=== PATIENT | male | born 1960 | race Caucasian/White ===

== ENCOUNTER → 2017-02-06 | Outpatient (CLI) | payer OTHER ==
[~2017-02-06] MED LIST: ALBUTEROL2.5 MG/0.5 INH; AMOXICILLIN500 MG PO; ANAPROX DS550 MG PO; ASPIR-TRIN325 MG PO; ASPIRIN81 M1 PO; AUGMENTIN 875 M1 TA1 PO; AUGMENTIN 875 M1 TAB PO; B COMPLEX1 EACH PO; B12-METHYL1000 MCG PO; B12100 MC1 PO; BACTRIM DS 8001 TA1 PO; BP MED; CATAFLAM50 MG PO; CEPHALEXIN500 M1 PO; CIPRO500 MG PO; CIPROFLOXACIN500 MG PO; CLARITIN10 MG PO; CLINDAMYCIN HC300 MG PO; CORTISPORIN SUS10 ML OT; CYCLOBENZAPRINE10 MG PO; CYCLOBENZAPRINE5 M3 PO; DARVOCET N 1001 TAB PO; DAYPRO600 M1 PO; ECOTRIN325 MG PO; EPI EZ PEN1 MG/ML IM; FIORICET 325 MG1 TAB PO; FIORTAL 325 MG-1 TAB PO; FLEXERIL10 MG PO; FLEXERIL5 MG PO; FLOMAX0.4 MG PO; FLONASE 0.05% 121 EA NAS; FLONASE0.05 MG/AC NS; FLUTICASON0.05 MG/AC NAS; GABAPENTIN100 M2 PO; HYDR25T PO; HYDROCODONE BIT1 T11 PO; IMITREX100 MG PO; IMITREX50 MG PO; IRON COMPLEX PO; IRON90 MG PO; KEFLEX500 MG PO; LEVAQUIN500 M2 PO; LEVAQUIN750 M1 PO; LEVAQUIN750 MG PO; LEVOFLOXACIN500 MG PO; LISINOPRIL10 MG PO; LISINOPRIL20 MG PO; MEDROL DOSEPAK4 MG PO; MIDRIN (DURADR1 CAP PO; MOBIC15 MG PO; MOTRIN800 MG PO; MULTI VITAMINS1 TAB PO; Motrin,Rufen800 MG PO; NAPROSYN500 MG PO; NASACORT55 MCG/ACT NS; NATURE'S BLEND F1 MG PO; NEURONTIN300 MG PO; NKHM; NORCO 10-325 T1 EACH PO; NORCO 325 MG-101 TAB PO; NORCO 325 MG-51 TAB PO; NORFLEX100 MG PO; PERCOCET 325 MG1 TA5 PO; PHENERGAN W/ DE30 ML PO; PHENERGAN W/DM120 ML PO; PHENERGAN25 M1 PO; PREDNICOT20 MG PO; PREDNISONE10 MG PO; PROAIR HFA0.09 MG/AC IH; QVAR8.7 GM INH; ROBAXIN750 MG PO; ROBITUSSIN AC 110 ML PO; TOPAMAX25 M1 PO; TOPAMAX50 MG PO; TOPIRAMATE25 MG PO; TRAMADOL HCL50 MG PO; TROKENDI XR50 M1 PO; TYLENOL325 M1 PO; TYLENOL325 M2 PO; TYLENOL650 M1 PO; ULTRAM50 MG PO; VALIUM5 MG PO; VIBRAMYCIN100 MG PO; VICODIN 5/500 505 MG PO; VICODIN 500 MG-1 TAB PO; VICODIN ES 7501 TAB PO; VITAMIN D-32000 UNI1 PO; Vicodin 5/500 505 MG PO; ZITHROMAX Z PA250 MG PO; ZOFRAN ODT4 MG SL; ZOFRAN4 MG PO; Zofran4 MG PO; [UNRECOGNIZED DRUG - OTHER] PO; [UNRECOGNIZED DRUG - REMARK] PO
== END | disposition home or self-care (01) ==
LOC: RESCLI 14:17
DX: J01.11 Acute recurrent frontal sinusitis (principal)

== ENCOUNTER → 2017-02-27 | Outpatient (CLI) | payer OTHER ==
[~2017-02-27] MED LIST changes: +AUGMENTIN 875-875 MG PO
== END | disposition home or self-care (01) ==
LOC: RESCLI 03:06
DX: I10 Essential (primary) hypertension (principal); M79.604 Pain in right leg; M79.605 Pain in left leg; K21.9 Gastro-esophageal reflux disease without esophagitis

== ENCOUNTER 2017-03-01 19:53 | Emergency (ER) | payer OTHER ==
[~2017-03-01] VITALS: Ht 170.1 cm; Wt 70.3 kg
[~2017-03-01 19:53] MED LIST changes: -AUGMENTIN 875-875 MG PO
[2017-03-01 20:14] VITALS: BP 167/81
[2017-03-01] MEDS ORDERED: AUGMENTIN 875-875 MG PO (20:35)
== END 2017-03-01 20:41 | disposition home or self-care (01) ==
LOC: ED 19:53
DX: H65.111 Acute and subacute allergic otitis media (mucoid) (sanguinous) (serous), right ear (principal); J02.9 Acute pharyngitis, unspecified; F17.200 Nicotine dependence, unspecified, uncomplicated; G43.909 Migraine, unspecified, not intractable, without status migrainosus; I10 Essential (primary) hypertension; Z88.6 Allergy status to analgesic agent; Z79.82 Long term (current) use of aspirin; Z79.899 Other long term (current) drug therapy

== ENCOUNTER 2017-03-17 18:20 | Emergency (ER) | payer OTHER ==
[~2017-03-17] VITALS: Wt 65.8 kg
[~2017-03-17 18:20] MED LIST changes: +AUGMENTIN 875-875 MG PO
[2017-03-17 19:10] VITALS: BP 146/88
== END 2017-03-17 19:52 | disposition home or self-care (01) ==
LOC: ED 18:20
DX: S63.501A Unspecified sprain of right wrist, initial encounter (principal); R51 Headache; F17.210 Nicotine dependence, cigarettes, uncomplicated; Z98.890 Other specified postprocedural states; Z90.49 Acquired absence of other specified parts of digestive tract; Z79.82 Long term (current) use of aspirin; Z79.899 Other long term (current) drug therapy; Z88.6 Allergy status to analgesic agent; W19.XXXA Unspecified fall, initial encounter; Y93.89 Activity, other specified; Y92.89 Other specified places as the place of occurrence of the external cause; Y99.9 Unspecified external cause status

== ENCOUNTER → 2017-03-27 | Outpatient (CLI) | payer OTHER | END | disposition home or self-care (01) | LOC: RESCLI 02:01 | DX: S33.9XXA Sprain of unspecified parts of lumbar spine and pelvis, initial encounter (principal); K21.9 Gastro-esophageal reflux disease without esophagitis; F32.9 Major depressive disorder, single episode, unspecified; I25.10 Atherosclerotic heart disease of native coronary artery without angina pectoris; Z88.8 Allergy status to other drugs, medicaments and biological substances; Z87.891 Personal history of nicotine dependence; X58.XXXA Exposure to other specified factors, initial encounter; Y93.89 Activity, other specified; Y92.89 Other specified places as the place of occurrence of the external cause; Y99.8 Other external cause status ==

== ENCOUNTER 2017-04-11 18:59 | Emergency (ER) | payer OTHER ==
[~2017-04-11] VITALS: Ht 170.1 cm; Wt 67.1 kg
[2017-04-11 19:38] VITALS: BP 138/87
[2017-04-11 20:08] LABS: BASO # 0.1 10*3/uL (0.0-0.1); BASO % 0.8 % (0.0-1.0); EOS # 0.4 10*3/uL (0.0-0.4); EOS % 3.5 % (1.0-4.0); HEMATOCRIT 34.4 % (42.0-52.0); HEMOGLOBIN 11.7 g/dl (14.0-18.0); LYMPH # 2.2 10*3/uL (1.3-4.4); LYMPH % 21.5 % (27.0-41.0); MEAN CORPUSCULAR HGB 31.6 pg (27.0-31.0); MEAN PLATELET VOLUME 8.7 fl (9.6-12.3); MONO # 0.8 10*3/uL (0.1-1.0); MONO % 7.6 % (3.0-9.0); NEUT # 6.7 10*3/uL (2.3-7.9); NEUT % 66.3 % (47.0-73.0); PLATELET COUNT AUTOMATED 498 10*3/uL (130-400); WHITE BLOOD COUNT 10.1 10*3/uL (4.8-10.8)
[2017-04-11 20:23] LABS: ALBUMIN 3.5 gm/dl (3.1-4.5); ALKALINE PHOSPHATASE 80 U/L (45-117); BILIRUBIN, TOTAL 0.2 mg/dl (0.2-1.0); BUN 20 mg/dl (7-24); CARBON DIOXIDE 21 mmol/L (21-32); CHLORIDE 108 mmol/L (98-107); EST GLOM FILT AFRICAN AMERICAN > 60 ml/min; GLUCOSE 119 mg/dL (65-99); POTASSIUM 3.9 mmol/L (3.5-5.1); SGOT/AST 13 IU/L (3-35); SGPT/ALT 20 U/L (12-78); SODIUM 139 mmol/L (136-145); TOTAL PROTEIN 6.6 gm/dL (6.4-8.2)
[2017-04-11 22:00] LABS: BILIRUBIN NEGATIVE (NEGATIVE); BLOOD NEGATIVE (NEGATIVE); CLARITY CLEAR (CLEAR); COLOR YELLOW (YELLOW); GLUCOSE TRACE (NEGATIVE); KETONE NEGATIVE (NEGATIVE); LEUKO ESTERASE NEGATIVE (NEGATIVE); NITRITE NEGATIVE (NEGATIVE); PROTEIN NEGATIVE (NEGATIVE); SPECIFIC GRAVITY <= 1.005 (1.005-1.030); UROBILINOGEN 0.2 E.U./dl (0.2-1.0)
[2017-04-11 22:02] LABS: HYALINE CAST 0-2
[2017-04-11 22:03] LABS: BACTERIA 1+; RBC 0-2 rbc/hpf (0-2); URINE REFLEX COMMENT NO (NO); WBC 0-2 wbc/hpf (0-5)
[2017-04-11] MEDS ORDERED: CYCLOBENZAPRINE5 M3 PO (23:26)
[2017-04-11] MEDS ORDERED: NAPROSYN500 MG PO (23:26)
== END 2017-04-11 23:50 | disposition home or self-care (01) ==
LOC: ED 18:59
PROVIDERS: Physician Assistant
DX: M54.5 Low back pain (principal); F17.200 Nicotine dependence, unspecified, uncomplicated; Z88.6 Allergy status to analgesic agent; Z79.899 Other long term (current) drug therapy; Z79.82 Long term (current) use of aspirin; Z98.890 Other specified postprocedural states

== ENCOUNTER 2017-04-21 17:42 | Emergency (ER) | payer OTHER ==
[~2017-04-21] VITALS: Wt 68.0 kg
[2017-04-21 17:46] VITALS: BP 150/90
[2017-04-21 18:06] LABS: BASO # 0.1 10*3/uL (0.0-0.1); BASO % 0.7 % (0.0-1.0); EOS # 0.4 10*3/uL (0.0-0.4); HEMATOCRIT 36.1 % (42.0-52.0); HEMOGLOBIN 12.1 g/dl (14.0-18.0); LYMPH # 2.6 10*3/uL (1.3-4.4); LYMPH % 23.8 % (27.0-41.0); MEAN CELL VOLUME 94.3 fl (80.0-94.0); MEAN CORPUSCULAR HGB 31.6 pg (27.0-31.0); MEAN CORPUSCULAR HGB CONC 33.5 g/dl (33.0-37.0); MEAN PLATELET VOLUME 9.5 fl (9.6-12.3); MONO # 0.6 10*3/uL (0.1-1.0); NEUT # 7.2 10*3/uL (2.3-7.9); NEUT % 66.2 % (47.0-73.0); PLATELET COUNT AUTOMATED 465 10*3/uL (130-400); RED BLOOD COUNT 3.83 10*6/uL (4.50-5.90); RED CELL DISTRI WIDTH 13.2 % (0-14.5); WHITE BLOOD COUNT 10.9 10*3/uL (4.8-10.8)
[2017-04-21 18:22] LABS: BILIRUBIN NEGATIVE (NEGATIVE); BLOOD NEGATIVE (NEGATIVE); CLARITY SL CLOUDY (CLEAR); COLOR YELLOW (YELLOW); GLUCOSE NEGATIVE (NEGATIVE); KETONE NEGATIVE (NEGATIVE); LEUKO ESTERASE NEGATIVE (NEGATIVE); NITRITE NEGATIVE (NEGATIVE); PROTEIN NEGATIVE (NEGATIVE); SPECIFIC GRAVITY <= 1.005 (1.005-1.030); UROBILINOGEN 0.2 E.U./dl (0.2-1.0)
[2017-04-21 18:22] LABS: ALBUMIN 3.5 gm/dl (3.1-4.5); ALKALINE PHOSPHATASE 85 U/L (45-117); BILIRUBIN, TOTAL 0.2 mg/dl (0.2-1.0); BUN 16 mg/dl (7-24); CARBON DIOXIDE 21 mmol/L (21-32); CHLORIDE 106 mmol/L (98-107); EST GLOM FILT AFRICAN AMERICAN > 60 ml/min; GLUCOSE 129 mg/dL (65-99); SGOT/AST 15 IU/L (3-35); SGPT/ALT 19 U/L (12-78); SODIUM 139 mmol/L (136-145); TOTAL PROTEIN 6.6 gm/dL (6.4-8.2)
[2017-04-21 18:33] LABS: RBC 0-2 rbc/hpf (0-2); URINE REFLEX COMMENT NO (NO); WBC 0-2 wbc/hpf (0-5)
== END 2017-04-21 19:52 | disposition home or self-care (01) ==
LOC: ED 17:42
PROVIDERS: Registered Nurse
DX: R10.31 Right lower quadrant pain (principal); R30.9 Painful micturition, unspecified; F17.210 Nicotine dependence, cigarettes, uncomplicated; Z88.6 Allergy status to analgesic agent; Z79.899 Other long term (current) drug therapy; Z79.82 Long term (current) use of aspirin

== ENCOUNTER → 2017-04-24 | Outpatient (CLI) | payer OTHER | END | disposition home or self-care (01) | LOC: RESCLI 02:56 | DX: I10 Essential (primary) hypertension (principal); E55.9 Vitamin D deficiency, unspecified; R10.9 Unspecified abdominal pain; K21.9 Gastro-esophageal reflux disease without esophagitis; F32.9 Major depressive disorder, single episode, unspecified; Z88.6 Allergy status to analgesic agent ==

== ENCOUNTER → 2017-04-26 | Outpatient (CLI) | payer OTHER | END | disposition home or self-care (01) | LOC: US 16:13 | DX: R10.9 Unspecified abdominal pain (principal) ==

== ENCOUNTER → 2017-05-22 | Outpatient (CLI) | payer OTHER | END | disposition home or self-care (01) | LOC: RESCLI 03:10 | DX: M54.41 Lumbago with sciatica, right side (principal); I10 Essential (primary) hypertension; K21.9 Gastro-esophageal reflux disease without esophagitis; M54.10 Radiculopathy, site unspecified; J31.0 Chronic rhinitis; Z72.0 Tobacco use ==

== ENCOUNTER 2017-06-09 18:13 | Emergency (ER) | payer OTHER ==
[~2017-06-09] VITALS: Wt 68.0 kg
[2017-06-09 18:17] VITALS: BP 124/54
[2017-06-09] MEDS ORDERED: FLONASE ALLERG9.9 ML NAS (18:26)
[2017-06-09] MEDS ORDERED: PREDNISONE10 MG PO (18:26)
[2017-06-09] MEDS ORDERED: CLARITIN10 MG PO (18:26)
[2017-06-09] MEDS ORDERED: AMOXICILLIN500 M2 PO (18:35)
== END 2017-06-09 18:32 | disposition home or self-care (01) ==
LOC: ED 18:13
DX: J06.9 Acute upper respiratory infection, unspecified (principal); M25.531 Pain in right wrist; I10 Essential (primary) hypertension; G43.909 Migraine, unspecified, not intractable, without status migrainosus; F17.210 Nicotine dependence, cigarettes, uncomplicated; Z88.6 Allergy status to analgesic agent; Z79.82 Long term (current) use of aspirin; Z79.899 Other long term (current) drug therapy

== ENCOUNTER 2017-06-23 16:46 | Emergency (ER) | payer OTHER ==
[~2017-06-23] VITALS: Ht 170.1 cm; Wt 70.3 kg
[~2017-06-23 16:46] MED LIST changes: +AMOXICILLIN500 M2 PO; +FLONASE ALLERG9.9 ML NAS
[2017-06-23 17:03] VITALS: BP 140/66
[2017-06-23 17:18] LABS: BASO % 0.4 % (0.0-1.0); EOS # 0.2 10*3/uL (0.0-0.4); EOS % 2.8 % (1.0-4.0); HEMATOCRIT 33.2 % (42.0-52.0); HEMOGLOBIN 11.2 g/dl (14.0-18.0); LYMPH # 1.6 10*3/uL (1.3-4.4); LYMPH % 19.7 % (27.0-41.0); MEAN CELL VOLUME 90.2 fl (80.0-94.0); MEAN CORPUSCULAR HGB 30.4 pg (27.0-31.0); MEAN CORPUSCULAR HGB CONC 33.7 g/dl (33.0-37.0); MEAN PLATELET VOLUME 8.4 fl (9.6-12.3); MONO # 0.5 10*3/uL (0.1-1.0); MONO % 6.5 % (3.0-9.0); NEUT # 5.7 10*3/uL (2.3-7.9); NEUT % 70.4 % (47.0-73.0); PLATELET COUNT AUTOMATED 491 10*3/uL (130-400); RED BLOOD COUNT 3.68 10*6/uL (4.50-5.90); RED CELL DISTRI WIDTH 13.3 % (0-14.5); WHITE BLOOD COUNT 8.1 10*3/uL (4.8-10.8)
[2017-06-23 17:27] LABS: ACT PARTIAL THROMBO TIME 27.5 SECONDS (20.8-31.5)
[2017-06-23 17:34] LABS: ALKALINE PHOSPHATASE 105 U/L (45-117); BUN 10 mg/dl (7-24); CHLORIDE 100 mmol/L (98-107); CREATININE 1.05 mg/dL (0.70-1.30); MAGNESIUM 2.2 mg/dL (1.5-2.1); SGOT/AST 13 IU/L (3-35); SGPT/ALT 17 U/L (12-78); SODIUM 133 mmol/L (136-145); TOTAL PROTEIN 7.4 gm/dL (6.4-8.2)
[2017-06-23 17:36] LABS: TROPONIN I < 0.015 ng/ml (<0.045)
[2017-06-23] MEDS ORDERED: ROBITUSSIN AC 110 ML PO (17:54)
[2017-06-23] MEDS ORDERED: PREDNISONE10 MG PO (17:54)
== END 2017-06-23 18:38 | disposition home or self-care (01) ==
LOC: ED 16:46
PROVIDERS: Nurse Practitioner Family
DX: J20.9 Acute bronchitis, unspecified (principal); R03.0 Elevated blood-pressure reading, without diagnosis of hypertension; F17.200 Nicotine dependence, unspecified, uncomplicated; Z98.890 Other specified postprocedural states; Z90.49 Acquired absence of other specified parts of digestive tract; Z79.82 Long term (current) use of aspirin; Z79.899 Other long term (current) drug therapy; Z88.6 Allergy status to analgesic agent

== ENCOUNTER 2017-07-24 20:11 | Emergency (ER) | payer OTHER ==
[~2017-07-24] VITALS: Ht 167.6 cm; Wt 65.8 kg
[2017-07-24 20:35] VITALS: BP 118/61
== END 2017-07-24 23:04 | disposition home or self-care (01) ==
LOC: ED 20:11
DX: G43.909 Migraine, unspecified, not intractable, without status migrainosus (principal); F17.210 Nicotine dependence, cigarettes, uncomplicated; G89.29 Other chronic pain; I10 Essential (primary) hypertension; E78.00 Pure hypercholesterolemia, unspecified; Z98.890 Other specified postprocedural states; Z90.49 Acquired absence of other specified parts of digestive tract; Z79.899 Other long term (current) drug therapy; Z79.82 Long term (current) use of aspirin; Z88.6 Allergy status to analgesic agent

== ENCOUNTER → 2017-08-21 | Outpatient (CLI) | payer OTHER | END | disposition home or self-care (01) | LOC: RESCLI 01:29 | DX: B35.1 Tinea unguium (principal); R05 Cough; M25.441 Effusion, right hand; M54.9 Dorsalgia, unspecified; G43.709 Chronic migraine without aura, not intractable, without status migrainosus; K21.9 Gastro-esophageal reflux disease without esophagitis; F32.9 Major depressive disorder, single episode, unspecified ==

== ENCOUNTER → 2017-08-24 | Outpatient (CLI) | payer OTHER ==
[2017-08-24 12:26] LABS: BASO # 0.1 10*3/uL (0.0-0.1); BASO % 0.8 % (0.0-1.0); EOS # 0.1 10*3/uL (0.0-0.4); EOS % 1.6 % (1.0-4.0); HEMATOCRIT 35.1 % (42.0-52.0); HEMOGLOBIN 11.4 g/dl (14.0-18.0); LYMPH # 2.1 10*3/uL (1.3-4.4); LYMPH % 23.8 % (27.0-41.0); MEAN CELL VOLUME 90.2 fl (80.0-94.0); MEAN CORPUSCULAR HGB 29.3 pg (27.0-31.0); MEAN CORPUSCULAR HGB CONC 32.5 g/dl (33.0-37.0); MEAN PLATELET VOLUME 9.5 fl (9.6-12.3); MONO # 0.4 10*3/uL (0.1-1.0); MONO % 4.9 % (3.0-9.0); NEUT # 6.1 10*3/uL (2.3-7.9); NEUT % 68.6 % (47.0-73.0); PLATELET COUNT AUTOMATED 392 10*3/uL (130-400); RED BLOOD COUNT 3.89 10*6/uL (4.50-5.90); RED CELL DISTRI WIDTH 16.7 % (0-14.5); WHITE BLOOD COUNT 8.9 10*3/uL (4.8-10.8)
[2017-08-24 12:43] LABS: ALBUMIN 3.6 gm/dl (3.1-4.5); ALKALINE PHOSPHATASE 82 U/L (45-117); BUN 19 mg/dl (7-24); CHLORIDE 105 mmol/L (98-107); POTASSIUM 4.1 mmol/L (3.5-5.1); SGOT/AST 14 IU/L (3-35); SGPT/ALT 15 U/L (12-78); SODIUM 137 mmol/L (136-145); TOTAL PROTEIN 7.1 gm/dL (6.4-8.2)
[2017-08-24 13:39] LABS: VITAMIN D, 25-HYDROXY 51.7 ng/mL (30-100)
[2017-08-25 08:07] LABS: RHEUMATOID ARTHRITIS FACTOR <10.0 IU/mL (0.0-13.9)
[2017-08-26 20:06] LABS: CCP ANTIBODIES IGG/IGA 2 units (0-19)
== END | disposition home or self-care (01) ==
LOC: LAB 11:53
PROVIDERS: Internal Medicine
DX: M25.441 Effusion, right hand (principal); E55.9 Vitamin D deficiency, unspecified

== ENCOUNTER 2017-09-21 16:16 | Emergency (ER) | payer OTHER ==
[~2017-09-21] VITALS: Ht 170.1 cm; Wt 70.3 kg
[2017-09-21 16:33] VITALS: BP 170/80
== END 2017-09-21 18:22 | disposition home or self-care (01) ==
LOC: ED 16:16
DX: R51 Headache (principal); F17.210 Nicotine dependence, cigarettes, uncomplicated; Z98.890 Other specified postprocedural states; Z90.49 Acquired absence of other specified parts of digestive tract; Z79.82 Long term (current) use of aspirin; Z79.899 Other long term (current) drug therapy; Z88.6 Allergy status to analgesic agent

== ENCOUNTER → 2017-10-01 | Outpatient (CLI) | payer OTHER | END | disposition home or self-care (01) | LOC: RESCLI 01:16 | DX: G56.01 Carpal tunnel syndrome, right upper limb (principal) ==

== ENCOUNTER → 2017-10-24 | Outpatient (CLI) | payer OTHER | END | disposition home or self-care (01) | LOC: ORTHO 01:59 | DX: M25.811 Other specified joint disorders, right shoulder (principal); R29.898 Other symptoms and signs involving the musculoskeletal system ==

== ENCOUNTER → 2017-11-02 | Outpatient (CLI) | payer OTHER ==
[~2017-11-02] MED LIST changes: +MELOXICAM15 MG PO; +NIFEDIPINE ER30 M1 PO; +NORTRIPTYLINE H50 M1 PO
--- NOTE | ~2017-11-02 | EKG ---
[place], [place] ELECTROCARDIOGRAM REPORT NAME: KIERRA LABOY UNIT #: [id number] ROOM: DOCTOR: JOVANA RAUSCH,MACARIO BIRTHDATE: [birth year] DOS: 11/02/2017 TIME: 10:35. IMPRESSION: 1. Sinus rhythm. 2. Right atrial enlargement. 3. Inferior nondiagnostic ST-T changes. 4. Normal QT interval. MACARIO WHALEY MD CM:EKGRPT:ELECTROCARDIOGRAM REPORT [id number] [id number] MACARIO WHALEY MD
[2017-11-02 09:56] LABS: BASO # 0.1 10*3/uL (0.0-0.1); BASO % 0.7 % (0.0-1.0); EOS # 0.2 10*3/uL (0.0-0.4); EOS % 2.4 % (1.0-4.0); HEMATOCRIT 42.6 % (42.0-52.0); HEMOGLOBIN 14.3 g/dl (14.0-18.0); LYMPH # 2.5 10*3/uL (1.3-4.4); LYMPH % 24.3 % (27.0-41.0); MEAN CELL VOLUME 90.4 fl (80.0-94.0); MEAN CORPUSCULAR HGB 30.4 pg (27.0-31.0); MEAN CORPUSCULAR HGB CONC 33.6 g/dl (33.0-37.0); MEAN PLATELET VOLUME 9.8 fl (9.6-12.3); MONO # 0.7 10*3/uL (0.1-1.0); MONO % 6.5 % (3.0-9.0); NEUT # 6.6 10*3/uL (2.3-7.9); NEUT % 65.2 % (47.0-73.0); PLATELET COUNT AUTOMATED 371 10*3/uL (130-400); RED BLOOD COUNT 4.71 10*6/uL (4.50-5.90); RED CELL DISTRI WIDTH 13.9 % (0-14.5); WHITE BLOOD COUNT 10.1 10*3/uL (4.8-10.8)
[2017-11-02 10:22] LABS: BUN 11 mg/dl (7-24); CHLORIDE 108 mmol/L (98-107); CREATININE 1.05 mg/dL (0.70-1.30); POTASSIUM 4.3 mmol/L (3.5-5.1); SODIUM 140 mmol/L (136-145)
== END | disposition home or self-care (01) ==
LOC: LAB 08:15
PROVIDERS: Orthopaedic Surgery
DX: Z01.818 Encounter for other preprocedural examination (principal); G56.01 Carpal tunnel syndrome, right upper limb; J44.9 Chronic obstructive pulmonary disease, unspecified; J84.10 Pulmonary fibrosis, unspecified; I25.2 Old myocardial infarction; F17.200 Nicotine dependence, unspecified, uncomplicated

== ENCOUNTER → 2017-11-08 | Day surgery (SDC) | payer OTHER ==
[2017-11-02 09:31] VITALS: BP 123/78
[~2017-11-08] VITALS: Ht 170.1 cm; Wt 68.0 kg
[~2017-11-08] MED LIST changes: +NORCO 5-325 TA1 EACH PO
[2017-11-08 06:57] VITALS: BP 116/62
[2017-11-08 08:40] VITALS: BP 135/76
[2017-11-08 08:55] VITALS: BP 122/69
[2017-11-08 09:01] VITALS: BP 116/69
[2017-11-08 09:10] VITALS: BP 111/64
[2017-11-08 09:40] VITALS: BP 106/48
== END ==
LOC: SDC 11-02 09:30
DX: G56.01 Carpal tunnel syndrome, right upper limb (principal); I10 Essential (primary) hypertension; K21.9 Gastro-esophageal reflux disease without esophagitis; F17.210 Nicotine dependence, cigarettes, uncomplicated; Z98.890 Other specified postprocedural states; Z79.899 Other long term (current) drug therapy; Z88.8 Allergy status to other drugs, medicaments and biological substances; I25.2 Old myocardial infarction; G43.909 Migraine, unspecified, not intractable, without status migrainosus; Z95.5 Presence of coronary angioplasty implant and graft; Z82.49 Family history of ischemic heart disease and other diseases of the circulatory system

== ENCOUNTER 2017-11-23 10:28 | Emergency (ER) | payer OTHER ==
[~2017-11-23] VITALS: Ht 170.1 cm; Wt 70.3 kg
[2017-11-23 10:44] VITALS: BP 154/76
[2017-11-23] MEDS ORDERED: AVPAK AZITHROM250 MG PO (11:59)
[2017-11-23] MEDS ORDERED: PREDNISONE10 MG PO (11:59)
== END 2017-11-23 12:27 | disposition home or self-care (01) ==
LOC: ED 10:28
DX: M54.6 Pain in thoracic spine (principal); R03.0 Elevated blood-pressure reading, without diagnosis of hypertension; F17.200 Nicotine dependence, unspecified, uncomplicated; G43.909 Migraine, unspecified, not intractable, without status migrainosus; M25.511 Pain in right shoulder; G89.29 Other chronic pain; Z90.49 Acquired absence of other specified parts of digestive tract; Z88.5 Allergy status to narcotic agent

== ENCOUNTER → 2017-12-04 | Outpatient (CLI) | payer OTHER ==
[~2017-12-04] MED LIST changes: +AVPAK AZITHROM250 MG PO
== END | disposition home or self-care (01) ==
LOC: RESCLI 08:20
DX: J47.0 Bronchiectasis with acute lower respiratory infection (principal); R07.81 Pleurodynia

== ENCOUNTER → 2017-12-25 | Outpatient (CLI) | payer OTHER | END | disposition home or self-care (01) | LOC: RESCLI 03:30 | DX: I10 Essential (primary) hypertension (principal); G43.909 Migraine, unspecified, not intractable, without status migrainosus; E55.9 Vitamin D deficiency, unspecified; M79.2 Neuralgia and neuritis, unspecified ==

== ENCOUNTER 2018-01-17 19:16 | Emergency (ER) | payer OTHER ==
[~2018-01-17] VITALS: Ht 170.1 cm; Wt 70.3 kg
[2018-01-17 19:26] VITALS: BP 37/76
[2018-01-17] MEDS ORDERED: Orphenadrine C100 MG PO (19:59)
== END 2018-01-17 20:04 | disposition home or self-care (01) ==
LOC: ED 19:16
DX: G43.909 Migraine, unspecified, not intractable, without status migrainosus (principal); F17.210 Nicotine dependence, cigarettes, uncomplicated; G89.29 Other chronic pain; I10 Essential (primary) hypertension; Z98.890 Other specified postprocedural states; Z90.49 Acquired absence of other specified parts of digestive tract; Z79.82 Long term (current) use of aspirin; Z79.899 Other long term (current) drug therapy; Z88.6 Allergy status to analgesic agent

== ENCOUNTER → 2018-03-27 | Outpatient (CLI) | payer OTHER ==
[~2018-03-27] MED LIST changes: +DOXYCYCLINE100 M3 PO; +Orphenadrine C100 MG PO; +PREDNISONE20 M1 PO; +PROVENTIL HFA6.7 GM INH; +TESSALON PERLE100 M1 PO
== END | disposition home or self-care (01) ==
LOC: RESCLI 00:32
DX: I10 Essential (primary) hypertension (principal); E55.9 Vitamin D deficiency, unspecified; K21.9 Gastro-esophageal reflux disease without esophagitis; D64.9 Anemia, unspecified; E53.8 Deficiency of other specified B group vitamins; M19.011 Primary osteoarthritis, right shoulder; G56.01 Carpal tunnel syndrome, right upper limb; G43.909 Migraine, unspecified, not intractable, without status migrainosus; G47.62 Sleep related leg cramps; F32.9 Major depressive disorder, single episode, unspecified

== ENCOUNTER 2018-04-05 19:00 | Emergency (ER) | payer OTHER ==
[~2018-04-05] VITALS: Ht 170.1 cm; Wt 65.8 kg
[~2018-04-05 19:00] MED LIST changes: -DOXYCYCLINE100 M3 PO; -PREDNISONE20 M1 PO; -PROVENTIL HFA6.7 GM INH; -TESSALON PERLE100 M1 PO
[2018-04-05 19:01] VITALS: BP 110/61
[2018-04-05] MEDS ORDERED: PROVENTIL HFA6.7 GM INH (21:19)
[2018-04-05] MEDS ORDERED: DOXYCYCLINE100 M3 PO (21:19)
[2018-04-05] MEDS ORDERED: TESSALON PERLE100 M1 PO (21:19)
[2018-04-05] MEDS ORDERED: PREDNISONE20 M1 PO (21:19)
== END 2018-04-05 21:23 | disposition home or self-care (01) ==
LOC: ED 19:00
DX: J18.1 Lobar pneumonia, unspecified organism (principal); F17.210 Nicotine dependence, cigarettes, uncomplicated; Z79.899 Other long term (current) drug therapy; Z79.82 Long term (current) use of aspirin; Z98.890 Other specified postprocedural states; Z88.6 Allergy status to analgesic agent; Z90.49 Acquired absence of other specified parts of digestive tract

== ENCOUNTER → 2018-04-11 | Outpatient (CLI) | payer OTHER ==
[~2018-04-11] MED LIST changes: +DOXYCYCLINE100 M3 PO; +PREDNISONE20 M1 PO; +PROVENTIL HFA6.7 GM INH; +TESSALON PERLE100 M1 PO; +ZITHROMAX250 MG PO
== END | disposition home or self-care (01) ==
LOC: MRI 10:28
DX: M19.031 Primary osteoarthritis, right wrist (principal); M70.031 Crepitant synovitis (acute) (chronic), right wrist; M66.33 Spontaneous rupture of flexor tendons, forearm; M66.3 Spontaneous rupture of flexor tendons

== ENCOUNTER 2018-04-14 21:30 | Emergency (ER) | payer OTHER ==
[~2018-04-14] VITALS: Ht 170.1 cm; Wt 65.8 kg
[~2018-04-14 21:30] MED LIST changes: -ZITHROMAX250 MG PO
[2018-04-14 21:33] VITALS: BP 145/72
== END 2018-04-14 23:28 | disposition home or self-care (01) ==
LOC: ED 21:30
DX: R51 Headache (principal); F17.210 Nicotine dependence, cigarettes, uncomplicated; G89.29 Other chronic pain; Z98.890 Other specified postprocedural states; Z90.49 Acquired absence of other specified parts of digestive tract; Z79.82 Long term (current) use of aspirin; Z79.899 Other long term (current) drug therapy; Z88.6 Allergy status to analgesic agent

== ENCOUNTER → 2018-04-25 | Outpatient (CLI) | payer OTHER ==
[~2018-04-25] MED LIST changes: +ZITHROMAX250 MG PO
== END | disposition home or self-care (01) ==
LOC: RESCLI 01:41
DX: K21.9 Gastro-esophageal reflux disease without esophagitis (principal); I10 Essential (primary) hypertension; G47.62 Sleep related leg cramps; G89.29 Other chronic pain; Z79.899 Other long term (current) drug therapy; Z88.8 Allergy status to other drugs, medicaments and biological substances

== ENCOUNTER → 2018-05-10 | Outpatient (CLI) | payer OTHER | END | disposition home or self-care (01) | LOC: MRI 12:57 | DX: M75.101 Unspecified rotator cuff tear or rupture of right shoulder, not specified as traumatic (principal) ==

== ENCOUNTER 2018-05-24 16:58 | Emergency (ER) | payer OTHER ==
[~2018-05-24] VITALS: Ht 170.1 cm; Wt 68.0 kg
--- NOTE | ~2018-05-24 | EKG ---
[place], [place] ELECTROCARDIOGRAM REPORT NAME: KIERRA LABOY UNIT #: [id number] ROOM: DOCTOR: EPIPHANY DRAFT REPORT BIRTHDATE: [birth year] [facility] Test Date: 2018-05-24 Test Time: 18:29:31 Pat Name: KIERRA LABOY Department: Room: Gender: M Tierce Filler: EKG.ID : 1960 Requested By: PARRIS DEAL Order Number: [id number] Reading MD: Vikki Parikh MD Measurements Intervals [place] Rate: 68 P: 86 FL: 140 QRS: 78 QRSD: 98 T: 60 QT: 412 QTc: 439 Interpretive Statements Sinus rhythm Left atrial enlargement Electronically Signed On 05-26-2018 9:32:24 PDT by Vikki Parikh MD CM:EKGRPT:ELECTROCARDIOGRAM REPORT [id number] PARRIS DEAL EPIPHANY DRAFT REPORT PARRIS DEAL
[~2018-05-24 16:58] MED LIST changes: -ZITHROMAX250 MG PO
[2018-05-24 17:02] VITALS: BP 133/71
[2018-05-24 18:12] LABS: BASO # 0.1 10*3/uL (0.0-0.1); BASO % 0.6 % (0.0-1.0); EOS # 0.3 10*3/uL (0.0-0.4); EOS % 2.4 % (1.0-4.0); HEMATOCRIT 33.3 % (42.0-52.0); HEMOGLOBIN 10.8 g/dl (14.0-18.0); LYMPH % 19.1 % (27.0-41.0); MEAN CELL VOLUME 94.6 fl (80.0-94.0); MEAN CORPUSCULAR HGB 30.7 pg (27.0-31.0); MEAN CORPUSCULAR HGB CONC 32.4 g/dl (33.0-37.0); MEAN PLATELET VOLUME 8.8 fl (9.6-12.3); MONO # 0.8 10*3/uL (0.1-1.0); MONO % 7.9 % (3.0-9.0); NEUT # 7.1 10*3/uL (2.3-7.9); NEUT % 69.7 % (47.0-73.0); PLATELET COUNT AUTOMATED 564 10*3/uL (130-400); RED BLOOD COUNT 3.52 10*6/uL (4.50-5.90); RED CELL DISTRI WIDTH 13.8 % (0-14.5); WHITE BLOOD COUNT 10.2 10*3/uL (4.8-10.8)
[2018-05-24 18:27] LABS: ALBUMIN 2.6 gm/dl (3.1-4.5); ALKALINE PHOSPHATASE 86 U/L (45-117); BUN 13 mg/dl (7-24); CHLORIDE 105 mmol/L (98-107); CREATININE 0.86 mg/dL (0.70-1.30); POTASSIUM 3.6 mmol/L (3.5-5.1); SGOT/AST 7 IU/L (3-35); SGPT/ALT 14 U/L (12-78); SODIUM 138 mmol/L (136-145); TOTAL PROTEIN 6.6 gm/dL (6.4-8.2)
[2018-05-24] MEDS ORDERED: ZITHROMAX250 MG PO (19:32)
[2018-05-24] MEDS ORDERED: MEDROL DOSEPAK4 MG PO (19:32)
== END 2018-05-24 19:38 | disposition home or self-care (01) ==
LOC: ED 16:58
PROVIDERS: Nurse Practitioner
DX: J40 Bronchitis, not specified as acute or chronic (principal); I25.2 Old myocardial infarction; I10 Essential (primary) hypertension; F17.210 Nicotine dependence, cigarettes, uncomplicated; Z98.890 Other specified postprocedural states; Z90.49 Acquired absence of other specified parts of digestive tract; Z79.899 Other long term (current) drug therapy; Z88.6 Allergy status to analgesic agent; Z79.82 Long term (current) use of aspirin

== ENCOUNTER 2018-07-20 10:15 | Emergency (ER) | payer OTHER ==
[~2018-07-20] VITALS: Ht 170.1 cm; Wt 65.8 kg
[~2018-07-20 10:15] MED LIST changes: +ZITHROMAX250 MG PO
[2018-07-20 11:13] VITALS: BP 138/80
== END 2018-07-20 11:40 | disposition home or self-care (01) ==
LOC: ED 10:15
DX: G43.909 Migraine, unspecified, not intractable, without status migrainosus (principal); I10 Essential (primary) hypertension; G89.29 Other chronic pain; R73.9 Hyperglycemia, unspecified; Z88.8 Allergy status to other drugs, medicaments and biological substances; Z79.82 Long term (current) use of aspirin; Z79.899 Other long term (current) drug therapy; Z90.49 Acquired absence of other specified parts of digestive tract

== ENCOUNTER 2018-08-02 14:25 | Emergency (ER) | payer OTHER ==
[~2018-08-02] VITALS: Ht 170.1 cm; Wt 63.5 kg
--- NOTE | ~2018-08-02 | EKG ---
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: : 1960 Requested By: NICK SALOMON PA-C Order Number: [id number] Reading MD: Eran Mcclellan MD Measurements Intervals [place] Rate: 63 P: 95 IA: 147 QRS: 85 QRSD: 99 T: 72 QT: 398 QTc: 408 Interpretive Statements Sinus rhythm Consider left atrial enlargement RSR' in V1 or V2, probably normal variant Probable left ventricular hypertrophy Anterior ST elevation, probably due to LVH Compared to ECG 05/24/2018 18:29:31 RSR' in V1 or V2 now present Left ventricular hypertrophy now present ST (T wave) deviation now present Left ventricular hypertrophy now present Electronically Signed On 08-05-2018 10:58:59 PDT by Eran Mcclellan MD CM:EKGRPT:ELECTROCARDIOGRAM REPORT 1456 1058 NICK SALOMON PA-C EPIPHANY DRAFT REPORT NICK SALOMON PA-C
[2018-08-02 14:27] VITALS: BP 122/64
[2018-08-02 15:08] LABS: BASO # 0.1 10*3/uL (0.0-0.1); BASO % 0.9 % (0.0-1.0); EOS # 0.2 10*3/uL (0.0-0.4); EOS % 1.7 % (1.0-4.0); HEMATOCRIT 35.8 % (42.0-52.0); LYMPH # 1.9 10*3/uL (1.3-4.4); LYMPH % 18.2 % (27.0-41.0); MEAN CORPUSCULAR HGB 31.2 pg (27.0-31.0); MEAN CORPUSCULAR HGB CONC 33.5 g/dl (33.0-37.0); MEAN PLATELET VOLUME 8.7 fl (9.6-12.3); MONO # 0.7 10*3/uL (0.1-1.0); MONO % 6.6 % (3.0-9.0); NEUT # 7.4 10*3/uL (2.3-7.9); NEUT % 72.2 % (47.0-73.0); PLATELET COUNT AUTOMATED 472 10*3/uL (130-400); RED BLOOD COUNT 3.85 10*6/uL (4.50-5.90); RED CELL DISTRI WIDTH 14.4 % (0-14.5); WHITE BLOOD COUNT 10.2 10*3/uL (4.8-10.8)
[2018-08-02 15:17] LABS: INTERNATIONAL NORM RATIO 0.9 (2.0-3.5)
[2018-08-02 15:24] LABS: ALBUMIN 3.6 gm/dl (3.1-4.5); ALKALINE PHOSPHATASE 92 U/L (45-117); BUN 11 mg/dl (7-24); CHLORIDE 98 mmol/L (98-107); CREATININE 1.01 mg/dL (0.70-1.30); POTASSIUM 4.4 mmol/L (3.5-5.1); SGOT/AST 10 IU/L (3-35); SGPT/ALT 18 U/L (12-78); SODIUM 131 mmol/L (136-145); TOTAL PROTEIN 7.7 gm/dL (6.4-8.2)
[2018-08-02 15:27] LABS: TROPONIN I < 0.015 ng/ml (<0.045)
[2018-08-02 18:25] LABS: ALBUMIN 3.3 gm/dl (3.1-4.5); ALKALINE PHOSPHATASE 86 U/L (45-117); BUN 13 mg/dl (7-24); CHLORIDE 102 mmol/L (98-107); CREATININE 0.94 mg/dL (0.70-1.30); POTASSIUM 4.4 mmol/L (3.5-5.1); SGOT/AST 13 IU/L (3-35); SGPT/ALT 15 U/L (12-78); SODIUM 133 mmol/L (136-145); TOTAL PROTEIN 6.8 gm/dL (6.4-8.2)
[2018-08-02] MEDS ORDERED: ZOFRAN ODT4 MG SL (18:45)
== END 2018-08-02 18:51 | disposition home or self-care (01) ==
LOC: ED 14:25
PROVIDERS: Physician Assistant
DX: B34.9 Viral infection, unspecified (principal); E86.0 Dehydration; R07.81 Pleurodynia; F17.210 Nicotine dependence, cigarettes, uncomplicated; Z90.49 Acquired absence of other specified parts of digestive tract; Z79.82 Long term (current) use of aspirin; Z79.899 Other long term (current) drug therapy; Z88.6 Allergy status to analgesic agent

== ENCOUNTER 2018-08-10 18:03 | Inpatient (IN) | payer OTHER ==
[~2018-08-10] VITALS: Ht 170.1 cm; Wt 57.4 kg
--- NOTE | ~2018-08-10 | PROC NOTE ---
[place], [place] PROCEDURE NOTE [id number] UNIT #: [id number] ROOM: 502 DOCTOR: FANY FALL MD,BAMBI BIRTHDATE: [birth year] DOS: 08/14/2018 PREOPERATIVE DIAGNOSIS: Persistent severe cough. POSTOPERATIVE DIAGNOSIS: Abnormal findings on the CT scan of the chest, right upper lobe. COMPLICATION: None. PROCEDURE DESCRIPTION: Informed consent obtained with the patient. The patient brought to the OR and placed in supine position. Conscious sedation administered by the Anesthesia Department. After achieving proper sedation, airway introduced into the mouth. Bronchoscope advanced to the airway into laryngeal area. Epiglottis and vocal cords were seen. Vocal cord noted symmetrically movements. Bronchoscope further advanced the tracheal lumen noted small amount of secretions. The right upper, right middle, right lower, left upper, lingular lower bronchi were all examined with small amount of scattered mucus secretion present. Impacting the endobronchial tree bilaterally, suctioned out with half normal saline wash. The BAL specimen was also obtained from the patient, from the right upper lobe as well, successfully. Procedure was tolerated without any complication. Postoperative findings will be discussed with the patient once the patient recovered the effects of acute sedation. BAMBI SOARES MD CM:PROCNOTE:PROCEDURE NOTE 1259 1533 BAMBI FALL MD
--- NOTE | ~2018-08-10 | PR ---
[place], [place] PROGRESS NOTE NAME: KIERRA LABOY [facility] #: [id number] UNIT #: [id number] ROOM: 502 DOCTOR: FANY FALL MDBAMBI BIRTHDATE: [birth year] DOS: 08/15/2018 HISTORY OF PRESENT ILLNESS: The patient has been noted partial improvement of the cough from yesterday. He has a bronchoscopy done, his BAL specimen of right upper lobe was also done. He has not been noted symptoms of fever or chills. Denies symptoms of chest pain. Denies symptoms of nausea or vomiting. The patient denies symptoms of headache or diplopia. Denies symptoms of sore throat, hoarseness. Denies pain of the lower extremities. The remaining systems were reviewed. They were noted all negative. OBJECTIVE: VITAL SIGNS: For the patient which were recorded shows the temperature noted as normal. The respiratory rate of the patient recorded as 18, heart rate 78, blood pressure 104/44. Pulse oxygen saturation of the patient recorded as 100% on room air. HEENT: Examination shows head was atraumatic. Eyes nonicterus. NECK: Supple. CARDIOVASCULAR: S1, S2 audible. LUNGS: The patient noted with moderate decreased breath sounds in the lungs bilaterally. ABDOMEN: Soft and nontender. Bowel sounds present. EXTREMITIES: The patient noted without any acute edema. MUSCULOSKELETAL: Without any acute deformities. CENTRAL NERVOUS SYSTEM: Cranial nerves 2-12 intact. VISIBLE SKIN: No lesions or rashes. DIAGNOSTIC DATA: Labs today: WBC count 13.2, hemoglobin 11.8, platelet count was 501,000, which is mildly elevated. The BMP and BUN normal. Creatinine normal, glucose 170. Sodium 127 and chloride of 94. The cultures of the bronchial washing for the patient and BAL specimen both were noted evidence of gram-negative bacilli, light to moderate growth in both of the specimens. The Gram stain of the both specimens, few white blood cells, few gram-positive cocci in pairs. Urine for Legionella antigen was noted as negative. BAL specimen was noted with predominantly macrophages. 18 % neutrophils. IMPRESSION: 1. The patient with acute pneumonia, gram-negative infection involving right middle lobe possible right upper lobe would be considered. 2. Leukocytosis, elevated platelet count resulting from the current acute infection. Pleural thickening noted in the right upper lung which might require additional assessment later on to rule out any malignant process or other reasons. PLAN OF MANAGEMENT: Monitor culture results with the patient at the present time. Solu-Medrol dose will be decreased 40 mg daily. The antibiotic coverage of the patient will be changed to the use of the Levaquin. Start the Rocephin. The Levaquin will be ordered 750 mg daily. Adjustment of medication will be further done after the final culture results. Usual care, other supportive therapy, plan of management, care plan and treatment. Usual care and all other [place], [place] PROGRESS NOTE [facility]: [id number] UNIT #: [id number] ROOM: [facility] DOCTOR: FANY FALL MD,BAMBI BIRTHDATE: [birth year] treatment plan of management and therapy. The Zithromax will be also discontinued. Continue nicotine placement patches. BAMBI SOARES MD CM:PNTRANS 1127 1142 BAMBI FALL MD 08/15/18 1142 interface
--- NOTE | ~2018-08-10 | PR ---
[place], [place] PROGRESS NOTE NAME: [facility]IER[facility] LAB[facility] #[facility] [id number] UNIT #: [id number] ROOM: 502 DOCTOR: FANY FALL MD,BAMBI BIRTHDATE: [birth year] DOS: 08/12/2018 SUBJECTIVE: The patient has been noted comfortable at this time with reduction in symptoms of shortness of breath was noted and symptoms of fever or chills. The patient has been noted mild to moderate cough without sputum expectoration. Denies symptoms of fever, chills or hemoptysis. OBJECTIVE: VITAL SIGNS: Normal temperature, respiratory rate 16, heart rate 76, blood pressure 120/64. The pulse ox saturation on room air 100% saturation. HEENT: No new change. NECK: Supple. CARDIOVASCULAR: S1, S2 audible. LUNGS: The patient noted moderate decreased breath sounds. There were no wheezing or crackles. ABDOMEN: Soft, nontender. EXTREMITIES: Without any acute edema. IMPRESSION: 1. The patient with pleural thickening, right upper lobe at this time, significance unknown, chronic infection with chronic inflammatory changes would be considered including malignant process cannot be completely excluded. 2. Small infiltration right middle lobe, suspected acute pneumonia. 3. Acute exacerbation of chronic obstructive pulmonary disease. PLAN OF MANAGEMENT: Continue current plan of management at this time without change in bronchodilators, oxygen supplementation, consideration for fiberoptic bronchoscopy in the next 48 hours to assess the right upper lobe also to get accurate culture results. The TB Gold test was sent to the lab. BAMBI SOARES MD CM:PNTRANS 1102 1540 BAMBI FALL MD 08/12/18 1541 interface
--- NOTE | ~2018-08-10 | EKG ---
[place], [place] ELECTROCARDIOGRAM REPORT NAME: KIERRA LABOY UNIT #: [id number] ROOM: 502 DOCTOR: DARREL DRAFT REPORT BIRTHDATE: [birth year] [facility] Test Date: 2018-08-13 Test Time: 09:55:30 Pat Name: KIERRA LABOY Department: Room: [facility] 2 Gender: M Fire Boss: Sandi Castellanos : 1960 Requested By: BAMBI FALL Order Number: [id number] Reading MD: Bambi Lew MD Measurements Intervals [place] Rate: 71 P: 77 [place]: 137 QRS: 73 QRSD: 104 T: 75 QT: 382 QTc: 416 Interpretive Statements Sinus rhythm RSR' in V1 or V2, probably normal variant Electronically Signed On 08-13-2018 8:58:01 PDT by Bambi Lew MD CM:EKGRPT:ELECTROCARDIOGRAM REPORT [id number] BAMBI ROJO DRAFT REPORT BAMBI FALL MD
--- NOTE | ~2018-08-10 | EKG ---
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
--- NOTE | ~2018-08-10 | PR ---
[place], [place] PROGRESS NOTE [id number] UNIT #: [id number] ROOM: 502 DOCTOR: BAMBI HERCULES MD BIRTHDATE: [birth year] DOS: 08/14/2018 SUBJECTIVE: The patient continued to have severe nonproductive cough with shortness of breath. There were no symptoms of chest pain or hemoptysis. Denies symptoms of headache or diplopia. Denies symptoms of nausea, vomiting, dryness of mouth were reported. Since the patient is n.p.o. past midnight. The remaining systems reviewed. They were noted all negative. OBJECTIVE: VITAL SIGNS: The patient showed normal temperature, respiratory rate 18, heart rate of 78, blood pressure 120/72-120/56. Pulse ox saturation on room air 100% saturation. HEENT: Examination shows head was atraumatic. Eyes nonicterus. NECK: Supple. CARDIOVASCULAR: S1, S2 audible. LUNGS: Noted without any wheeze or crackles. ABDOMEN: Soft, nontender. Bowel sounds present. EXTREMITIES: Without any acute edema. MUSCULOSKELETAL: Without any acute deformities. CENTRAL NERVOUS SYSTEM: Cranial nerves 2-12 intact. LABORATORY DATA: BMP today, glucose 151, BUN and creatinine were normal. CBC this morning, WBC count 11.6, hemoglobin 11.2, hematocrit 34.5, platelet count were normal. IMPRESSION: 1. The patient who has been currently noted with right upper lobe pleural thickening was noted in the past the patient with pleural thickening. 2. Acute tracheobronchitis with severe nonresolving cough. 3. Acute exacerbation of chronic obstructive pulmonary disease. 4. Right middle lobe infiltration. PLAN OF MANAGEMENT: Continuation of the patient's current therapy, plan of management at this time without any acute changes. Bronchodilators administration. Supportive care. With the bronchoscopy BAL specimen for the right upper lobe was also obtained to assess for chronic infections. Cytology will be done. [place], [place] PROGRESS NOTE NAME: KIERRA LABOY UNIT #: [id number] ROOM: 502 DOCTOR: BAMBI HERCULES MD BIRTHDATE: [birth year] BAMBI SOARES MD CM:PNTRANS 1257 1531 BAMBI FALL MD 08/26/18 0914 interface
--- NOTE | ~2018-08-10 | PR ---
[place], [place] PROGRESS NOTE NAME: KIERRA LABOY [facility] #: [id number] UNIT #: [id number] ROOM: 502 DOCTOR: BAMBI HERCULES MD BIRTHDATE: [birth year] DOS: 08/13/2018 SUBJECTIVE: The patient noted comfortable at this time, resting on the bed, noted with a cough, which has been noted modest, the patient remains nonproductive. Shortness of breath occurs with exertion with intermittent wheezing. There were no symptoms of chest pain, fever or chills. Denies symptoms of nausea or vomiting. The patient denies any pain of the lower extremities. Remaining systems were reviewed, they were noted all negative. PHYSICAL EXAMINATION: VITAL SIGNS: Normal temperature, respiratory rate 20, heart rate 67, blood pressure 118/68. Pulse oxygen saturation of the patient noted on room air 100% saturation. HEENT: No acute change. NECK: Supple. CARDIOVASCULAR: S1, S2 is audible. LUNGS: The patient was noted without any wheeze or crackles at the present time. ABDOMEN: Soft, nontender. EXTREMITIES: Without acute edema. MUSCULOSKELETAL: Without acute deformity. CENTRAL NERVOUS SYSTEM: Cranial nerves 2-12 intact. LABORATORY DATA: BMP of this morning, BUN 19, creatinine was normal, glucose 101. Sodium 133. CBC, WBC count normal, hemoglobin 11.1, hematocrit 33.7, platelet count was normal. Blood culture, no bacterial growth from the 27th of this month. IMPRESSION: 1. Acute small pneumonia, right middle lobe. 2. Significant abnormality in the right upper lobe with pleural thickening, rule out any malignant process in that area as well. PLAN OF MANAGEMENT: The patient was planned for the therapeutic bronchoscopy and the assessment of right upper lobe to be done tomorrow. Risk and benefits of the procedure were discussed. This also help to improve the cough with clear secretion from the endobronchial tree. Other plan of therapy and management to be continued as in progress. Supportive therapy, plan of management and treatment. Usual care. [place], [place] PROGRESS NOTE NAME: KIERRA LABOY [facility] #: [id number] UNIT #: [id number] ROOM: [facility] DOCTOR: BAMBI HERCULES MD BIRTHDATE: [birth year] BAMBI SOARES MD CM:PNAUGUSTINA 1155 1553 BAMBI FALL MD 08/26/18 0913 interface
--- NOTE | ~2018-08-10 | CON ---
[place], [place] REPORT OF CONSULTATION NAME: KIERRA LABOY [facility] #: [id number] UNIT #: [id number] ROOM: 502 DOCTOR: BAMBI HERCULES MD BIRTHDATE: [birth year] DOS: 08/11/2018 REASON FOR CONSULTATION: Assess the patient's current acute respiratory symptoms as pneumonia. HISTORY OF PRESENT ILLNESS: A 58-year-old white male patient presented to the hospital. The patient reported symptoms of left-sided chest pain that occurred last Sunday worsened with deep inspiratory efforts. The pain was not radiating, pain was described moderate to severe and sharp at time. The patient came to the Emergency Room for further assessment. The symptoms are also associated with a moderate severe nonproductive cough that started later on with shortness of breath that occurs with exertion. The patient denies symptoms of wheezing with current symptoms. He has been hospitalized. He has a CTA of the chest done as well. REVIEW OF SYSTEMS: CONSTITUTIONAL SYMPTOMS: Fatigue and tiredness noted without any symptoms of fever or chills. EYES: Denies burning, redness, or tenderness. EARS, NOSE, THROAT SYMPTOMS: Denies sore throat, hoarseness, otalgia, postnasal drainage, epistaxis. CARDIOVASCULAR SYSTEM: Anginal pain, edema, pain of the lower extremity. GASTROINTESTINAL SYMPTOMS: Dysphagia, nausea, vomiting, diarrhea, abdominal pain, hematemesis, melena, hematochezia seen. GENITOURINARY SYMPTOMS: No dysuria, suprapubic pain, hematuria. MUSCULOSKELETAL SYMPTOMS: No acute joint pain, redness, or tenderness. SKIN: Did not report any lesions or rashes. Remaining systems were reviewed, they were noted all negative. PAST MEDICAL HISTORY: Known with history of: 1. Essential hypertension. 2. Coronary artery disease with previous myocardial infarction. 3. Migrainous headache. 4. Type 2 diabetes mellitus. 5. Vitamin D deficiency. 6. Hyperlipidemia. 7. Gastroesophageal reflux. 8. History of hydrocephalus. 9. History of allergic rhinitis treated with antihistamines. PAST SURGICAL HISTORY: 1. Noted as a lumbar laminectomy. 2. Surgery for the medical management hydrocephalus with possible surgery. 3. Appendectomy. SOCIAL HISTORY: Per the patient stated he is , has been noted to heavy tobacco use from younger age and was smoking up to 3 packs of cigarettes per day previously. Denies any history of alcohol use or any illicit drugs. [place], [place] REPORT OF CONSULTATION NAME: KIERRA LABOY UNIT #: [id number] ROOM: 502 DOCTOR: BAMBI HERCULES MD BIRTHDATE: [birth year] FAMILY HISTORY: Father at 72 years complication of myocardial infarction. Mother from complication related to the motor vehicle accident. HOME MEDICATIONS: Listed use of albuterol, aspirin, vitamin D, with vitamin B12, Flonase, folic acid, gabapentin, lisinopril, loratadine, Meloxicam, multivitamin, nifedipine, nortriptyline and Topamax. DRUG ALLERGY. NOTED ALLERGY TO THE TORADOL. One of his coworker has been diagnosed with Legionella pneumonia few weeks ago and treated. The patient appeared to be concerned for that. CURRENT MEDICATION: Administered noted use of Flonase, nifedipine, lisinopril, aspirin, vitamin D, multivitamin, loratadine, B12 shots, folic acid, nortriptyline, Topamax, gabapentin, Mucinex, Lovenox for DVT prophylaxis, Solu-Medrol 40 mg b.i.d., DuoNeb every 4 hours, Rocephin, Zithromax, and others. PHYSICAL EXAMINATION: GENERAL: This is a 58-year-old white male, currently noted comfortably sitting on the bed without acute distress. Height of 5 feet 7 inches, weight of 126, BMI 19.8. VITAL SIGNS: Normal temperature since admission, respiratory rate 20-18, heart rate of 58-83, blood pressure 179-92 on admission noted 125/69. The pulse oxygen saturation recorded on room air at rest is 99% saturation. HEAD, EYES, EARS, NOSE, AND THROAT: Head was atraumatic. Eyes nonicterus. NECK: Supple. CARDIOVASCULAR SYSTEM: S1, S2 audible. LUNGS: Noted with moderate decreased breath sounds, scattered expiratory wheezing, no crackles heard. ABDOMEN: Soft, flat, nontender, bowel sounds present. EXTREMITIES: Without any acute edema. MUSCULOSKELETAL: Without acute deformity. VISIBLE SKIN: No lesions or rashes. CENTRAL NERVOUS SYSTEM: Cranial nerves 2-12 noted intact. LABORATORY AND DIAGNOSTIC DATA: Lactic acid yesterday noted normal. CBC on admission yesterday, WBC count 11.9, hemoglobin 12.3, hematocrit 36.7, platelet count 506,000 elevated. The PT, PTT were noted normal yesterday. CMP that was done just a normal BUN and creatinine. Sodium 132. Troponin, which were done yesterday and this morning and 3 sets normal. CBC this morning: WBC count normal, platelet count was decreased 423, but still noted above the normal range. Hemoglobin 11.5. BMP this morning, BUN was noted as normal, creatinine normal, sodium 134. Chest x-ray that was done on admission yesterday was reviewed, shows patchy infiltration in the lower portion of the lungs noted bilaterally. CT of the chest was also reviewed with the patient personally for the PACS images does not show any evidence of pulmonary embolism. The parenchymal window for this patient, which was done was noted with area of paraseptal emphysema changes noted in the lungs. Pleural thickening noted significantly in the right upper lobe as well. Small infiltration, which were noted patchy in the right middle lobe medial lateral subsegment were seen. [place], [place] REPORT OF CONSULTATION NAME: NARDAKIERRA Javier UNIT #: [id number] ROOM: [facility] DOCTOR: FANY FALL MD,[facility] BIRTHDATE: [birth year] Calcification of the pleura was also noted on the right side for this in the left lung pleura noted as normal. The current CT findings were compared to the CT scan of the chest that was done on 11/29/2017 seems to have similar pleural thickening, which has been noted in the upper, unable to assess the patient if there is any progression is difficult conclusion. The calcification of the right pleural fluid in the lower portion of the chest tube remains unchanged. IMPRESSION: The patient will be coming to the hospital noted with a history of chronic heavy nicotine abuse, paraseptal emphysema with acute exacerbation of chronic obstructive pulmonary disease, very likely. The current finding suggestive of legionnaire disease, but because of the work history, possible exposure from the coworker diagnosis legionnaire disease. The urine for legionella antigen will be ordered. The right upper pleural thickening, may need to be monitored with additional the assessment might need to be done. I will be ordering the TB Gold test at this time because of the pleural thickening for assessment. Monitoring results the sputum for Gram stain and culture. Order the urine for legionella antigen as well. No changes in the antibiotics will be needed. Other supportive therapy, plan of management of the patient to be continued as in progress. Continuation of Solu-Medrol as well. Detailed discussion about cessation of tobacco products. Risk and benefits and counseling was done at the bedside, the patient presence of his family members. Other supportive therapy, plan of management, care plan with the other changes in the treatment will be ordered based on the progression of his illness. Order the nicotine replacement patches to overcome any nicotine withdrawal because of history of chronic nicotine dependence. Thanks for allowing me to participate in the care of this patient. BAMBI SOARES MD CM:CONSTR:REPORT OF CONSULTATION 1549 08/26/18 0911 interface
[2018-08-10 18:06] VITALS: BP 128/78
[2018-08-10 19:02] LABS: BASO # 0.1 10*3/uL (0.0-0.1); BASO % 0.8 % (0.0-1.0); EOS # 0.2 10*3/uL (0.0-0.4); EOS % 1.4 % (1.0-4.0); HEMATOCRIT 36.7 % (42.0-52.0); HEMOGLOBIN 12.3 g/dl (14.0-18.0); LYMPH # 2.2 10*3/uL (1.3-4.4); LYMPH % 18.9 % (27.0-41.0); MEAN CELL VOLUME 92.7 fl (80.0-94.0); MEAN CORPUSCULAR HGB 31.1 pg (27.0-31.0); MEAN CORPUSCULAR HGB CONC 33.5 g/dl (33.0-37.0); MEAN PLATELET VOLUME 8.7 fl (9.6-12.3); MONO # 0.6 10*3/uL (0.1-1.0); MONO % 5.1 % (3.0-9.0); NEUT # 8.7 10*3/uL (2.3-7.9); NEUT % 73.5 % (47.0-73.0); PLATELET COUNT AUTOMATED 506 10*3/uL (130-400); RED BLOOD COUNT 3.96 10*6/uL (4.50-5.90); RED CELL DISTRI WIDTH 14.2 % (0-14.5); WHITE BLOOD COUNT 11.9 10*3/uL (4.8-10.8)
[2018-08-10 19:13] LABS: ACT PARTIAL THROMBO TIME 24.5 SECONDS (20.8-31.5); INTERNATIONAL NORM RATIO 0.9 (2.0-3.5)
[2018-08-10 19:20] LABS: ALBUMIN 3.6 gm/dl (3.1-4.5); ALKALINE PHOSPHATASE 90 U/L (45-117); BUN 16 mg/dl (7-24); CHLORIDE 100 mmol/L (98-107); POTASSIUM 3.7 mmol/L (3.5-5.1); SGOT/AST 17 IU/L (3-35); SGPT/ALT 19 U/L (12-78); SODIUM 132 mmol/L (136-145); TOTAL PROTEIN 7.3 gm/dL (6.4-8.2)
[2018-08-10 19:21] LABS: TROPONIN I < 0.015 ng/ml (<0.045)
[2018-08-10 21:36] VITALS: BP 118/74
[2018-08-10 23:00] VITALS: BP 116/70
[2018-08-11] VITALS (7 sets, daily range): BP systolic 118–139; BP diastolic 37–72
[2018-08-11 05:59] LABS: BASO # 0.1 10*3/uL (0.0-0.1); BASO % 0.6 % (0.0-1.0); EOS # 0.3 10*3/uL (0.0-0.4); EOS % 3.2 % (1.0-4.0); HEMATOCRIT 35.2 % (42.0-52.0); HEMOGLOBIN 11.5 g/dl (14.0-18.0); LYMPH # 1.9 10*3/uL (1.3-4.4); LYMPH % 19.6 % (27.0-41.0); MEAN CELL VOLUME 93.9 fl (80.0-94.0); MEAN CORPUSCULAR HGB 30.7 pg (27.0-31.0); MEAN CORPUSCULAR HGB CONC 32.7 g/dl (33.0-37.0); MEAN PLATELET VOLUME 8.8 fl (9.6-12.3); MONO # 0.7 10*3/uL (0.1-1.0); MONO % 6.8 % (3.0-9.0); NEUT # 6.6 10*3/uL (2.3-7.9); NEUT % 69.5 % (47.0-73.0); PLATELET COUNT AUTOMATED 423 10*3/uL (130-400); RED BLOOD COUNT 3.75 10*6/uL (4.50-5.90); RED CELL DISTRI WIDTH 14.1 % (0-14.5); WHITE BLOOD COUNT 9.5 10*3/uL (4.8-10.8)
[2018-08-11 06:16] LABS: BUN 14 mg/dl (7-24); CHLORIDE 104 mmol/L (98-107); CHOLESTEROL 152 mg/dL (<200); CREATININE 0.79 mg/dL (0.70-1.30); HDL CHOLESTEROL 54 mg/dl (40-60); LDL CHOLESTEROL 80 mg/dL (9-159); PHOSPHOROUS 2.8 mg/dL (2.5-4.9); SODIUM 134 mmol/L (136-145); TRIGLYCERIDES 90 mg/dl (<150); VLDL CHOLESTEROL 18 mg/dL (6-40)
[2018-08-11 06:24] LABS: THYROID STIM HORMONE (HS) 0.198 uIU/ml (0.358-4.75)
[2018-08-11 07:43] LABS: VITAMIN D, 25-HYDROXY 73.2 ng/mL (30-100)
[2018-08-11] MEDS ORDERED: TRAMADOL HCL50 MG PO (12:26)
[2018-08-12] VITALS: BP 106/53
[2018-08-12 06:53] LABS: BASO % 0.2 % (0.0-1.0); HEMATOCRIT 35.1 % (42.0-52.0); HEMOGLOBIN 11.6 g/dl (14.0-18.0); LYMPH % 7.7 % (27.0-41.0); MEAN CELL VOLUME 92.6 fl (80.0-94.0); MEAN CORPUSCULAR HGB 30.6 pg (27.0-31.0); MEAN PLATELET VOLUME 9.3 fl (9.6-12.3); MONO # 0.3 10*3/uL (0.1-1.0); MONO % 2.6 % (3.0-9.0); NEUT # 11.5 10*3/uL (2.3-7.9); NEUT % 89.1 % (47.0-73.0); PLATELET COUNT AUTOMATED 468 10*3/uL (130-400); RED BLOOD COUNT 3.79 10*6/uL (4.50-5.90); RED CELL DISTRI WIDTH 14.3 % (0-14.5); WHITE BLOOD COUNT 12.9 10*3/uL (4.8-10.8)
[2018-08-12 07:26] LABS: BUN 18 mg/dl (7-24); CHLORIDE 103 mmol/L (98-107); CREATININE 0.79 mg/dL (0.70-1.30); POTASSIUM 4.5 mmol/L (3.5-5.1); SODIUM 133 mmol/L (136-145)
[2018-08-12 08:00] VITALS: BP 128/64
[2018-08-12 12:00] VITALS: BP 135/64
[2018-08-12 16:00] VITALS: BP 121/53
[2018-08-12 22:00] VITALS: BP 126/65
[2018-08-13] VITALS: BP 97/46
[2018-08-13 06:18] LABS: BASO % 0.4 % (0.0-1.0); EOS # 0.1 10*3/uL (0.0-0.4); EOS % 1.4 % (1.0-4.0); HEMATOCRIT 33.7 % (42.0-52.0); HEMOGLOBIN 11.1 g/dl (14.0-18.0); LYMPH # 2.9 10*3/uL (1.3-4.4); LYMPH % 29.1 % (27.0-41.0); MEAN CELL VOLUME 93.6 fl (80.0-94.0); MEAN CORPUSCULAR HGB 30.8 pg (27.0-31.0); MEAN CORPUSCULAR HGB CONC 32.9 g/dl (33.0-37.0); MEAN PLATELET VOLUME 9.1 fl (9.6-12.3); MONO # 0.8 10*3/uL (0.1-1.0); NEUT # 5.9 10*3/uL (2.3-7.9); NEUT % 60.7 % (47.0-73.0); PLATELET COUNT AUTOMATED 409 10*3/uL (130-400); RED CELL DISTRI WIDTH 14.3 % (0-14.5); WHITE BLOOD COUNT 9.8 10*3/uL (4.8-10.8)
[2018-08-13 06:36] LABS: BUN 19 mg/dl (7-24); CHLORIDE 102 mmol/L (98-107); CREATININE 0.84 mg/dL (0.70-1.30); POTASSIUM 4.2 mmol/L (3.5-5.1); SODIUM 133 mmol/L (136-145)
[2018-08-13 08:00] VITALS: BP 118/68
[2018-08-13 12:00] VITALS: BP 105/56
[2018-08-13 16:00] VITALS: BP 107/69
[2018-08-13 20:00] VITALS: BP 107/52
[2018-08-14] VITALS (10 sets, daily range): BP systolic 105–130; BP diastolic 56–72
[2018-08-14 06:26] LABS: BASO % 0.1 % (0.0-1.0); EOS % 0.1 % (1.0-4.0); HEMATOCRIT 34.5 % (42.0-52.0); HEMOGLOBIN 11.2 g/dl (14.0-18.0); LYMPH # 1.1 10*3/uL (1.3-4.4); LYMPH % 9.7 % (27.0-41.0); MEAN CELL VOLUME 93.8 fl (80.0-94.0); MEAN CORPUSCULAR HGB 30.4 pg (27.0-31.0); MEAN CORPUSCULAR HGB CONC 32.5 g/dl (33.0-37.0); MEAN PLATELET VOLUME 9.5 fl (9.6-12.3); MONO # 0.3 10*3/uL (0.1-1.0); MONO % 2.2 % (3.0-9.0); NEUT # 10.1 10*3/uL (2.3-7.9); NEUT % 87.5 % (47.0-73.0); PLATELET COUNT AUTOMATED 427 10*3/uL (130-400); RED BLOOD COUNT 3.68 10*6/uL (4.50-5.90); RED CELL DISTRI WIDTH 14.2 % (0-14.5); WHITE BLOOD COUNT 11.6 10*3/uL (4.8-10.8)
[2018-08-14 06:41] LABS: BUN 22 mg/dl (7-24); CHLORIDE 99 mmol/L (98-107); CREATININE 0.77 mg/dL (0.70-1.30); POTASSIUM 4.7 mmol/L (3.5-5.1); SODIUM 130 mmol/L (136-145)
[2018-08-14 11:09] LABS: BF MACROPHAGES 81 %; BF NEUTROPHILS 18 %
[2018-08-15] VITALS: BP 122/59
[2018-08-15 06:32] LABS: BASO % 0.1 % (0.0-1.0); EOS % 0.1 % (1.0-4.0); HEMATOCRIT 36.3 % (42.0-52.0); HEMOGLOBIN 11.8 g/dl (14.0-18.0); LYMPH # 1.5 10*3/uL (1.3-4.4); LYMPH % 11.1 % (27.0-41.0); MEAN CELL VOLUME 93.8 fl (80.0-94.0); MEAN CORPUSCULAR HGB 30.5 pg (27.0-31.0); MEAN CORPUSCULAR HGB CONC 32.5 g/dl (33.0-37.0); MEAN PLATELET VOLUME 9.4 fl (9.6-12.3); MONO # 0.5 10*3/uL (0.1-1.0); NEUT # 11.1 10*3/uL (2.3-7.9); NEUT % 83.9 % (47.0-73.0); PLATELET COUNT AUTOMATED 501 10*3/uL (130-400); RED BLOOD COUNT 3.87 10*6/uL (4.50-5.90); RED CELL DISTRI WIDTH 14.3 % (0-14.5); WHITE BLOOD COUNT 13.2 10*3/uL (4.8-10.8)
[2018-08-15 06:55] LABS: BUN 16 mg/dl (7-24); CHLORIDE 94 mmol/L (98-107); CREATININE 0.84 mg/dL (0.70-1.30); POTASSIUM 4.5 mmol/L (3.5-5.1); SODIUM 127 mmol/L (136-145)
[2018-08-15 08:00] VITALS: BP 104/44; BP 98/56
[2018-08-15] MEDS ORDERED: PREDNISONE10 MG PO (11:37)
[2018-08-15] MEDS ORDERED: DOXYCYCLINE100 MG PO (11:37)
[2018-08-15 12:00] VITALS: BP 122/65
[2018-08-15 16:12] LABS: ACID FAST SPEC PROCESSING Concentration (.)
[2018-08-17 00:08] LABS: TB1 Ag VALUE 0.01 IU/mL (.)
== END 2018-08-15 12:57 | disposition home or self-care (01) | DRG 178 ==
LOC: ED 18:03 → 5E 21:10 → EDHOLD 21:10 → 5E 08-11 10:50
PROVIDERS: Internal Medicine; Internal Medicine Critical Care Medicine; Physician Assistant; Student in an Organized Health Care Education/Training Program
PROC: 0B9C8ZX Drainage of Right Upper Lung Lobe, Via Natural or Artificial Opening Endoscopic, Diagnostic (ICD-10-PCS; principal; 2018-08-14)
PROC: 0BC98ZZ Extirpation of Matter from Lingula Bronchus, Via Natural or Artificial Opening Endoscopic (ICD-10-PCS; 2018-08-14)
PROC: 0BC48ZZ Extirpation of Matter from Right Upper Lobe Bronchus, Via Natural or Artificial Opening Endoscopic (ICD-10-PCS; 2018-08-14)
PROC: 0BC88ZZ Extirpation of Matter from Left Upper Lobe Bronchus, Via Natural or Artificial Opening Endoscopic (ICD-10-PCS; 2018-08-14)
PROC: 0BC58ZZ Extirpation of Matter from Right Middle Lobe Bronchus, Via Natural or Artificial Opening Endoscopic (ICD-10-PCS; 2018-08-14)
PROC: 0BC38ZZ Extirpation of Matter from Right Main Bronchus, Via Natural or Artificial Opening Endoscopic (ICD-10-PCS; 2018-08-14)
PROC: 0BC78ZZ Extirpation of Matter from Left Main Bronchus, Via Natural or Artificial Opening Endoscopic (ICD-10-PCS; 2018-08-14)
PROC: 0BC68ZZ Extirpation of Matter from Right Lower Lobe Bronchus, Via Natural or Artificial Opening Endoscopic (ICD-10-PCS; 2018-08-14)
PROC: 0BCB8ZZ Extirpation of Matter from Left Lower Lobe Bronchus, Via Natural or Artificial Opening Endoscopic (ICD-10-PCS; 2018-08-14)
PROC: 0BC18ZZ Extirpation of Matter from Trachea, Via Natural or Artificial Opening Endoscopic (ICD-10-PCS; 2018-08-14)
DX: J15.6 Pneumonia due to other Gram-negative bacteria (principal); J44.0 Chronic obstructive pulmonary disease with (acute) lower respiratory infection; D68.59 Other primary thrombophilia; E87.1 Hypo-osmolality and hyponatremia; J44.1 Chronic obstructive pulmonary disease with (acute) exacerbation; R91.8 Other nonspecific abnormal finding of lung field; R07.9 Chest pain, unspecified; D64.9 Anemia, unspecified; R00.1 Bradycardia, unspecified; D72.9 Disorder of white blood cells, unspecified; F17.210 Nicotine dependence, cigarettes, uncomplicated; G43.019 Migraine without aura, intractable, without status migrainosus; E55.9 Vitamin D deficiency, unspecified; E61.1 Iron deficiency; J20.9 Acute bronchitis, unspecified; M54.9 Dorsalgia, unspecified; J92.9 Pleural plaque without asbestos; I10 Essential (primary) hypertension; G89.29 Other chronic pain; K21.9 Gastro-esophageal reflux disease without esophagitis; E11.9 Type 2 diabetes mellitus without complications; E53.8 Deficiency of other specified B group vitamins; E78.2 Mixed hyperlipidemia; Z71.6 Tobacco abuse counseling; I25.2 Old myocardial infarction; Z90.49 Acquired absence of other specified parts of digestive tract; Z82.49 Family history of ischemic heart disease and other diseases of the circulatory system; Z88.6 Allergy status to analgesic agent; Z79.82 Long term (current) use of aspirin; Z79.899 Other long term (current) drug therapy; Z83.3 Family history of diabetes mellitus

== ENCOUNTER → 2018-08-23 | Outpatient (CLI) | payer OTHER ==
[~2018-08-23] MED LIST changes: +DOXYCYCLINE100 MG PO; +ZOSYN 3.373.375 GM/5 IV
== END | disposition home or self-care (01) ==
LOC: RESCLI 03:29
DX: Z09 Encounter for follow-up examination after completed treatment for conditions other than malignant neoplasm (principal); I10 Essential (primary) hypertension; J18.1 Lobar pneumonia, unspecified organism; J92.9 Pleural plaque without asbestos; G89.29 Other chronic pain; R91.8 Other nonspecific abnormal finding of lung field; G43.909 Migraine, unspecified, not intractable, without status migrainosus; E87.1 Hypo-osmolality and hyponatremia; E55.9 Vitamin D deficiency, unspecified; J44.9 Chronic obstructive pulmonary disease, unspecified; S46.811D Strain of other muscles, fascia and tendons at shoulder and upper arm level, right arm, subsequent encounter; X58.XXXD Exposure to other specified factors, subsequent encounter; Z91.09 Other allergy status, other than to drugs and biological substances; Z79.899 Other long term (current) drug therapy; Z87.891 Personal history of nicotine dependence

== ENCOUNTER 2018-08-28 17:51 | Inpatient (IN) | payer OTHER ==
[~2018-08-28] VITALS: Ht 170.1 cm; Wt 67.1 kg
--- NOTE | ~2018-08-28 | PR ---
[place], [place] PROGRESS NOTE NAME: KIERRA LABOY [facility] #: [id number] UNIT #: [id number] ROOM: 407 DOCTOR: FANY FALL MD,BAMBI BIRTHDATE: [birth year] DOS: 09/01/2018 PULMONARY PROGRESS NOTE SUBJECTIVE: The patient has been noted comfortable at this time, still complaining of general weakness, fatigue with cough with intermittent sputum expectoration. Coughing was noted increased last night, which were noted nonproductive. There were no symptoms of fever or chills. PHYSICAL EXAMINATION: VITAL SIGNS: Normal temperature, respiratory rate 18, heart rate 70, blood pressure 105/55. Pulse oxygen saturation on room air 98% saturation. HEENT: Examination shows head was atraumatic. Eyes: Nonicterus. NECK: Supple. CARDIOVASCULAR: S1, S2 is audible. LUNGS: The patient was noted without any wheezing or crackles at present time. Breaths are noted mildly diminished bilaterally. ABDOMEN: Soft and nontender. Bowel sounds are present. EXTREMITIES: The patient was noted without any acute edema. IMPRESSION: The patient with right upper lobe pulmonary infiltration with pleural thickening with severe cough, currently treated with acute pneumonia with antibiotics. PLAN OF MANAGEMENT: No changes in the plan of care at this time will be recommended. Bronchoscopy will be done tomorrow morning with further adjustment in medication to be done afterwards. BAMBI SOARES MD CM:PNTRANS 1303 1517 BAMBI FALL MD 09/01/18 1518 interface
--- NOTE | ~2018-08-28 | PR ---
[place], [place] PROGRESS NOTE NAME: KIERRA LABOY [facility] #: [id number] UNIT #: [id number] ROOM: 401 DOCTOR: JEANNINE LUIS BIRTHDATE: [birth year] DOS: 09/04/2018 PULMONOLOGY PROGRESS NOTE SUBJECTIVE: The patient was seen and evaluated on general medical floor. The patient reports that he is feeling better since his bronchoscopy, but he still reports significant weakness and fatigue. The patient reports he does still have shortness of breath at this time. He denies any wheezing or any chest pain, nausea, vomiting, diarrhea, constipation, urinary complaints. OBJECTIVE: VITAL SIGNS: Temperature 97.2, pulse 62, respiratory rate 18, blood pressure 126/68, pulse ox 100% on room air. GENERAL: The patient is alert and oriented x 3. No signs of distress at this time. HEENT: Head is atraumatic, normocephalic. Eyes: PERRLA. No lesions, no icterus. NECK: Supple. HEART: Regular rate and rhythm. No murmurs, rubs, gallops. LUNGS: Mildly decreased breath sounds bilateral with minimal wheezing. ABDOMEN: Soft, nontender. Bowel sounds present. EXTREMITIES: Without overt edema. NEUROLOGIC: Grossly intact. No neurological deficits. LABORATORY DATA: Bronch washings were positive for Pseudomonas along with sputum cultures positive for MRSA. Other labs pertinent for white blood cell count of 10.5, hemoglobin of 11.6, hematocrit 36.7, platelets 361. Chemistry showed BUN of 21, creatinine of 0.71. ASSESSMENT: Polymicrobial pneumonia with sputum cultures positive for methicillin-resistant Staphylococcus aureus and bronch wash and cultures for Pseudomonas, debility secondary to ongoing pulmonary infection and acute exacerbation of chronic obstructive pulmonary disease. PLAN OF MANAGEMENT: Continuation of vancomycin for MRSA positive sputum. Cultures from the bronch showed Pseudomonas that was resistant to Merrem that the patient is on and the patient will be switched to Levaquin. A consultation to Infectious Disease specialist for input on antibiotics will be made. The patient will likely need PICC line with long-term IV antibiotics for this polymicrobial pneumonia with significant resistance to antibiotics. The patient will be continued on Solu-Medrol 40 mg daily. Further changes in treatment and management will be made according to cultures and clinical progression. Usual plan of care and therapy per primary team. Luis Paez DO [place], [place] PROGRESS NOTE NAME: KIERRA LABOY UNIT #: [id number] ROOM: [facility] [place] DOCTOR: LUIS PAEZ DO BIRTHDATE: [birth year] BAMBI SOARES MD CM:PNTRANS [phone] LUIS PAEZ DO 09/04/18 7946 interface
--- NOTE | ~2018-08-28 | PR ---
[place], [place] PROGRESS NOTE NAME: KIERRA LABOY [facility] #: [id number] UNIT #: [id number] ROOM: 401 DOCTOR: FANY FALL MD,BAMBI BIRTHDATE: [birth year] DOS: 09/02/2018 SUBJECTIVE: The patient's respiratory status remains the same for the patient. General weakness and fatigue, and nonproductive cough. There were no symptoms of hemoptysis or chest pain. The patient was continued on intravenous antibiotic at this time. Symptoms of fever or chills. The remains in respiratory isolation because of the isolation of methicillin-resistant staphylococcus aureus from the sputum. He has been continued getting antibiotic for the medical management of suspected Pseudomonas aeruginosa pneumonia and methicillin-resistant staphylococcus aureus. Denies symptoms of headache, nausea, vomiting, diarrhea, or abdominal pain. Denies symptoms of fever or chills. The patient is n.p.o. past midnight for bronchoscopy that was planned to be done. PHYSICAL EXAMINATION: VITAL SIGNS: For the patient, which has been recorded shows a normal temperature, respiratory rate 20, heart rate of 62, blood pressure 122/69. Pulse oxygen saturation on room air at rest was 99% saturation. HEENT: Examination shows head was atraumatic. Eyes nonicterus. NECK: Supple. CARDIOVASCULAR: S1, S2 audible. LUNGS: Moderate decreased breath sounds with expiratory wheezing. No crackles. ABDOMEN: Soft and nontender. Bowel sounds present. EXTREMITIES: Without any acute edema. LABORATORY DATA: BMP this morning was noted as normal. CBC this morning, WBC count 12.2, hemoglobin 10.9 with normal platelet count. IMPRESSION: 1. The patient has been noted with the current pulmonary infiltration in the right upper lung with pleural thickening as well. 2. Polymicrobial pneumonia was suspected; however, the bronchial washing was determined for the patient is about the final cause of current pneumonia. 3. Debility secondary to ongoing acute pulmonary infection. 4. Acute exacerbation of chronic obstructive pulmonary disease. PLAN OF MANAGEMENT: Continue current steroids, bronchodilators, oxygen supplementation and antibiotics. Proceed with bronchoscopy. After the bronchoscopy if any further changes in the treatment necessary will be ordered accordingly. Other plan of management, care plan of therapy and usual care. [place], [place] PROGRESS NOTE NAME: KIERRA LABOY [facility] #: [id number] UNIT #: [id number] ROOM: 401 DOCTOR: BAMBI HERCULES MD BIRTHDATE: [birth year] BAMBI SOARES MD CM:PNTRANS [phone] BAMBI FALL MD 09/02/18 1507 interface
--- NOTE | ~2018-08-28 | EKG ---
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
--- NOTE | ~2018-08-28 | PR ---
[place], [place] PROGRESS NOTE NAME: KIERRA LABOY [facility] #: [id number] UNIT #: [id number] ROOM: 401 DOCTOR: BAMBI HERCULES MD BIRTHDATE: [birth year] DOS: 09/03/2018 PULMONARY ADDENDUM NOTE SUBJECTIVE: The patient is independently seen and examined with [id number] encounter. History was confirmed. Physical examination performed. The labs were reviewed as well. Note done by the medical care administrator was approved as well. The patient was still complaining of general weakness and fatigue. Continue antibiotic for the possibility of MRSA and gram-negative infection with intravenous antibiotics. Denies symptoms of fever or chills. The coughing has been noted decreased after bronchoscopy that was performed yesterday. There were symptoms of wheezing, which has been reported. Denies symptoms of headache. Denies symptoms of nausea, vomiting, diarrhea, abdominal pain, edema or pain of the lower extremities. Remaining systems were reviewed. They were noted all negative. OBJECTIVE: VITAL SIGNS: Normal temperature, respiratory rate 18, heart 63, blood pressure 134/66-127/66. The pulse oxygen saturation on room air was 99% saturation. HEENT: Head was atraumatic. Eyes nonicterus. NECK: Supple. CARDIOVASCULAR: S1, S2 is audible. LUNGS: Noted without any wheeze or crackle at the present time. ABDOMEN: Soft, nontender. Bowel sounds present. EXTREMITIES: The patient was noted without any edema. MUSCULOSKELETAL: Without any acute deformity. VISIBLE SKIN: No lesions or rashes. CENTRAL NERVOUS SYSTEM: Cranial nerves 2-12 intact. LABORATORY DATA: The bronchial alveolar lavage differential reviewed as 41% neutrophils, 2% eosinophils, 2% lymphocytes, 55% macrophages. The Gram stain of the bilateral bronchial washing, many white blood cells, many epithelial cells, few budding yeast, rare gram-positive cocci and gram-positive bacilli. The Gram stain of the BAL specimen, moderate white blood cells, moderate epithelial cells, rare budding yeast. Culture of the bilateral bronchial washing was noted light growth of gram-negative bacilli. The second culture is normal joel at this time. Blood culture, no bacterial growth from 08/30/2018. IMPRESSION: 1. Gram-negative pneumonia, possible methicillin-resistant staphylococcus aureus versus colonization would be considered. 2. The patient with pleural thickening in the right upper lobe as well. There was no evidence of Legionella pneumonia with repeat testing done in the urine legionella antigen. 3. Acute debility secondary to that. 4. Acute exacerbation of chronic obstructive pulmonary disease as well. PLAN OF MANAGEMENT: Continuation of current antibiotics by tomorrow for the long-term management of the current infection management may be planned. The [place], [place] PROGRESS NOTE NAME: KIERRA LABOY UNIT #: [id number] ROOM: 401 DOCTOR: FANY FALL MD,BAMBI BIRTHDATE: [birth year] patient might require a PICC line. The patient is on IV antibiotic therapy. The patient upon discharge to complete the current course of management. Physical therapy could be assessed. Other plan of care and treatment to be changed according to the progression of his illness. Additional treatment changes will be made based on the illness progression. Usual care. BAMBI SOARES MD CM:RERE [id number] BAMBI FALL MD 09/20/18 0949 interface
--- NOTE | ~2018-08-28 | CON ---
[place], [place] REPORT OF CONSULTATION NAME: KIERRA LABOY [facility] #: [id number] UNIT #: [id number] ROOM: 401 DOCTOR: BAMBI HERCULES MD BIRTHDATE: [birth year] DOS: 08/29/2018 CONSULTATION REQUESTED BY: Hospitalist service. REASON FOR CONSULTATION: Assessment of current abnormal respiratory symptoms. HISTORY OF PRESENT ILLNESS: A 58-year-old white male who has been known to me from recent hospitalization. The patient was admitted to the hospital in 07/2018 and the patient discharged on 08/15/2018. He has been noted right middle lobe pneumonia that was found to be Pseudomonas aeruginosa. The bronchoscopy done for the patient that grew the culture Pseudomonas aeruginosa that were noted sensitive to the Levaquin or other medications. The patient was discharged home on doxycycline and later on the patient called in the ciprofloxacin for the medical management of current acute pneumonia that was completed by the patient. Symptoms the patient has improved. For the past couple of days, the patient started experiencing recurrence of the cough with left-sided lower chest pain. The patient without radiation, [id number] with deep inspiratory effort. The pain was described to be worse. Cough has been noted nonproductive. The patient came into the Emergency where he had been assessed, currently hospitalized for further medical management. He does complain of symptoms of shortness of breath. Denies symptoms of hemoptysis. The patient does admit symptoms of fever or chills. Denies any symptoms of significant wheezing. REVIEW OF SYSTEMS: CONSTITUTIONAL: The patient complained of fatigue and tiredness, but there were no symptoms of fever or chills. EYES: Denies any burning, redness, or tenderness. EARS, NOSE, THROAT SYMPTOMS: Denies sore throat, hoarseness, otalgia, postnasal drainage or epistaxis. CARDIOVASCULAR: The patient was noted non-anginal pain, will be considered atypical chest pain at this time. Denies symptoms of palpitation, edema or pain of the lower extremities. GASTROINTESTINAL: Denies dysphagia, nausea, vomiting, diarrhea, abdominal pain, hematemesis, melena, or hematochezia. SKIN: Denies abnormal lesions or rashes. MUSCULOSKELETAL: No acute joint pain, redness, or tenderness. CENTRAL NERVOUS SYSTEM: Denies dizziness, headache, diplopia, or syncopal episodes. Remaining systems were reviewed, they were noted all negative. PAST MEDICAL HISTORY: Chronic obstructive pulmonary disease.1. Recent hospitalization for right middle lobe pneumonia with Pseudomonas aeruginosa, treated with the antibiotics as an outpatient.2. History of migraine headache.3. Coronary artery disease.4. Essential hypertension.5. Type 2 diabetes mellitus.6. [place], [place] REPORT OF CONSULTATION NAME: [facility]IER[facility] LAB[facility] #[facility] [id number] UNIT #: [id number] ROOM: [facility] DOCTOR: KENTRELL HERCULES MDM BIRTHDATE: [birth year] Hyperlipidemia.7. Vitamin D deficiency.8. History of hydrocephalus.9. 10. Allergic rhinitis. PAST SURGICAL HISTORY: Lumbar laminectomy.1. Hydrocephalus management.2. Appendectomy.3. 4. Therapeutic bronchoscopy done in 07/2018. SOCIAL HISTORY: The patient is . He has been noted history of tobacco use, heavy since teenager. The patient smokes 3 packs of cigarettes per day and currently stating not smoking any cigarettes since discharge from the hospital earlier this month. FAMILY HISTORY: The patient's father at age 72 years with complication of myocardial infarction. The mother as a result of motor vehicle accident. CURRENT MEDICATIONS: Administered were noted use of IV Solu-Medrol, nortriptyline, meloxicam, nifedipine, Flonase, loratadine, vitamin D, Topamax, folic acid, multivitamin, lisinopril, aspirin, Lovenox for deep vein thrombosis prophylaxis, gabapentin, Mucinex 1200 mg p.o. b.i.d., meropenem, vancomycin and other p.r.n. medications. DRUG ALLERGIES: THE PATIENT WAS NOTED ALLERGY TO THE TORADOL. PHYSICAL EXAMINATION: GENERAL: A 58-year-old male who has been currently noted to be awake and alert without any acute distress this morning of assessment. Height of 5 feet 7 inches, weight of 148 pounds, BMI 21. VITAL SIGNS: Normal temperature of the since admission, respiratory rate 16-18, heart rate 64-60, blood pressure 110-62 and 122/65. The pulse oxygen saturation on room air was 99% saturation. HEENT: Head was atraumatic. Eyes: No icterus. NECK: Supple. CARDIOVASCULAR: S1, S2 audible. LUNGS: The patient was noted without any wheezing. Breaths are noted mildly diminished bilaterally. There were no crackles heard. ABDOMEN: Flat, soft, and nontender. Bowel sounds present. EXTREMITIES: Without acute edema. MUSCULOSKELETAL: Without acute deformities. CENTRAL NERVOUS SYSTEM: Cranial nerves 2-12 intact. LABORATORY DATA: CBC that was done yesterday on admission in the Emergency Room, WBC count of 12.1, hemoglobin 11.5, hematocrit 34.7, and platelet count was normal. PT and PTT for the patient were noted as normal. Lactic acid 0.9. CMP on 08/28/2018, normal BUN and creatinine. Sodium 135. The troponin 3 sets yesterday and this morning all noted normal. CBC: WBC count normal, hemoglobin 11.2, platelet count were normal. BMP that was done this morning, normal BUN [place], [place] REPORT OF CONSULTATION NAME: KIERRA LABOY UNIT #: [id number] ROOM: [facility] [birth year] and creatinine. Glucose 157. Sodium mildly decreased 132. A chest x-ray of the patient reviewed that was done yesterday, PA and lateral view with pulmonary infiltration noted in the lower portion of the lung on the right side as patchy infiltration. IMPRESSION: The patient who has been currently admitted to the hospital noted with acute exacerbation of chronic obstructive pulmonary disease with paraseptal emphysema for acute exacerbation of chronic obstructive pulmonary disease, treated as an outpatient with 10 days of oral ciprofloxacin with possibility of recurrence of pneumonia. The patient can be completely excluded Pseudomonas aeruginosa.1. Acute exacerbation because of that.2. 3. History of past nicotine abuse, denying any tobacco use. PLAN OF TREATMENT: At this time, the patient has been scheduled to be seen as an outpatient in the office, which was pending at this time. PLAN OF MANAGEMENT: Continuation of the bronchodilators, oxygen supplementation. Discontinuation of the vancomycin. Continue meropenem as the antibiotic for the pseudomonas aeruginosa. Continue current dose of Solu-Medrol and bronchodilators. Obtain a CT scan of the chest without contrast to assess the progression of previous pulmonary infiltration. Usual care with additional changes in the treatment will be made based on progression of his illness. Supportive care, plan of management. Continue abstinence of tobacco use was advised. Thanks for allowing me to participate in the care of this patient. BAMBI SOARES MD CM:CONSTR:REPORT OF CONSULTATION 1127 09/20/18 0947 interface
--- NOTE | ~2018-08-28 | PR ---
[place], [place] PROGRESS NOTE NAME: KIERRA LABOY [facility] #: [id number] UNIT #: [id number] ROOM: 401 DOCTOR: FANY FALL MDBAMBI BIRTHDATE: [birth year] DOS: 09/04/2018 PULMONARY ADDENDUM NOTE SUBJECTIVE: The patient independently seen and examined in [id number] encounter, history was confirmed. Physical examination performed. Labs reviewed. The assessment and management has been personally completed. Note done by the emergency medical dispatcher approved as well. He has been still complaining of generalized weakness, fatigue, but noted with some ambulation. Yesterday, the patient noted his legs gave out and noted very weak. He has been noted symptoms of chest pain. Coughing has been noted mild at this time. Shortness of breath occurring with exertion. There were no symptoms of chest pain, hemoptysis reported. Denies symptoms of nausea, vomiting, diarrhea, or abdominal pain. Denies symptoms of edema, pain of the lower extremities or headache. Remaining systems were reviewed, they were noted all negative. The patient continues to receive intravenous meropenem and vancomycin. OBJECTIVE: VITAL SIGNS: For the patient which are recorded showed normal temperature, respiratory rate 18, heart rate 62, blood pressure 126/68-109/48. Pulse ox saturation on room air was 100% saturation. HEENT: Head was atraumatic. Eyes nonicterus. NECK: Supple. CARDIOVASCULAR: S1, S2 is audible. LUNGS: Noted without any wheeze or crackles. ABDOMEN: Soft, nontender. Bowel sounds present. EXTREMITIES: No acute edema. VISIBLE SKIN: No lesions or rashes. CENTRAL NERVOUS SYSTEM: Cranial nerves 2-12 intact. MUSCULOSKELETAL: Without acute deformities. LABORATORY DATA: CBC: WBC count 10.5, hemoglobin 11.6, platelet count was normal. BUN and creatinine noted as normal. Culture of the bronchial washing noted with Pseudomonas aeruginosa light growth with moderate growth of yeast. The organisms were noted intermediate resistance to meropenem, but noted sensitive to the fluoroquinolones, tobramycin, IV Zosyn and ceftazidime and intermediate sensitive to cefepime was also noted. The second culture noted moderate growth of yeast. IMPRESSION: 1. The patient was noted Pseudomonas aeruginosa infection. The methicillin-resistant Staphylococcus aureus was not isolated with current bronchial washings. 2. The patient with acute exacerbation of chronic obstructive pulmonary disease and acute general weakness, fatigue was still persistent prior to the current antibiotic, organism sensitive noted to the pseudomonas for this patient. The patient has not been given pseudomonas coverage previously and received ciprofloxacin as an outpatient when the last time the patient noted with Pseudomonas aeruginosa infection. [place], [place] PROGRESS NOTE NAME: KIERRA LABOY UNIT #: [id number] ROOM: 401 DOCTOR: FANY FALL MD,BAMBI BIRTHDATE: [birth year] PLAN OF MANAGEMENT: The patient recommended Infectious Disease consultation at this time. Based on the current culture results, I will discontinue the vancomycin for the patient. The antibiotic suggestion from the Infectious Disease for the medical management of current pneumonia, which appeared to be with some cavitation with pleural thickening in the right upper lobe. Other supportive therapy, plan of management, care plan for the patient as well. Usual treatment. Supportive care, other therapies. Usual medical management. Physical therapy. Continuation of the corticosteroids. Possible consideration of the intravenous antibiotic for PICC line and the home setting would be encouraged. BAMBI SOARES MD CM:PNTRANS [phone] BAMBI FALL MD 09/20/18 0952 interface
--- NOTE | ~2018-08-28 | PR ---
[place], [place] PROGRESS NOTE NAME: KIERRA LABOY [facility] #: [id number] UNIT #: [id number] ROOM: 401 DOCTOR: FANY FALL MD,BAMBI BIRTHDATE: [birth year] DOS: 08/30/2018 SUBJECTIVE: The patient was stating the same symptoms cough with general weakness and fatigue. Denies symptoms of chest pain or hemoptysis. Denies symptoms of nausea, vomiting, diarrhea, abdominal pain, hematemesis, melena, dysuria or hematuria. Denies symptoms of headache. The remaining systems were reviewed, they were noted all negative. He was continued with corticosteroids, bronchodilators and the antibiotics. OBJECTIVE: VITAL SIGNS: For the patient, which are recorded showed the temperature noted as normal, respiratory rate 17, heart rate 72, blood pressure 116/52-118/62. The pulse oxygen saturation was noted as 100% on room air. HEAD, EYES, EARS, NOSE, AND THROAT: Examination shows head was atraumatic. Eyes nonicterus. NECK: Supple. CARDIOVASCULAR SYSTEM: S1, S2 is audible. LUNGS: Without any wheezing or crackle. Breaths are noted mildly diminished bilaterally. ABDOMEN: Soft, nontender. Bowel sounds present. EXTREMITIES: Without acute edema. LABORATORY AND DIAGNOSTIC DATA: Sputum culture, sputum noted light growth of gram-positive cocci with pending culture reports at this time. The CBC this morning: WBC count was normal, hemoglobin 11.5, platelet count was normal. The BMP this morning, glucose 217, BUN and creatinine were normal, sodium 133. The CT scan of the chest without contrast review shows persistent changes of the lungs, possibility of cavitation or surrounded bulla with inflammatory changes, pleural thickening cannot be completely excluded. Calcified pleural plaque was noted in the right hemithorax. IMPRESSION: The patient was been currently noted persistent abnormality right upper lobe, previous treated for Pseudomonas aeruginosa or ciprofloxacin with recurrence of the symptoms, but noted present time. The current isolation of the gram-positive cocci with possible MRSA to be considered in the further assessment with recurrence of Pseudomonas aeruginosa infection. Possibility of malignant process in the right upper lobe cannot be completely excluded with other consideration of cavitation would be considered. PLAN OF THERAPY: Ordered the TB Gold test, add the vancomycin. Continue meropenem. Fiberoptic bronchoscopy to be done on Sunday morning further assessment. Monitor all the other culture results. Usual care. All other supportive therapy, plan of management and care plan. Urine legionella antigen was sent for the patient and pending at this time. [place], [place] PROGRESS NOTE NAME: KIERRA LABOY Javier UNIT #: [id number] [facility] DOCTOR: FANY FALL MD,BAMBI BIRTHDATE: [birth year] BAMBI SOARES MD CM:PNTRANS [phone] BAMBI FALL MD 09/20/18 0946 interface
--- NOTE | ~2018-08-28 | PROC NOTE ---
[place], [place] PROCEDURE NOTE NAME: KIERRA LABOY [facility] #: [id number] UNIT #: [id number] ROOM: 401 DOCTOR: FANY FALL MD,BAMBI BIRTHDATE: [birth year] DOS: 09/02/2018 PROCEDURE: Fiberoptic bronchoscopy, BAL of the upper lobe. PREOPERATIVE DIAGNOSIS: The patient with consolidation, infiltration, possible cavitation, pleural thickening in the right upper lobe with ongoing cough and wheezing, on maximum medical therapy. POSTOPERATIVE DIAGNOSIS: The patient with consolidation, infiltration, possible cavitation, pleural thickening in the right upper lobe with ongoing cough and wheezing, on maximum medical therapy. PROCEDURE DESCRIPTION: Informed consent was obtained. The patient was brought to the OR and placed in supine position. Conscious sedation was administered by the Anesthesia Department. After that, in supine position, airway was introduced into the mouth. The video fiberoptic bronchoscope was advanced to the airway into the laryngeal area. Epiglottis and vocal cords were seen. Vocal cords were moving symmetrically with movements. The bronchoscope was advanced to vocal cords into the tracheal lumen that shows a moderate amount of thick purulent secretion, which was suctioned out at clifton level. Majority of the secretion was present in the right main stem bronchus and right upper lobe bronchi, which was suctioned out with normal saline wash. A small secretion was present in the right middle lobe, left upper lingula, lower lobe bronchi as well which were cleared out with normal saline wash. No endobronchial obstructive lesions. BAL specimen was also obtained from the right upper lobe. All the cultures were sent, including Legionella cultures. The patient had the procedure well tolerated. Postoperative findings will be discussed with the patient once the patient recovers the effects of acute sedation. BAMBI SOARES MD CM:PROCNOTE:PROCEDURE NOTE [id number] BAMBI FALL MD
--- NOTE | ~2018-08-28 | PR ---
[place], [place] PROGRESS NOTE NAME: KIERRA LABOY [facility] #: [id number] UNIT #: [id number] ROOM: 401 DOCTOR: BELA MENDOZAJANUARY BIRTHDATE: [birth year] DOS: 09/07/2018 SUBJECTIVE: The patient is a 58-year-old male with bronchiectasis who is being followed for pseudomonas pulmonary infection. He is currently on Zosyn. He had had one dose of Levaquin yesterday. He has recurrent pneumonia. His bronchoscopy cultures grew Pseudomonas. He quit smoking approximately 1 month ago. He is alert and oriented, tolerating the antibiotics. Continues with dry cough, which causes some left pleuritic chest pain at the lower ribs. No nausea, vomiting or diarrhea. No fevers. No rash. Further review of systems is unremarkable. LABORATORY DATA: WBCs 12.4, platelets 380, BUN 28, creatinine 0.92. Recurrent pneumonia, now with pseudomonas, also with bronchiectasis. CURRENT MEDICATIONS: Include Zosyn, Solu-Medrol, Thaxton, Pamelor, vitamin D, Topamax, Procardia, multivitamin, Mobic, Claritin, Zestril, folic acid, Flonase, Lovenox, aspirin, Neurontin, Humalog, Mucinex, DuoNebs. PHYSICAL EXAMINATION: GENERAL: A 58-year-old male, in no acute distress. VITAL SIGNS: Temperature 97.8, pulse 73, respirations 20, BP 111/57. HEENT: Normocephalic, no thrush. LUNGS: Clear to auscultation bilaterally. Respirations even and unlabored. HEART: Regular rhythm. No murmur appreciated. ABDOMEN: Soft, nontender, nondistended. EXTREMITIES: No edema, deformity or cyanosis. SKIN: Warm, dry, free of rashes. PLAN: He is to continue Zosyn. He also had an indeterminate QuantiFERON. Follow up on the AFB cultures from the bronchoscopy as an outpatient. Continue the Zosyn. He did receive 1 dose of Levaquin yesterday and Zosyn resumed. JANUARY REJI CRAMER [place], [place] PROGRESS NOTE NAME: KIERRA LABOY UNIT #: [id number] ROOM: [facility] DOCTOR: BELA MENDOZA,JANUARY BIRTHDATE: [birth year] Sofía Wall MD CM:PNAUGUSTINA [phone] BELA MENDOZA 09/07/181815 interface
--- NOTE | ~2018-08-28 | PR ---
[place], [place] PROGRESS NOTE NAME: KIERRA LABOY [facility] #: [id number] UNIT #: [id number] ROOM: 401 DOCTOR: FANY FALL MD,BAMBI BIRTHDATE: [birth year] DOS: 09/06/2018 PULMONARY PROGRESS NOTE SUBJECTIVE: The patient was noted comfortable at this time. He was noticed with more energy. The chest pain the patient described at times, which is improving. The patient's shortness breath and cough have been resolving progressively. There were no symptoms of wheezing reported by the patient. OBJECTIVE: VITAL SIGNS: Which have been recorded showed normal temperature, respiratory rate 20, heart rate 67, blood pressure 110/66. The pulse oxygen saturation was noted on room air at 100% saturation. HEENT: Head was atraumatic. Eyes nonicterus. NECK: Supple. CARDIOVASCULAR: S1 and S2 audible. LUNGS: The patient was noted without any wheeze or crackles. ABDOMEN: Soft, nontender. Bowel sounds present. EXTREMITIES: Without any acute edema. IMPRESSION: 1. Pseudomonas aeruginosa acute infection and pneumonia with pleural thickening. 2. Bronchiectasis. PLAN OF MANAGEMENT: Decrease and discontinue Solu-Medrol in the next 3 days. family services specialist consultation for this patient would be considered for outpatient antibiotic treatment for Pseudomonas aeruginosa for a minimum of 10 days. Continuation of other therapy, plan of management, outpatient treatment further to continue for the COPD. BAMBI SOARES MD CM:PNTRANS 3 BAMBI FALL MD 09/06/1844 interface
--- NOTE | ~2018-08-28 | PR ---
[place], [place] PROGRESS NOTE [facility] [id number] UNIT #: [id number] ROOM: 401 DOCTOR: FANY FALL MD,BAMBI BIRTHDATE: [birth year] DOS: 09/10/2018 PULMONARY PROGRESS NOTE SUBJECTIVE: The patient is independently seen and examined with [id number] encounter. History was confirmed. Physical examination performed. Labs were reviewed. Note done by the medical staff physician was approved for the patient as well for today's visit. The dictation by the medical staff physician was approved. The patient has been noted comfortable at this time, resting on the bed. He was planned for discharge home today after arrangement of antibiotic was made for IV Zosyn. Chest pain has been resolving. Cough has improved. There was no shortness of breath. PHYSICAL EXAMINATION: VITAL SIGNS: Normal temperature, respiratory rate 18, heart rate 73, blood pressure 140/54. Pulse oxygen saturation recorded on room air is 100% saturation. HEENT: Examination shows head was atraumatic. Eyes nonicterus. NECK: Supple. CARDIOVASCULAR: S1, S2 is audible. LUNGS: The patient was noted without any wheeze or crackles. ABDOMEN: Soft, nontender. Bowel sounds present. EXTREMITIES: Without any acute edema. IMPRESSION: Acute Pseudomonas aeruginosa pneumonia, which has been treated, currently with antibiotic. The patient is responding to the treatment. PLAN OF MANAGEMENT: No changes in the plan of care at this time. Continue other therapy, plan of management, care treatment and therapy. Usual care. BAMBI SOARES MD CM:PNTRANS [phone] BAMBI FALL MD 09/11/18 0010 interface
--- NOTE | ~2018-08-28 | PR ---
[place], [place] PROGRESS NOTE NAME: KIERRA LABOY [facility] #: [id number] UNIT #: [id number] ROOM: 401 DOCTOR: BAMBI HERCULES MD BIRTHDATE: [birth year] DOS: 09/07/2018 PULMONARY PROGRESS NOTE SUBJECTIVE: The patient remains comfortable at this time, resting on the bed, was noted with gradual improvement in the strength. The chest pain has been resolving. The coughing has been decreasing. There were no symptoms of fever or chills. OBJECTIVE: VITAL SIGNS: Normal temperature, respiratory rate 16, heart rate 60, blood pressure 100/60. Pulse oxygen saturation recorded as 100% saturation on room air. HEENT: No acute change. NECK: Supple. CARDIOVASCULAR: S1, S2 audible. LUNGS: Without any wheeze or crackles. ABDOMEN: Soft, nontender. Bowel sounds present. EXTREMITIES: No acute edema. MUSCULOSKELETAL: Noted without any acute deformities. SKIN: No lesions or rashes. LABORATORY DATA: CBC this morning: WBC count was noted as 12.4, hemoglobin 11.4, hematocrit 36.0, platelet counts were normal. IMPRESSION: 1. Acute pneumonia with Escherichia coli with Pseudomonas aeruginosa recurrent, failed outpatient treatment with fluoroquinolones. 2. The patient with localized pleural thickening infection was considered in the right upper lobe with pneumonia with some necrosis as well as the lungs, cannot be completely excluded. PLAN OF MANAGEMENT: The patient will remain on the IV antibiotics for 9 more [address]. The outpatient CT scan will be done to assess the resolution of the right lobe abnormality. In the meantime, continue nutritional support. Other therapy, plan of management and care plan. Usual care. [place], [place] PROGRESS NOTE NAME: KIERRA LABOY [facility] #: [id number] UNIT #: [id number] ROOM: [facility] DOCTOR: BAMBI HERCULES MD BIRTHDATE: [birth year] BAMBI SOARES MD CM:PNTRANS [phone] BAMBI FALL MD 09/08/18215 interface
--- NOTE | ~2018-08-28 | PR ---
[place], [place] PROGRESS NOTE NAME: KIERRA LABOY [facility] #: [id number] UNIT #: [id number] ROOM: 401 DOCTOR: MATEO LUIS BIRTHDATE: [birth year] DOS: 09/03/2018 SUBJECTIVE: The patient was seen and evaluated on the general medical floor today. The patient is day #1 post-bronchoscopy and is feeling much better since undergoing bronchoscopy. The patient reports improvement in shortness of breath and respiratory symptoms. The patient denies any wheezing at this time nor any chest pain, nausea, vomiting, diarrhea, constipation, urinary complaints or any other symptoms. OBJECTIVE: VITAL SIGNS: Temperature 97.4, pulse 61, respiratory rate 18, blood pressure 134/66, O2 saturation 100% on room air. GENERAL: The patient is alert and oriented x 3. No signs of distress at this time. HEENT: Head: Atraumatic, normocephalic. Eyes: PERRLA. No icterus. No lesions. NECK: Supple. HEART: Regular rate and rhythm. No murmurs, rubs, gallops. LUNGS: Mildly decreased breath sounds bilaterally with minimal wheezing. No crackles or rhonchi. ABDOMEN: Soft, nontender. Bowel sounds are present. EXTREMITIES: Without any overt edema. NEUROLOGIC: Grossly intact. No neurological deficits. LABORATORY DATA: Significant for white blood cell count of 12.0, hemoglobin of 11.1, hematocrit of 34.4 and platelets of 341. Microbiology: Sputum culture is significant for MRSA. ASSESSMENT: 1. Polymicrobial pneumonia suspected bronch cultures are currently coming back at this time showing possible methicillin-resistant staphylococcus aureus. 2. Debility secondary to ongoing acute pulmonary infection. 3. Acute exacerbation of chronic obstructive pulmonary disease. PLAN OF MANAGEMENT: Continue current antibiotics for patient who is currently on vancomycin and Merrem. The vancomycin is sufficient to cover the MRSA in the sputum. We will make adjustments to antibiotics based on further bronch cultures. The patient has been switched to Solu-Medrol 40 mg daily. Further changes in the treatment will be ordered accordingly. Usual plan of management and care and therapy per primary team. Luis DO Mateo [place], [place] PROGRESS NOTE NAME: KIERRA LABOY UNIT #: [id number] ROOM: [facility] DOCTOR: LUIS PAEZ DO BIRTHDATE: [birth year] BAMBI SOARES MD CM:RERE [phone] LUIS PAEZ DO 09/04/18 0231 interface
--- NOTE | ~2018-08-28 | PR ---
[place], [place] PROGRESS NOTE NAME: KIERRA LABOY [facility] #: [id number] UNIT #: [id number] ROOM: 401 DOCTOR: FANY FALL MD,BAMBI BIRTHDATE: [birth year] DOS: 09/05/2018 SUBJECTIVE: The patient was noted partial improvement in the weakness and fatigue. The cough has been noted decreased. He was assessed by the Infectious Disease specialist and recommended extended infusion of the intravenous Zosyn. The other antibiotic will discontinue. The patient denies symptoms of chest pain, fever or chills. OBJECTIVE: VITAL SIGNS: For the patient which has been recorded shows the temperature noted normal, respiratory rate of 18, heart rate 65, pulse oxygen saturation on room air of 94% saturation. HEAD, EYES, EARS, NOSE, AND THROAT: Head was atraumatic. Eyes nonicterus. NECK: Supple. CARDIOVASCULAR SYSTEM: S1, S2 audible. LUNGS: Noted without any wheeze or crackles. ABDOMEN: Soft, nontender. Bowel sounds present. EXTREMITIES: Without acute edema. LABORATORY DATA: QuantiFERON-TB Gold test noted an indeterminate. The acid-fast bacillus for previous bronchial washing so far not noted any abnormal bacterial growth and for the current bronchoscopy cultures were pending. The sputum was noted negative. IMPRESSION: Acute pneumonia, Pseudomonas aeruginosa as well with acute exacerbation of chronic obstructive pulmonary disease. PLAN OF MANAGEMENT: Follow the recommendation for acute disease specialist. Continue other therapy, plan and management as in progress without any other changes need to be made at this time. Usual care. Supportive care therapy, plan of management and treatments. Possible discharge planning. The patient on IV antibiotics should be considered. BAMBI SOARES MD CM:PNTRANS [phone] BAMBI FALL MD 09/20/18 0955 interface
--- NOTE | ~2018-08-28 | PR ---
[place], [place] PROGRESS NOTE NAME: KIERRA LABOY [facility] #: [id number] UNIT #: [id number] ROOM: 401 DOCTOR: FANY FALL MD,BAMBI BIRTHDATE: [birth year] DOS: 09/08/2018 PULMONARY PROGRESS NOTE SUBJECTIVE: The patient has been noted with gradual improvement over physical strength. The coughing has been improving. Chest pain was also resolving. There were no symptoms of fever or chills. OBJECTIVE: VITAL SIGNS: Normal temperature, respiratory rate of 18, heart rate 71, blood pressure 105/55, pulse ox saturation as 97% saturation on room air. HEENT: Examination shows head was atraumatic. Eyes nonicterus. NECK: Supple. CARDIOVASCULAR: S1, S2 is audible. LUNGS: Noted without any wheeze or crackles. ABDOMEN: Soft, nontender. Bowel sounds present. EXTREMITIES: The patient noted without any acute edema, clubbing or cyanosis. IMPRESSION: Resolving acute Pseudomonas aeruginosa, clinically with improvement in respiratory symptoms continued including fatigue, tiredness and cough. PLAN OF MANAGEMENT: Plan is to have the insertion of the PICC line tomorrow and discharge for 7 more days of antibiotics to be given intravenously as extended intravenous infusions of Zosyn. Continue other supportive therapy, plan of management, care plan and treatment. Usual care and therapies. BAMBI SOARES MD CM:PNTRANS [phone] BAMBI FALL MD 09/09/18 0526 interface
--- NOTE | ~2018-08-28 | PR ---
[place], [place] PROGRESS NOTE NAME: KIERRA LABOY UNIT #: [id number] ROOM: 401 DOCTOR: BELA MENDOZA BIRTHDATE: [birth year] DOS: 09/08/2018 SUBJECTIVE: The patient is being followed for bronchiectasis and recurrent pneumonia. His bronchoscopy had shown pseudomonas and then oral joel. He is currently on Zosyn. He is alert and oriented. Cough and breathing are improving. Denies any nausea, vomiting or diarrhea. Has good appetite. No fevers, no rashes. Further review of systems is unremarkable other than left anterior pleuritic chest pain. LABORATORY DATA: WBC is 14.9, platelets 397. BUN 28, creatinine 0.97. CURRENT MEDICATIONS: Zosyn, [place], Pamelor, vitamin D, Topamax, Procardia, multivitamin, Mobic, Claritin, Zestril, folic acid, Flonase, Lovenox, aspirin, Neurontin, Humalog, Mucinex, DuoNebs. PHYSICAL EXAMINATION: VITAL SIGNS: Temperature 97.9, pulse 69, respirations 18, BP 128/68. GENERAL: A 58-year-old male, in no acute distress. HEENT: Normocephalic, no thrush. LUNGS: Clear to auscultation bilaterally. Respirations even and unlabored. HEART: Regular rhythm. No murmur appreciated. ABDOMEN: Soft, nondistended. EXTREMITIES: No edema or deformity. SKIN: Warm, dry, free of rashes. ASSESSMENT: Recurrent pneumonia, now pseudomonas also with bronchiectasis. PLAN: He is to continue his Zosyn. He is to have PICC line placed tomorrow and be worked up for discharge with home health. JANUARY REJI CRAMER [place], [place] PROGRESS NOTE NAME: KIERRA LABOY UNIT #: [id number] ROOM: 401 DOCTOR: BELA MENDOZAJANUARY BIRTHDATE: [birth year] Sofía Wall MD CM:PNAUGSUTINA [phone] [facility] 09/08/181836 interface
--- NOTE | ~2018-08-28 | PR ---
[place], [place] PROGRESS NOTE NAME: KIERRA LABOY [facility] #: [id number] UNIT #: [id number] ROOM: 401 DOCTOR: FANY FALL MD,BAMBI BIRTHDATE: [birth year] DOS: 09/09/2018 SUBJECTIVE: The patient is noted comfortable at this time. Resting in the bed, still complaining of pain in the chest, which has been gradually improving. He was planned for PICC line insertion today for the medical management of acute pneumonia with Pseudomonas aeruginosa with intravenous therapy as an outpatient. OBJECTIVE: VITAL SIGNS: Which has been recorded shows a normal temperature, respiratory rate of 20, heart rate 77, blood pressure 120/70. The pulse oxygen saturation of the patient recorded as 100% saturation this morning. HEENT: No acute change. NECK: Supple. CARDIOVASCULAR: S1, S2 audible. LUNGS: The patient was noted without any wheeze or crackles. ABDOMEN: Soft, nontender. Bowel sounds present. EXTREMITIES: Without any acute edema. IMPRESSION: 1. Resolving acute Pseudomonas aeruginosa pneumonia. The patient is currently receiving intravenous antibiotics. 2. The patient with improving acute exacerbation of chronic obstructive pulmonary disease. PLAN OF TREATMENT: No change in plan of treatment proceed with the PICC line insertion as planned. Discharge planning for the patient per bilingual social worker after availability of the antibiotic and outpatient and authorization from his health insurance. The patient will be followed up in the office in a week post-discharge for further determining the need of any changes in the medical management. BAMBI SOARES MD CM:PNTRANS [phone] BAMBI FALL MD 09/10/18 0124 interface
--- NOTE | ~2018-08-28 | CON ---
[place], [place] REPORT OF CONSULTATION NAME: KIERRA LABOY [facility] #: [id number] UNIT #: [id number] ROOM: 401 DOCTOR: LUIS EDUARDO AYOUB MD BIRTHDATE: [birth year] DOS: 09/04/2018 REASON FOR CONSULTATION: Pneumonia. CHIEF COMPLAINT: Shortness of breath, chest pain. HISTORY OF PRESENT ILLNESS: This is a 58-year-old male, active smoker, 3 packs per day, who was seen recently a month ago for pneumonia and his bronch cultures at that time grew normal joel with moderate gram-negative bacteria showing Pseudomonas aeruginosa, which was pansensitive. He was kept on Levaquin 750 mg every day. However, at the time of discharge, he was given doxycycline and tapering dose of steroids. He got readmitted a week after that because he said at the workplace I was having a lot of chest pain, felt like a rib pain, associated with productive cough, occasional chills. He denies having any weight loss all this time. He had no repeated hospitalization in the past. His last episode of pneumonia was almost 5-6 years ago. 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 At this time when he was readmitted, he was on broad spectrum antibiotics, underwent bronchoscopy 3 days ago and the bronch cultures, Gram stain shows many wbc's, few budding yeast, rare GPC in pairs, rare gram-positive bacilli and again growth of Pseudomonas, light growth. Interestingly, at this time, it is resistant to cefepime and intermediate resistant to meropenem. His initial sputum cultures on admission had growth of MRSA as well, which has not grown in the bronchial cultures so far. Also to be noted he got doxycycline in outpatient. I reviewed his CAT scan of the chest, which was done on 08/29/2018 without contrast. It shows chronic pulmonary parenchymal scar in the right upper lobe, emphysematous changes. Calcified pleural plaques, right lower hemithorax, traction bronchiectasis right upper lobe. He was born in [place], moved to [place] at the age of 4 years. He is not clear about any treatment, history of TB in his family, he was never tested or treated for the same. At the same time, he denies having any weight loss history, does not feel sick all the time. Interestingly, his TB QuantiFERON testing came back indeterminate twice. At this time, the patient has been kept on Levaquin 750 every day and ID has been consulted for further management. PAST MEDICAL HISTORY: Significant for coronary artery disease, chronic back pain, COPD, dental caries, essential hypertension, GERD, hyperlipidemia, iron deficiency anemia. PAST SURGICAL HISTORY: Back surgeries, bur hole surgeries, appendectomy. SOCIAL HISTORY: Active smoker, quit a month ago. Used to smoke 3 packs of cigarettes per day, quit drinking 30 years ago. No illicit drug use. 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 FAMILY HISTORY: Father with history of hypertension, coronary artery disease, diabetes, at the age of 69 because of AR. Mother at the age of 64 in a motor vehicle accident. ALLERGIES: TORADOL. [place], [place] REPORT OF CONSULTATION NAME: KIERRA LABOY UNIT #: [id number] ROOM: [facility] [place] DOCTOR: ANITRA RAUSCHLUIS EDUARDO BIRTHDATE: [birth year] HOME MEDICATIONS: Reviewed. REVIEW OF SYSTEMS: A 12-point review of systems has been done. Pertinent negatives and positives have been included in the HPI. Rest are noncontributory. PHYSICAL EXAMINATION: VITAL SIGNS: Current temperature 97.3, pulse rate 66, blood pressure 118/67, respiratory rate 18, oxygen saturation 98% on room air. GENERAL: The patient is alert, oriented x 3, not in acute distress. HEENT: Atraumatic, normocephalic. PERRLA, EOMI. RESPIRATORY: Air entry bilaterally equal. No wheeze or crackles. CARDIOVASCULAR: S1, S2 normal. No murmur, rubs or gallop. ABDOMEN: Soft, nontender, nondistended. Bowel sounds present in 4 quadrants. EXTREMITIES: No pedal edema. LABORATORY DATA AND IMAGING: Reviewed, mentioned in HPI. ASSESSMENT: 1. Recurrent pneumonia. 2. Extensive bronchiectasis with lung scarring. 3. Indeterminate TB QuantiFERON positive. PLAN: 1. At this time, I do not suspect him to have active MTB because he does not have significant history of weight loss, anemia or any other constitutional signs and symptoms; however, I am concerned about his significant amount of bronchiectasis with indeterminate QuantiFERON which could be possible even with nontuberculous mycobacteria. At this time, I would keep him on Zosyn extended release because fluoroquinolones quickly develop resistance, avoiding inpatient use. 2. Tobramycin inhalation. 3. MRSA is a colonization. 4. Wait for the AFB smears to return from the bronch samples. Thank you for your consult. Please call if any questions. Sofía Ayoub MD CM:CONSTR:REPORT OF CONSULTATION [id number] 09/05/18 0735 interface
--- NOTE | ~2018-08-28 | PR ---
[place], [place] PROGRESS NOTE NAME: KIERRA LABOY UNIT #: [id number] ROOM: 401 DOCTOR: LUIS PAEZ DO BIRTHDATE: [birth year] DOS: 09/10/2018 PULMONOLOGY PROGRESS NOTE SUBJECTIVE: The patient was seen and evaluated on general medical floor and noted comfortable at this time. The patient denies any respiratory complaints at this time or any shortness of breath or any other complaints. OBJECTIVE: VITAL SIGNS: Temperature 97.5, pulse 73, respiratory rate 18, blood pressure 104/54 and O2 sats 100% on room air. GENERAL: Alert and oriented. No signs of distress. HEENT: Atraumatic, normocephalic. Eyes, PERRLA, no icterus. NECK: Supple. CARDIOVASCULAR: Regular rate and rhythm. No murmurs, rubs, gallops. LUNGS: Clear to auscultation bilaterally. ABDOMEN: Soft, nontender. Bowel sounds present. EXTREMITIES: Without acute edema. NEUROLOGIC: Grossly intact. No neurological deficits. ASSESSMENT: Resolving acute Pseudomonas aeruginosa pneumonia. Improving acute exacerbation of chronic obstructive pulmonary disease. PLAN: No change in plan of treatment. The patient has PICC line in place and is stable for discharge from pulmonology standpoint on IV antibiotics as recommended per the Infectious Disease specialist. Changes will be made based on the clinical progression of the patient. Luis Paez DO BAMBI SOARES MD CM:PNTRANS [id number] LUIS PAEZ DO 09/10/18 1432 interface
--- NOTE | ~2018-08-28 | PR ---
[place], [place] PROGRESS NOTE NAME: KIERRA LABOY [facility] #: [id number] UNIT #: [id number] ROOM: 407 DOCTOR: BAMBI HERCULES MD BIRTHDATE: [birth year] DOS: 08/31/2018 SUBJECTIVE: The patient was still complaining of fatigue with some cough, but there was no sputum expectoration. Denies symptoms of chest pain, fever, or chills. Denies symptoms of nausea, vomiting or diarrhea or any abdominal pain. Denies edema or pain of the lower extremities. The patient denies symptoms of hematuria. Remaining systems were reviewed. They were noted all negative. OBJECTIVE: VITAL SIGNS: For the patient which were recorded showed the temperature noted as normal. The respiratory rate of the patient recorded at 20, heart rate 71, blood pressure 110/65-113/67. Pulse oxygen saturation on room air was 98% saturation. HEENT: Examination shows head was atraumatic. Eyes nonicterus. NECK: Supple. CARDIOVASCULAR: S1, S2 is audible. LUNGS: Without any wheeze or crackles. ABDOMEN: Soft and nontender. Bowel sounds present. EXTREMITIES: Without acute edema. CENTRAL NERVOUS SYSTEM: Cranial nerves 2-12 intact. MUSCULOSKELETAL: Without any acute deformities. VISIBLE SKIN: No lesions or rashes. LABORATORY DATA: Culture of the sputum noted light growth of methicillin-resistant staphylococcus aureus. IMPRESSION: Possibility of methicillin-resistant staphylococcus aureus pneumonia. The patient with gram-negative infection still to be considered as Pseudomonas aeruginosa with the right upper lung pleural thickening, cavitation and infiltration. PLAN OF MANAGEMENT: Continuation of the current antibiotics and bronchodilators. The bronchoscopy planned to be done on Sunday. The de-escalation of antibiotic will be done accordingly. In the meantime, continue other supportive therapy, plan of management and care plan. Usual treatment. Reduce the Solu-Medrol dose to 40 mg daily. The patient with acute exacerbation of chronic obstructive pulmonary disease was resolving. [place], [place] PROGRESS NOTE NAME: KIERRA LABOY [facility] #: [id number] UNIT #: [id number] ROOM: 407 DOCTOR: BMABI HERCULES MD BIRTHDATE: [birth year] BAMBI SOARES MD CM:PNTRANS [id number] BAMBI FALL MD 08/31/18 1731 interface
[2018-08-28 17:51] VITALS: BP 126/70
[~2018-08-28 17:51] MED LIST changes: -ZOSYN 3.373.375 GM/5 IV
[2018-08-28 18:26] LABS: BASO % 0.3 % (0.0-1.0); EOS # 0.2 10*3/uL (0.0-0.4); EOS % 1.3 % (1.0-4.0); HEMATOCRIT 34.7 % (42.0-52.0); HEMOGLOBIN 11.5 g/dl (14.0-18.0); LYMPH # 2.5 10*3/uL (1.3-4.4); LYMPH % 20.7 % (27.0-41.0); MEAN CELL VOLUME 95.3 fl (80.0-94.0); MEAN CORPUSCULAR HGB 31.6 pg (27.0-31.0); MEAN CORPUSCULAR HGB CONC 33.1 g/dl (33.0-37.0); MEAN PLATELET VOLUME 8.8 fl (9.6-12.3); MONO # 1.1 10*3/uL (0.1-1.0); MONO % 8.7 % (3.0-9.0); NEUT # 8.3 10*3/uL (2.3-7.9); NEUT % 68.6 % (47.0-73.0); PLATELET COUNT AUTOMATED 390 10*3/uL (130-400); RED BLOOD COUNT 3.64 10*6/uL (4.50-5.90); WHITE BLOOD COUNT 12.1 10*3/uL (4.8-10.8)
[2018-08-28 18:36] LABS: INTERNATIONAL NORM RATIO 0.9 (2.0-3.5)
[2018-08-28 18:44] LABS: ALBUMIN 3.1 gm/dl (3.1-4.5); ALKALINE PHOSPHATASE 79 U/L (45-117); BUN 20 mg/dl (7-24); CHLORIDE 103 mmol/L (98-107); CREATININE 0.92 mg/dL (0.70-1.30); POTASSIUM 4.1 mmol/L (3.5-5.1); SGOT/AST 12 IU/L (3-35); SGPT/ALT 26 U/L (12-78); SODIUM 135 mmol/L (136-145); TOTAL PROTEIN 6.6 gm/dL (6.4-8.2)
[2018-08-28 18:50] LABS: BILIRUBIN NEGATIVE (NEGATIVE); BLOOD NEGATIVE (NEGATIVE); CLARITY SL CLOUDY (CLEAR); COLOR YELLOW (YELLOW); GLUCOSE NEGATIVE (NEGATIVE); KETONE NEGATIVE (NEGATIVE); LEUKO ESTERASE NEGATIVE (NEGATIVE); NITRITE NEGATIVE (NEGATIVE); UROBILINOGEN 0.2 E.U./dl (0.2-1.0)
[2018-08-28 18:52] LABS: TROPONIN I < 0.015 ng/ml (<0.045)
[2018-08-28 19:07] LABS: RBC 0-2 rbc/hpf (0-2); WBC 0-2 wbc/hpf (0-5)
[2018-08-28 19:25] VITALS: BP 118/67
[2018-08-28 20:35] VITALS: BP 120/72
[2018-08-28 20:50] VITALS: BP 121/70
[2018-08-29] VITALS: BP 104/53
[2018-08-29 07:44] LABS: BASO % 0.3 % (0.0-1.0); EOS # 0.1 10*3/uL (0.0-0.4); EOS % 1.3 % (1.0-4.0); HEMATOCRIT 34.9 % (42.0-52.0); HEMOGLOBIN 11.2 g/dl (14.0-18.0); LYMPH # 1.7 10*3/uL (1.3-4.4); LYMPH % 16.1 % (27.0-41.0); MEAN CELL VOLUME 96.7 fl (80.0-94.0); MEAN CORPUSCULAR HGB CONC 32.1 g/dl (33.0-37.0); MEAN PLATELET VOLUME 9.2 fl (9.6-12.3); MONO # 0.8 10*3/uL (0.1-1.0); NEUT # 7.6 10*3/uL (2.3-7.9); NEUT % 73.8 % (47.0-73.0); PLATELET COUNT AUTOMATED 340 10*3/uL (130-400); RED BLOOD COUNT 3.61 10*6/uL (4.50-5.90); WHITE BLOOD COUNT 10.3 10*3/uL (4.8-10.8)
[2018-08-29 08:00] VITALS: BP 110/62
[2018-08-29 08:18] LABS: BUN 13 mg/dl (7-24); CHLORIDE 102 mmol/L (98-107); CREATININE 0.81 mg/dL (0.70-1.30); PHOSPHOROUS 2.5 mg/dL (2.5-4.9); POTASSIUM 4.1 mmol/L (3.5-5.1); SODIUM 132 mmol/L (136-145)
[2018-08-29 12:00] VITALS: BP 117/67
[2018-08-29 16:00] VITALS: BP 118/65
[2018-08-29 20:00] VITALS: BP 121/57
[2018-08-30] VITALS: BP 116/52
[2018-08-30 06:41] LABS: CHLORIDE 103 mmol/L (98-107); CREATININE 0.93 mg/dL (0.70-1.30); PHOSPHOROUS 2.6 mg/dL (2.5-4.9); POTASSIUM 4.6 mmol/L (3.5-5.1); SODIUM 133 mmol/L (136-145)
[2018-08-30 06:42] LABS: BUN 24 mg/dl (7-24)
[2018-08-30 06:44] LABS: BASO % 0.1 % (0.0-1.0); EOS % 0.1 % (1.0-4.0); HEMATOCRIT 36.3 % (42.0-52.0); HEMOGLOBIN 11.5 g/dl (14.0-18.0); LYMPH # 0.6 10*3/uL (1.3-4.4); LYMPH % 7.8 % (27.0-41.0); MEAN CELL VOLUME 96.3 fl (80.0-94.0); MEAN CORPUSCULAR HGB 30.5 pg (27.0-31.0); MEAN CORPUSCULAR HGB CONC 31.7 g/dl (33.0-37.0); MEAN PLATELET VOLUME 9.3 fl (9.6-12.3); MONO # 0.2 10*3/uL (0.1-1.0); MONO % 1.9 % (3.0-9.0); NEUT # 7.1 10*3/uL (2.3-7.9); NEUT % 89.5 % (47.0-73.0); PLATELET COUNT AUTOMATED 371 10*3/uL (130-400); RED BLOOD COUNT 3.77 10*6/uL (4.50-5.90); RED CELL DISTRI WIDTH 14.7 % (0-14.5)
[2018-08-30 08:30] VITALS: BP 118/62
[2018-08-30 12:00] VITALS: BP 113/65
[2018-08-30 16:00] VITALS: BP 121/61
[2018-08-30 20:00] VITALS: BP 118/66
[2018-08-31] VITALS: BP 113/67
[2018-08-31 08:00] VITALS: BP 110/65
[2018-08-31 12:00] VITALS: BP 120/63
[2018-08-31 16:00] VITALS: BP 125/72
[2018-08-31 20:00] VITALS: BP 136/72
[2018-09-01] VITALS: BP 120/65
[2018-09-01 07:26] LABS: BASO % 0.2 % (0.0-1.0); EOS # 0.1 10*3/uL (0.0-0.4); EOS % 0.8 % (1.0-4.0); HEMATOCRIT 34.7 % (42.0-52.0); HEMOGLOBIN 11.1 g/dl (14.0-18.0); LYMPH # 2.9 10*3/uL (1.3-4.4); LYMPH % 24.3 % (27.0-41.0); MEAN CELL VOLUME 96.4 fl (80.0-94.0); MEAN CORPUSCULAR HGB 30.8 pg (27.0-31.0); MEAN PLATELET VOLUME 9.5 fl (9.6-12.3); MONO % 7.9 % (3.0-9.0); NEUT # 7.9 10*3/uL (2.3-7.9); PLATELET COUNT AUTOMATED 376 10*3/uL (130-400); RED CELL DISTRI WIDTH 14.6 % (0-14.5)
[2018-09-01 07:35] LABS: ALBUMIN 2.6 gm/dl (3.1-4.5); ALKALINE PHOSPHATASE 64 U/L (45-117); BUN 26 mg/dl (7-24); CHLORIDE 104 mmol/L (98-107); CREATININE 0.76 mg/dL (0.70-1.30); POTASSIUM 4.1 mmol/L (3.5-5.1); SGOT/AST 10 IU/L (3-35); SGPT/ALT 30 U/L (12-78); SODIUM 136 mmol/L (136-145); TOTAL PROTEIN 6.1 gm/dL (6.4-8.2)
[2018-09-01 08:00] VITALS: BP 105/55
[2018-09-01 12:00] VITALS: BP 116/57
[2018-09-01 16:00] VITALS: BP 111/58
[2018-09-01 20:00] VITALS: BP 124/67
[2018-09-02] VITALS (8 sets, daily range): BP systolic 108–134; BP diastolic 60–73
[2018-09-02 07:21] LABS: BASO % 0.2 % (0.0-1.0); EOS # 0.1 10*3/uL (0.0-0.4); EOS % 1.1 % (1.0-4.0); HEMATOCRIT 34.1 % (42.0-52.0); HEMOGLOBIN 10.9 g/dl (14.0-18.0); LYMPH # 2.9 10*3/uL (1.3-4.4); LYMPH % 23.8 % (27.0-41.0); MEAN CELL VOLUME 97.7 fl (80.0-94.0); MEAN CORPUSCULAR HGB 31.2 pg (27.0-31.0); MEAN PLATELET VOLUME 9.4 fl (9.6-12.3); MONO % 8.1 % (3.0-9.0); NEUT % 65.6 % (47.0-73.0); PLATELET COUNT AUTOMATED 357 10*3/uL (130-400); RED BLOOD COUNT 3.49 10*6/uL (4.50-5.90); RED CELL DISTRI WIDTH 14.8 % (0-14.5); WHITE BLOOD COUNT 12.2 10*3/uL (4.8-10.8)
[2018-09-02 07:43] LABS: BUN 24 mg/dl (7-24); CHLORIDE 104 mmol/L (98-107); CREATININE 0.74 mg/dL (0.70-1.30); POTASSIUM 4.1 mmol/L (3.5-5.1); SODIUM 136 mmol/L (136-145)
[2018-09-02 10:56] LABS: BF LYMPHOCYTES 2 %; BF MACROPHAGES 55 %; BF NEUTROPHILS 41 %
[2018-09-03] VITALS: BP 126/60
[2018-09-03 06:57] LABS: BASO % 0.2 % (0.0-1.0); EOS # 0.1 10*3/uL (0.0-0.4); EOS % 1.2 % (1.0-4.0); HEMATOCRIT 34.4 % (42.0-52.0); HEMOGLOBIN 11.1 g/dl (14.0-18.0); LYMPH # 2.8 10*3/uL (1.3-4.4); MEAN CELL VOLUME 96.9 fl (80.0-94.0); MEAN CORPUSCULAR HGB 31.3 pg (27.0-31.0); MEAN CORPUSCULAR HGB CONC 32.3 g/dl (33.0-37.0); MEAN PLATELET VOLUME 9.2 fl (9.6-12.3); MONO # 0.8 10*3/uL (0.1-1.0); MONO % 6.8 % (3.0-9.0); NEUT # 8.2 10*3/uL (2.3-7.9); NEUT % 67.9 % (47.0-73.0); PLATELET COUNT AUTOMATED 341 10*3/uL (130-400); RED BLOOD COUNT 3.55 10*6/uL (4.50-5.90); RED CELL DISTRI WIDTH 14.4 % (0-14.5)
[2018-09-03 08:00] VITALS: BP 134/66
[2018-09-03 11:58] VITALS: BP 127/66
[2018-09-03 15:00] VITALS: BP 126/61
[2018-09-03 15:12] LABS: ACID FAST SPEC PROCESSING Concentration (.)
[2018-09-03 16:00] VITALS: BP 126/64
[2018-09-03 20:00] VITALS: BP 122/61
[2018-09-04] VITALS: BP 109/48
[2018-09-04 07:48] LABS: BASO % 0.2 % (0.0-1.0); EOS # 0.2 10*3/uL (0.0-0.4); EOS % 1.4 % (1.0-4.0); HEMATOCRIT 36.7 % (42.0-52.0); HEMOGLOBIN 11.6 g/dl (14.0-18.0); LYMPH # 2.9 10*3/uL (1.3-4.4); LYMPH % 27.3 % (27.0-41.0); MEAN CELL VOLUME 96.8 fl (80.0-94.0); MEAN CORPUSCULAR HGB 30.6 pg (27.0-31.0); MEAN CORPUSCULAR HGB CONC 31.6 g/dl (33.0-37.0); MEAN PLATELET VOLUME 9.2 fl (9.6-12.3); MONO # 0.7 10*3/uL (0.1-1.0); MONO % 6.4 % (3.0-9.0); NEUT # 6.6 10*3/uL (2.3-7.9); NEUT % 63.2 % (47.0-73.0); PLATELET COUNT AUTOMATED 361 10*3/uL (130-400); RED BLOOD COUNT 3.79 10*6/uL (4.50-5.90); RED CELL DISTRI WIDTH 14.4 % (0-14.5); WHITE BLOOD COUNT 10.5 10*3/uL (4.8-10.8)
[2018-09-04 08:00] VITALS: BP 126/68
[2018-09-04 08:27] LABS: BUN 21 mg/dl (7-24); CREATININE 0.71 mg/dL (0.70-1.30)
[2018-09-04 11:44] VITALS: BP 140/68
[2018-09-04 15:09] LABS: TB1 Ag VALUE 0.02 IU/mL (.)
[2018-09-04 16:00] VITALS: BP 118/67
[2018-09-04 20:00] VITALS: BP 125/65
[2018-09-05] VITALS: BP 101/48; BP 115/53
[2018-09-05 08:00] VITALS: BP 112/51
[2018-09-05 12:00] VITALS: BP 122/75
[2018-09-05 16:00] VITALS: BP 118/57
[2018-09-05 20:00] VITALS: BP 115/64
[2018-09-06] VITALS: BP 101/48
[2018-09-06 08:00] VITALS: BP 110/66
[2018-09-06 12:00] VITALS: BP 104/68
[2018-09-06 16:00] VITALS: BP 109/65
[2018-09-06 20:00] VITALS: BP 108/67
[2018-09-07] VITALS: BP 121/57
[2018-09-07 06:37] LABS: HEMOGLOBIN 11.4 g/dl (14.0-18.0); MEAN CELL VOLUME 95.5 fl (80.0-94.0); MEAN CORPUSCULAR HGB 30.2 pg (27.0-31.0); MEAN CORPUSCULAR HGB CONC 31.7 g/dl (33.0-37.0); MEAN PLATELET VOLUME 9.2 fl (9.6-12.3); PLATELET COUNT AUTOMATED 380 10*3/uL (130-400); RED BLOOD COUNT 3.77 10*6/uL (4.50-5.90); RED CELL DISTRI WIDTH 14.2 % (0-14.5); WHITE BLOOD COUNT 12.4 10*3/uL (4.8-10.8)
[2018-09-07 06:56] LABS: BUN 28 mg/dl (7-24); CREATININE 0.92 mg/dL (0.70-1.30)
[2018-09-07 07:04] LABS: PLATELET SUFFICIENCY NORMAL (NORMAL); TOTAL CELLS COUNTED 100 #CELLS
[2018-09-07 08:00] VITALS: BP 108/58
[2018-09-07 12:00] VITALS: BP 109/60
[2018-09-07 16:00] VITALS: BP 111/57
[2018-09-07 20:00] VITALS: BP 129/57; BP 129/61
[2018-09-08] VITALS: BP 116/56
[2018-09-08 06:16] LABS: HEMATOCRIT 34.6 % (42.0-52.0); HEMOGLOBIN 11.5 g/dl (14.0-18.0); MEAN CELL VOLUME 95.3 fl (80.0-94.0); MEAN CORPUSCULAR HGB 31.7 pg (27.0-31.0); MEAN CORPUSCULAR HGB CONC 33.2 g/dl (33.0-37.0); MEAN PLATELET VOLUME 9.3 fl (9.6-12.3); PLATELET COUNT AUTOMATED 397 10*3/uL (130-400); RED BLOOD COUNT 3.63 10*6/uL (4.50-5.90); RED CELL DISTRI WIDTH 14.1 % (0-14.5); WHITE BLOOD COUNT 14.9 10*3/uL (4.8-10.8)
[2018-09-08 06:51] LABS: BUN 28 mg/dl (7-24); CHLORIDE 97 mmol/L (98-107); CREATININE 0.97 mg/dL (0.70-1.30); POTASSIUM 4.4 mmol/L (3.5-5.1); SODIUM 134 mmol/L (136-145)
[2018-09-08 07:06] LABS: BASOPHILS 3 % (0-1); PLATELET SUFFICIENCY NORMAL (NORMAL); TOTAL CELLS COUNTED 100 #CELLS
[2018-09-08 08:00] VITALS: BP 105/55
[2018-09-08 12:00] VITALS: BP 109/58
[2018-09-08] MEDS ORDERED: ZOSYN 3.373.375 GM/5 IV (14:09)
[2018-09-08 16:00] VITALS: BP 128/68
[2018-09-08 20:00] VITALS: BP 136/70
[2018-09-09] VITALS: BP 138/64
[2018-09-09 06:46] LABS: HEMATOCRIT 36.9 % (42.0-52.0); MEAN CELL VOLUME 95.6 fl (80.0-94.0); MEAN CORPUSCULAR HGB 31.1 pg (27.0-31.0); MEAN CORPUSCULAR HGB CONC 32.5 g/dl (33.0-37.0); MEAN PLATELET VOLUME 9.3 fl (9.6-12.3); PLATELET COUNT AUTOMATED 387 10*3/uL (130-400); RED BLOOD COUNT 3.86 10*6/uL (4.50-5.90); RED CELL DISTRI WIDTH 14.1 % (0-14.5)
[2018-09-09 07:31] LABS: BASOPHILS 1 % (0-1); CHLORIDE 94 mmol/L (98-107); PLATELET SUFFICIENCY NORMAL (NORMAL); POTASSIUM 4.9 mmol/L (3.5-5.1); SODIUM 127 mmol/L (136-145); TOTAL CELLS COUNTED 100 #CELLS
[2018-09-09 07:42] LABS: BUN 23 mg/dl (7-24); CREATININE 0.94 mg/dL (0.70-1.30)
[2018-09-09 07:54] VITALS: BP 120/70
[2018-09-09] MEDS ORDERED: ZOSYN 3.373.375 GM/5 IV (09:56)
[2018-09-09 11:52] VITALS: BP 136/63
[2018-09-09 16:00] VITALS: BP 104/50
[2018-09-09 20:00] VITALS: BP 114/59
[2018-09-10] VITALS: BP 115/60
[2018-09-10 06:22] LABS: HEMATOCRIT 34.1 % (42.0-52.0); MEAN CELL VOLUME 93.9 fl (80.0-94.0); MEAN CORPUSCULAR HGB 30.3 pg (27.0-31.0); MEAN CORPUSCULAR HGB CONC 32.3 g/dl (33.0-37.0); MEAN PLATELET VOLUME 9.3 fl (9.6-12.3); PLATELET COUNT AUTOMATED 388 10*3/uL (130-400); RED BLOOD COUNT 3.63 10*6/uL (4.50-5.90); RED CELL DISTRI WIDTH 13.9 % (0-14.5); WHITE BLOOD COUNT 14.7 10*3/uL (4.8-10.8)
[2018-09-10 06:28] LABS: BUN 26 mg/dl (7-24); CHLORIDE 95 mmol/L (98-107); CREATININE 0.85 mg/dL (0.70-1.30); POTASSIUM 4.3 mmol/L (3.5-5.1); SODIUM 127 mmol/L (136-145)
[2018-09-10 07:00] LABS: BASOPHILS 3 % (0-1); PLATELET SUFFICIENCY NORMAL (NORMAL); TOTAL CELLS COUNTED 100 #CELLS
[2018-09-10 08:00] VITALS: BP 104/54
[2018-09-10 14:00] VITALS: BP 104/54
== END 2018-09-10 14:58 | disposition home or self-care (01) | DRG 177 ==
LOC: ED 17:51 → 4E 19:43 → EDHOLD 19:43 → 4E 20:35
PROVIDERS: Family Medicine; Internal Medicine; Internal Medicine Critical Care Medicine; Internal Medicine Nephrology; Physician Assistant; Registered Nurse
PROC: 0BC98ZZ Extirpation of Matter from Lingula Bronchus, Via Natural or Artificial Opening Endoscopic (ICD-10-PCS; principal; 2018-09-02)
PROC: 0BC48ZZ Extirpation of Matter from Right Upper Lobe Bronchus, Via Natural or Artificial Opening Endoscopic (ICD-10-PCS; 2018-09-02)
PROC: 0BC88ZZ Extirpation of Matter from Left Upper Lobe Bronchus, Via Natural or Artificial Opening Endoscopic (ICD-10-PCS; 2018-09-02)
PROC: 0BC58ZZ Extirpation of Matter from Right Middle Lobe Bronchus, Via Natural or Artificial Opening Endoscopic (ICD-10-PCS; 2018-09-02)
PROC: 0BC38ZZ Extirpation of Matter from Right Main Bronchus, Via Natural or Artificial Opening Endoscopic (ICD-10-PCS; 2018-09-02)
PROC: 0BC78ZZ Extirpation of Matter from Left Main Bronchus, Via Natural or Artificial Opening Endoscopic (ICD-10-PCS; 2018-09-02)
PROC: 0BC68ZZ Extirpation of Matter from Right Lower Lobe Bronchus, Via Natural or Artificial Opening Endoscopic (ICD-10-PCS; 2018-09-02)
PROC: 0BCB8ZZ Extirpation of Matter from Left Lower Lobe Bronchus, Via Natural or Artificial Opening Endoscopic (ICD-10-PCS; 2018-09-02)
PROC: 0BC18ZZ Extirpation of Matter from Trachea, Via Natural or Artificial Opening Endoscopic (ICD-10-PCS; 2018-09-02)
PROC: 0B9C8ZX Drainage of Right Upper Lung Lobe, Via Natural or Artificial Opening Endoscopic, Diagnostic (ICD-10-PCS; 2018-09-02)
PROC: 02HV33Z Insertion of Infusion Device into Superior Vena Cava, Percutaneous Approach (ICD-10-PCS; 2018-09-09)
DX: J15.1 Pneumonia due to Pseudomonas (principal); E43 Unspecified severe protein-calorie malnutrition; E87.1 Hypo-osmolality and hyponatremia; T17.590A Other foreign object in bronchus causing asphyxiation, initial encounter; J15.5 Pneumonia due to Escherichia coli; J15.212 Pneumonia due to Methicillin resistant Staphylococcus aureus; J92.9 Pleural plaque without asbestos; R07.81 Pleurodynia; D72.810 Lymphocytopenia; M54.9 Dorsalgia, unspecified; G89.29 Other chronic pain; I10 Essential (primary) hypertension; G43.909 Migraine, unspecified, not intractable, without status migrainosus; B96.20 Unspecified Escherichia coli [E. coli] as the cause of diseases classified elsewhere; R07.9 Chest pain, unspecified; K21.9 Gastro-esophageal reflux disease without esophagitis; E11.9 Type 2 diabetes mellitus without complications; E61.1 Iron deficiency; J43.8 Other emphysema; F17.210 Nicotine dependence, cigarettes, uncomplicated; E53.8 Deficiency of other specified B group vitamins; E78.5 Hyperlipidemia, unspecified; I25.10 Atherosclerotic heart disease of native coronary artery without angina pectoris; E83.41 Hypermagnesemia; D53.9 Nutritional anemia, unspecified; X58.XXXA Exposure to other specified factors, initial encounter; Y93.89 Activity, other specified; Y92.89 Other specified places as the place of occurrence of the external cause; Y99.8 Other external cause status; Z88.8 Allergy status to other drugs, medicaments and biological substances; Z90.49 Acquired absence of other specified parts of digestive tract; Z82.49 Family history of ischemic heart disease and other diseases of the circulatory system; Z83.3 Family history of diabetes mellitus; I25.2 Old myocardial infarction; Z79.82 Long term (current) use of aspirin; Z79.899 Other long term (current) drug therapy; Z71.6 Tobacco abuse counseling; Z68.21 Body mass index [BMI] 21.0-21.9, adult

== ENCOUNTER → 2018-09-13 | Outpatient (CLI) | payer OTHER ==
[~2018-09-13] MED LIST changes: +ZOSYN 3.373.375 GM/5 IV
== END | disposition home or self-care (01) ==
LOC: RESCLI 11:00
DX: J44.9 Chronic obstructive pulmonary disease, unspecified (principal); J18.1 Lobar pneumonia, unspecified organism; G89.29 Other chronic pain; M94.0 Chondrocostal junction syndrome [Tietze]; R07.81 Pleurodynia; Z79.899 Other long term (current) drug therapy; Z87.891 Personal history of nicotine dependence; Z79.82 Long term (current) use of aspirin; Z88.8 Allergy status to other drugs, medicaments and biological substances

== ENCOUNTER → 2018-09-20 | Outpatient (CLI) | payer OTHER | END | disposition home or self-care (01) | LOC: RESCLI 00:53 | DX: I10 Essential (primary) hypertension (principal); K21.9 Gastro-esophageal reflux disease without esophagitis; E87.1 Hypo-osmolality and hyponatremia; E55.9 Vitamin D deficiency, unspecified; J44.9 Chronic obstructive pulmonary disease, unspecified; Z91.09 Other allergy status, other than to drugs and biological substances; Z79.899 Other long term (current) drug therapy; Z79.82 Long term (current) use of aspirin; Z88.8 Allergy status to other drugs, medicaments and biological substances ==

== ENCOUNTER → 2018-09-23 | Outpatient (CLI) | payer OTHER ==
[2018-09-23 13:53] LABS: BASO # 0.1 10*3/uL (0.0-0.1); BASO % 0.8 % (0.0-1.0); EOS # 0.2 10*3/uL (0.0-0.4); EOS % 1.3 % (1.0-4.0); HEMATOCRIT 41.5 % (42.0-52.0); HEMOGLOBIN 13.6 g/dl (14.0-18.0); LYMPH # 2.7 10*3/uL (1.3-4.4); LYMPH % 20.2 % (27.0-41.0); MEAN CORPUSCULAR HGB 30.5 pg (27.0-31.0); MEAN CORPUSCULAR HGB CONC 32.8 g/dl (33.0-37.0); MEAN PLATELET VOLUME 9.2 fl (9.6-12.3); MONO # 0.7 10*3/uL (0.1-1.0); MONO % 5.6 % (3.0-9.0); NEUT # 9.3 10*3/uL (2.3-7.9); NEUT % 70.4 % (47.0-73.0); PLATELET COUNT AUTOMATED 465 10*3/uL (130-400); RED BLOOD COUNT 4.46 10*6/uL (4.50-5.90); RED CELL DISTRI WIDTH 13.4 % (0-14.5); WHITE BLOOD COUNT 13.2 10*3/uL (4.8-10.8)
[2018-09-23 14:24] LABS: BUN 16 mg/dl (7-24); CHLORIDE 103 mmol/L (98-107); CREATININE 1.07 mg/dL (0.70-1.30); POTASSIUM 4.2 mmol/L (3.5-5.1); SODIUM 136 mmol/L (136-145)
== END | disposition home or self-care (01) ==
LOC: LAB 13:02
PROVIDERS: Internal Medicine
DX: E87.1 Hypo-osmolality and hyponatremia (principal)

== ENCOUNTER → 2018-10-03 | Outpatient (CLI) | payer OTHER ==
[~2018-10-03] MED LIST changes: +24 HOUR ALLER15.8 ML NAS; +AUGMENTIN 875875 MG PO; +GLUCOPHAGE500 M1 PO; +HYDROCHLOROTH12.5 M3 PO; +PROAIR HFA8.5 GM INH; +VITAMIN B1250 MCG PO
== END | disposition home or self-care (01) ==
LOC: RESCLI 04:08
DX: K21.9 Gastro-esophageal reflux disease without esophagitis (principal); E87.1 Hypo-osmolality and hyponatremia; G89.29 Other chronic pain; E55.9 Vitamin D deficiency, unspecified; I10 Essential (primary) hypertension; J44.9 Chronic obstructive pulmonary disease, unspecified; E11.9 Type 2 diabetes mellitus without complications; M25.511 Pain in right shoulder; Z79.82 Long term (current) use of aspirin; Z79.899 Other long term (current) drug therapy; Z88.8 Allergy status to other drugs, medicaments and biological substances; Z91.09 Other allergy status, other than to drugs and biological substances

== ENCOUNTER 2018-10-21 11:28 | Emergency (ER) | payer OTHER ==
[~2018-10-21] VITALS: Ht 170.1 cm; Wt 68.0 kg
[~2018-10-21 11:28] MED LIST changes: -24 HOUR ALLER15.8 ML NAS; -AUGMENTIN 875875 MG PO; -GLUCOPHAGE500 M1 PO; -HYDROCHLOROTH12.5 M3 PO; -PROAIR HFA8.5 GM INH; -VITAMIN B1250 MCG PO
[2018-10-21 11:30] VITALS: BP 142/67
[2018-11-29] MEDS ORDERED: AUGMENTIN 875875 MG PO (19:07)
== END 2018-10-21 14:02 | disposition home or self-care (01) ==
LOC: ED 11:28
DX: R09.1 Pleurisy (principal); J43.9 Emphysema, unspecified; I25.10 Atherosclerotic heart disease of native coronary artery without angina pectoris; G89.29 Other chronic pain; I10 Essential (primary) hypertension; K21.9 Gastro-esophageal reflux disease without esophagitis; I25.2 Old myocardial infarction; G43.909 Migraine, unspecified, not intractable, without status migrainosus; E11.9 Type 2 diabetes mellitus without complications; Z87.891 Personal history of nicotine dependence; Z90.49 Acquired absence of other specified parts of digestive tract; Z88.6 Allergy status to analgesic agent; Z79.82 Long term (current) use of aspirin; Z79.899 Other long term (current) drug therapy

== ENCOUNTER 2018-10-24 10:38 | Inpatient (IN) | payer OTHER ==
[~2018-10-24] VITALS: Ht 170.2 cm; Wt 69.0 kg
--- NOTE | ~2018-10-24 | EKG ---
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
--- NOTE | ~2018-10-24 | EKG ---
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
--- NOTE | ~2018-10-24 | EKG ---
[place], [place] ELECTROCARDIOGRAM REPORT NAME: KIERRA LABOY UNIT #: [id number] ROOM: 525 DOCTOR: DARREL DRAFT REPORT BIRTHDATE: [birth year] [facility] Test Date: 2018-10-24 Test Time: 11:30:19 Pat Name: KIERRA LABOY Department: Room: [facility] Gender: M Library Helper: : 1960 Requested By: SANTI ADAMS Order Number: [id number] Reading MD: Vamshi Myers MD Measurements Intervals [place] Rate: 64 P: 65 [place]: 124 QRS: 70 QRSD: 85 T: 57 QT: 391 QTc: 404 Interpretive Statements Sinus rhythm Minimal ST elevation, anterior leads Compared to ECG 08/28/2018 18:08:04 ST (T wave) deviation now present Atrial abnormality no longer present Electronically Signed On 10-24-2018 17:30:02 PST by Vamshi Myers MD CM:EKGRPT:ELECTROCARDIOGRAM REPORT [id number] 1730 SANTI ROJO DRAFT REPORT SANTI LUCAS
--- NOTE | ~2018-10-24 | CON ---
[place], [place] REPORT OF CONSULTATION NAME: KIERRA LABOY [facility] #: [id number] UNIT #: [id number] ROOM: 525 DOCTOR: ARYAN GORDON MD BIRTHDATE: [birth year] DOS: 10/25/2018 CARDIOLOGY CONSULTATION REASON FOR CONSULTATION: Chest pain. HISTORY OF PRESENT ILLNESS: The patient is a 58-year-old man, who does have a history of coronary artery disease. He believes that he had a heart attack in 1993, but does not follow routinely with a spot remover and states that he has never had angioplasty or bypass. He also has hypertension, tobacco abuse, gastroesophageal reflux disease, and recurrent pneumonias. He was admitted to the hospital on this occasion because of left-sided chest pain. He states that at 1 in the morning, he developed a severe pain along with nausea and vomiting. He stated that the pain started in his left axilla and radiated into his left breast as well as into his left shoulder. The pain was sharp and made worse by deep breathing. He was brought in to the hospital where a CAT scan of his chest showed emphysema with bilateral pleural thickening and calcification. Changes were consistent with asbestos exposure. The standard chest x-ray showed no acute cardiopulmonary process; however, because of point tenderness in his left chest, a rib film was done and showed a left anterior fifth rib fracture without pneumothorax. Because of his risk factors, he was referred to Cardiology for further assessment as well. Thus far, his electrocardiograms have shown no acute changes and serial troponin levels have been normal. PAST MEDICAL HISTORY: Includes: 1. Coronary artery disease. The patient believes that he had a heart attack in 1993, but denies having had catheterization or angioplasty. 2. Hypertension. 3. Chronic cigarette abuse. 4. Gastroesophageal reflux disease. 5. History of migraine headaches. 6. History of recurrent pneumonias and emphysema. 7. Reported history of hydrocephalus, treated with a craniotomy and ventriculoperitoneal shunt as a child. 8. History of back surgery in 1981 after a horse riding accident. 9. Left eye surgery in 1972 following a chainsaw accident at age 17. 10. Hospitalization for chest pain on 12/15/2014. Myocardial infarction ruled out. 11. Pharmacologic myocardial perfusion study on 12/16/2014, ejection fraction 72%, no transient cavity dilation, normal myocardial perfusion study, low risk exam. 12. Hospitalization 10/24/2018 with chest pain. Chest x-ray shows a new rib fracture in the left fifth rib anteriorly. REVIEW OF SYSTEMS: The patient denies diplopia or loss of vision. He denies lightheadedness or syncope. He denies orthopnea or PND. He does have a persistent cough and was concerned that he had pneumonia again. The cough is nonproductive. He has not had any fevers or chills. He denies any focal weakness. He denies hemoptysis or hematemesis. He denies any change in bowel or bladder habits. He denies any recent weight change. He denies any skin [place], [place] REPORT OF CONSULTATION NAME: KIERRA LABOY UNIT #: [id number] ROOM: [facility] DOCTOR: ARYAN GORDON MD BIRTHDATE: [birth year] rashes. He has not had any blood in his stools or urine. He denies any peripheral edema. Denies heat or cold intolerance and denies polyuria or polydipsia. Remainder of the review of systems is negative except as noted above. FAMILY HISTORY: Father at age 69 from a heart attack. Mother at age 64 from a motor vehicle accident. MEDICATIONS PRIOR TO ADMISSION: Albuterol by metered dose inhaler p.r.n., fluticasone nasal spray daily, aspirin 81 mg daily, cholecalciferol 400 units daily, cyanocobalamin 100 mcg p.o. daily, folic acid 1 mg daily, gabapentin 800 mg t.i.d., hydrochlorothiazide 12.5 mg daily, lisinopril 40 mg daily, loratadine 10 mg daily, meloxicam 15 mg daily, metformin 500 mg b.i.d., multivitamin 1 tablet daily, nifedipine 30 mg daily, nortriptyline 50 mg at bedtime, and topiramate 50 mg b.i.d. ALLERGIES: THE PATIENT LISTS AN ALLERGY TO KETOROLAC. SOCIAL HISTORY: The patient did consume alcohol, but stopped drinking 30 years ago. He is a former smoker and quit smoking about a month ago, but previously smoked quite heavily. He denies any drug abuse. PHYSICAL EXAMINATION: GENERAL: The patient is a slender white male who is awake, alert and oriented. VITAL SIGNS: Pulse is 60 and regular, blood pressure is 102/52. He is afebrile. He weighs 69.0 kg and has a body mass index of 23.8. HEENT: Normocephalic and atraumatic. Extraocular muscles are intact. Sclerae are clear. Pupils equal, round and react to light. The oral mucosa is moist. Tongue is midline. NECK: Supple. He has no jugular distention or hepatojugular reflux. Carotids are full and I heard no bruits. He had no neck or supraclavicular masses, no thyromegaly. LUNGS: Respirations are unlabored. His chest is clear to auscultation and percussion. He has no presacral edema or chest wall tenderness. CARDIOVASCULAR: His heart has a regular rhythm. He has a fourth heart sound, but no third heart sound or murmur. The PMI is not displaced. There is no precordial heave, lift or thrill. ABDOMEN: Soft and normally active without masses, organomegaly or bruits. EXTREMITIES: Showed no clubbing, cyanosis or edema. Peripheral pulses are palpable bilaterally. LABORATORY DATA: Hemoglobin is 12.0, hematocrit 35.9, there are 9100 white cells and 356,000 platelets present. Sodium is 137, potassium 4.1, chloride 104, CO2 of 24, BUN 20, creatinine 1.02. Serial troponin levels have been normal. IMPRESSIONS: 1. Atypical chest pain. The patient's chest x-ray does show a left fifth rib fracture. This probably has been caused by excessive coughing or possible hard retching. This is the most likely cause for his current chest pain. [place], [place] REPORT OF CONSULTATION NAME: KIERRA LABOY UNIT #: [id number] ROOM: [facility] DOCTOR: ARYAN GORDON MD BIRTHDATE: [birth year] 2. Remote history of coronary artery disease reported by patient. 3. Risk factors including former cigarette abuse, hypertension, etc. The patient claims to have had a heart attack in the distant past, but a stress test in 2014 did not show any evidence for this. 4. Chronic obstructive pulmonary disease. 5. Essential hypertension. 6. Gastroesophageal reflux disease. 7. Hyperlipidemia. 8. Type 2 diabetes mellitus. PLAN: We will proceed with a pharmacologic stress test. At this point, however, I think that conservative management of his rib fracture is all that will be needed along with ongoing risk factor modification. I thank the hospitalist physicians for asking our advice regarding his care. Further recommendations will depend upon the results of his stress test. ARYAN GORDON MD CM:CONSTR:REPORT OF CONSULTATION 1209 10/25/18 1259 interface
[2018-10-24 10:46] VITALS: BP 114/66
[2018-10-24] MEDS ORDERED: PROAIR HFA8.5 GM INH (10:49)
[2018-10-24] MEDS ORDERED: HYDROCHLOROTH12.5 M3 PO (10:50)
[2018-10-24 11:38] LABS: BASO # 0.1 10*3/uL (0.0-0.1); EOS # 0.2 10*3/uL (0.0-0.4); HEMATOCRIT 40.9 % (42.0-52.0); HEMOGLOBIN 13.7 g/dl (14.0-18.0); LYMPH % 21.7 % (27.0-41.0); MEAN CELL VOLUME 90.1 fl (80.0-94.0); MEAN CORPUSCULAR HGB 30.2 pg (27.0-31.0); MEAN CORPUSCULAR HGB CONC 33.5 g/dl (33.0-37.0); MEAN PLATELET VOLUME 9.9 fl (9.6-12.3); MONO # 0.5 10*3/uL (0.1-1.0); MONO % 5.6 % (3.0-9.0); NEUT # 6.3 10*3/uL (2.3-7.9); NEUT % 69.3 % (47.0-73.0); PLATELET COUNT AUTOMATED 420 10*3/uL (130-400); RED BLOOD COUNT 4.54 10*6/uL (4.50-5.90); RED CELL DISTRI WIDTH 13.1 % (0-14.5); WHITE BLOOD COUNT 9.1 10*3/uL (4.8-10.8)
[2018-10-24 11:54] LABS: ALBUMIN 3.9 gm/dl (3.1-4.5); ALKALINE PHOSPHATASE 106 U/L (45-117); BUN 17 mg/dl (7-24); CHLORIDE 100 mmol/L (98-107); CREATININE 1.06 mg/dL (0.70-1.30); LIPASE 109 U/L (73-393); POTASSIUM 4.1 mmol/L (3.5-5.1); SGOT/AST 12 IU/L (3-35); SGPT/ALT 19 U/L (12-78); SODIUM 132 mmol/L (136-145)
[2018-10-24 11:57] LABS: ACT PARTIAL THROMBO TIME 22.4 SECONDS (20.8-31.5); INTERNATIONAL NORM RATIO 0.9 (2.0-3.5)
[2018-10-24 12:01] LABS: TROPONIN I < 0.015 ng/ml (<0.045)
[2018-10-24 12:20] VITALS: BP 111/62
--- NOTE | 2018-10-24 12:40 | NUR ---
PAIN IS BETTER AFTER MORPHINE.
[2018-10-24 13:40] VITALS: BP 125/71
[2018-10-24 14:05] LABS: BILIRUBIN NEGATIVE (NEGATIVE); BLOOD NEGATIVE (NEGATIVE); CLARITY CLEAR (CLEAR); COLOR YELLOW (YELLOW); GLUCOSE NEGATIVE (NEGATIVE); KETONE NEGATIVE (NEGATIVE); LEUKO ESTERASE NEGATIVE (NEGATIVE); NITRITE NEGATIVE (NEGATIVE); SPECIFIC GRAVITY <= 1.005 (1.005-1.030); UROBILINOGEN 0.2 E.U./dl (0.2-1.0)
[2018-10-24 14:34] LABS: EPITHELIAL CELLS 0-2; WBC 0-2 wbc/hpf (0-5)
[2018-10-24 15:00] VITALS: BP 125/82
--- NOTE | 2018-10-24 15:00 | NUR ---
A 58, admitted to 5E, under the services of DENVER Calix DO with a diagnosis of Chest Pain. Chief complaint is Acute Pain. Patient arrived via stretcher from ER. Monitor applied. Initial assessment completed. Vital signs taken and recorded. DENVER CALIX DO notified of admission to the unit. Orders received. See assessment for past medical history, medications and allergies. Patient and/or family oriented to unit. [address] visitation policy reviewed. Clothing/patient valuable form completed. MICHAEL KENDRICK
[2018-10-24 15:09] VITALS: BP 125/82
[2018-10-24] MEDS ORDERED: VITAMIN B1250 MCG PO (15:17)
[2018-10-24] MEDS ORDERED: CLARITIN10 MG PO (15:19)
[2018-10-24] MEDS ORDERED: 24 HOUR ALLER15.8 ML NAS (15:20)
[2018-10-24] MEDS ORDERED: GLUCOPHAGE500 M1 PO (15:24)
--- NOTE | 2018-10-24 16:12 | NUR ---
Notified Dr. Valverde of updated med list.
--- NOTE | 2018-10-24 16:40 | NUR ---
Spoke with Dr. Myers regarding consult for precordial chest pain. We reviewed patients history, and stress test scheduled for [id number].
--- NOTE | 2018-10-24 17:59 | NUR ---
Scheduled morphine given for left rib pain that patient rates 9/10. Will monitor.
[2018-10-24 20:00] VITALS: BP 112/61
[2018-10-25] VITALS: BP 94/52
[2018-10-25 06:27] LABS: BASO # 0.1 10*3/uL (0.0-0.1); BASO % 0.8 % (0.0-1.0); EOS # 0.3 10*3/uL (0.0-0.4); EOS % 3.8 % (1.0-4.0); HEMATOCRIT 35.9 % (42.0-52.0); LYMPH # 2.6 10*3/uL (1.3-4.4); LYMPH % 28.2 % (27.0-41.0); MEAN CELL VOLUME 90.4 fl (80.0-94.0); MEAN CORPUSCULAR HGB 30.2 pg (27.0-31.0); MEAN CORPUSCULAR HGB CONC 33.4 g/dl (33.0-37.0); MEAN PLATELET VOLUME 9.8 fl (9.6-12.3); MONO # 0.6 10*3/uL (0.1-1.0); MONO % 6.5 % (3.0-9.0); NEUT # 5.5 10*3/uL (2.3-7.9); NEUT % 60.1 % (47.0-73.0); PLATELET COUNT AUTOMATED 356 10*3/uL (130-400); RED BLOOD COUNT 3.97 10*6/uL (4.50-5.90); RED CELL DISTRI WIDTH 13.1 % (0-14.5); WHITE BLOOD COUNT 9.1 10*3/uL (4.8-10.8)
[2018-10-25 06:53] LABS: BUN 20 mg/dl (7-24); CHLORIDE 104 mmol/L (98-107); CREATININE 1.02 mg/dL (0.70-1.30); PHOSPHOROUS 3.9 mg/dL (2.5-4.9); POTASSIUM 4.1 mmol/L (3.5-5.1); SODIUM 137 mmol/L (136-145)
[2018-10-25 08:00] VITALS: BP 102/52
--- NOTE | 2018-10-25 11:26 | NUR ---
RECREATION THERAPY TEACHER IN TO SEE PT, PT OUT OF ROOM FOR STRESS TEST.
--- NOTE | 2018-10-25 11:30 | NUR ---
INFORMED CONSENT OBTAINED FOR LEXISCAN NUCLEAR STRESS TEST WITH DR. GARLAND. RESTING EKG NSR WITH A RESTING HR OF 62 WITH BP OF 100/58. LUNGS WITH DIMINISHED BS WITH SPO2 OF 96% ON ROOM AIR. PT COMPLETED A 1:00 LEXISCAN PROTOCOL RECEIVING LEXISCAN 0.4 MG IV OVER 10 SECONDS. HAD NO CHEST PAIN OR ANY EKG CHANGES. HAD A PEAK HR OF 82 WITH BP OF 98/58. LAST RECOVERY HR OF 79 WITH BP OF 98/60. AWAITING SCANNING IN STABLE CONDITION.
[2018-10-25 12:00] VITALS: BP 100/50
--- NOTE | 2018-10-25 14:31 | NUR ---
Supervisor [employer] in to talk to patient. Patient states lives at HOME with GIRLFRIEND. There are SOME steps in the home. Physician: [facility] Pharmacy: [facility] Home health services: [facility] Patient's level of ADLs: INDEPENDENT Patient has working utilities: YES DME: NONE Follow-up physician's appointment after d/c: WILL BE MADE BY HOSPITALIST NURSE DIRECTOR ON DISCHARGE Does patient want to access PORTAL?: N Discharge plan PT STATES HE LIVES AT HOME AND IS INDEPENDENT IN CARE. STATES HE PLANS TO RETURN HOME ON DISCHARGE WITH NO NEEDS. WILL CONTINUE TO FOLLOW.. KALLI VEGAS
[2018-10-25 16:00] VITALS: BP 102/57
--- NOTE | 2018-10-25 18:00 | NUR ---
Discharge instructions reviewed with patient/family. Patient receptive and verbalizes understanding. Follow-up care arranged. Written instructions given to patient/family. Patient ambulated from unit with all belongings. MICHAEL KENDRICK
[2018-11-29] MEDS ORDERED: AUGMENTIN 875875 MG PO (19:07)
== END 2018-10-25 18:00 | disposition home or self-care (01) | DRG 205 ==
LOC: ED 10:38 → EDHOLD 13:40 → 5E 13:40
PROVIDERS: Physician Assistant; Student in an Organized Health Care Education/Training Program; ADMIT Internal Medicine
PROC: 4A02XM4 Measurement of Cardiac Total Activity, External Approach (ICD-10-PCS; principal; 2018-10-25)
PROC: 3E073KZ Introduction of Other Diagnostic Substance into Coronary Artery, Percutaneous Approach (ICD-10-PCS; 2018-10-25)
DX: M94.0 Chondrocostal junction syndrome [Tietze] (principal); R65.11 Systemic inflammatory response syndrome (SIRS) of non-infectious origin with acute organ dysfunction; S22.32XA Fracture of one rib, left side, initial encounter for closed fracture; E87.1 Hypo-osmolality and hyponatremia; G91.9 Hydrocephalus, unspecified; D64.9 Anemia, unspecified; M54.9 Dorsalgia, unspecified; G89.29 Other chronic pain; I10 Essential (primary) hypertension; G43.919 Migraine, unspecified, intractable, without status migrainosus; K21.9 Gastro-esophageal reflux disease without esophagitis; E55.9 Vitamin D deficiency, unspecified; E11.9 Type 2 diabetes mellitus without complications; E53.8 Deficiency of other specified B group vitamins; X58.XXXA Exposure to other specified factors, initial encounter; E78.5 Hyperlipidemia, unspecified; J41.0 Simple chronic bronchitis; F17.210 Nicotine dependence, cigarettes, uncomplicated; I25.10 Atherosclerotic heart disease of native coronary artery without angina pectoris; I25.2 Old myocardial infarction; Y93.89 Activity, other specified; Y92.89 Other specified places as the place of occurrence of the external cause; Y99.8 Other external cause status; Z82.49 Family history of ischemic heart disease and other diseases of the circulatory system; Z88.8 Allergy status to other drugs, medicaments and biological substances; Z90.49 Acquired absence of other specified parts of digestive tract; Z83.3 Family history of diabetes mellitus; Z79.51 Long term (current) use of inhaled steroids; Z79.82 Long term (current) use of aspirin; Z79.899 Other long term (current) drug therapy

== ENCOUNTER 2018-11-11 12:27 | Emergency (ER) | payer OTHER ==
[~2018-11-11] VITALS: Ht 170.1 cm; Wt 68.0 kg
[~2018-11-11 12:27] MED LIST changes: +24 HOUR ALLER15.8 ML NAS; +GLUCOPHAGE500 M1 PO; +HYDROCHLOROTH12.5 M3 PO; +PROAIR HFA8.5 GM INH; +VITAMIN B1250 MCG PO
[2018-11-11 12:28] VITALS: BP 167/79
[2018-11-29] MEDS ORDERED: AUGMENTIN 875875 MG PO (19:07)
== END 2018-11-11 15:02 | disposition home or self-care (01) ==
LOC: ED 12:27
DX: R07.81 Pleurodynia (principal); I10 Essential (primary) hypertension; R05 Cough; R09.81 Nasal congestion; I25.10 Atherosclerotic heart disease of native coronary artery without angina pectoris; G89.29 Other chronic pain; J44.9 Chronic obstructive pulmonary disease, unspecified; K21.9 Gastro-esophageal reflux disease without esophagitis; I25.2 Old myocardial infarction; E78.5 Hyperlipidemia, unspecified; G43.909 Migraine, unspecified, not intractable, without status migrainosus; E11.9 Type 2 diabetes mellitus without complications; Z88.6 Allergy status to analgesic agent; Z79.899 Other long term (current) drug therapy; Z79.82 Long term (current) use of aspirin; Z90.49 Acquired absence of other specified parts of digestive tract; Z87.891 Personal history of nicotine dependence

== ENCOUNTER 2019-02-12 19:27 | Emergency (ER) | payer OTHER ==
[~2019-02-12] VITALS: Ht 170.1 cm; Wt 70.3 kg
--- NOTE | ~2019-02-12 | EKG ---
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
[~2019-02-12 19:27] MED LIST changes: +AUGMENTIN 875875 MG PO
[2019-02-12 19:30] VITALS: BP 121/59
[2019-02-12 20:24] LABS: BASO # 0.1 10*3/uL (0.0-0.1); BASO % 0.4 % (0.0-1.0); EOS # 0.2 10*3/uL (0.0-0.4); EOS % 1.7 % (1.0-4.0); HEMATOCRIT 33.1 % (42.0-52.0); HEMOGLOBIN 11.6 g/dl (14.0-18.0); LYMPH # 2.7 10*3/uL (1.3-4.4); MEAN CELL VOLUME 86.9 fl (80.0-94.0); MEAN CORPUSCULAR HGB 30.4 pg (27.0-31.0); MEAN PLATELET VOLUME 9.1 fl (9.6-12.3); MONO # 0.7 10*3/uL (0.1-1.0); MONO % 6.1 % (3.0-9.0); NEUT % 68.4 % (47.0-73.0); PLATELET COUNT AUTOMATED 442 10*3/uL (130-400); RED BLOOD COUNT 3.81 10*6/uL (4.50-5.90); RED CELL DISTRI WIDTH 13.3 % (0-14.5); WHITE BLOOD COUNT 11.7 10*3/uL (4.8-10.8)
[2019-02-12 20:35] LABS: ACT PARTIAL THROMBO TIME 26.8 SECONDS (20.8-31.5); INTERNATIONAL NORM RATIO 0.9 (2.0-3.5)
[2019-02-12 20:42] LABS: ALBUMIN 3.9 gm/dl (3.1-4.5); ALKALINE PHOSPHATASE 88 U/L (45-117); BUN 16 mg/dl (7-24); CHLORIDE 91 mmol/L (98-107); CREATININE 0.92 mg/dL (0.70-1.30); LIPASE 99 U/L (73-393); POTASSIUM 3.6 mmol/L (3.5-5.1); SGOT/AST 31 IU/L (3-35); SGPT/ALT 32 U/L (12-78); SODIUM 121 mmol/L (136-145); TOTAL PROTEIN 7.1 gm/dL (6.4-8.2)
[2019-02-12 20:44] LABS: TROPONIN I < 0.015 ng/ml (<0.045)
[2019-02-12] MEDS ORDERED: ZOFRAN4 MG PO (22:03)
== END 2019-02-12 21:59 | disposition left against medical advice (07) ==
LOC: ED 19:27
PROVIDERS: Emergency Medicine Emergency Medical Services
DX: G43.909 Migraine, unspecified, not intractable, without status migrainosus (principal); E87.1 Hypo-osmolality and hyponatremia; M62.838 Other muscle spasm; I25.10 Atherosclerotic heart disease of native coronary artery without angina pectoris; G89.29 Other chronic pain; J44.9 Chronic obstructive pulmonary disease, unspecified; I10 Essential (primary) hypertension; K21.9 Gastro-esophageal reflux disease without esophagitis; E78.5 Hyperlipidemia, unspecified; I25.2 Old myocardial infarction; E11.9 Type 2 diabetes mellitus without complications; Z90.49 Acquired absence of other specified parts of digestive tract; Z87.891 Personal history of nicotine dependence; Z88.8 Allergy status to other drugs, medicaments and biological substances; Z88.1 Allergy status to other antibiotic agents; Z79.899 Other long term (current) drug therapy; Z79.82 Long term (current) use of aspirin; Z79.84 Long term (current) use of oral hypoglycemic drugs

== ENCOUNTER 2019-03-18 20:09 | Emergency (ER) | payer OTHER ==
[~2019-03-18] VITALS: Wt 68.0 kg
[2019-03-18 20:12] VITALS: BP 148/86
[2019-03-18 21:23] LABS: BASO # 0.1 10*3/uL (0.0-0.1); BASO % 0.5 % (0.0-1.0); EOS # 0.2 10*3/uL (0.0-0.4); EOS % 2.3 % (1.0-4.0); HEMATOCRIT 32.9 % (42.0-52.0); LYMPH # 2.4 10*3/uL (1.3-4.4); LYMPH % 24.9 % (27.0-41.0); MEAN CELL VOLUME 89.2 fl (80.0-94.0); MEAN CORPUSCULAR HGB 29.8 pg (27.0-31.0); MEAN CORPUSCULAR HGB CONC 33.4 g/dl (33.0-37.0); MEAN PLATELET VOLUME 8.5 fl (9.6-12.3); MONO # 0.6 10*3/uL (0.1-1.0); MONO % 6.5 % (3.0-9.0); NEUT # 6.2 10*3/uL (2.3-7.9); NEUT % 65.5 % (47.0-73.0); PLATELET COUNT AUTOMATED 484 10*3/uL (130-400); RED BLOOD COUNT 3.69 10*6/uL (4.50-5.90); RED CELL DISTRI WIDTH 13.7 % (0-14.5); WHITE BLOOD COUNT 9.5 10*3/uL (4.8-10.8)
[2019-03-18 21:37] LABS: BUN 12 mg/dl (7-24); CHLORIDE 95 mmol/L (98-107); CREATININE 0.71 mg/dL (0.70-1.30); POTASSIUM 3.5 mmol/L (3.5-5.1); SODIUM 125 mmol/L (136-145)
[2019-03-18] MEDS ORDERED: AUGMENTIN 875875 MG PO (22:19)
== END 2019-03-18 22:22 | disposition home or self-care (01) ==
LOC: ED 20:09
PROVIDERS: Emergency Medicine Emergency Medical Services
DX: G43.909 Migraine, unspecified, not intractable, without status migrainosus (principal); J32.0 Chronic maxillary sinusitis; I10 Essential (primary) hypertension; I25.10 Atherosclerotic heart disease of native coronary artery without angina pectoris; J44.9 Chronic obstructive pulmonary disease, unspecified; K21.9 Gastro-esophageal reflux disease without esophagitis; E78.5 Hyperlipidemia, unspecified; F17.200 Nicotine dependence, unspecified, uncomplicated; Z79.899 Other long term (current) drug therapy; Z79.82 Long term (current) use of aspirin; Z88.6 Allergy status to analgesic agent

== ENCOUNTER 2019-04-04 21:23 | Inpatient (IN) | payer OTHER ==
[~2019-04-04] VITALS: Ht 170.1 cm; Wt 63.4 kg
--- NOTE | ~2019-04-04 | EKG ---
[place], [place] ELECTROCARDIOGRAM REPORT NAME: KIERRA LABOY UNIT #: [id number] ROOM: 421 DOCTOR: DARREL DRAFT REPORT BIRTHDATE: [birth year] [facility] Test Date: 2019-04-05 Test Time: 07:24:23 Pat Name: KIERRA LABOY Department: Room: 421 Gender: M Box Gluer: : 1960 Requested By: JONNY CASTILLO Order Number: [id number] Reading MD: Eran Mcclellan MD Measurements Intervals [place] Rate: 57 P: 83 [place]: 143 QRS: 78 QRSD: 102 T: 71 QT: 441 QTc: 430 Interpretive Statements Sinus rhythm Consider left atrial enlargement Compared to ECG 02/12/2019 21:21:23 ST (T wave) deviation no longer present Myocardial infarct finding no longer present Electronically Signed On 04-06-2019 9:33:30 PDT by Eran Mcclellan MD CM:EKGRPT:ELECTROCARDIOGRAM REPORT 0724 0933 JONNY RAMIRES DRAFT REPORT JONNY CASTILLO DO
--- NOTE | ~2019-04-04 | EKG ---
[place], [place] ELECTROCARDIOGRAM REPORT NAME: KIERRA LABOY UNIT #: [id number] ROOM: 421 DOCTOR: DARREL DRAFT REPORT BIRTHDATE: [birth year] [facility] Test Date: 2019-04-05 Test Time: 04:51:26 Pat Name: KIERRA LABOY Department: Room: 421 Gender: M Detective Homicide Squad: : 1960 Requested By: JONNY CASTILLO Order Number: [id number] Reading MD: Eran Mcclellan MD Measurements Intervals [place] Rate: 51 P: 83 [place]: 149 QRS: 77 QRSD: 81 T: 67 QT: 452 QTc: 417 Interpretive Statements Sinus rhythm ST elevation suggests acute pericarditis Compared to ECG 02/12/2019 21:21:23 Myocardial infarct finding no longer present ST (T wave) deviation still present Electronically Signed On 04-06-2019 9:33:27 PDT by Eran Mcclellan MD CM:EKGRPT:ELECTROCARDIOGRAM REPORT [id number] 0933 JNONY RAMIRES DRAFT REPORT JONNY CASTILLO DO
--- NOTE | ~2019-04-04 | EKG ---
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
[2019-04-04 21:27] VITALS: BP 144/78
[2019-04-04 22:30] LABS: BASO # 0.1 10*3/uL (0.0-0.1); BASO % 0.7 % (0.0-1.0); EOS # 0.3 10*3/uL (0.0-0.4); HEMATOCRIT 32.2 % (42.0-52.0); LYMPH # 2.8 10*3/uL (1.3-4.4); LYMPH % 24.4 % (27.0-41.0); MEAN CELL VOLUME 87.7 fl (80.0-94.0); MEAN CORPUSCULAR HGB CONC 34.2 g/dl (33.0-37.0); MEAN PLATELET VOLUME 8.7 fl (9.6-12.3); MONO # 0.8 10*3/uL (0.1-1.0); NEUT # 7.4 10*3/uL (2.3-7.9); NEUT % 64.6 % (47.0-73.0); PLATELET COUNT AUTOMATED 524 10*3/uL (130-400); RED BLOOD COUNT 3.67 10*6/uL (4.50-5.90); RED CELL DISTRI WIDTH 14.3 % (0-14.5); WHITE BLOOD COUNT 11.5 10*3/uL (4.8-10.8)
[2019-04-04 22:45] LABS: ALBUMIN 3.4 gm/dl (3.1-4.5); ALKALINE PHOSPHATASE 84 U/L (45-117); BUN 13 mg/dl (7-24); CHLORIDE 94 mmol/L (98-107); CREATININE 0.76 mg/dL (0.70-1.30); LIPASE 122 U/L (73-393); POTASSIUM 3.6 mmol/L (3.5-5.1); SGOT/AST 11 IU/L (3-35); SGPT/ALT 19 U/L (12-78); SODIUM 125 mmol/L (136-145); TOTAL PROTEIN 6.9 gm/dL (6.4-8.2)
[2019-04-04 22:50] LABS: TROPONIN I < 0.015 ng/ml (<0.045)
[2019-04-05] VITALS (7 sets, daily range): BP systolic 07–142; BP diastolic 60–72
[2019-04-05 04:29] LABS: BASO # 0.1 10*3/uL (0.0-0.1); BASO % 0.8 % (0.0-1.0); EOS # 0.4 10*3/uL (0.0-0.4); EOS % 4.7 % (1.0-4.0); HEMATOCRIT 33.2 % (42.0-52.0); HEMOGLOBIN 11.1 g/dl (14.0-18.0); LYMPH # 2.5 10*3/uL (1.3-4.4); LYMPH % 32.4 % (27.0-41.0); MEAN CORPUSCULAR HGB 29.8 pg (27.0-31.0); MEAN CORPUSCULAR HGB CONC 33.4 g/dl (33.0-37.0); MEAN PLATELET VOLUME 8.4 fl (9.6-12.3); MONO # 0.5 10*3/uL (0.1-1.0); MONO % 6.5 % (3.0-9.0); NEUT # 4.3 10*3/uL (2.3-7.9); NEUT % 55.3 % (47.0-73.0); PLATELET COUNT AUTOMATED 484 10*3/uL (130-400); RED BLOOD COUNT 3.73 10*6/uL (4.50-5.90); RED CELL DISTRI WIDTH 14.4 % (0-14.5); WHITE BLOOD COUNT 7.8 10*3/uL (4.8-10.8)
[2019-04-05 04:41] LABS: ACT PARTIAL THROMBO TIME 27.1 SECONDS (20.0-32.1)
[2019-04-05 04:46] LABS: ALBUMIN 3.3 gm/dl (3.1-4.5); ALKALINE PHOSPHATASE 74 U/L (45-117); BUN 10 mg/dl (7-24); CHLORIDE 101 mmol/L (98-107); CHOLESTEROL 146 mg/dL (<200); CREATININE 0.67 mg/dL (0.70-1.30); HDL CHOLESTEROL 59 mg/dl (40-60); LDL CHOLESTEROL 73 mg/dL (9-159); PHOSPHOROUS 3.5 mg/dL (2.5-4.9); POTASSIUM 3.8 mmol/L (3.5-5.1); SGOT/AST 11 IU/L (3-35); SGPT/ALT 17 U/L (12-78); SODIUM 133 mmol/L (136-145); TOTAL PROTEIN 6.6 gm/dL (6.4-8.2); TRIGLYCERIDES 70 mg/dl (<150); VLDL CHOLESTEROL 14 mg/dL (6-40)
[2019-04-05 04:52] LABS: FREE T4 1.15 ng/dl (0.76-1.46); THYROID STIM HORMONE (HS) 0.274 uIU/ml (0.358-4.75)
[2019-04-05 07:35] LABS: VITAMIN D, 25-HYDROXY 46.2 ng/mL (30-100)
[2019-04-05 08:10] LABS: BILIRUBIN NEGATIVE (NEGATIVE); BLOOD NEGATIVE (NEGATIVE); CLARITY CLEAR (CLEAR); COLOR YELLOW (YELLOW); GLUCOSE NEGATIVE (NEGATIVE); KETONE NEGATIVE (NEGATIVE); LEUKO ESTERASE NEGATIVE (NEGATIVE); NITRITE NEGATIVE (NEGATIVE); PH 7.5 (5.0-9.0); SPECIFIC GRAVITY <= 1.005 (1.005-1.030); UROBILINOGEN 0.2 E.U./dl (0.2-1.0)
[2019-04-05 08:23] LABS: BACTERIA TRACE; WBC 0-2 wbc/hpf (0-5)
[2019-04-06] VITALS: BP 103/40
[2019-04-06 06:00] VITALS: BP 103/40
[2019-04-06 08:00] VITALS: BP 109/60
[2019-04-06] MEDS ORDERED: DOXYCYCLINE100 M3 PO (08:43)
[2019-04-06] MEDS ORDERED: PREDNISONE10 MG PO (08:43)
[2019-04-06 10:34] VITALS: BP 127/71
== END 2019-04-06 11:40 | disposition home or self-care (01) | DRG 190 ==
LOC: ED 21:23 → EDHOLD 04-05 02:29 → 4E 04-05 02:42
PROVIDERS: Emergency Medicine Emergency Medical Services; Internal Medicine; ADMIT Internal Medicine
DX: J44.1 Chronic obstructive pulmonary disease with (acute) exacerbation (principal); J18.9 Pneumonia, unspecified organism; E87.1 Hypo-osmolality and hyponatremia; J43.2 Centrilobular emphysema; E87.8 Other disorders of electrolyte and fluid balance, not elsewhere classified; D47.3 Essential (hemorrhagic) thrombocythemia; D64.9 Anemia, unspecified; I10 Essential (primary) hypertension; I25.10 Atherosclerotic heart disease of native coronary artery without angina pectoris; E11.65 Type 2 diabetes mellitus with hyperglycemia; G43.909 Migraine, unspecified, not intractable, without status migrainosus; G89.29 Other chronic pain; M54.9 Dorsalgia, unspecified; E78.5 Hyperlipidemia, unspecified; K21.9 Gastro-esophageal reflux disease without esophagitis; Z88.8 Allergy status to other drugs, medicaments and biological substances; I25.2 Old myocardial infarction; Z86.14 Personal history of Methicillin resistant Staphylococcus aureus infection; Z90.49 Acquired absence of other specified parts of digestive tract; Z87.891 Personal history of nicotine dependence; Z82.49 Family history of ischemic heart disease and other diseases of the circulatory system; Z83.3 Family history of diabetes mellitus; Z79.82 Long term (current) use of aspirin; Z79.899 Other long term (current) drug therapy

== ENCOUNTER → 2019-04-23 | Outpatient (CLI) | payer OTHER ==
[~2019-04-23] MED LIST changes: +AMLODIPINE BESYL5 MG PO
== END | disposition home or self-care (01) ==
LOC: RESCLI 01:46
DX: J44.1 Chronic obstructive pulmonary disease with (acute) exacerbation (principal); I10 Essential (primary) hypertension; E87.1 Hypo-osmolality and hyponatremia; E55.9 Vitamin D deficiency, unspecified; K21.9 Gastro-esophageal reflux disease without esophagitis; G43.009 Migraine without aura, not intractable, without status migrainosus; M54.5 Low back pain; G89.29 Other chronic pain; R73.03 Prediabetes; E53.8 Deficiency of other specified B group vitamins; F32.9 Major depressive disorder, single episode, unspecified; Z79.899 Other long term (current) drug therapy; Z87.891 Personal history of nicotine dependence

== ENCOUNTER 2019-05-09 12:18 | Inpatient (IN) | payer OTHER ==
[~2019-05-09] VITALS: Ht 170.2 cm; Wt 65.9 kg
--- NOTE | ~2019-05-09 | EKG ---
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
[2019-05-09 12:18] VITALS: BP 192/91
[~2019-05-09 12:18] MED LIST changes: -AMLODIPINE BESYL5 MG PO
[2019-05-09 13:20] LABS: BASO # 0.1 10*3/uL (0.0-0.1); BASO % 0.5 % (0.0-1.0); EOS % 0.4 % (1.0-4.0); HEMATOCRIT 33.8 % (42.0-52.0); HEMOGLOBIN 11.1 g/dl (14.0-18.0); LYMPH # 1.8 10*3/uL (1.3-4.4); MEAN CELL VOLUME 90.9 fl (80.0-94.0); MEAN CORPUSCULAR HGB 29.8 pg (27.0-31.0); MEAN CORPUSCULAR HGB CONC 32.8 g/dl (33.0-37.0); MEAN PLATELET VOLUME 8.8 fl (9.6-12.3); MONO # 0.6 10*3/uL (0.1-1.0); NEUT # 6.8 10*3/uL (2.3-7.9); NEUT % 73.8 % (47.0-73.0); PLATELET COUNT AUTOMATED 535 10*3/uL (130-400); RED BLOOD COUNT 3.72 10*6/uL (4.50-5.90); RED CELL DISTRI WIDTH 14.1 % (0-14.5); WHITE BLOOD COUNT 9.3 10*3/uL (4.8-10.8)
[2019-05-09 13:31] LABS: ACT PARTIAL THROMBO TIME 29.2 SECONDS (20.0-32.1); INTERNATIONAL NORM RATIO 0.9 (2.0-3.5)
[2019-05-09 13:38] LABS: ALBUMIN 3.4 gm/dl (3.1-4.5); ALKALINE PHOSPHATASE 89 U/L (45-117); BUN 7 mg/dl (7-24); CHLORIDE 98 mmol/L (98-107); CREATININE 0.68 mg/dL (0.70-1.30); SGOT/AST 17 IU/L (3-35); SGPT/ALT 23 U/L (12-78); SODIUM 128 mmol/L (136-145); TOTAL PROTEIN 6.9 gm/dL (6.4-8.2)
[2019-05-09 14:17] VITALS: BP 188/110
--- NOTE | 2019-05-09 14:18 | NUR ---
PATIENT DENIES ANY WOUNDS A&OX4.
[2019-05-09 14:29] VITALS: BP 176/86
--- NOTE | 2019-05-09 15:00 | NUR ---
A 59, admitted to 5E, under the services of ROHAN Hare DO with a diagnosis of HYPERTENSIVE EMERGENCY,MALIGNANT MIGRAINE. Chief complaint is HEADACHE. Patient arrived via stretcher from ER. Monitor applied. Initial assessment completed. Vital signs taken and recorded. ROHAN HARE DO notified of admission to the unit. Orders received. See assessment for past medical history, medications and allergies. Patient and/or family oriented to unit. Clothing/patient valuable form completed. SASKIA VALDEZ
--- NOTE | 2019-05-09 15:08 | NUR ---
PATIENT TAKEN TO 5TH FLOOR AT THIS TIME. BEDSIDE REPORT GIVEN TO KATERIN DAVIS AT THIS TIME.
[2019-05-09 16:00] VITALS: BP 184/90; BP 189/100
[2019-05-09] MEDS ORDERED: NORCO 5-325 TA1 EACH PO (16:05)
--- NOTE | 2019-05-09 17:04 | NUR ---
PATIENT HAS SCABS ON L ELBOW DECLINES PICTURE. OPTIFOAM PLACED.
[2019-05-09 17:05] VITALS: BP 172/80
[2019-05-09 20:00] VITALS: BP 149/78; BP 152/66
--- NOTE | 2019-05-09 21:41 | NUR ---
PATIENT REQUESTING PAIN MEDICATION FOR BACK PAIN RATED 8/10 ON 0/10 SCALE. NORCO ADMINISTERED PRESCRIBED. WILL MONITOR FOR EFFECTIVENESS.
--- NOTE | 2019-05-09 21:48 | NUR ---
PATIENT REQUESTING MEDICATION FOR SLEEP. SPOKE WITH DR MARIA- JOVON ORDER RECEIVED.
--- NOTE | 2019-05-09 22:30 | NUR ---
VISTARIL ADMINISTERED ORDERED. WILL MONITOR FOR EFFECTIVENESS.
--- NOTE | 2019-05-09 22:41 | NUR ---
PATIENT STATES THAT BACK PAIN 4/10 ON 0/10 SCALE AFTER ADMINISTRATION OF NORCO. WILL CONTINUE TO MONITOR.
[2019-05-09 22:42] LABS: BILIRUBIN NEGATIVE (NEGATIVE); BLOOD NEGATIVE (NEGATIVE); CLARITY CLEAR (CLEAR); COLOR YELLOW (YELLOW); GLUCOSE NEGATIVE (NEGATIVE); KETONE NEGATIVE (NEGATIVE); LEUKO ESTERASE NEGATIVE (NEGATIVE); NITRITE NEGATIVE (NEGATIVE); UROBILINOGEN 0.2 E.U./dl (0.2-1.0)
--- NOTE | 2019-05-09 23:30 | NUR ---
PATIENT RESTING WITH EYES CLOSED AT THIS TIME. RESPIRATIONS EASY AND UNLABORED ON ROOM AIR. WILL CONTINUE TO MONITOR.
[2019-05-10] VITALS: BP 146/58
--- NOTE | 2019-05-10 03:51 | NUR ---
24 HR chart check completed.
--- NOTE | 2019-05-10 04:05 | NUR ---
PATIENT RESTING WITH EYES CLOSED AT THIS TIME. RESPIRATIONS EASY AND UNLABORED ON ROOM AIR. BED LOCKED IN LOWEST POSITION.CALL LIGHT WITHIN REACH.
[2019-05-10 06:30] LABS: BASO # 0.1 10*3/uL (0.0-0.1); BASO % 0.6 % (0.0-1.0); EOS # 0.2 10*3/uL (0.0-0.4); EOS % 1.9 % (1.0-4.0); HEMATOCRIT 37.6 % (42.0-52.0); HEMOGLOBIN 11.9 g/dl (14.0-18.0); LYMPH # 2.4 10*3/uL (1.3-4.4); LYMPH % 23.2 % (27.0-41.0); MEAN CELL VOLUME 91.3 fl (80.0-94.0); MEAN CORPUSCULAR HGB 28.9 pg (27.0-31.0); MEAN CORPUSCULAR HGB CONC 31.6 g/dl (33.0-37.0); MEAN PLATELET VOLUME 9.3 fl (9.6-12.3); MONO # 0.9 10*3/uL (0.1-1.0); MONO % 8.3 % (3.0-9.0); NEUT # 6.9 10*3/uL (2.3-7.9); NEUT % 65.6 % (47.0-73.0); PLATELET COUNT AUTOMATED 636 10*3/uL (130-400); RED BLOOD COUNT 4.12 10*6/uL (4.50-5.90); RED CELL DISTRI WIDTH 14.3 % (0-14.5); WHITE BLOOD COUNT 10.5 10*3/uL (4.8-10.8)
[2019-05-10 06:57] LABS: ALBUMIN 3.4 gm/dl (3.1-4.5); ALKALINE PHOSPHATASE 96 U/L (45-117); BUN 9 mg/dl (7-24); CHLORIDE 103 mmol/L (98-107); PHOSPHOROUS 3.2 mg/dL (2.5-4.9); SGOT/AST 15 IU/L (3-35); SGPT/ALT 21 U/L (12-78); SODIUM 132 mmol/L (136-145); TOTAL PROTEIN 7.3 gm/dL (6.4-8.2)
[2019-05-10 08:00] VITALS: BP 133/70
--- NOTE | 2019-05-10 08:04 | NUR ---
24 HR chart check completed.
--- NOTE | 2019-05-10 09:06 | NUR ---
MEDICATED WITH PO NORCO ORDERED PER PT REQUEST FOR C/O BACK PAIN RATED 8/10 THAT IS CHRONIC.
[2019-05-10] MEDS ORDERED: AMLODIPINE BESYL5 MG PO (09:48)
--- NOTE | 2019-05-10 10:00 | NUR ---
MEDICATION SOMEWHAT EFFECTIVE FOR PAIN.
--- NOTE | 2019-05-10 11:10 | NUR ---
LEAVING AMBULATORY, IN CARE OF SELF.
== END 2019-05-10 11:10 | disposition home or self-care (01) | DRG 641 ==
LOC: ED 12:18 → EDHOLD 14:01 → 5E 14:10
PROVIDERS: Emergency Medicine; Registered Nurse; ADMIT Emergency Medicine
DX: E87.1 Hypo-osmolality and hyponatremia (principal); I16.1 Hypertensive emergency; E44.1 Mild protein-calorie malnutrition; G43.909 Migraine, unspecified, not intractable, without status migrainosus; K21.9 Gastro-esophageal reflux disease without esophagitis; E11.65 Type 2 diabetes mellitus with hyperglycemia; I10 Essential (primary) hypertension; E78.5 Hyperlipidemia, unspecified; E53.8 Deficiency of other specified B group vitamins; J44.9 Chronic obstructive pulmonary disease, unspecified; I25.10 Atherosclerotic heart disease of native coronary artery without angina pectoris; E83.41 Hypermagnesemia; G89.29 Other chronic pain; M54.9 Dorsalgia, unspecified; Z90.49 Acquired absence of other specified parts of digestive tract; Z88.8 Allergy status to other drugs, medicaments and biological substances; Z83.3 Family history of diabetes mellitus; Z82.49 Family history of ischemic heart disease and other diseases of the circulatory system; Z79.84 Long term (current) use of oral hypoglycemic drugs; Z79.82 Long term (current) use of aspirin; Z68.22 Body mass index [BMI] 22.0-22.9, adult

== ENCOUNTER 2019-07-06 13:03 | Inpatient (IN) | payer SELFPAY ==
[~2019-07-06] VITALS: Ht 170.1 cm; Wt 62.2 kg
--- NOTE | ~2019-07-06 | EKG ---
[place], [place] ELECTROCARDIOGRAM REPORT NAME: KIERRA LABOY UNIT #: [id number] ROOM: 419 DOCTOR: DARREL DRAFT REPORT BIRTHDATE: [birth year] [facility] Test Date: 2019-07-06 Test Time: 13:05:37 Pat Name: KIERRA LABOY Department: Room: 419 Gender: M Regulatory Associate: : 1960 Requested By: JOSELINE CARROLL Order Number: [id number] Reading MD: Sulma Mcdaniel MD Measurements Intervals [place] Rate: 69 P: 76 NE: 130 QRS: 76 QRSD: 82 T: 28 QT: 394 QTc: 422 Interpretive Statements Sinus rhythm Minimal ST depression, inferior leads Compared to ECG 05/09/2019 14:07:30 ST (T wave) deviation now present Electronically Signed On 07-07-2019 14:33:26 PDT by Sulma Mcdaniel MD CM:EKGRPT:ELECTROCARDIOGRAM REPORT [id number] 1433 JOSELINE ROJO DRAFT REPORT JOSELINE CARROLL MD
--- NOTE | ~2019-07-06 | EKG ---
[place], [place] ELECTROCARDIOGRAM REPORT NAME: KIERRA LABOY UNIT #: [id number] ROOM: 419 DOCTOR: DARREL DRAFT REPORT BIRTHDATE: [birth year] [facility] Test Date: 2019-07-06 Test Time: 19:00:46 Pat Name: KIERRA LABOY Department: Room: 419 Gender: M Slotter Operator: : 1960 Requested By: JOSELINE CARROLL Order Number: [id number] Reading MD: Sulma Mcdaniel MD Measurements Intervals [place] Rate: 61 P: 81 TN: 130 QRS: 80 QRSD: 72 T: 66 QT: 417 QTc: 420 Interpretive Statements Sinus rhythm Minimal ST elevation, inferior leads Compared to ECG 05/09/2019 14:07:30 ST (T wave) deviation now present Electronically Signed On 07-07-2019 14:36:34 PDT by Sulma Mcdaniel MD CM:EKGRPT:ELECTROCARDIOGRAM REPORT 1436 JOSELINE ROJO DRAFT REPORT JOSELINE CARROLL MD
--- NOTE | ~2019-07-06 | EKG ---
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
[~2019-07-06 13:03] MED LIST changes: +AMLODIPINE BESYL5 MG PO
[2019-07-06 13:05] VITALS: BP 156/77
[2019-07-06 13:19] LABS: BASO # 0.1 10*3/uL (0.0-0.1); BASO % 0.6 % (0.0-1.0); EOS # 0.1 10*3/uL (0.0-0.4); HEMATOCRIT 33.5 % (42.0-52.0); HEMOGLOBIN 10.8 g/dl (14.0-18.0); LYMPH # 1.9 10*3/uL (1.3-4.4); LYMPH % 19.3 % (27.0-41.0); MEAN CELL VOLUME 88.9 fl (80.0-94.0); MEAN CORPUSCULAR HGB 28.6 pg (27.0-31.0); MEAN CORPUSCULAR HGB CONC 32.2 g/dl (33.0-37.0); MEAN PLATELET VOLUME 8.6 fl (9.6-12.3); MONO # 0.6 10*3/uL (0.1-1.0); MONO % 5.6 % (3.0-9.0); NEUT # 7.3 10*3/uL (2.3-7.9); NEUT % 73.2 % (47.0-73.0); PLATELET COUNT AUTOMATED 510 10*3/uL (130-400); RED BLOOD COUNT 3.77 10*6/uL (4.50-5.90); RED CELL DISTRI WIDTH 14.4 % (0-14.5); WHITE BLOOD COUNT 9.9 10*3/uL (4.8-10.8)
[2019-07-06 13:30] LABS: ACT PARTIAL THROMBO TIME 29.7 SECONDS (20.0-32.1); INTERNATIONAL NORM RATIO 0.9 (2.0-3.5)
[2019-07-06 13:36] LABS: ALBUMIN 3.5 gm/dl (3.1-4.5); ALKALINE PHOSPHATASE 98 U/L (45-117); BUN 8 mg/dl (7-24); CHLORIDE 98 mmol/L (98-107); CREATININE 0.67 mg/dL (0.70-1.30); POTASSIUM 3.7 mmol/L (3.5-5.1); SGOT/AST 15 IU/L (3-35); SGPT/ALT 19 U/L (12-78); SODIUM 132 mmol/L (136-145); TOTAL PROTEIN 7.3 gm/dL (6.4-8.2)
[2019-07-06 13:41] LABS: TROPONIN I < 0.015 ng/ml (<0.045)
[2019-07-06 14:34] VITALS: BP 152/81
--- NOTE | 2019-07-06 15:18 | NUR ---
PT NOW HAS A BED FOR ADMISSION. PT UNABLE TO BE TAKEN TO THE FLOOR SECONDARY TO BEING AT A SCAN THAT HAS BEEN ORDERED.
--- NOTE | 2019-07-06 15:51 | NUR ---
MULTIPLE TESTS ORDERED AFTER ADMISSION ORDER WNE THROUGH, PT TAKEN OFF FLOOR 30 MINUTES AGO, HAS NOT RETURNED.
[2019-07-06 16:05] VITALS: BP 178/87
--- NOTE | 2019-07-06 16:05 | NUR ---
A 59, admitted to , under the services of LUIS Owens DO with a diagnosis of CHEST PAIN,MODERATE CORONARY ARTERY RISK. Chief complaint is CHEST PAIN. Patient arrived via bed from ER. Monitor applied. Initial assessment completed. Vital signs taken and recorded. LUIS OWENS DO notified of admission to the unit. Orders received. See assessment for past medical history, medications and allergies. Patient and/or family oriented to unit. [facility] visitation policy reviewed. Clothing/patient valuable form completed. RADHA JENNINGS
[2019-07-06] MEDS ORDERED: NATURE'S BLEND F1 MG PO (16:12)
[2019-07-06] MEDS ORDERED: NORTRIPTYLINE H50 M1 PO (16:13)
[2019-07-06] MEDS ORDERED: CLARITIN10 MG PO (16:15)
--- NOTE | 2019-07-06 16:44 | NUR ---
'S ANSWERING SERVICE CALLED REGARDING CONSULT.
--- NOTE | 2019-07-06 17:37 | NUR ---
NOTIFIED REGARDING ELEVATED BP. PATIENT ASYMPTOMATIC. AWAITING PHYSICIAN ORDERS.
[2019-07-06 18:35] VITALS: BP 162/78
--- NOTE | 2019-07-06 18:37 | NUR ---
PT MEDICATED WITH PO NORCO PER PRN ORDER FOR C/O RIB PAIN. WILL MONITOR EFFECTIVENESS.
--- NOTE | 2019-07-06 19:30 | NUR ---
ASSUMED CARE OF PT AT THIS TIME. PT AWAKE IN BED, NO COMPLAINTS VOICED AT THIS TIME. WILL MONITOR. CALL LIGHT LEFT IN REACH.
[2019-07-06 20:00] VITALS: BP 149/66
[2019-07-07] VITALS: BP 157/74
--- NOTE | 2019-07-07 06:18 | NUR ---
PT DENIES ANY NEEDS AT PRESENT TIME. BSG 110. DISCUSSED NPO STATUS FOR STRESS TEST. PT VERBALIZES UNDERSTANDING. WILL MONITOR. CALL LIGHT IN REACH.
[2019-07-07 06:25] LABS: BASO # 0.1 10*3/uL (0.0-0.1); BASO % 0.7 % (0.0-1.0); EOS # 0.3 10*3/uL (0.0-0.4); EOS % 3.3 % (1.0-4.0); HEMATOCRIT 34.2 % (42.0-52.0); HEMOGLOBIN 11.3 g/dl (14.0-18.0); LYMPH # 1.5 10*3/uL (1.3-4.4); LYMPH % 17.5 % (27.0-41.0); MEAN CELL VOLUME 88.1 fl (80.0-94.0); MEAN CORPUSCULAR HGB 29.1 pg (27.0-31.0); MONO # 0.5 10*3/uL (0.1-1.0); NEUT # 6.3 10*3/uL (2.3-7.9); NEUT % 72.2 % (47.0-73.0); PLATELET COUNT AUTOMATED 478 10*3/uL (130-400); RED BLOOD COUNT 3.88 10*6/uL (4.50-5.90); RED CELL DISTRI WIDTH 14.6 % (0-14.5); WHITE BLOOD COUNT 8.7 10*3/uL (4.8-10.8)
[2019-07-07 06:37] LABS: ACT PARTIAL THROMBO TIME 28.5 SECONDS (20.0-32.1); INTERNATIONAL NORM RATIO 0.9 (2.0-3.5)
[2019-07-07 06:44] LABS: ALBUMIN 3.2 gm/dl (3.1-4.5); ALKALINE PHOSPHATASE 92 U/L (45-117); BUN 9 mg/dl (7-24); CHLORIDE 102 mmol/L (98-107); CHOLESTEROL 167 mg/dL (<200); CREATININE 0.67 mg/dL (0.70-1.30); FREE T4 1.03 ng/dl (0.76-1.46); HDL CHOLESTEROL 57 mg/dl (40-60); LDL CHOLESTEROL 87 mg/dL (9-159); PHOSPHOROUS 3.2 mg/dL (2.5-4.9); SGPT/ALT 19 U/L (12-78); SODIUM 133 mmol/L (136-145); TRIGLYCERIDES 113 mg/dl (<150); VLDL CHOLESTEROL 23 mg/dL (6-40)
[2019-07-07 06:48] LABS: SGOT/AST 11 IU/L (3-35); THYROID STIM HORMONE (HS) 0.422 uIU/ml (0.358-4.75)
[2019-07-07 07:23] LABS: VITAMIN D, 25-HYDROXY 48.5 ng/mL (30-100)
[2019-07-07 08:00] VITALS: BP 138/86
--- NOTE | 2019-07-07 09:00 | NUR ---
Car Dumper Operator Helper in to talk to patient. Patient states lives at home with girlfriend. There are resident clinic steps in the home. Physician: resident clinic Pharmacy: [facility] Home health services: none Patient's level of ADLs: INDEPENDENT Patient has working utilities: all working DME: none Follow-up physician's appointment after d/c: will be made by hospitalist nurse director upon discharge Does patient want to access PORTAL?: no Discharge plan discussed with patient, he states he is independent in adls and ambulation, he is independent in adls and ambulation, he states he will return home when able and denies any home needs, case managment will follow. FLAVIO ARNGEL
--- NOTE | 2019-07-07 10:06 | NUR ---
INFORMED SIGNED CONSENT OBTAINED FOR LEXISCAN STRESS TEST WITH DR SIMMS. RESTING EKG SINUS BRADYCARDIA HR 59 BP 128/64. PULSE OX 99% LUNGS DIMINISHED CLEAR. PT COMPLETED ONE MINUTE OF A LEXISCAN STRESS TEST WITH PT RECEIVING LEXISCAN 0.4MG IV OVER 10 SECONDS. NO ARRHYTHMIAS OR ST CHANGES NOTED. PT C/O A WARM FEELING WITH INJECTION. LAST RECOVERY HR OF 77 BP 130/78. PT IN STABLE CONITION, AWAITING NUCLEAR IMAGES.
[2019-07-07] MEDS ORDERED: PULMICORT FLE180 MCG INH (11:58)
[2019-07-07 12:00] VITALS: BP 165/77
[2019-07-07 15:30] VITALS: BP 129/70
--- NOTE | 2019-07-07 17:15 | NUR ---
Discharge instructions reviewed with patient/family. Patient receptive and verbalizes understanding. Follow-up care arranged. Written instructions given to patient/family. Patient was educated on follow up appointment with Dr. Wilkins on 07-24. Patient ambulated from unit with family members and all personal belongings accounted for. MICHAEL KENDRICK
== END 2019-07-07 17:15 | disposition home or self-care (01) | DRG 206 ==
LOC: ED 13:03 → 4E 15:03 → EDHOLD 15:03 → 4E 15:16
PROVIDERS: Emergency Medicine; Internal Medicine; ADMIT Family Medicine
PROC: 3E073KZ Introduction of Other Diagnostic Substance into Coronary Artery, Percutaneous Approach (ICD-10-PCS; principal; 2019-07-07)
PROC: 4A02XM4 Measurement of Cardiac Total Activity, External Approach (ICD-10-PCS; principal; 2019-07-07)
DX: M94.0 Chondrocostal junction syndrome [Tietze] (principal); E87.1 Hypo-osmolality and hyponatremia; G91.2 (Idiopathic) normal pressure hydrocephalus; J44.9 Chronic obstructive pulmonary disease, unspecified; I25.10 Atherosclerotic heart disease of native coronary artery without angina pectoris; G43.909 Migraine, unspecified, not intractable, without status migrainosus; D72.810 Lymphocytopenia; M54.9 Dorsalgia, unspecified; E11.9 Type 2 diabetes mellitus without complications; D47.3 Essential (hemorrhagic) thrombocythemia; G89.29 Other chronic pain; I25.118 Atherosclerotic heart disease of native coronary artery with other forms of angina pectoris; E83.41 Hypermagnesemia; D64.9 Anemia, unspecified; K21.9 Gastro-esophageal reflux disease without esophagitis; I10 Essential (primary) hypertension; E78.5 Hyperlipidemia, unspecified; I25.2 Old myocardial infarction; Z90.49 Acquired absence of other specified parts of digestive tract; Z87.891 Personal history of nicotine dependence; Z82.49 Family history of ischemic heart disease and other diseases of the circulatory system; Z83.3 Family history of diabetes mellitus; Z79.82 Long term (current) use of aspirin; Z88.8 Allergy status to other drugs, medicaments and biological substances; S22.32XS Fracture of one rib, left side, sequela; Z79.84 Long term (current) use of oral hypoglycemic drugs

== ENCOUNTER → 2019-07-24 | Outpatient (CLI) | payer SELFPAY ==
[~2019-07-24] MED LIST changes: +FLUCONAZOLE150 MG PO; +MUCINEX ER600 MG PO; +PULMICORT FLE180 MCG INH; +VITAMIN D32000 UNI1 PO
== END | disposition home or self-care (01) ==
LOC: RESCLI 02:00
DX: Z23 Encounter for immunization (principal); K21.9 Gastro-esophageal reflux disease without esophagitis; G89.29 Other chronic pain; D64.9 Anemia, unspecified; E55.9 Vitamin D deficiency, unspecified; G43.709 Chronic migraine without aura, not intractable, without status migrainosus; I10 Essential (primary) hypertension; J44.9 Chronic obstructive pulmonary disease, unspecified; E11.9 Type 2 diabetes mellitus without complications; D50.9 Iron deficiency anemia, unspecified; I25.10 Atherosclerotic heart disease of native coronary artery without angina pectoris; J30.2 Other seasonal allergic rhinitis; F17.200 Nicotine dependence, unspecified, uncomplicated; Z79.899 Other long term (current) drug therapy; Z91.09 Other allergy status, other than to drugs and biological substances

== ENCOUNTER 2019-08-09 14:37 | Inpatient (IN) | payer SELFPAY ==
[~2019-08-09] VITALS: Ht 170.2 cm; Wt 56.8 kg
--- NOTE | ~2019-08-09 | PR ---
[place], [place] PROGRESS NOTE NAME: KIERRA LABOY [facility] #: [id number] UNIT #: [id number] ROOM: 407 DOCTOR: FANY FALL MD,BAMBI BIRTHDATE: [birth year] DOS: 08/14/2019 PULMONARY PROGRESS NOTE SUBJECTIVE: The patient noted comfortable at this time, still complaining of pain in the right lower chest, which is a chronic finding. The overall respiratory symptoms remaining as the patient was admitted for those seem to be improving significantly. PHYSICAL EXAMINATION: GENERAL: Comfortably resting on the bed this morning of assessment, has not been noted in any distress. VITAL SIGNS: Normal temperature, respiratory rate was noted as 20, heart rate 68, blood pressure 128/60. Pulse ox saturation on rest or room air was noted as 100% saturation. HEENT: Shows head was atraumatic. Eyes nonicterus. NECK: Supple. CARDIOVASCULAR: S1, S2 audible. LUNGS: Noted without any crackles, rhonchi, or wheezing. ABDOMEN: Soft, nontender. Bowel sounds present. EXTREMITIES: No edema. IMPRESSION: 1. Acute bilateral pneumonia involving the lower lung, which is improving. 2. Chronic pleural thickening of the right upper lung, stable. 3. Chronic musculoskeletal right-sided chest pain as well. 4. Acute exacerbation of chronic obstructive pulmonary disease, improving. 5. Nicotine dependence. PLAN OF MANAGEMENT: No changes from the pulmonary standpoint. Continue the patient's current therapy as in progress. Usual care, other supportive plan of management and therapies and care. BAMBI SOARES MD CM:PNTRANS [id number] [id number] BAMBI FALL MD 08/15/19 0047 interface
--- NOTE | ~2019-08-09 | PR ---
[place], [place] PROGRESS NOTE NAME: KIERRA LABOY [facility] #: [id number] UNIT #: [id number] ROOM: 407 DOCTOR: FANY FALL MD,BAMBI BIRTHDATE: [birth year] DOS: 08/13/2019 SUBJECTIVE: The patient was noted comfortable, still complaining of pain in the right chest, which is a chronic pain. He has been ordered the heating pad for the management of current chest pain. Pain medication was also continued. Denies symptoms of fever or chills or hemoptysis. Denies symptoms of headache or diplopia. Denies nausea, vomiting, spitting expectoration has been noted decreased. Denies any pain of the lower extremities. Remaining systems were reviewed. They were noted all negative. PHYSICAL EXAMINATION: The patient noted comfortable at this time, resting, otherwise on the bed this morning. VITAL SIGNS: Normal temperature, respiratory rate 18, heart rate 73, blood pressure 126/74 recorded at midnight. The pulse oxygen saturation as 99% saturation on room air. HEENT: Examination shows head was atraumatic. Eyes nonicterus. NECK: Supple. CARDIOVASCULAR: S1, S2 audible. LUNGS: Noted free of any wheezing or crackles this morning. ABDOMEN: Soft, nontender. Bowel sounds present. EXTREMITIES: No acute change. LABORATORY DATA: Culture of the sputum noted heavy growth of yeast, pending final results of the patient's sputum culture yesterday. CMP this morning, BUN 28 and creatinine normal. Glucose 135. Sodium 132. CBC: WBC count 14,000, hemoglobin 10.4, platelet count 670,000. IMAGING STUDIES: The chest x-ray done this morning reviewed, shows reduction of the infiltration in the lower lung with significant bleeding noted in the right lower lobe with still infiltration present in the right lower lobe, but improving. Chronic pleural thickening of the right upper lung was noted without any other new findings. IMPRESSION: 1. Chronic musculoskeletal chest pain on the right side with resolving acute bilateral lower lobe pneumonia. 2. Chronic pleural thickening. 3. Hyponatremia. 4. Chronic obstructive pulmonary disease as well. PLAN OF MANAGEMENT: Supportive therapy, plan of care at this time as well. No changes in plan of management will be needed. Possible discharge home could be considered in the morning after the sputum cultures becomes available and further reduction of the respiratory symptoms. [place], [place] PROGRESS NOTE NAME: KIERRA LABOY UNIT #: [id number] ROOM: 407 DOCTOR: BAMBI HERCULES MD BIRTHDATE: [birth year] BAMBI SOARES MD CM:PNAUGUSTINA [id number] BAMBI FALL MD 08/13/19 1420 interface
--- NOTE | ~2019-08-09 | EKG ---
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.IN : 1960 Requested By: LAURA SALAS PA-C Order Number: [id number] Reading MD: Sulma Mcdaniel MD Measurements Intervals [place] Rate: 70 P: 87 SD: 142 QRS: 81 QRSD: 76 T: 74 QT: 388 QTc: 419 Interpretive Statements Sinus rhythm Biatrial enlargement Left ventricular hypertrophy Minimal ST elevation, inferior leads Compared to ECG 07/06/2019 19:00:46 Atrial abnormality now present Left ventricular hypertrophy now present ST (T wave) deviation still present Electronically Signed On 08-11-2019 13:11:53 PDT by Sulma Mcdaniel MD CM:EKGRPT:ELECTROCARDIOGRAM REPORT 1602 1311 LAURA SALAS PA-C EPIPHANY DRAFT REPORT LAURA SALAS PA-C
--- NOTE | ~2019-08-09 | PR ---
[place], [place] PROGRESS NOTE NAME: KIERRA LABOY [facility] #: [id number] UNIT #: [id number] ROOM: 407 DOCTOR: FANY FALL MD,BAMBI BIRTHDATE: [birth year] DOS: 08/15/2019 PULMONARY PROGRESS NOTE SUBJECTIVE: He has been noted comfortable at this time, resting in the bed without any acute distress. Denies symptoms of chest pain, fever or chills. The chest pain remains unchanged from previously in the right lower chest. OBJECTIVE: VITAL SIGNS: Normal temperature, respiratory rate 18, heart rate 64, blood pressure 128/80. Pulse oxygen saturation at rest or room air was 99% saturation recorded. HEENT: Examination shows head was atraumatic. Eyes nonicterus. NECK: Supple. CARDIOVASCULAR: S1, S2 audible. LUNGS: Noted without any wheezing or crackles. ABDOMEN: Soft, nontender. Bowel sounds present. EXTREMITIES: No new change. IMPRESSION: Stable respiratory status was noted at present time with acute pneumonia, bilateral lower lobe, responding clinically and radiologically, chronic right-sided chest pain, resolving acute exacerbation of chronic obstructive pulmonary disease. PLAN OF MANAGEMENT: No changes in the plan of care at this time. Continue the patient's current therapy as ongoing. Discharge planning was discussed with this patient, primary care attending. BAMBI SOARES MD CM:PNTRANS 1233 [id number] BAMBI FALL MD 08/16/19 0039 interface
--- NOTE | ~2019-08-09 | PR ---
[place], [place] PROGRESS NOTE NAME: [id number] UNIT #: [id number] ROOM: 407 DOCTOR: BAMBI HERCULES MD BIRTHDATE: [birth year] DOS: 08/12/2019 PULMONARY PROGRESS NOTE SUBJECTIVE: He was still complaining of pain in the lower ribcage area. Denies symptoms of fever or chills. Denies symptoms of hemoptysis. Coughing has been noted small amount of sputum expectoration. Denies symptoms of hematemesis, melena, hematochezia, headache, or diplopia. Denies symptoms of nausea, vomiting, diarrhea, abdominal pain, hematemesis, melena. Continued on the intravenous antibiotic as Levaquin. He has not been reported any symptoms of headache, or diplopia. Remaining systems were reviewed. They were noted all negative. OBJECTIVE: VITAL SIGNS: Normal temperature in the last 24 hours, respiratory rate 17 this morning, heart rate of 70, blood pressure at midnight 127/72 recorded. The pulse oxygen saturation at rest on room air 99% saturation. HEENT: Examination shows head was atraumatic. Eyes nonicterus. NECK: Supple. CARDIOVASCULAR: S1, S2 audible. LUNGS: Moderate degree breath sounds noted in the lungs bilaterally. ABDOMEN: Soft, nontender. Bowel sounds present. EXTREMITIES: The patient without any acute edema. MUSCULOSKELETAL: Without gross deformities. CENTRAL NERVOUS SYSTEM: Noted intact. IMPRESSION: 1. Acute bilateral lower lobe pneumonia noted clinically with current medical management. 2. Musculoskeletal chest pain as well. 3. 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 4. Nicotine dependence. 5. Chronic obstructive pulmonary disease exacerbation. PLAN OF MANAGEMENT: Ordered heating pad. Obtain a chest x-ray to be done in the morning. Continue current antibiotics and bronchodilators. Continue Solu-Medrol current dose 40 mg b.i.d. Additional treatment changes will be recommended based on progression of the illness. [place], [place] PROGRESS NOTE NAME: KIERRA LABOY UNIT #: [id number] ROOM: 407 DOCTOR: BAMBI HERCULES MD BIRTHDATE: [birth year] BAMBI SOARES MD CM:PNTRANS [id number] 10 BAMBI FALL MD 08/12/19 1310 interface
--- NOTE | ~2019-08-09 | CON ---
[place], [place] REPORT OF CONSULTATION NAME: KIERRA LABOY [facility] #: [id number] UNIT #: [id number] ROOM: 407 DOCTOR: BAMBI HERCULES MD BIRTHDATE: [birth year] DOS: 08/10/2019 PULMONARY CONSULTATION, EVALUATION AND MANAGEMENT CONSULTATION REQUESTED BY: Hospitalist services. REASON FOR CONSULTATION: For assessment reported for hospital-acquired pneumonia. HISTORY OF PRESENT ILLNESS: This is a 59-year-old white male patient with known history of chronic obstructive pulmonary disease who has been treated that on a long-term basis. He has presented to the Emergency Room, admitted to the hospital on 08/09/2019. The patient stated he became acutely ill and the patient developed sinus congestion, drainage q.48 hours prior to admission to the hospital. Later, the patient noted with chest congestion and cough. He denies any symptoms of chest pain. The cough has been noted which was noted only small amount of sputum expectoration. He denies any chest pain, were noted some discomfort in the chest, mostly on the left side. The patient denies any symptoms of hemoptysis. The patient does have symptoms of wheezing which are noted mild. Shortness of breath also occurred. The patient has been admitted to the hospital for further care at this time. REVIEW OF SYSTEMS: CONSTITUTIONAL SYMPTOMS: Fatigue and tiredness reporting. Denies any symptoms of fever or chills. EYES: Denies burning, redness, or tenderness. EAR, NOSE, THROAT SYMPTOMS: No sore throat, hoarseness, otalgia, postnasal drainage or epistaxis. CARDIOVASCULAR: Denies angina pain, edema, pain of the lower extremities. GASTROINTESTINAL SYMPTOMS: Denies dysphagia, nausea, vomiting, diarrhea, abdominal pain, hematemesis, melena, or hematochezia. GENITOURINARY SYMPTOMS: No dysuria, suprapubic pain, or hematuria. MUSCULOSKELETAL: No acute joint pain, redness, or tenderness. CENTRAL NERVOUS SYSTEM: Denies dizziness, headache, diplopia, syncopal episodes. Remaining systems were reviewed with the patient, they were noted all negative. PAST MEDICAL HISTORY: 1. History of chronic obstructive pulmonary disease. 2. Previous history of Pseudomonas aeruginosa pneumonia, which was treated in 2018 about a year ago. 3. Migraine headache. 4. Coronary artery disease. 5. Essential hypertension. 6. Type 2 diabetes mellitus. 7. Hyperlipidemia. 8. Vitamin D deficiency. 9. History of hydrocephalus. 10. Allergic rhinitis. [place], [place] REPORT OF CONSULTATION [id number] UN[facility] #: [id number] ROOM: 407 DOCTOR: BAMBI HERCULES MD BIRTHDATE: [birth year] PAST SURGICAL HISTORY: 1. Lumbar laminectomy. 2. Management of the hydrocephalus. 3. Appendectomy. 4. Therapeutic bronchoscopy in 2018. SOCIAL HISTORY: The patient is . Denies history of alcohol use or illicit drug use. Tobacco use noted since teenager, 3 packs of cigarettes per day. Intermittent tobacco use was reported as well. FAMILY HISTORY: The patient's father at 72 years with complication of myocardial infarction. Mother resulting from motor vehicle accident. CURRENT MEDICATIONS: Administered was noted as loratadine, Norvasc, Flonase, lisinopril, folic acid, aspirin, Solu-Medrol 40 mg b.i.d., Lovenox 40 mg subcutaneously for DVT prophylaxis, nortriptyline, gabapentin, Topamax, DuoNeb, IV Levaquin, vancomycin and Zosyn. DRUG ALLERGIES: NOTED ALLERGY TO THE TORADOL CAUSING NAUSEA. PHYSICAL EXAMINATION: GENERAL: A 59-year-old male patient who has been currently noted to be awake, alert, without any distress. Height of 5 feet 7 inches, weight 127 pounds, BMI of 19. VITAL SIGNS: Normal temperature, respiratory rate of 16-20, heart rate 80-78, blood pressure 114/68-146/77. Pulse ox saturation at rest on room air 100% saturation. HEENT: Examination shows head was atraumatic. Eyes nonicterus. NECK: Supple. CARDIOVASCULAR: S1, S2 is audible. LUNGS: The patient was noted general reduction in the breath sounds, scattered wheezing, no crackles. ABDOMEN: Soft, nontender. Bowel sounds present. EXTREMITIES: Noted without any edema, clubbing, cyanosis. MUSCULOSKELETAL: Without any acute deformities. CENTRAL NERVOUS SYSTEM: Generally noted intact. LABORATORY DATA: Reviewed for this consultation. CBC that was done yesterday, WBC count normal, hemoglobin 10, platelet count 595,000. PT/PTT normal. CMP has BUN normal, creatinine was normal, sodium 132, CO2 of 20 with normal electrolytes and LFTs. Lactic acid 0.8. BMP: BUN 13, creatinine was normal. Sodium 132. CBC 08/10/2019, WBC count normal, hemoglobin 10.3, platelet count 613,000, 94% segmented neutrophils. IMAGING: The two-view chest x-ray was reviewed, was noted with finding of acute infiltration in the right lower lobe pleural thickening of the right apical area. Changes of COPD, hyperinflation was noted. Partial volume loss on the right lung was also noted. [place], [place] REPORT OF CONSULTATION NAME: KIERRA LABOY UNIT #: [id number] ROOM: 407 DOCTOR: FANY FALL MD,BAMBI BIRTHDATE: [birth year] IMPRESSION: 1. Acute pneumonia that was noted with acute bronchitis and exacerbation of chronic obstructive pulmonary disease. 2. Low-grade nicotine abuse noted at this time. 3. Past history of Pseudomonas aeruginosa pneumonia. 4. Evidence of bullous emphysema as well and chronic thickening of the right apex, pleural thickening and other abnormalities. PLAN OF MANAGEMENT: The patient has been getting very broad spectrum intravenous antibiotics at this time. Lack of fever or leukocytosis at this time, the antibiotic spectrum will be changed according to the Levaquin with close monitoring. Obtain CT scan of the chest for further assessment to compare with the finding of previous CT scan in 2018 to assess any changes and make additional recommendation afterwards. Bronchodilators to be continued. Continue current dose of corticosteroids. Abstinence of tobacco use was recommended. Other therapy, plan of management, additional treatment changes will be made was ordered based on the progression of the illness. Supportive care. Usual medical management workup for the pneumonia will be ordered, urine strep antigen and legionella antigen as well as a ____ assessment as well. Thanks for allowing me to participate in the care of this patient. BAMBI SOARES MD CM:CONSTR:REPORT OF CONSULTATION 1356 08/10/19 1551 interface
--- NOTE | ~2019-08-09 | PR ---
[place], [place] PROGRESS NOTE NAME: KIERRA LABOY [facility] #: [id number] UNIT #: [id number] ROOM: 407 DOCTOR: FANY FALL MD,BAMBI BIRTHDATE: [birth year] DOS: 08/11/2019 PULMONARY PROGRESS NOTE SUBJECTIVE: The patient was noted comfortable at this time with chest pain reported in the right side, which is chronic pain as well. There were no symptoms of hematemesis or melena. Denies symptoms of hematochezia. Denies symptoms of nausea, vomiting, or diarrhea. The cough has been noted with small amount of sputum expectoration. Denies symptoms of headache or diplopia. Denies symptoms of abdominal pain. Remaining systems were reviewed, they were noted all negative. PHYSICAL EXAMINATION: GENERAL: He was comfortably sitting on the bed this morning of assessment. VITAL SIGNS: Normal temperature, respiratory rate 20, heart rate of 90, blood pressure 122/70. The pulse oxygen saturation recorded at rest to room air 99% saturation. HEENT: Head was atraumatic. Eyes nonicterus. NECK: Supple. CARDIOVASCULAR: S1, S2 is audible. LUNGS: The patient was noted without any wheeze or crackles at the present time. Breaths are noted mildly diminished bilaterally. ABDOMEN: Soft, nontender. Bowel sounds present. EXTREMITIES: The patient was noted without acute edema. MUSCULOSKELETAL: Without any acute deformities. CENTRAL NERVOUS SYSTEM: Intact. LABORATORY DATA: CT scan chest that was done yesterday was ordered completed shows resolution of previous noted area of consolidation and infiltration in the right upper lobe. Pleural thickening was noted at this time, which is a chronic finding. Left apical scarring was also noted. Infiltration was noted in the right and the left lower lung as well. Besides that, a small nodule subpleural in the left lower lobe as well as any finding. Significant paraseptal emphysema changes were noted in the lungs bilaterally. There was no gross lymphadenopathy. Cultures of the blood, which was done on 08/09/2019 showed no bacterial growth. The BMP that was done this morning, glucose 222, BUN and creatinine was normal, sodium 131. CBC, WBC count 15.9, hemoglobin 9.5, platelet count of 587,000. Influenza A and B, nasal washing antigen was noted as negative. IMPRESSION: 1. The patient with acute pneumonia, lower lung. 2. Chronic apical scarring of the right upper lobe. Paraseptal emphysema as well. 3. Chronic nicotine dependence. 4. Solitary left lower lobe pulmonary nodule. 5. Leukocytosis. 6. Mild hyponatremia. The hyponatremia may be resulting from the acute pneumonia because of SIADH cannot be excluded. [place], [place] PROGRESS NOTE NAME: KIERRA LABOY UNIT #: [id number] ROOM: 407 DOCTOR: FANY FALL MD,BAMBI BIRTHDATE: [birth year] PLAN OF MANAGEMENT: Continue antibiotics, bronchodilators. Monitor culture results as well as other testing, which was ordered for pneumonia. The pulmonary nodule most likely would be considered from infection, but need to be monitored and assessed during future visits. Abstinence of tobacco use was recommended again to the patient. BAMBI SOARES MD CM:RERE [id number] [id number] BAMBI FALL MD 08/11/19 1256 interface
[~2019-08-09 14:37] MED LIST changes: -FLUCONAZOLE150 MG PO; -MUCINEX ER600 MG PO; -VITAMIN D32000 UNI1 PO
[2019-08-09 14:40] VITALS: BP 126/72
[2019-08-09 16:08] LABS: BASO # 0.1 10*3/uL (0.0-0.1); BASO % 0.5 % (0.0-1.0); EOS # 0.1 10*3/uL (0.0-0.4); EOS % 0.8 % (1.0-4.0); HEMATOCRIT 31.2 % (42.0-52.0); MEAN CELL VOLUME 86.7 fl (80.0-94.0); MEAN CORPUSCULAR HGB 27.8 pg (27.0-31.0); MEAN CORPUSCULAR HGB CONC 32.1 g/dl (33.0-37.0); MEAN PLATELET VOLUME 8.7 fl (9.6-12.3); MONO # 0.7 10*3/uL (0.1-1.0); MONO % 7.1 % (3.0-9.0); NEUT # 6.7 10*3/uL (2.3-7.9); NEUT % 70.5 % (47.0-73.0); PLATELET COUNT AUTOMATED 595 10*3/uL (130-400); RED CELL DISTRI WIDTH 15.3 % (0-14.5); WHITE BLOOD COUNT 9.5 10*3/uL (4.8-10.8)
[2019-08-09 16:24] LABS: ACT PARTIAL THROMBO TIME 34.3 SECONDS (20.0-32.1); INTERNATIONAL NORM RATIO 0.9 (2.0-3.5)
[2019-08-09 16:27] LABS: ALBUMIN 3.1 gm/dl (3.1-4.5); ALKALINE PHOSPHATASE 89 U/L (45-117); BUN 10 mg/dl (7-24); CHLORIDE 103 mmol/L (98-107); CREATININE 0.71 mg/dL (0.70-1.30); POTASSIUM 3.8 mmol/L (3.5-5.1); SGOT/AST 11 IU/L (3-35); SGPT/ALT 20 U/L (12-78); SODIUM 132 mmol/L (136-145); TOTAL PROTEIN 7.2 gm/dL (6.4-8.2)
[2019-08-09 16:31] LABS: TROPONIN I < 0.015 ng/ml (<0.045)
--- NOTE | 2019-08-09 17:21 | NUR ---
PT W/O ACUTE DISTRESS NOTED AWAITING ADMISSION,NO ADDITIONAL COMPLAINTS VOICED.
[2019-08-09 17:30] VITALS: BP 128/74
[2019-08-09 17:37] VITALS: BP 167/79
--- NOTE | 2019-08-09 17:37 | NUR ---
A 59, admitted to 4E, under the services of HARRIS Andrade DO with a diagnosis of PNA. Chief complaint is PNA. Patient arrived via bed from ER. Monitor applied. Initial assessment completed. Vital signs taken and recorded. HARRIS ANDRADE DO notified of admission to the unit. Orders received. See assessment for past medical history, medications and allergies. Patient oriented to unit. Clothing/patient valuable form completed. BHARGAV CHERY
[2019-08-09] MEDS ORDERED: AMLODIPINE BESYL5 MG PO (17:53)
--- NOTE | 2019-08-09 18:00 | NUR ---
INFORMED THAT HOME MEDS WERE VERIFIED.
--- NOTE | 2019-08-09 18:04 | NUR ---
SPOKE TO DR SOARES REGARDING NEW PT CONSULT. HE WILL SEE PT TOMORROW. NO NEW ORDERS
[2019-08-09 20:00] VITALS: BP 146/77
[2019-08-10] VITALS: BP 146/77
--- NOTE | 2019-08-10 01:56 | NUR ---
24 HR chart check completed.
--- NOTE | 2019-08-10 06:00 | NUR ---
SCHEDULED NORCO GIVEN.
[2019-08-10 06:24] LABS: HEMATOCRIT 31.8 % (42.0-52.0); HEMOGLOBIN 10.3 g/dl (14.0-18.0); MEAN CELL VOLUME 84.4 fl (80.0-94.0); MEAN CORPUSCULAR HGB 27.3 pg (27.0-31.0); MEAN CORPUSCULAR HGB CONC 32.4 g/dl (33.0-37.0); MEAN PLATELET VOLUME 8.8 fl (9.6-12.3); PLATELET COUNT AUTOMATED 613 10*3/uL (130-400); RED BLOOD COUNT 3.77 10*6/uL (4.50-5.90); RED CELL DISTRI WIDTH 15.4 % (0-14.5); WHITE BLOOD COUNT 6.9 10*3/uL (4.8-10.8)
[2019-08-10 06:31] LABS: BUN 13 mg/dl (7-24); CHLORIDE 104 mmol/L (98-107); CREATININE 0.63 mg/dL (0.70-1.30); SODIUM 132 mmol/L (136-145)
--- NOTE | 2019-08-10 07:00 | NUR ---
PATIENT ASLEEP. NO SIGNS OF PAIN. NORCO EFFECTIVE.
[2019-08-10 07:28] LABS: TOTAL CELLS COUNTED 100 #CELLS
[2019-08-10 07:31] LABS: BURR CELLS FEW; PLATELET SUFFICIENCY HIGH (NORMAL)
[2019-08-10 08:00] VITALS: BP 114/68
[2019-08-10 12:00] VITALS: BP 116/62
--- NOTE | 2019-08-10 12:00 | NUR ---
PT REQUESTED AND RECIEVED TORADOL FOR PAIN AT THIS TIME. PT STATES HIS RIBS HURT. PAIN RATED AAT A 9. WILL MONITOR FOR EFFECTIVENES.
--- NOTE | 2019-08-10 13:15 | NUR ---
PT ASLEEP IN BED. NO S/S OF DISTRESS OR DISCOMFORT. PRN TORADOL CONSIDERED EFFECTIVE.
[2019-08-10 16:00] VITALS: BP 135/57
--- NOTE | 2019-08-10 19:40 | NUR ---
PATIENT RESTING IN BED WITH NO NEEDS MADE. VISITOR AT BEDSIDE. BED IN LOWEST POSITION, CALL LIGHT IN REACH
[2019-08-10 20:00] VITALS: BP 121/68
--- NOTE | 2019-08-10 22:22 | NUR ---
BLOOD SUGAR CHECK 172
--- NOTE | 2019-08-10 23:55 | NUR ---
24 HR chart check completed.
[2019-08-11 00:01] VITALS: BP 125/62
[2019-08-11 06:23] LABS: BUN 22 mg/dl (7-24); CHLORIDE 101 mmol/L (98-107); CREATININE 0.75 mg/dL (0.70-1.30); POTASSIUM 4.3 mmol/L (3.5-5.1); SODIUM 131 mmol/L (136-145)
[2019-08-11 06:25] LABS: BASO % 0.1 % (0.0-1.0); HEMATOCRIT 29.6 % (42.0-52.0); HEMOGLOBIN 9.5 g/dl (14.0-18.0); LYMPH # 0.9 10*3/uL (1.3-4.4); LYMPH % 5.7 % (27.0-41.0); MEAN CELL VOLUME 85.1 fl (80.0-94.0); MEAN CORPUSCULAR HGB 27.3 pg (27.0-31.0); MEAN CORPUSCULAR HGB CONC 32.1 g/dl (33.0-37.0); MEAN PLATELET VOLUME 9.1 fl (9.6-12.3); MONO # 0.7 10*3/uL (0.1-1.0); MONO % 4.6 % (3.0-9.0); NEUT # 14.1 10*3/uL (2.3-7.9); NEUT % 88.9 % (47.0-73.0); PLATELET COUNT AUTOMATED 587 10*3/uL (130-400); RED BLOOD COUNT 3.48 10*6/uL (4.50-5.90); RED CELL DISTRI WIDTH 15.6 % (0-14.5); WHITE BLOOD COUNT 15.9 10*3/uL (4.8-10.8)
[2019-08-11 08:00] VITALS: BP 122/70
--- NOTE | 2019-08-11 09:00 | NUR ---
Narrative Writer in to talk to patient. Patient states lives at home with girlfriend. There are few steps in the home. Physician: resident clinic Pharmacy: [facility] Home health services: none Patient's level of ADLs: INDEPENDENT Patient has working utilities: all working DME: none Follow-up physician's appointment after d/c: will be made by hospitalist nurse director upon discharge Does patient want to access PORTAL?: no Discharge plan discussed with patient he states he lives at home with his girlfriend,, he states he is independent in adls and ambulation, drives, works, he states he will return home when medically stable and denies any home needs, discussed with him not having any insurance and he stated stated he is fine paying for medications. also informed him that Mandy from [employer] will see him regarding filling out paperwork to help with the hospital stay, patient stated Mandy has already seen him and given him the paperwork to fill out. FLAVIO RANGEL
[2019-08-11 12:00] VITALS: BP 126/50
--- NOTE | 2019-08-11 15:30 | NUR ---
TOOK OVER CARE OF PT AT THIS TIME. PT LYING IN BED, EYES OPEN, WATCHING TV. ALERT ORIENTED AND PLEASANT MOOD WITH NO COMPLAINTS. ASSESSMENT COMPLETE. IV ATB HUNG PER ORDERS. IV SITE TO LAC PATENT/FLUSHING WITH EASE. RESPIRATIONS EASY AND UNLABORED ON ROOM AIR. CALL LIGHT IN REACH.
[2019-08-11 16:00] VITALS: BP 126/69
--- NOTE | 2019-08-11 16:53 | NUR ---
PT COVERED WITH 2 UNITS OF INSULIN PER S/S ORDERS ON EMAR FOR BLOOD SUGAR OF 173.
[2019-08-11 20:00] VITALS: BP 127/63
--- NOTE | 2019-08-11 20:11 | NUR ---
MEDICATED WITH PRN TORADOL FOR C/O PAIN IN RIBS. WILL MONITOR
--- NOTE | 2019-08-11 23:30 | NUR ---
24 HR chart check completed.
[2019-08-12] VITALS: BP 127/72
--- NOTE | 2019-08-12 09:00 | NUR ---
case management visits with patient, he states he will return home when medically stable and denies any home needs
[2019-08-12 12:00] VITALS: BP 134/64
[2019-08-12 16:00] VITALS: BP 122/65
--- NOTE | 2019-08-12 19:36 | NUR ---
MEDICATED WITH PRN TORADOL FOR C/O RIB PAIN. WILL MONITOR
[2019-08-12 20:00] VITALS: BP 131/66
--- NOTE | 2019-08-12 21:30 | NUR ---
MEDICATION EFFECTIVE PER PATIENT
[2019-08-13] VITALS: BP 126/71
[2019-08-13 06:57] LABS: BASO % 0.1 % (0.0-1.0); HEMOGLOBIN 10.4 g/dl (14.0-18.0); LYMPH # 1.7 10*3/uL (1.3-4.4); LYMPH % 12.1 % (27.0-41.0); MEAN CELL VOLUME 84.9 fl (80.0-94.0); MEAN CORPUSCULAR HGB 27.6 pg (27.0-31.0); MEAN CORPUSCULAR HGB CONC 32.5 g/dl (33.0-37.0); MEAN PLATELET VOLUME 8.8 fl (9.6-12.3); MONO % 7.2 % (3.0-9.0); NEUT # 11.2 10*3/uL (2.3-7.9); NEUT % 80.2 % (47.0-73.0); PLATELET COUNT AUTOMATED 670 10*3/uL (130-400); RED BLOOD COUNT 3.77 10*6/uL (4.50-5.90); RED CELL DISTRI WIDTH 15.6 % (0-14.5)
[2019-08-13 07:23] LABS: ALBUMIN 2.6 gm/dl (3.1-4.5); BUN 28 mg/dl (7-24); CHLORIDE 102 mmol/L (98-107); POTASSIUM 3.9 mmol/L (3.5-5.1); SODIUM 132 mmol/L (136-145)
[2019-08-13 07:28] LABS: ALKALINE PHOSPHATASE 75 U/L (45-117); CREATININE 0.81 mg/dL (0.70-1.30); SGOT/AST 16 IU/L (3-35); SGPT/ALT 35 U/L (12-78); TOTAL PROTEIN 6.3 gm/dL (6.4-8.2)
--- NOTE | 2019-08-13 09:00 | NUR ---
case management visits with patient, he stated he was hoping to be discharged to home today and denies any home needs
[2019-08-13 12:00] VITALS: BP 135/70
[2019-08-13 16:00] VITALS: BP 123/74
[2019-08-13 20:00] VITALS: BP 119/72
[2019-08-14] VITALS: BP 122/56
[2019-08-14 08:00] VITALS: BP 128/60
--- NOTE | 2019-08-14 09:00 | NUR ---
case management visits with patient, he states he will be returning home when medically stable and denies any home needs
[2019-08-14 12:00] VITALS: BP 128/60
[2019-08-14 16:00] VITALS: BP 122/65
[2019-08-14 20:00] VITALS: BP 135/72
[2019-08-15] VITALS: BP 109/72
[2019-08-15 00:04] LABS: ADENOVIRUS Negative (Negative); INFLUENZA A Negative (Negative); INFLUENZA B Negative (Negative); METAPNEUMOVIRUS Negative (Negative); PARAINFLUENZA 1 Negative (Negative); PARAINFLUENZA 2 Negative (Negative); PARAINFLUENZA 3 Negative (Negative); RHINOVIRUS Negative (Negative); RSV A Negative (Negative); RSV B Negative (Negative)
--- NOTE | 2019-08-15 03:30 | NUR ---
PATIENT RIPPED IV OUT WHILE SLEEPING. NEW IV STARTED IN RAC.
[2019-08-15 07:04] LABS: BASO % 0.1 % (0.0-1.0); EOS % 0.1 % (1.0-4.0); HEMATOCRIT 30.4 % (42.0-52.0); HEMOGLOBIN 9.5 g/dl (14.0-18.0); LYMPH # 1.8 10*3/uL (1.3-4.4); LYMPH % 12.1 % (27.0-41.0); MEAN CELL VOLUME 85.4 fl (80.0-94.0); MEAN CORPUSCULAR HGB 26.7 pg (27.0-31.0); MEAN CORPUSCULAR HGB CONC 31.3 g/dl (33.0-37.0); MEAN PLATELET VOLUME 9.1 fl (9.6-12.3); NEUT # 11.7 10*3/uL (2.3-7.9); NEUT % 79.9 % (47.0-73.0); PLATELET COUNT AUTOMATED 687 10*3/uL (130-400); RED BLOOD COUNT 3.56 10*6/uL (4.50-5.90); RED CELL DISTRI WIDTH 15.6 % (0-14.5); WHITE BLOOD COUNT 14.7 10*3/uL (4.8-10.8)
[2019-08-15 07:26] VITALS: BP 128/80
[2019-08-15 07:33] LABS: BUN 22 mg/dl (7-24); CHLORIDE 102 mmol/L (98-107); CREATININE 0.76 mg/dL (0.70-1.30); POTASSIUM 3.8 mmol/L (3.5-5.1); SODIUM 133 mmol/L (136-145)
[2019-08-15] MEDS ORDERED: PREDNISONE10 MG PO (08:48)
[2019-08-15] MEDS ORDERED: LEVAQUIN750 M1 PO (08:48)
[2019-08-15] MEDS ORDERED: FLUCONAZOLE150 MG PO (08:48)
[2019-08-15] MEDS ORDERED: MUCINEX ER600 MG PO (08:48)
[2019-08-15] MEDS ORDERED: VITAMIN D32000 UNI1 PO (08:48)
--- NOTE | 2019-08-15 09:00 | NUR ---
case management visits with patient, he states he is possibly being discharged today and denies any home needs
--- NOTE | 2019-08-15 12:00 | NUR ---
Discharge instructions reviewed with patient/family. Patient receptive and verbalizes understanding. Follow-up care arranged. Written instructions given to patient/family. RAJEEV EASON
== END 2019-08-15 12:00 | disposition home or self-care (01) | DRG 190 ==
LOC: ED 14:37 → 4E 16:43 → EDHOLD 16:43 → 4E 17:18
PROVIDERS: Family Medicine; Internal Medicine; Internal Medicine Critical Care Medicine; Physician Assistant; Registered Nurse; ADMIT Internal Medicine
DX: J43.9 Emphysema, unspecified (principal); J18.9 Pneumonia, unspecified organism; E87.1 Hypo-osmolality and hyponatremia; E44.0 Moderate protein-calorie malnutrition; Z68.1 Body mass index [BMI] 19.9 or less, adult; I10 Essential (primary) hypertension; I25.10 Atherosclerotic heart disease of native coronary artery without angina pectoris; K21.9 Gastro-esophageal reflux disease without esophagitis; G89.29 Other chronic pain; M54.9 Dorsalgia, unspecified; E78.5 Hyperlipidemia, unspecified; D64.9 Anemia, unspecified; R53.1 Weakness; E55.9 Vitamin D deficiency, unspecified; F17.210 Nicotine dependence, cigarettes, uncomplicated; G43.909 Migraine, unspecified, not intractable, without status migrainosus; J20.9 Acute bronchitis, unspecified; E86.0 Dehydration; R91.1 Solitary pulmonary nodule; J84.10 Pulmonary fibrosis, unspecified; E11.65 Type 2 diabetes mellitus with hyperglycemia; D47.3 Essential (hemorrhagic) thrombocythemia; Z71.6 Tobacco abuse counseling; Z87.01 Personal history of pneumonia (recurrent); Z88.6 Allergy status to analgesic agent; Z90.49 Acquired absence of other specified parts of digestive tract; Z82.49 Family history of ischemic heart disease and other diseases of the circulatory system; Z83.3 Family history of diabetes mellitus; I25.2 Old myocardial infarction; Z79.899 Other long term (current) drug therapy; Z79.82 Long term (current) use of aspirin

== ENCOUNTER 2019-09-08 11:24 | Inpatient (IN) | payer SELFPAY ==
[~2019-09-08] VITALS: Ht 170.2 cm; Wt 57.2 kg
--- NOTE | ~2019-09-08 | EKG ---
[place], [place] ELECTROCARDIOGRAM REPORT NAME: KIERRA LABOY UNIT #: [id number] ROOM: 406 DOCTOR: DARREL DRAFT REPORT BIRTHDATE: [birth year] [facility] Test Date: 2019-09-08 Test Time: 16:57:51 Pat Name: KIERRA LABOY Department: Room: 406 Gender: M Access Service Representative: : 1960 Requested By: ROHAN MARTIN Order Number: [id number] Reading MD: Vikki Parikh Measurements Intervals [place] Rate: 92 P: 81 [place]: 141 QRS: 71 QRSD: 84 T: 69 QT: 347 QTc: 430 Interpretive Statements Sinus rhythm Right atrial enlargement Probable LVH with secondary repol abnrm Baseline wander in lead(s) V4 Compared to ECG 08/09/2019 16:02:10 ST (T wave) deviation no longer present Electronically Signed On 09-10-2019 11:58:46 PST by Vikki Parikh CM:EKGRPT:ELECTROCARDIOGRAM REPORT [id number] ROHAN RAMIRES DRAFT REPORT ROHAN MARTIN DO
--- NOTE | ~2019-09-08 | PR ---
[place], [place] PROGRESS NOTE NAME: KIERRA LABOY LOCATED WITHIN [facility] #: [id number] UNIT #: [id number] ROOM: 406 DOCTOR: BAMBI HERCULES MD BIRTHDATE: [birth year] DOS: 09/10/2019 SUBJECTIVE: He was still complaining of pain in the chest was continued on intravenous antibiotics. Denies symptoms of fever or chills or any hemoptysis. Denies symptoms of headache or diplopia. Coughing sputum expectoration noted decreased. Denies symptoms of nausea, vomiting, diarrhea, abdominal pain, hematemesis, melena, or hematochezia. Denies symptoms of headache or diplopia, pain of the lower extremities. OBJECTIVE: VITAL SIGNS: Normal temperature, respiratory rate 18, heart rate of 80, blood pressure 129/56. The pulse ox saturation recorded at rest on room air 98% saturation. HEENT: Examination shows head was atraumatic. Eyes nonicterus. NECK: Supple. CARDIOVASCULAR: S1, S2 is audible. LUNGS: Decreased breath sounds in the lungs were noted bilaterally. There were no crackles. ABDOMEN: Soft, nontender. Bowel sounds present. EXTREMITIES: No acute change. MUSCULOSKELETAL: Without any acute deformities. CENTRAL NERVOUS SYSTEM: Nonfocal. LABORATORY DATA: Influenza A and B, nasal washing antigen yesterday were noted negative. Blood culture from 09/08/2019 showed no bacterial growth. Final culture results were pending. IMPRESSION: Acute pneumonia with chronic obstructive pulmonary disease as well as nicotine dependence. PLAN OF MANAGEMENT: Continue bronchodilators and oxygen supplementation. Continue IV Solu-Medrol. The sputum culture will be monitored. Continue current antibiotic, Levaquin and doxycycline. Supportive care. Additional treatment changes will be done based on the culture reversibility of the sputum. [place], [place] PROGRESS NOTE NAME: KIERRA LABOY UNIT #: [id number] ROOM: 406 DOCTOR: BAMBI HERCULES MD BIRTHDATE: [birth year] BAMBI SOARES MD CM:PNTRANS [id number] BAMBI FALL MD 09/10/19 1713 interface
--- NOTE | ~2019-09-08 | CON ---
[place], [place] REPORT OF CONSULTATION NAME: KIERRA LABOY [facility] #: [id number] UNIT #: [id number] ROOM: 406 DOCTOR: BAMBI HERCULES MD BIRTHDATE: [birth year] DOS: 09/09/2019 PULMONARY CONSULTATION, EVALUATION AND MANAGEMENT CONSULTATION REQUESTED BY: Hospitalist service. REASON FOR CONSULTATION: For assessment of possibility of acute pneumonia. HISTORY OF PRESENT ILLNESS: A 59-year-old white male patient with history of COPD and previous history of pneumonia with guarding of the upper lobes, presented to the hospital on 10/08/2019. The patient has been recently treated in the hospital and discharged in the beginning of 08/2019. At that time, the patient does have symptoms of acute pneumonia, which was suspected in the lower lobe, resolved, the patient discharged home. He has a history of chronic right-sided chest pain with history of extensive investigation. No pathological diagnosis was known. He presented to the Emergency Room and the patient complaining of symptoms of chest congestion and the pain reported in the right side. He has been reported symptoms of cough with some sputum expectoration. Denies symptoms of hemoptysis with those symptoms. The patient presented to the hospital for further care. There was no symptoms of hemoptysis. REVIEW OF SYSTEMS: CONSTITUTIONAL SYMPTOMS: Fatigue and tiredness noted without any symptoms of chills or fever at home. EYES: Denies burning, redness, or tenderness. EARS, NOSE, THROAT SYMPTOMS: No sore throat, hoarseness, otalgia, postnasal drainage or epistaxis. CARDIOVASCULAR: Denies angina pain patient's edema or pain of the lower extremities. GASTROINTESTINAL: Denies dysphagia, nausea, vomiting, diarrhea, abdominal pain, hematemesis, melena, or hematochezia. SKIN: Denies abnormal lesions or rashes. CENTRAL NERVOUS SYSTEM: The patient denies dizziness, headache, diplopia, syncopal episodes. Remaining systems were reviewed with the patient, they were noted all negative. PAST MEDICAL HISTORY: 1. Known with history of chronic obstructive pulmonary disease. 2. Migraine headache. 3. Past pseudomonas aeruginosa, treated in 2018. 4. Chronic guarding of the upper lung, greater on the right than the left side. 5. Vitamin D deficiency. 6. History of hydrocephalus. 7. Allergic rhinitis. 8. Coronary artery disease. 9. Essential hypertension. 10. Type 2 diabetes mellitus. PAST SURGICAL HISTORY: [place], [place] REPORT OF CONSULTATION [id number] UN[facility] #: [id number] ROOM: 406 DOCTOR: BAMBI HERCULES MD BIRTHDATE: [birth year] 1. Lumbar laminectomy. 2. Hydrocephalus management. 3. Appendectomy. 4. Therapeutic bronchoscopy. SOCIAL HISTORY: The patient is currently . Denies any alcohol or illicit drug use. Tobacco use was noted from a younger age up to 3 packs, currently smoking cigarettes intermittently of different amount. FAMILY HISTORY: The patient's father at age of 72-year-old, complication of myocardial infarction. Mother from a motor vehicle accident. CURRENT MEDICATIONS: Which were administered were noted as folic acid, loratadine, lisinopril, Lovenox, nortriptyline, Topamax, gabapentin, Solu-Medrol 40 mg b.i.d., DuoNeb, Levaquin and Zithromax. DRUG ALLERGIES: NOTED ALLERGY TO TORADOL CAUSING NAUSEA. PHYSICAL EXAMINATION: GENERAL: This is a 59-year-old male patient who has been noted currently awake and alert without any distress. Height of 5 feet 7 inches, weight 127 pounds, BMI 19.9. VITAL SIGNS: Normal temperature, respiratory rate 18-20, heart rate 77-73, blood pressure 144/78 to 136/78. Pulse oxygen saturation recorded at rest to room air 99% saturation. HEENT: Head was atraumatic. Eyes nonicterus. NECK: Supple. CARDIOVASCULAR: S1, S2 audible. LUNGS: Decreased breath sounds noted in the lung. Occasional wheezing and crackles. ABDOMEN: Soft, nontender. Bowel sounds present. EXTREMITIES: Without any edema, clubbing, or cyanosis. MUSCULOSKELETAL: Without deformity. CENTRAL NERVOUS SYSTEM: The patient noted no gross focal neurologic deficit. LABORATORY DATA: CBC that was done yesterday, WBC count 12.6, hemoglobin 10.7, platelet count was 728,000. PT/PTT noted as normal. Lactic acid yesterday noted normal. CMP that was done yesterday noted normal BUN and creatinine, sodium 128. CBC 09/09/2019, WBC count normal, hemoglobin 10.6. Platelet count normal. Influenza A and B, nasal washing antigen negative. Chest x-ray was noted with infiltration in the right lower lobe. I have repeated a chest x-ray shows reduction previously noted pulmonary infiltration, right lower lobe with a small infiltration noted a possible scarring cannot be excluded. IMPRESSION: 1. The patient with possibility of acute recurrent pneumonia at this time, nicotine abuse, chronic obstructive pulmonary disease with acute exacerbation. 2. The patient with hyponatremia with current finding, rule out Legionella pneumonia as well. 3. Rule out atypical infection, fungal infection for atypical mycobacterial [place], [place] REPORT OF CONSULTATION NAME: KIERRA LABOY UNIT #: [id number] ROOM: 406 DOCTOR: FANY FALL MD,BAMBI BIRTHDATE: [birth year] infection. PLAN OF MANAGEMENT: Continuation of bronchodilators, oxygen supplementation, corticosteroids. Addition of doxycycline. Discontinue Zithromax for the coverage of gram-positive infection including MRSA. Monitor respiratory status. Sputum for Gram stain culture will be obtained. The patient will be ordered the urine for Legionella antigen and also strep antigen as well. If the symptoms persist, consider bronchoscopy. Outpatient assessment definitely needs to be established by the patient, as the patient has not been noted very compliant patient followup in the office. Tobacco cessation and abstinence. The patient was encouraged. Thanks for allowing me to participate in the care of this patient. BAMBI SOARES MD CM:CONSTR:REPORT OF CONSULTATION 1301 09/09/19 191 interface
--- NOTE | ~2019-09-08 | EKG ---
[place], [place] ELECTROCARDIOGRAM REPORT NAME: KIERRA LABOY UNIT #: [id number] ROOM: 406 DOCTOR: DARREL DRAFT REPORT BIRTHDATE: [birth year] [facility] Test Date: 2019-09-08 Test Time: 11:21:02 Pat Name: KIERRA LABOY Department: Room: 406 Gender: M Product Representative: : 1960 Requested By: ROHAN MARTIN Order Number: [id number] Reading MD: Vikki Parikh Measurements Intervals [place] Rate: 109 P: 78 [place]: 142 QRS: 80 QRSD: 83 T: 256 QT: 271 QTc: 365 Interpretive Statements Sinus tachycardia Biatrial enlargement LVH with secondary repolarization abnormality ST depr, consider ischemia, inferior leads Compared to ECG 08/09/2019 16:02:10 Early repolarization now present Possible ischemia now present Sinus rhythm no longer present ST (T wave) deviation no longer present Electronically Signed On 09-10-2019 11:57:32 PST by Vikki Parikh CM:EKGRPT:ELECTROCARDIOGRAM REPORT [id number] [id number] ROHAN RAMIRES DRAFT REPORT ROHAN MARTIN DO
--- NOTE | ~2019-09-08 | EKG ---
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
[~2019-09-08 11:24] MED LIST changes: +FLUCONAZOLE150 MG PO; +MUCINEX ER600 MG PO; +VITAMIN D32000 UNI1 PO
[2019-09-08 11:30] VITALS: BP 137/85
[2019-09-08 11:57] LABS: BASO % 0.3 % (0.0-1.0); EOS # 0.1 10*3/uL (0.0-0.4); EOS % 0.4 % (1.0-4.0); HEMOGLOBIN 10.7 g/dl (14.0-18.0); LYMPH # 1.6 10*3/uL (1.3-4.4); LYMPH % 12.9 % (27.0-41.0); MEAN CELL VOLUME 85.9 fl (80.0-94.0); MEAN CORPUSCULAR HGB 27.9 pg (27.0-31.0); MEAN CORPUSCULAR HGB CONC 32.4 g/dl (33.0-37.0); MEAN PLATELET VOLUME 8.7 fl (9.6-12.3); MONO # 0.5 10*3/uL (0.1-1.0); MONO % 3.8 % (3.0-9.0); NEUT # 10.4 10*3/uL (2.3-7.9); NEUT % 82.1 % (47.0-73.0); PLATELET COUNT AUTOMATED 728 10*3/uL (130-400); RED BLOOD COUNT 3.84 10*6/uL (4.50-5.90); RED CELL DISTRI WIDTH 16.1 % (0-14.5); WHITE BLOOD COUNT 12.6 10*3/uL (4.8-10.8)
[2019-09-08 12:08] LABS: ACT PARTIAL THROMBO TIME 29.6 SECONDS (20.0-32.1)
[2019-09-08 12:24] LABS: ALBUMIN 3.3 gm/dl (3.1-4.5); ALKALINE PHOSPHATASE 101 U/L (45-117); BUN 8 mg/dl (7-24); CHLORIDE 99 mmol/L (98-107); CREATININE 0.75 mg/dL (0.70-1.30); POTASSIUM 3.8 mmol/L (3.5-5.1); SGOT/AST 11 IU/L (3-35); SGPT/ALT 15 U/L (12-78); SODIUM 128 mmol/L (136-145); TOTAL PROTEIN 7.8 gm/dL (6.4-8.2)
[2019-09-08 12:25] LABS: TROPONIN I < 0.015 ng/ml (<0.045)
[2019-09-08 12:30] VITALS: BP 152/74
[2019-09-08 13:30] VITALS: BP 152/74
[2019-09-08 13:55] VITALS: BP 142/88
--- NOTE | 2019-09-08 13:55 | NUR ---
A 59, admitted to , under the services of HARRIS Andrade DO with a diagnosis of CHEST PAIN /RO CT,SEPSIS,PNEUMONITIS. Chief complaint is CHEST PAIN. Patient arrived via stretcher from ER. Monitor applied. Initial assessment completed. Vital signs taken and recorded. HARRIS ANDRADE DO notified of admission to the unit. Orders received. See assessment for past medical history, medications and allergies. Patient and/or family oriented to unit. [facility] visitation policy reviewed. Clothing/patient valuable form completed. SASKIA VALDEZ
[2019-09-08 16:00] VITALS: BP 159/73
--- NOTE | 2019-09-08 16:32 | NUR ---
MEDICATED WITH NORCO PATIENT HAS NOT HAD SINCE 6AM
[2019-09-08 20:00] VITALS: BP 151/72
--- NOTE | 2019-09-08 20:53 | NUR ---
PATIENT RECIEVED PAIN PILL FOR RIB AND CHEST PAIN FROM COUGHING PATIENT ALSO GIVEN SLEEPING PILL PER HIS REQUEST PATIENT STATES HE TAKES ADVIL PM'S AT NIGHT AT HOME FOR SLEEP.
[2019-09-09] VITALS: BP 144/78
--- NOTE | 2019-09-09 02:45 | NUR ---
Patient resting quietly with no c/o discomfort. Respirations easy and regular. Vital signs stable. No overt distress. VASYL CORTES
--- NOTE | 2019-09-09 05:45 | NUR ---
PATIENT ADMINISTERED AM MEDICATIONS PER DRS ORDERS. PATIENT DENIES ANY COMPLAINTS AT THIS TIME, AND [facility] RN WILL CONTIUNE TO MONITOR
[2019-09-09 06:51] LABS: BASO % 0.1 % (0.0-1.0); HEMOGLOBIN 10.6 g/dl (14.0-18.0); LYMPH # 1.1 10*3/uL (1.3-4.4); LYMPH % 11.6 % (27.0-41.0); MEAN CELL VOLUME 83.6 fl (80.0-94.0); MEAN CORPUSCULAR HGB 27.7 pg (27.0-31.0); MEAN CORPUSCULAR HGB CONC 33.1 g/dl (33.0-37.0); MEAN PLATELET VOLUME 8.9 fl (9.6-12.3); MONO # 0.4 10*3/uL (0.1-1.0); MONO % 3.9 % (3.0-9.0); NEUT # 8.1 10*3/uL (2.3-7.9); NEUT % 83.9 % (47.0-73.0); PLATELET COUNT AUTOMATED 831 10*3/uL (130-400); RED BLOOD COUNT 3.83 10*6/uL (4.50-5.90); WHITE BLOOD COUNT 9.7 10*3/uL (4.8-10.8)
[2019-09-09 07:04] LABS: ALKALINE PHOSPHATASE 96 U/L (45-117); BUN 14 mg/dl (7-24); CHLORIDE 100 mmol/L (98-107); CREATININE 0.74 mg/dL (0.70-1.30); PHOSPHOROUS 3.9 mg/dL (2.5-4.9); POTASSIUM 4.5 mmol/L (3.5-5.1); SGOT/AST 7 IU/L (3-35); SGPT/ALT 15 U/L (12-78); SODIUM 129 mmol/L (136-145); TOTAL PROTEIN 7.4 gm/dL (6.4-8.2)
[2019-09-09 08:00] VITALS: BP 136/78
--- NOTE | 2019-09-09 09:00 | NUR ---
Call Center Operator in to talk to patient. Patient states lives at home with girlfriend. There are few steps in the home. Physician: resident clinic Pharmacy: [facility] Home health services: none Patient's level of ADLs: INDEPENDENT Patient has working utilities: all working DME: none Follow-up physician's appointment after d/c: will be made by hospitalist nurse director upon discharge Does patient want to access PORTAL?: no Discharge plan discussed with patient he lives at home with girlfriend, he is independent in adls and ambulation, works and drives, he has talked with med assist and filled out paperwork to help with the hospital cost, he states he will return home when medically stable and denies any home needs. FLAVIO RANGEL
[2019-09-09 12:00] VITALS: BP 127/66
[2019-09-09 16:00] VITALS: BP 118/70
[2019-09-09 20:00] VITALS: BP 130/63
--- NOTE | 2019-09-09 20:26 | NUR ---
PT REQUESTING 2200 MEDS EARLY. STATES HE WOULD LIKE TO TRY TO REST. ALSO C/O PAIN IN L RIB FROM COUGHING RATED 8/10. SCHEDULED PO NORCO GIVEN PER ORDER FOR THIS. PT DENIES ANY OTHER NEEDS AT THIS TIME. WILL MONITOR. CALL LIGHT IN REACH. PT ENCOURAGED TO COUGH & DEEP BREATHE WELL REPOSITION Q2H.
--- NOTE | 2019-09-09 20:59 | NUR ---
EARLIER MEDICATION EFFECTIVE PER PT. PT NOW RATES L RIB PAIN 02/21. WILL CONTINUE TO MONITOR. CALL LIGHT LEFT IN REACH.
[2019-09-10] VITALS: BP 129/56
--- NOTE | 2019-09-10 04:36 | NUR ---
SCHEDULED PO NORCO & NEURONTIN ADMINISTERED AT THIS TIME PER ORDER. PT RATING L RIB & BACK PAIN 03/24. WILL MONITOR. DAILY WT 120.7. DENIES ANY NEEDS AT THIS TIME. CALL LIGHT IN REACH.
[2019-09-10 12:00] VITALS: BP 138/71
[2019-09-10 16:00] VITALS: BP 141/71
--- NOTE | 2019-09-10 19:28 | NUR ---
PT AWAKE IN BED, WATCHING TV. NO COMPLAINTS VOICED AT THIS TIME. PT DENIES ANY NEEDS CURRENTLY. WILL MONITOR. CALL LIGHT IN REACH.
[2019-09-10 20:00] VITALS: BP 134/69
[2019-09-11] VITALS: BP 126/65
[2019-09-11 12:00] VITALS: BP 126/69
--- NOTE | 2019-09-11 12:04 | NUR ---
NEW IV STARTED IN LEFT AC FOR CTA, 22 EDY ON FIRST ATTEMPT, GOOD BLOOD RETURN PT TOLERATED WELL
[2019-09-11 16:00] VITALS: BP 128/70
[2019-09-11 16:07] LABS: ACID FAST SPEC PROCESSING Concentration (.)
[2019-09-11 20:00] VITALS: BP 147/69
--- NOTE | 2019-09-11 21:15 | NUR ---
PT STATES SLEEPING MED IS TAKING EFFECT. CALL LIGHT WITHIN REACH.
--- NOTE | 2019-09-11 22:21 | NUR ---
PATIENT REQUESTING SLEEPING MEDICATION. MEDICATED WITH PRN RESTORIL ORDERED. WILL CHECK EFFECTIVENESS. CALL LIGHT WITHIN REACH.
--- NOTE | 2019-09-11 23:15 | NUR ---
SLEEPING MED EFFECTIVE. RESPIRATIONS EASY, NONLABORED. CALLL LIGHT IN REACH.
[2019-09-12] VITALS: BP 139/72
--- NOTE | 2019-09-12 02:52 | NUR ---
24 HR chart check completed.
--- NOTE | 2019-09-12 04:30 | NUR ---
Patient sleeping. Respirations relaxed and easy. Siderails up . [place] on. No signs of distress noted. Will continue to monitor. IRLANDA LAUREN
[2019-09-12 06:43] LABS: BASO % 0.2 % (0.0-1.0); EOS % 0.1 % (1.0-4.0); HEMATOCRIT 31.4 % (42.0-52.0); LYMPH % 16.6 % (27.0-41.0); MEAN CELL VOLUME 85.1 fl (80.0-94.0); MEAN CORPUSCULAR HGB 27.1 pg (27.0-31.0); MEAN CORPUSCULAR HGB CONC 31.8 g/dl (33.0-37.0); MEAN PLATELET VOLUME 8.9 fl (9.6-12.3); MONO # 1.5 10*3/uL (0.1-1.0); MONO % 8.4 % (3.0-9.0); NEUT % 73.2 % (47.0-73.0); PLATELET COUNT AUTOMATED 878 10*3/uL (130-400); RED BLOOD COUNT 3.69 10*6/uL (4.50-5.90); RED CELL DISTRI WIDTH 16.6 % (0-14.5); WHITE BLOOD COUNT 17.8 10*3/uL (4.8-10.8)
[2019-09-12 06:51] LABS: ALBUMIN 2.6 gm/dl (3.1-4.5); ALKALINE PHOSPHATASE 82 U/L (45-117); BUN 24 mg/dl (7-24); CHLORIDE 100 mmol/L (98-107); CREATININE 0.82 mg/dL (0.70-1.30); POTASSIUM 3.7 mmol/L (3.5-5.1); SGOT/AST 7 IU/L (3-35); SGPT/ALT 24 U/L (12-78); SODIUM 131 mmol/L (136-145); TOTAL PROTEIN 6.5 gm/dL (6.4-8.2)
[2019-09-12 12:00] VITALS: BP 122/70
[2019-09-12 16:00] VITALS: BP 131/69
[2019-09-12 20:00] VITALS: BP 154/79
--- NOTE | 2019-09-12 20:00 | NUR ---
IN TO SEE PATIENT. PATIENT DOING GOOD AND IS HOPING TO GO HOME TOMORROW LONG THERE ARE NO SET BACKS THROUGH THE NIGHT. NO COMPLAINTS AT THIS TIME. CALL LIGHT WITHIN REACH. WILL CONTINUE TO MONITOR.
--- NOTE | 2019-09-12 21:59 | NUR ---
PT REQUESTING SLEEPING MEDICATION. MEDICATED WITH PRN RESTORIL ORDERED. WILL CHECK EFFECTIVENESS. CALL LIGHT IN REACH.
--- NOTE | 2019-09-12 22:50 | NUR ---
PT SLEEPING. RESPIRATIONS EASY, NONLABORED. SLEEPING MED EFFECTIVE.
[2019-09-13] VITALS: BP 149/78
--- NOTE | 2019-09-13 04:52 | NUR ---
24 HR chart check completed.
[2019-09-13 06:41] LABS: HEMOGLOBIN 10.2 g/dl (14.0-18.0); MEAN CELL VOLUME 86.7 fl (80.0-94.0); MEAN CORPUSCULAR HGB 27.6 pg (27.0-31.0); MEAN CORPUSCULAR HGB CONC 31.9 g/dl (33.0-37.0); MEAN PLATELET VOLUME 8.7 fl (9.6-12.3); PLATELET COUNT AUTOMATED 838 10*3/uL (130-400); RED BLOOD COUNT 3.69 10*6/uL (4.50-5.90); RED CELL DISTRI WIDTH 16.7 % (0-14.5); WHITE BLOOD COUNT 16.5 10*3/uL (4.8-10.8)
[2019-09-13 07:05] LABS: BUN 21 mg/dl (7-24); CHLORIDE 103 mmol/L (98-107); CREATININE 0.86 mg/dL (0.70-1.30); POTASSIUM 4.5 mmol/L (3.5-5.1); SODIUM 134 mmol/L (136-145)
[2019-09-13 07:15] LABS: TOTAL CELLS COUNTED 100 #CELLS
[2019-09-13 07:16] LABS: PLATELET SUFFICIENCY HIGH (NORMAL)
[2019-09-13] MEDS ORDERED: PREDNISONE10 MG PO (10:01)
[2019-09-13] MEDS ORDERED: LEVAQUIN500 M2 PO (10:01)
--- NOTE | 2019-09-13 10:21 | NUR ---
MSDIS Discharge instructions reviewed with patient/family. Patient receptive and verbalizes understanding. Follow-up care arranged. Written instructions given to patient/family. MALACHI GAYLE
== END 2019-09-13 10:22 | disposition home or self-care (01) | DRG 871 ==
LOC: ED 11:24 → EDHOLD 12:55 → 4E 12:55
PROVIDERS: Emergency Medicine; Internal Medicine; Registered Nurse; ADMIT Internal Medicine
DX: A41.9 Sepsis, unspecified organism (principal); J15.6 Pneumonia due to other Gram-negative bacteria; E87.1 Hypo-osmolality and hyponatremia; E44.0 Moderate protein-calorie malnutrition; J44.0 Chronic obstructive pulmonary disease with (acute) lower respiratory infection; M94.0 Chondrocostal junction syndrome [Tietze]; I10 Essential (primary) hypertension; K21.9 Gastro-esophageal reflux disease without esophagitis; I25.10 Atherosclerotic heart disease of native coronary artery without angina pectoris; E11.65 Type 2 diabetes mellitus with hyperglycemia; D64.9 Anemia, unspecified; F17.200 Nicotine dependence, unspecified, uncomplicated; G43.909 Migraine, unspecified, not intractable, without status migrainosus; D47.3 Essential (hemorrhagic) thrombocythemia; E55.9 Vitamin D deficiency, unspecified; E78.2 Mixed hyperlipidemia; I25.2 Old myocardial infarction; Z79.4 Long term (current) use of insulin; Z88.8 Allergy status to other drugs, medicaments and biological substances; Z90.49 Acquired absence of other specified parts of digestive tract; Z82.49 Family history of ischemic heart disease and other diseases of the circulatory system; Z83.3 Family history of diabetes mellitus; Z68.23 Body mass index [BMI] 23.0-23.9, adult

== ENCOUNTER → 2019-10-03 | Outpatient (CLI) | payer SELFPAY | END | disposition home or self-care (01) | LOC: RESCLI 00:37 | DX: D64.9 Anemia, unspecified (principal); K21.9 Gastro-esophageal reflux disease without esophagitis; G89.29 Other chronic pain; E87.1 Hypo-osmolality and hyponatremia; J01.10 Acute frontal sinusitis, unspecified; I10 Essential (primary) hypertension; J44.9 Chronic obstructive pulmonary disease, unspecified; E11.9 Type 2 diabetes mellitus without complications; D47.3 Essential (hemorrhagic) thrombocythemia; J30.2 Other seasonal allergic rhinitis; I25.10 Atherosclerotic heart disease of native coronary artery without angina pectoris; E78.5 Hyperlipidemia, unspecified; G43.909 Migraine, unspecified, not intractable, without status migrainosus; Z79.899 Other long term (current) drug therapy; Z90.89 Acquired absence of other organs ==

== ENCOUNTER → 2019-10-24 | Outpatient (CLI) | payer SELFPAY | END | disposition home or self-care (01) | LOC: RESCLI 13:39 | DX: J44.9 Chronic obstructive pulmonary disease, unspecified (principal); J18.9 Pneumonia, unspecified organism; G89.29 Other chronic pain; K21.9 Gastro-esophageal reflux disease without esophagitis; I10 Essential (primary) hypertension; F17.200 Nicotine dependence, unspecified, uncomplicated; E11.9 Type 2 diabetes mellitus without complications; Z90.89 Acquired absence of other organs; Z88.8 Allergy status to other drugs, medicaments and biological substances ==

== ENCOUNTER → 2019-11-05 | Outpatient (CLI) | payer SELFPAY ==
[2019-11-05 09:53] LABS: BASO # 0.1 10*3/uL (0.0-0.1); BASO % 0.5 % (0.0-1.0); EOS # 0.2 10*3/uL (0.0-0.4); EOS % 1.2 % (1.0-4.0); HEMATOCRIT 33.9 % (42.0-52.0); HEMOGLOBIN 10.6 g/dl (14.0-18.0); LYMPH # 2.6 10*3/uL (1.3-4.4); LYMPH % 17.1 % (27.0-41.0); MEAN CORPUSCULAR HGB 27.8 pg (27.0-31.0); MEAN CORPUSCULAR HGB CONC 31.3 g/dl (33.0-37.0); MEAN PLATELET VOLUME 9.1 fl (9.6-12.3); MONO # 0.7 10*3/uL (0.1-1.0); MONO % 4.5 % (3.0-9.0); NEUT # 11.6 10*3/uL (2.3-7.9); NEUT % 76.2 % (47.0-73.0); PLATELET COUNT AUTOMATED 599 10*3/uL (130-400); RED BLOOD COUNT 3.81 10*6/uL (4.50-5.90); WHITE BLOOD COUNT 15.3 10*3/uL (4.8-10.8)
[2019-11-05 10:33] LABS: ALBUMIN 3.3 gm/dl (3.1-4.5); ALKALINE PHOSPHATASE 98 U/L (45-117); BUN 11 mg/dl (7-24); CHLORIDE 106 mmol/L (98-107); CREATININE 0.78 mg/dL (0.70-1.30); IRON 22 ug/dL (65-175); SGOT/AST 10 IU/L (3-35); SGPT/ALT 16 U/L (12-78); SODIUM 138 mmol/L (136-145); TOTAL IRON BINDING CAPACITY 286 ug/dl (250-450); TOTAL PROTEIN 7.2 gm/dL (6.4-8.2)
[2019-11-05 10:55] LABS: FERRITIN 48.3 ng/mL (22.0-322.0)
== END ==
LOC: LAB 09:20
PROVIDERS: Internal Medicine
DX: D64.9 Anemia, unspecified (principal)

== ENCOUNTER 2019-12-12 10:40 | Emergency (ER) | payer SELFPAY ==
[~2019-12-12] VITALS: Ht 170.1 cm; Wt 62.1 kg
[2019-12-12 12:30] VITALS: BP 134/74
== END 2019-12-12 12:36 ==
LOC: ED 10:40
DX: I10 Essential (primary) hypertension (principal); K21.9 Gastro-esophageal reflux disease without esophagitis; I25.2 Old myocardial infarction; G43.909 Migraine, unspecified, not intractable, without status migrainosus; Z88.8 Allergy status to other drugs, medicaments and biological substances; Z79.899 Other long term (current) drug therapy; Z79.2 Long term (current) use of antibiotics; Z79.84 Long term (current) use of oral hypoglycemic drugs; Z79.82 Long term (current) use of aspirin

== ENCOUNTER → 2019-12-12 | Outpatient (CLI) | payer SELFPAY | END | disposition home or self-care (01) | LOC: RESCLI 00:31 | DX: I16.0 Hypertensive urgency (principal); D64.9 Anemia, unspecified; K21.9 Gastro-esophageal reflux disease without esophagitis; G89.29 Other chronic pain; E87.1 Hypo-osmolality and hyponatremia; J01.10 Acute frontal sinusitis, unspecified; I10 Essential (primary) hypertension; J44.9 Chronic obstructive pulmonary disease, unspecified; E11.9 Type 2 diabetes mellitus without complications; D47.3 Essential (hemorrhagic) thrombocythemia; J30.2 Other seasonal allergic rhinitis; I25.10 Atherosclerotic heart disease of native coronary artery without angina pectoris; E78.5 Hyperlipidemia, unspecified; G43.909 Migraine, unspecified, not intractable, without status migrainosus; D72.829 Elevated white blood cell count, unspecified; F17.210 Nicotine dependence, cigarettes, uncomplicated; Z79.82 Long term (current) use of aspirin; Z79.899 Other long term (current) drug therapy ==

== ENCOUNTER → 2020-05-24 | Outpatient (CLI) | payer SELFPAY ==
[2020-05-24 15:41] LABS: BASO # 0.1 10*3/uL (0.0-0.1); BASO % 0.7 % (0.0-1.0); EOS # 0.4 10*3/uL (0.0-0.4); EOS % 3.7 % (1.0-4.0); HEMATOCRIT 34.8 % (42.0-52.0); LYMPH # 2.9 10*3/uL (1.3-4.4); LYMPH % 30.1 % (27.0-41.0); MEAN CELL VOLUME 88.1 fl (80.0-94.0); MEAN CORPUSCULAR HGB 27.3 pg (27.0-31.0); MEAN PLATELET VOLUME 9.5 fl (9.6-12.3); MONO # 0.8 10*3/uL (0.1-1.0); MONO % 7.9 % (3.0-9.0); NEUT # 5.6 10*3/uL (2.3-7.9); NEUT % 57.3 % (47.0-73.0); PLATELET COUNT AUTOMATED 551 10*3/uL (130-400); RED BLOOD COUNT 3.95 10*6/uL (4.50-5.90); WHITE BLOOD COUNT 9.7 10*3/uL (4.8-10.8)
[2020-05-24 16:14] LABS: ALBUMIN 3.6 gm/dl (3.1-4.5); BUN 15 mg/dl (7-24); CHLORIDE 110 mmol/L (98-107); CREATININE 0.92 mg/dL (0.70-1.30); IRON 30 ug/dL (65-175); POTASSIUM 3.5 mmol/L (3.5-5.1); SGOT/AST 7 IU/L (3-35); SGPT/ALT 11 U/L (12-78); SODIUM 140 mmol/L (136-145); TOTAL PROTEIN 7.5 gm/dL (6.4-8.2)
[2020-05-24 16:21] LABS: ALKALINE PHOSPHATASE 70 U/L (45-117); FREE T4 1.01 ng/dl (0.76-1.46); THYROID STIM HORMONE (HS) 0.725 uIU/ml (0.358-4.75); TOTAL IRON BINDING CAPACITY 300 ug/dl (250-450)
== END | disposition home or self-care (01) ==
LOC: RESCLI 01:35 → LAB 01:35 → RESCLI 09:27
PROVIDERS: Internal Medicine
DX: D64.9 Anemia, unspecified (principal); I10 Essential (primary) hypertension; G89.29 Other chronic pain; J30.2 Other seasonal allergic rhinitis; G43.909 Migraine, unspecified, not intractable, without status migrainosus; J44.9 Chronic obstructive pulmonary disease, unspecified; E55.9 Vitamin D deficiency, unspecified; D72.829 Elevated white blood cell count, unspecified; D47.3 Essential (hemorrhagic) thrombocythemia

== ENCOUNTER → 2020-10-13 | Outpatient (CLI) | payer SELFPAY | LOC: RESCLI 00:28 | PROVIDERS: ATTEND Student in an Organized Health Care Education/Training Program | DX: D64.9 Anemia, unspecified (principal); I10 Essential (primary) hypertension; G89.29 Other chronic pain; G43.909 Migraine, unspecified, not intractable, without status migrainosus; J30.2 Other seasonal allergic rhinitis; E11.9 Type 2 diabetes mellitus without complications; J44.9 Chronic obstructive pulmonary disease, unspecified; E55.9 Vitamin D deficiency, unspecified; D72.829 Elevated white blood cell count, unspecified; D47.3 Essential (hemorrhagic) thrombocythemia; Z79.899 Other long term (current) drug therapy; Z79.84 Long term (current) use of oral hypoglycemic drugs; Z79.82 Long term (current) use of aspirin; Z88.8 Allergy status to other drugs, medicaments and biological substances; Z95.828 Presence of other vascular implants and grafts ==

== ENCOUNTER 2021-02-26 11:15 | Emergency (ER) | payer BC ==
[~2021-02-26] VITALS: Wt 61.2 kg
[2021-02-26 11:24] VITALS: BP 174/77
[2021-02-26 12:07] LABS: BASO # 0.1 10*3/uL (0.0-0.1); BASO % 0.7 % (0.0-1.0); EOS # 0.4 10*3/uL (0.0-0.4); EOS % 2.3 % (1.0-4.0); HEMATOCRIT 37.5 % (42.0-52.0); LYMPH # 2.3 10*3/uL (1.3-4.4); LYMPH % 15.3 % (27.0-41.0); MEAN CELL VOLUME 90.6 fl (80.0-94.0); MEAN CORPUSCULAR HGB 28.5 pg (27.0-31.0); MEAN CORPUSCULAR HGB CONC 31.5 g/dl (33.0-37.0); MEAN PLATELET VOLUME 9.1 fl (9.6-12.3); MONO # 0.6 10*3/uL (0.1-1.0); MONO % 4.2 % (3.0-9.0); NEUT # 11.8 10*3/uL (2.3-7.9); NEUT % 77.2 % (47.0-73.0); PLATELET COUNT AUTOMATED 653 10*3/uL (130-400); RED BLOOD COUNT 4.14 10*6/uL (4.50-5.90); RED CELL DISTRI WIDTH 14.4 % (0-14.5); WHITE BLOOD COUNT 15.2 10*3/uL (4.8-10.8)
[2021-02-26 12:18] LABS: ACT PARTIAL THROMBO TIME 31.6 SECONDS (20.0-32.1)
[2021-02-26 12:26] LABS: ALBUMIN 3.5 gm/dl (3.1-4.5); ALKALINE PHOSPHATASE 98 U/L (45-117); BUN 9 mg/dl (7-24); CHLORIDE 103 mmol/L (98-107); CREATININE 0.77 mg/dL (0.70-1.30); POTASSIUM 4.5 mmol/L (3.5-5.1); SGOT/AST 12 IU/L (3-35); SGPT/ALT 18 U/L (12-78); SODIUM 136 mmol/L (136-145); TROPONIN I < 0.015 ng/ml (<0.045)
[2021-02-26] MEDS ORDERED: AVPAK AZITHROM250 MG PO (13:08)
[2021-02-26] MEDS ORDERED: TYLENOL325 M1 PO (13:08)
== END 2021-02-26 13:14 | disposition home or self-care (01) ==
LOC: ED 11:15
PROVIDERS: Emergency Medicine
DX: J18.9 Pneumonia, unspecified organism (principal); R09.1 Pleurisy; J44.9 Chronic obstructive pulmonary disease, unspecified; I25.10 Atherosclerotic heart disease of native coronary artery without angina pectoris; K21.9 Gastro-esophageal reflux disease without esophagitis; I10 Essential (primary) hypertension; Z90.49 Acquired absence of other specified parts of digestive tract; Z98.890 Other specified postprocedural states; Z79.82 Long term (current) use of aspirin; Z79.899 Other long term (current) drug therapy; Z88.6 Allergy status to analgesic agent

== ENCOUNTER → 2021-04-08 | Outpatient (CLI) | payer BC | END | disposition home or self-care (01) | LOC: RESCLI 01:43 | PROVIDERS: ATTEND Internal Medicine | DX: D64.9 Anemia, unspecified (principal); I10 Essential (primary) hypertension; G89.29 Other chronic pain; G43.909 Migraine, unspecified, not intractable, without status migrainosus; J30.2 Other seasonal allergic rhinitis; J44.9 Chronic obstructive pulmonary disease, unspecified; E11.9 Type 2 diabetes mellitus without complications; E55.9 Vitamin D deficiency, unspecified; E53.8 Deficiency of other specified B group vitamins; I25.10 Atherosclerotic heart disease of native coronary artery without angina pectoris; K21.9 Gastro-esophageal reflux disease without esophagitis; F32.9 Major depressive disorder, single episode, unspecified; Z12.2 Encounter for screening for malignant neoplasm of respiratory organs; Z72.89 Other problems related to lifestyle; Z79.84 Long term (current) use of oral hypoglycemic drugs; Z79.899 Other long term (current) drug therapy; Z72.0 Tobacco use; Z98.890 Other specified postprocedural states; Z82.49 Family history of ischemic heart disease and other diseases of the circulatory system ==

== ENCOUNTER → 2021-04-29 | Outpatient (CLI) | payer BC ==
[2021-04-29 09:04] LABS: CHOLESTEROL 139 mg/dL (<200); LDL CHOLESTEROL 73 mg/dL (9-159); TRIGLYCERIDES 87 mg/dl (<150)
[2021-04-30 08:09] LABS: HEP B CORE AB TOTAL Negative (Negative); HEP B CORE AB, IGM Negative (Negative); HEPATITIS B SURFACE AB Non Reactive (.); HEPATITIS B SURFACE AG Negative (Negative); HEPATITIS Be ANTIGEN Negative (Negative)
[2021-04-30 10:13] LABS: CREATININE,URINE 90.7 mg/dL (Not Estab.)
== END | disposition home or self-care (01) ==
LOC: LAB 08:29
PROVIDERS: Internal Medicine; ATTEND Student in an Organized Health Care Education/Training Program
DX: E11.9 Type 2 diabetes mellitus without complications (principal); D64.9 Anemia, unspecified; E53.8 Deficiency of other specified B group vitamins; Z72.89 Other problems related to lifestyle

== ENCOUNTER 2021-05-16 02:15 | Emergency (ER) | payer BC ==
[~2021-05-16] VITALS: Ht 172.7 cm; Wt 73.5 kg
[2021-05-16 02:24] VITALS: BP 135/77
[2021-05-16] MEDS ORDERED: PREDNISONE20 M1 PO (02:49)
== END 2021-05-16 03:05 | disposition home or self-care (01) ==
LOC: ED 02:15
DX: R07.81 Pleurodynia (principal); R05 Cough; R10.9 Unspecified abdominal pain; F17.200 Nicotine dependence, unspecified, uncomplicated; Z88.6 Allergy status to analgesic agent; Z79.899 Other long term (current) drug therapy; Z79.2 Long term (current) use of antibiotics; Z79.82 Long term (current) use of aspirin; Z98.890 Other specified postprocedural states; Z90.49 Acquired absence of other specified parts of digestive tract

== ENCOUNTER → 2021-06-29 | Outpatient (CLI) | payer BC | END | disposition home or self-care (01) | LOC: RESCLI 02:42 | PROVIDERS: ATTEND Student in an Organized Health Care Education/Training Program | DX: I10 Essential (primary) hypertension (principal); D64.9 Anemia, unspecified; G89.29 Other chronic pain; G43.909 Migraine, unspecified, not intractable, without status migrainosus; J30.2 Other seasonal allergic rhinitis; J44.9 Chronic obstructive pulmonary disease, unspecified; E55.9 Vitamin D deficiency, unspecified; I25.10 Atherosclerotic heart disease of native coronary artery without angina pectoris; E11.9 Type 2 diabetes mellitus without complications; K21.9 Gastro-esophageal reflux disease without esophagitis; F17.210 Nicotine dependence, cigarettes, uncomplicated; Z88.8 Allergy status to other drugs, medicaments and biological substances; Z79.84 Long term (current) use of oral hypoglycemic drugs; Z79.899 Other long term (current) drug therapy; Z98.890 Other specified postprocedural states; Z90.89 Acquired absence of other organs ==

== ENCOUNTER 2021-10-16 03:03 | Inpatient (IN) | payer BC ==
[2021-10-16] VITALS (8 sets, daily range): BP systolic 112–152; BP diastolic 61–90
[~2021-10-16] VITALS: Ht 170.1 cm; Wt 59.0 kg
[2021-10-16 03:23] LABS: BASO % 0.3 % (0.0-1.0); EOS % 0.1 % (1.0-4.0); LYMPH # 1.9 10*3/uL (1.3-4.4); LYMPH % 13.3 % (27.0-41.0); MEAN CORPUSCULAR HGB 27.3 pg (27.0-31.0); MEAN CORPUSCULAR HGB CONC 31.4 g/dl (33.0-37.0); MEAN PLATELET VOLUME 8.6 fl (9.6-12.3); MONO # 0.4 10*3/uL (0.1-1.0); MONO % 3.1 % (3.0-9.0); NEUT # 11.5 10*3/uL (2.3-7.9); NEUT % 82.7 % (47.0-73.0); PLATELET COUNT AUTOMATED 655 10*3/uL (130-400); RED BLOOD COUNT 4.14 10*6/uL (4.50-5.90); RED CELL DISTRI WIDTH 15.6 % (0-14.5); WHITE BLOOD COUNT 13.9 10*3/uL (4.8-10.8)
[2021-10-16 03:39] LABS: ALBUMIN 3.3 gm/dl (3.1-4.5); CREATININE 1.5 mg/dL (0.70-1.30); POTASSIUM 4.7 mmol/L (3.5-5.1); TOTAL PROTEIN 7.8 gm/dL (6.4-8.2)
[2021-10-16] MEDS ORDERED: TYLENOL PM EX-1 EACH PO (11:02)
[2021-10-17] VITALS: BP 125/64
[2021-10-17 06:31] LABS: BASO # 0.1 10*3/uL (0.0-0.1); BASO % 0.5 % (0.0-1.0); EOS # 0.2 10*3/uL (0.0-0.4); EOS % 2.3 % (1.0-4.0); HEMATOCRIT 33.5 % (42.0-52.0); LYMPH # 2.3 10*3/uL (1.3-4.4); LYMPH % 21.4 % (27.0-41.0); MEAN CELL VOLUME 87.2 fl (80.0-94.0); MEAN CORPUSCULAR HGB 27.6 pg (27.0-31.0); MEAN CORPUSCULAR HGB CONC 31.6 g/dl (33.0-37.0); MEAN PLATELET VOLUME 8.1 fl (9.6-12.3); MONO # 0.7 10*3/uL (0.1-1.0); MONO % 6.4 % (3.0-9.0); NEUT # 7.3 10*3/uL (2.3-7.9); NEUT % 68.9 % (47.0-73.0); PLATELET COUNT AUTOMATED 503 10*3/uL (130-400); RED BLOOD COUNT 3.84 10*6/uL (4.50-5.90); RED CELL DISTRI WIDTH 15.5 % (0-14.5); WHITE BLOOD COUNT 10.5 10*3/uL (4.8-10.8)
[2021-10-17 06:54] LABS: ALKALINE PHOSPHATASE 89 U/L (45-117); CREATININE 0.78 mg/dL (0.70-1.30); SGOT/AST 9 IU/L (3-35); SGPT/ALT 14 U/L (12-78); TOTAL PROTEIN 7.4 gm/dL (6.4-8.2)
[2021-10-17 07:50] LABS: CHLORIDE 107 mmol/L (98-107); POTASSIUM 4.9 mmol/L (3.5-5.1); SODIUM 136 mmol/L (136-145)
[2021-10-17 07:52] LABS: BUN 16 mg/dl (7-24)
[2021-10-17 08:00] VITALS: BP 119/73
[2021-10-17 16:00] VITALS: BP 107/63
[2021-10-17 20:00] VITALS: BP 100/56
[2021-10-18] VITALS: BP 120/71
[2021-10-18 07:03] LABS: BASO % 0.5 % (0.0-1.0); EOS # 0.2 10*3/uL (0.0-0.4); EOS % 2.7 % (1.0-4.0); HEMATOCRIT 32.3 % (42.0-52.0); LYMPH # 2.4 10*3/uL (1.3-4.4); LYMPH % 28.5 % (27.0-41.0); MEAN CELL VOLUME 86.4 fl (80.0-94.0); MEAN CORPUSCULAR HGB 27.5 pg (27.0-31.0); MEAN CORPUSCULAR HGB CONC 31.9 g/dl (33.0-37.0); MEAN PLATELET VOLUME 8.8 fl (9.6-12.3); MONO # 0.7 10*3/uL (0.1-1.0); MONO % 8.3 % (3.0-9.0); NEUT # 5.1 10*3/uL (2.3-7.9); NEUT % 59.6 % (47.0-73.0); PLATELET COUNT AUTOMATED 563 10*3/uL (130-400); RED BLOOD COUNT 3.74 10*6/uL (4.50-5.90); RED CELL DISTRI WIDTH 15.7 % (0-14.5); WHITE BLOOD COUNT 8.5 10*3/uL (4.8-10.8)
[2021-10-18 07:19] LABS: BUN 16 mg/dl (7-24); CHLORIDE 103 mmol/L (98-107); POTASSIUM 4.3 mmol/L (3.5-5.1); SODIUM 133 mmol/L (136-145)
[2021-10-18 08:00] VITALS: BP 72/50; BP 96/50
[2021-10-18 12:00] VITALS: BP 104/62
[2021-10-18 16:00] VITALS: BP 113/60
[2021-10-18 20:00] VITALS: BP 103/61
[2021-10-19] VITALS: BP 103/57
[2021-10-19 04:06] LABS: IMMUNOGLOBULIN M, QNT 91 mg/dL (20-172); RHEUMATOID ARTHRITIS FACTOR <10.0 IU/mL (<14.0)
[2021-10-19 06:49] LABS: BASO % 0.4 % (0.0-1.0); EOS # 0.4 10*3/uL (0.0-0.4); EOS % 3.9 % (1.0-4.0); HEMATOCRIT 31.4 % (42.0-52.0); LYMPH % 21.3 % (27.0-41.0); MEAN CELL VOLUME 87.7 fl (80.0-94.0); MEAN CORPUSCULAR HGB 27.4 pg (27.0-31.0); MEAN CORPUSCULAR HGB CONC 31.2 g/dl (33.0-37.0); MEAN PLATELET VOLUME 8.9 fl (9.6-12.3); MONO # 0.8 10*3/uL (0.1-1.0); NEUT # 6.2 10*3/uL (2.3-7.9); PLATELET COUNT AUTOMATED 540 10*3/uL (130-400); RED BLOOD COUNT 3.58 10*6/uL (4.50-5.90); RED CELL DISTRI WIDTH 15.5 % (0-14.5); WHITE BLOOD COUNT 9.4 10*3/uL (4.8-10.8)
[2021-10-19 07:06] LABS: BUN 20 mg/dl (7-24); CHLORIDE 102 mmol/L (98-107); CREATININE 0.91 mg/dL (0.70-1.30); POTASSIUM 4.6 mmol/L (3.5-5.1); SODIUM 130 mmol/L (136-145)
[2021-10-19 08:00] VITALS: BP 104/50
[2021-10-19 12:00] VITALS: BP 110/51
[2021-10-19 12:07] LABS: ALDOLASE 2.7 U/L (3.3-10.3); ANGIOTENSIN-CONVERTING ENZYME 16 U/L (14-82)
[2021-10-19 16:00] VITALS: BP 113/56
[2021-10-19 16:07] LABS: ATYPICAL PANCA <1:20 titer (Neg:<1:20); CYTOPLASMIC (C-ANCA) <1:20 titer (Neg:<1:20)
[2021-10-19 17:06] LABS: IGG SUBCLASS 1 298 mg/dL (248-810); IGG SUBCLASS 2 199 mg/dL (130-555); IGG SUBCLASS 3 45 mg/dL (15-102); IGG SUBCLASS 4 80 mg/dL (2-96); IMMUNOGLOBULIN G, QNT 653 mg/dL (603-1613)
[2021-10-19 20:00] VITALS: BP 114/65
[2021-10-19 20:14] LABS: ACT PARTIAL THROMBO TIME 31.4 SECONDS (20.0-32.1)
[2021-10-20] VITALS (11 sets, daily range): BP systolic 98–112; BP diastolic 48–80
[2021-10-20 06:41] LABS: BASO # 0.1 10*3/uL (0.0-0.1); BASO % 0.6 % (0.0-1.0); EOS # 0.4 10*3/uL (0.0-0.4); EOS % 5.4 % (1.0-4.0); HEMATOCRIT 31.4 % (42.0-52.0); LYMPH % 24.7 % (27.0-41.0); MEAN CORPUSCULAR HGB 27.2 pg (27.0-31.0); MEAN CORPUSCULAR HGB CONC 30.9 g/dl (33.0-37.0); MEAN PLATELET VOLUME 8.9 fl (9.6-12.3); MONO # 0.7 10*3/uL (0.1-1.0); NEUT # 4.9 10*3/uL (2.3-7.9); NEUT % 59.7 % (47.0-73.0); PLATELET COUNT AUTOMATED 562 10*3/uL (130-400); RED BLOOD COUNT 3.57 10*6/uL (4.50-5.90); RED CELL DISTRI WIDTH 15.2 % (0-14.5); WHITE BLOOD COUNT 8.2 10*3/uL (4.8-10.8)
[2021-10-20 06:48] LABS: BUN 23 mg/dl (7-24); CHLORIDE 100 mmol/L (98-107); CREATININE 0.91 mg/dL (0.70-1.30); POTASSIUM 4.6 mmol/L (3.5-5.1); SODIUM 130 mmol/L (136-145)
[2021-10-21] VITALS: BP 109/54
[2021-10-21 06:46] LABS: BASO # 0.1 10*3/uL (0.0-0.1); BASO % 0.4 % (0.0-1.0); EOS # 0.2 10*3/uL (0.0-0.4); EOS % 1.6 % (1.0-4.0); HEMATOCRIT 27.9 % (42.0-52.0); LYMPH # 1.3 10*3/uL (1.3-4.4); LYMPH % 9.2 % (27.0-41.0); MEAN CELL VOLUME 87.7 fl (80.0-94.0); MEAN CORPUSCULAR HGB 27.4 pg (27.0-31.0); MEAN CORPUSCULAR HGB CONC 31.2 g/dl (33.0-37.0); MEAN PLATELET VOLUME 8.9 fl (9.6-12.3); MONO # 1.1 10*3/uL (0.1-1.0); MONO % 7.7 % (3.0-9.0); NEUT # 11.3 10*3/uL (2.3-7.9); NEUT % 80.7 % (47.0-73.0); PLATELET COUNT AUTOMATED 542 10*3/uL (130-400); RED BLOOD COUNT 3.18 10*6/uL (4.50-5.90); RED CELL DISTRI WIDTH 15.1 % (0-14.5)
[2021-10-21 07:08] LABS: BUN 22 mg/dl (7-24); CHLORIDE 100 mmol/L (98-107); CREATININE 0.97 mg/dL (0.70-1.30); POTASSIUM 4.7 mmol/L (3.5-5.1); SODIUM 129 mmol/L (136-145)
[2021-10-21 08:00] VITALS: BP 97/50
[2021-10-21 11:07] LABS: ACID FAST SPEC PROCESSING Concentration (.)
[2021-10-21 12:00] VITALS: BP 111/48
[2021-10-21 16:00] VITALS: BP 102/54
[2021-10-21 17:31] LABS: BILIRUBIN Negative (Negative); BLOOD Negative (Negative); CLARITY Clear (Clear); COLOR Yellow (Yellow); GLUCOSE Negative (Negative); KETONE Negative (Negative); LEUKO ESTERASE Negative (Negative); NITRITE Negative (Negative); UROBILINOGEN 0.2 E.U./dl (0.0-1.0)
[2021-10-21 18:02] LABS: BACTERIA TRACE
[2021-10-21 20:00] VITALS: BP 103/53
[2021-10-22] VITALS: BP 108/54
[2021-10-22 07:21] LABS: BASO % 0.4 % (0.0-1.0); EOS # 0.5 10*3/uL (0.0-0.4); EOS % 4.5 % (1.0-4.0); HEMATOCRIT 26.9 % (42.0-52.0); LYMPH # 1.6 10*3/uL (1.3-4.4); LYMPH % 15.8 % (27.0-41.0); MEAN CELL VOLUME 87.1 fl (80.0-94.0); MEAN CORPUSCULAR HGB 27.5 pg (27.0-31.0); MEAN CORPUSCULAR HGB CONC 31.6 g/dl (33.0-37.0); MEAN PLATELET VOLUME 8.7 fl (9.6-12.3); MONO # 0.9 10*3/uL (0.1-1.0); MONO % 9.1 % (3.0-9.0); NEUT % 69.7 % (47.0-73.0); PLATELET COUNT AUTOMATED 539 10*3/uL (130-400); RED BLOOD COUNT 3.09 10*6/uL (4.50-5.90)
[2021-10-22 07:37] LABS: BUN 24 mg/dl (7-24); CHLORIDE 101 mmol/L (98-107); CREATININE 0.92 mg/dL (0.70-1.30); POTASSIUM 4.7 mmol/L (3.5-5.1); SODIUM 130 mmol/L (136-145)
[2021-10-22 08:00] VITALS: BP 110/51
[2021-10-22 12:00] VITALS: BP 136/67
[2021-10-22 16:00] VITALS: BP 120/66
[2021-10-22 20:00] VITALS: BP 110/52
[2021-10-23] VITALS: BP 142/85
[2021-10-23 06:58] LABS: BASO # 0.1 10*3/uL (0.0-0.1); BASO % 0.6 % (0.0-1.0); EOS # 0.4 10*3/uL (0.0-0.4); EOS % 4.1 % (1.0-4.0); HEMATOCRIT 28.3 % (42.0-52.0); LYMPH # 1.8 10*3/uL (1.3-4.4); LYMPH % 20.4 % (27.0-41.0); MEAN CELL VOLUME 87.3 fl (80.0-94.0); MEAN CORPUSCULAR HGB 27.2 pg (27.0-31.0); MEAN CORPUSCULAR HGB CONC 31.1 g/dl (33.0-37.0); MEAN PLATELET VOLUME 8.7 fl (9.6-12.3); MONO # 0.8 10*3/uL (0.1-1.0); MONO % 9.2 % (3.0-9.0); NEUT # 5.8 10*3/uL (2.3-7.9); NEUT % 65.4 % (47.0-73.0); PLATELET COUNT AUTOMATED 587 10*3/uL (130-400); RED BLOOD COUNT 3.24 10*6/uL (4.50-5.90); RED CELL DISTRI WIDTH 14.7 % (0-14.5); WHITE BLOOD COUNT 8.8 10*3/uL (4.8-10.8)
[2021-10-23 07:08] LABS: BUN 23 mg/dl (7-24); CHLORIDE 99 mmol/L (98-107); CREATININE 0.87 mg/dL (0.70-1.30); POTASSIUM 4.3 mmol/L (3.5-5.1); SODIUM 129 mmol/L (136-145)
[2021-10-23 08:00] VITALS: BP 104/61
[2021-10-23 12:00] VITALS: BP 119/63
[2021-10-23 16:00] VITALS: BP 109/48
[2021-10-23 20:00] VITALS: BP 132/56
[2021-10-24] VITALS: BP 106/56
[2021-10-24 07:01] LABS: BUN 28 mg/dl (7-24); CHLORIDE 103 mmol/L (98-107); CREATININE 0.83 mg/dL (0.70-1.30); POTASSIUM 4.9 mmol/L (3.5-5.1); SODIUM 131 mmol/L (136-145)
[2021-10-24 08:00] VITALS: BP 106/47
[2021-10-24 16:00] VITALS: BP 93/70
[2021-10-24 20:00] VITALS: BP 110/67
[2021-10-25] VITALS: BP 104/56
[2021-10-25 06:29] LABS: CHLORIDE 104 mmol/L (98-107); SODIUM 132 mmol/L (136-145)
[2021-10-25 06:30] LABS: BASO # 0.1 10*3/uL (0.0-0.1); EOS # 0.5 10*3/uL (0.0-0.4); HEMATOCRIT 28.4 % (42.0-52.0); LYMPH # 2.2 10*3/uL (1.3-4.4); LYMPH % 24.9 % (27.0-41.0); MEAN CELL VOLUME 88.2 fl (80.0-94.0); MEAN CORPUSCULAR HGB 27.3 pg (27.0-31.0); MONO # 0.8 10*3/uL (0.1-1.0); MONO % 9.2 % (3.0-9.0); NEUT % 58.4 % (47.0-73.0); PLATELET COUNT AUTOMATED 668 10*3/uL (130-400); RED BLOOD COUNT 3.22 10*6/uL (4.50-5.90); RED CELL DISTRI WIDTH 15.1 % (0-14.5); WHITE BLOOD COUNT 8.6 10*3/uL (4.8-10.8)
[2021-10-25 06:35] LABS: BUN 28 mg/dl (7-24); CREATININE 0.96 mg/dL (0.70-1.30)
[2021-10-25 08:00] VITALS: BP 103/53; BP 140/73
[2021-10-25 12:00] VITALS: BP 122/56
[2021-10-25] MEDS ORDERED: HYDROCODONE-AC1 EAC1 PO (15:08)
[2021-10-25] MEDS ORDERED: VIBRA-TAB100 MG PO (15:08)
== END 2021-10-25 17:00 | disposition home or self-care (01) | DRG 166 ==
LOC: ED 03:03 → 5E 06:16 → EDHOLD 06:16 → 5E 14:52
PROVIDERS: Family Medicine; Internal Medicine; Internal Medicine Critical Care Medicine; Registered Nurse; ADMIT Internal Medicine; ATTEND Internal Medicine
PROC: 0BBC8ZX Excision of Right Upper Lung Lobe, Via Natural or Artificial Opening Endoscopic, Diagnostic (ICD-10-PCS; principal; 2021-10-20)
PROC: 0BC98ZZ Extirpation of Matter from Lingula Bronchus, Via Natural or Artificial Opening Endoscopic (ICD-10-PCS; 2021-10-20)
PROC: 0BC48ZZ Extirpation of Matter from Right Upper Lobe Bronchus, Via Natural or Artificial Opening Endoscopic (ICD-10-PCS; 2021-10-20)
PROC: 0BC88ZZ Extirpation of Matter from Left Upper Lobe Bronchus, Via Natural or Artificial Opening Endoscopic (ICD-10-PCS; 2021-10-20)
PROC: 0BC58ZZ Extirpation of Matter from Right Middle Lobe Bronchus, Via Natural or Artificial Opening Endoscopic (ICD-10-PCS; 2021-10-20)
PROC: 0BC38ZZ Extirpation of Matter from Right Main Bronchus, Via Natural or Artificial Opening Endoscopic (ICD-10-PCS; 2021-10-20)
PROC: 0BC78ZZ Extirpation of Matter from Left Main Bronchus, Via Natural or Artificial Opening Endoscopic (ICD-10-PCS; 2021-10-20)
PROC: 0BC68ZZ Extirpation of Matter from Right Lower Lobe Bronchus, Via Natural or Artificial Opening Endoscopic (ICD-10-PCS; 2021-10-20)
PROC: 0BCB8ZZ Extirpation of Matter from Left Lower Lobe Bronchus, Via Natural or Artificial Opening Endoscopic (ICD-10-PCS; 2021-10-20)
PROC: 0BC18ZZ Extirpation of Matter from Trachea, Via Natural or Artificial Opening Endoscopic (ICD-10-PCS; 2021-10-20)
DX: J15.9 Unspecified bacterial pneumonia (principal); N17.0 Acute kidney failure with tubular necrosis; J85.1 Abscess of lung with pneumonia; Z16.23 Resistance to quinolones and fluoroquinolones; Z16.29 Resistance to other single specified antibiotic; Z16.11 Resistance to penicillins; E44.0 Moderate protein-calorie malnutrition; J44.0 Chronic obstructive pulmonary disease with (acute) lower respiratory infection; E87.1 Hypo-osmolality and hyponatremia; B95.62 Methicillin resistant Staphylococcus aureus infection as the cause of diseases classified elsewhere; N18.9 Chronic kidney disease, unspecified; K21.9 Gastro-esophageal reflux disease without esophagitis; Z20.822 Contact with and (suspected) exposure to COVID-19; I25.10 Atherosclerotic heart disease of native coronary artery without angina pectoris; D64.9 Anemia, unspecified; D47.3 Essential (hemorrhagic) thrombocythemia; E78.5 Hyperlipidemia, unspecified; E55.9 Vitamin D deficiency, unspecified; I12.9 Hypertensive chronic kidney disease with stage 1 through stage 4 chronic kidney disease, or unspecified chronic kidney disease; E11.65 Type 2 diabetes mellitus with hyperglycemia; E78.2 Mixed hyperlipidemia; F17.210 Nicotine dependence, cigarettes, uncomplicated; M54.9 Dorsalgia, unspecified; G89.29 Other chronic pain; E11.22 Type 2 diabetes mellitus with diabetic chronic kidney disease; Z88.8 Allergy status to other drugs, medicaments and biological substances; Z82.49 Family history of ischemic heart disease and other diseases of the circulatory system; Z83.3 Family history of diabetes mellitus; Z68.20 Body mass index [BMI] 20.0-20.9, adult

== ENCOUNTER 2021-12-02 08:49 | Emergency (ER) | payer BC ==
[~2021-12-02] VITALS: Wt 70.3 kg
[~2021-12-02 08:49] MED LIST changes: +HYDROCODONE-AC1 EAC1 PO; +TYLENOL PM EX-1 EACH PO; +VIBRA-TAB100 MG PO
[2021-12-02 08:54] VITALS: BP 173/69
[2021-12-02 09:44] LABS: BASO # 0.1 10*3/uL (0.0-0.1); BASO % 0.7 % (0.0-1.0); EOS # 0.3 10*3/uL (0.0-0.4); EOS % 3.1 % (1.0-4.0); HEMATOCRIT 29.2 % (42.0-52.0); LYMPH # 2.6 10*3/uL (1.3-4.4); LYMPH % 25.3 % (27.0-41.0); MEAN CELL VOLUME 85.4 fl (80.0-94.0); MEAN CORPUSCULAR HGB 26.9 pg (27.0-31.0); MEAN CORPUSCULAR HGB CONC 31.5 g/dl (33.0-37.0); MONO # 0.7 10*3/uL (0.1-1.0); MONO % 6.3 % (3.0-9.0); NEUT # 6.7 10*3/uL (2.3-7.9); NEUT % 64.3 % (47.0-73.0); PLATELET COUNT AUTOMATED 603 10*3/uL (130-400); RED BLOOD COUNT 3.42 10*6/uL (4.50-5.90); RED CELL DISTRI WIDTH 15.3 % (0-14.5); WHITE BLOOD COUNT 10.3 10*3/uL (4.8-10.8)
[2021-12-02 09:59] LABS: ALBUMIN 3.1 gm/dl (3.1-4.5); ALKALINE PHOSPHATASE 101 U/L (45-117); BUN 14 mg/dl (7-24); CHLORIDE 110 mmol/L (98-107); CREATININE 0.85 mg/dL (0.70-1.30); POTASSIUM 3.5 mmol/L (3.5-5.1); SGOT/AST 14 IU/L (3-35); SGPT/ALT 17 U/L (12-78); SODIUM 139 mmol/L (136-145); TOTAL PROTEIN 7.2 gm/dL (6.4-8.2)
== END 2021-12-02 14:18 | disposition home or self-care (01) ==
LOC: ED 08:49
PROVIDERS: Emergency Medicine
DX: R07.1 Chest pain on breathing (principal); F17.200 Nicotine dependence, unspecified, uncomplicated; Z88.8 Allergy status to other drugs, medicaments and biological substances; Z79.899 Other long term (current) drug therapy; Z79.82 Long term (current) use of aspirin; Z90.49 Acquired absence of other specified parts of digestive tract

== ENCOUNTER 2021-12-11 12:17 | Emergency (ER) | payer BC ==
[~2021-12-11] VITALS: Wt 72.6 kg
[2021-12-11 12:25] VITALS: BP 141/66
[2021-12-11 12:44] LABS: BILIRUBIN Negative (Negative); BLOOD 3+ (Negative); CLARITY Cloudy (Clear); COLOR Red (Yellow); GLUCOSE Negative (Negative); KETONE Negative (Negative); LEUKO ESTERASE 1+ (Negative); NITRITE Negative (Negative); UROBILINOGEN 0.2 E.U./dl (0.0-1.0)
[2021-12-11 12:52] LABS: BASO # 0.1 10*3/uL (0.0-0.1); BASO % 0.9 % (0.0-1.0); EOS # 0.6 10*3/uL (0.0-0.4); EOS % 4.6 % (1.0-4.0); HEMATOCRIT 31.7 % (42.0-52.0); LYMPH % 24.4 % (27.0-41.0); MEAN CELL VOLUME 88.1 fl (80.0-94.0); MEAN CORPUSCULAR HGB 27.2 pg (27.0-31.0); MEAN CORPUSCULAR HGB CONC 30.9 g/dl (33.0-37.0); MEAN PLATELET VOLUME 8.9 fl (9.6-12.3); MONO # 0.9 10*3/uL (0.1-1.0); MONO % 7.2 % (3.0-9.0); NEUT # 7.7 10*3/uL (2.3-7.9); NEUT % 62.7 % (47.0-73.0); PLATELET COUNT AUTOMATED 580 10*3/uL (130-400); RED CELL DISTRI WIDTH 15.3 % (0-14.5); WHITE BLOOD COUNT 12.3 10*3/uL (4.8-10.8)
[2021-12-11 12:56] LABS: BACTERIA TRACE; RBC TNTC rbc/hpf (0-2)
[2021-12-11 13:11] LABS: ALKALINE PHOSPHATASE 108 U/L (45-117); BUN 28 mg/dl (7-24); CHLORIDE 105 mmol/L (98-107); CREATININE 1.18 mg/dL (0.70-1.30); LIPASE 68 U/L (73-393); POTASSIUM 3.8 mmol/L (3.5-5.1); SGOT/AST 24 IU/L (3-35); SGPT/ALT 20 U/L (12-78); SODIUM 135 mmol/L (136-145); TOTAL PROTEIN 7.8 gm/dL (6.4-8.2)
[2021-12-11] MEDS ORDERED: FLOMAX0.4 MG PO (15:09)
== END 2021-12-11 15:34 | disposition home or self-care (01) ==
LOC: ED 12:17
PROVIDERS: Physician Assistant
DX: N23 Unspecified renal colic (principal); Z88.6 Allergy status to analgesic agent; Z79.899 Other long term (current) drug therapy; Z79.82 Long term (current) use of aspirin; Z90.49 Acquired absence of other specified parts of digestive tract; Z98.890 Other specified postprocedural states

== ENCOUNTER 2022-01-18 09:47 | Inpatient (IN) | payer BC ==
[~2022-01-18] VITALS: Ht 170.2 cm; Wt 60.0 kg
[2022-01-18 09:58] VITALS: BP 154/73
[2022-01-18 10:30] LABS: BASO # 0.1 10*3/uL (0.0-0.1); BASO % 0.4 % (0.0-1.0); EOS # 0.2 10*3/uL (0.0-0.4); HEMATOCRIT 30.8 % (42.0-52.0); LYMPH % 12.6 % (27.0-41.0); MEAN CELL VOLUME 82.1 fl (80.0-94.0); MEAN CORPUSCULAR HGB 26.1 pg (27.0-31.0); MEAN CORPUSCULAR HGB CONC 31.8 g/dl (33.0-37.0); MEAN PLATELET VOLUME 8.8 fl (9.6-12.3); MONO # 0.7 10*3/uL (0.1-1.0); MONO % 4.6 % (3.0-9.0); NEUT # 12.6 10*3/uL (2.3-7.9); NEUT % 81.1 % (47.0-73.0); PLATELET COUNT AUTOMATED 706 10*3/uL (130-400); RED BLOOD COUNT 3.75 10*6/uL (4.50-5.90); RED CELL DISTRI WIDTH 15.3 % (0-14.5); WHITE BLOOD COUNT 15.5 10*3/uL (4.8-10.8)
[2022-01-18 10:46] LABS: ALKALINE PHOSPHATASE 109 U/L (45-117); BUN 15 mg/dl (7-24); CHLORIDE 108 mmol/L (98-107); CREATININE 0.81 mg/dL (0.70-1.30); POTASSIUM 3.7 mmol/L (3.5-5.1); SGOT/AST 12 IU/L (3-35); SGPT/ALT 16 U/L (12-78); SODIUM 137 mmol/L (136-145); TOTAL PROTEIN 7.6 gm/dL (6.4-8.2)
[2022-01-18 14:31] VITALS: BP 148/72
[2022-01-18 19:50] VITALS: BP 139/72
[2022-01-18 20:00] VITALS: BP 150/64; BP 150/69
[2022-01-19] VITALS: BP 145/79
[2022-01-19 06:37] LABS: BASO # 0.1 10*3/uL (0.0-0.1); BASO % 0.7 % (0.0-1.0); EOS # 0.5 10*3/uL (0.0-0.4); EOS % 5.5 % (1.0-4.0); LYMPH % 22.5 % (27.0-41.0); MEAN CELL VOLUME 83.1 fl (80.0-94.0); MEAN CORPUSCULAR HGB 25.9 pg (27.0-31.0); MEAN CORPUSCULAR HGB CONC 31.2 g/dl (33.0-37.0); MEAN PLATELET VOLUME 8.9 fl (9.6-12.3); MONO # 0.6 10*3/uL (0.1-1.0); MONO % 6.8 % (3.0-9.0); NEUT # 5.6 10*3/uL (2.3-7.9); NEUT % 64.2 % (47.0-73.0); PLATELET COUNT AUTOMATED 672 10*3/uL (130-400); RED BLOOD COUNT 3.97 10*6/uL (4.50-5.90); RED CELL DISTRI WIDTH 15.4 % (0-14.5); WHITE BLOOD COUNT 8.8 10*3/uL (4.8-10.8)
[2022-01-19 06:54] LABS: BUN 7 mg/dl (7-24); CHLORIDE 111 mmol/L (98-107); SODIUM 138 mmol/L (136-145)
[2022-01-19 07:07] LABS: ALKALINE PHOSPHATASE 100 U/L (45-117); CREATININE 0.52 mg/dL (0.70-1.30); SGOT/AST 7 IU/L (3-35); SGPT/ALT 12 U/L (12-78); THYROID STIM HORMONE (HS) 0.289 uIU/ml (0.358-4.75); TOTAL PROTEIN 7.2 gm/dL (6.4-8.2)
[2022-01-19 08:00] VITALS: BP 123/66
[2022-01-19 12:00] VITALS: BP 112/60
[2022-01-19 16:00] VITALS: BP 114/56
[2022-01-19 20:00] VITALS: BP 144/63
[2022-01-20] VITALS: BP 121/61
[2022-01-20 06:11] LABS: BASO # 0.1 10*3/uL (0.0-0.1); BASO % 0.5 % (0.0-1.0); EOS # 0.4 10*3/uL (0.0-0.4); EOS % 4.2 % (1.0-4.0); LYMPH # 1.7 10*3/uL (1.3-4.4); MEAN CELL VOLUME 83.1 fl (80.0-94.0); MEAN CORPUSCULAR HGB CONC 31.3 g/dl (33.0-37.0); MEAN PLATELET VOLUME 9.2 fl (9.6-12.3); MONO # 0.7 10*3/uL (0.1-1.0); NEUT # 6.8 10*3/uL (2.3-7.9); NEUT % 70.1 % (47.0-73.0); PLATELET COUNT AUTOMATED 674 10*3/uL (130-400); RED BLOOD COUNT 3.61 10*6/uL (4.50-5.90); RED CELL DISTRI WIDTH 15.4 % (0-14.5); WHITE BLOOD COUNT 9.7 10*3/uL (4.8-10.8)
[2022-01-20 06:50] LABS: BUN 13 mg/dl (7-24); CHLORIDE 106 mmol/L (98-107); CREATININE 0.72 mg/dL (0.70-1.30); POTASSIUM 4.2 mmol/L (3.5-5.1); SODIUM 135 mmol/L (136-145)
[2022-01-20 08:00] VITALS: BP 120/70
[2022-01-20] MEDS ORDERED: MUCINEX ER600 MG PO (10:45)
[2022-01-20] MEDS ORDERED: HYDROCODONE-AC1 EAC1 PO (10:45)
[2022-01-20] MEDS ORDERED: ZITHROMAX TRI-500 M1 PO (10:45)
== END 2022-01-20 12:46 | disposition home or self-care (01) | DRG 871 ==
LOC: ED 09:47 → 4E 13:42 → EDHOLD 13:42 → 4E 18:38
PROVIDERS: Emergency Medicine; Hospitalist; Internal Medicine; ADMIT Family Medicine; ATTEND Family Medicine
DX: A41.9 Sepsis, unspecified organism (principal); J15.6 Pneumonia due to other Gram-negative bacteria; E44.0 Moderate protein-calorie malnutrition; R07.81 Pleurodynia; D64.9 Anemia, unspecified; D75.839 Thrombocytosis, unspecified; M54.50 Low back pain, unspecified; G89.29 Other chronic pain; I10 Essential (primary) hypertension; K21.9 Gastro-esophageal reflux disease without esophagitis; E55.9 Vitamin D deficiency, unspecified; E11.65 Type 2 diabetes mellitus with hyperglycemia; E53.8 Deficiency of other specified B group vitamins; E78.2 Mixed hyperlipidemia; J41.1 Mucopurulent chronic bronchitis; I25.10 Atherosclerotic heart disease of native coronary artery without angina pectoris; Z68.20 Body mass index [BMI] 20.0-20.9, adult; Z90.49 Acquired absence of other specified parts of digestive tract; Z82.49 Family history of ischemic heart disease and other diseases of the circulatory system; Z88.8 Allergy status to other drugs, medicaments and biological substances; Z79.82 Long term (current) use of aspirin; Z79.51 Long term (current) use of inhaled steroids; Z79.899 Other long term (current) drug therapy

== ENCOUNTER → 2022-02-01 | Outpatient (CLI) | payer BC ==
[~2022-02-01] MED LIST changes: +ZITHROMAX TRI-500 M1 PO
== END | disposition home or self-care (01) ==
LOC: RESCLI 02:15
PROVIDERS: ATTEND Family Medicine
DX: J44.9 Chronic obstructive pulmonary disease, unspecified (principal); I11.9 Hypertensive heart disease without heart failure; G43.909 Migraine, unspecified, not intractable, without status migrainosus; Z23 Encounter for immunization; Z91.09 Other allergy status, other than to drugs and biological substances; J01.10 Acute frontal sinusitis, unspecified; E53.8 Deficiency of other specified B group vitamins; M54.50 Low back pain, unspecified; R59.0 Localized enlarged lymph nodes; E55.9 Vitamin D deficiency, unspecified; G89.29 Other chronic pain; D64.9 Anemia, unspecified; J30.2 Other seasonal allergic rhinitis; I25.10 Atherosclerotic heart disease of native coronary artery without angina pectoris; J85.1 Abscess of lung with pneumonia; R06.00 Dyspnea, unspecified; Z79.899 Other long term (current) drug therapy; Z79.82 Long term (current) use of aspirin; Z88.8 Allergy status to other drugs, medicaments and biological substances

== ENCOUNTER → 2022-03-08 | Outpatient (CLI) | payer BC | END | disposition home or self-care (01) | LOC: RESCLI 01:56 | PROVIDERS: ATTEND Internal Medicine Nephrology | DX: J44.1 Chronic obstructive pulmonary disease with (acute) exacerbation (principal); K21.9 Gastro-esophageal reflux disease without esophagitis; F32.A Depression, unspecified; I25.10 Atherosclerotic heart disease of native coronary artery without angina pectoris; Z79.899 Other long term (current) drug therapy; Z79.82 Long term (current) use of aspirin; Z88.8 Allergy status to other drugs, medicaments and biological substances ==

== ENCOUNTER 2022-04-13 07:11 | Inpatient (IN) | payer BC ==
[~2022-04-13] VITALS: Ht 170.1 cm; Wt 66.2 kg
[2022-04-13 07:30] VITALS: BP 113/59
[2022-04-13 07:52] LABS: BASO % 0.3 % (0.0-1.0); EOS # 0.1 10*3/uL (0.0-0.4); EOS % 0.5 % (1.0-4.0); HEMATOCRIT 28.2 % (42.0-52.0); LYMPH # 0.8 10*3/uL (1.3-4.4); LYMPH % 5.3 % (27.0-41.0); MEAN CELL VOLUME 82.2 fl (80.0-94.0); MEAN CORPUSCULAR HGB 26.2 pg (27.0-31.0); MEAN CORPUSCULAR HGB CONC 31.9 g/dl (33.0-37.0); MEAN PLATELET VOLUME 8.5 fl (9.6-12.3); MONO # 0.5 10*3/uL (0.1-1.0); MONO % 3.5 % (3.0-9.0); NEUT # 13.7 10*3/uL (2.3-7.9); NEUT % 89.9 % (47.0-73.0); PLATELET COUNT AUTOMATED 552 10*3/uL (130-400); RED BLOOD COUNT 3.43 10*6/uL (4.50-5.90); RED CELL DISTRI WIDTH 17.2 % (0-14.5); WHITE BLOOD COUNT 15.2 10*3/uL (4.8-10.8)
[2022-04-13 08:03] LABS: ACT PARTIAL THROMBO TIME 38.1 SECONDS (20.0-32.1); INTERNATIONAL NORM RATIO 1.1 (2.0-3.5)
[2022-04-13 08:16] LABS: CREATININE 1.45 mg/dL (0.70-1.30); TOTAL PROTEIN 7.2 gm/dL (6.4-8.2)
[2022-04-13 09:37] VITALS: BP 112/62
[2022-04-13 10:11] VITALS: BP 164/84
[2022-04-13 11:21] LABS: BILIRUBIN Negative (Negative); BLOOD 2+ (Negative); CLARITY Clear (Clear); COLOR Yellow (Yellow); GLUCOSE Negative (Negative); KETONE 1+ (Negative); LEUKO ESTERASE Negative (Negative); NITRITE Negative (Negative); PH 5.5 (4.5-8.0); UROBILINOGEN 0.2 E.U./dl (0.0-1.0)
[2022-04-13 11:37] LABS: BACTERIA 2+
[2022-04-13 11:54] VITALS: BP 143/71
[2022-04-13 16:00] VITALS: BP 118/51
[2022-04-13 20:00] VITALS: BP 144/65
[2022-04-14] VITALS: BP 155/65
[2022-04-14 05:11] LABS: ALKALINE PHOSPHATASE 134 U/L (45-117); BUN 10 mg/dl (7-24); CHLORIDE 102 mmol/L (98-107); CHOLESTEROL 82 mg/dL (<200); CREATININE 0.62 mg/dL (0.70-1.30); LDL CHOLESTEROL 33 mg/dL (9-159); POTASSIUM 3.8 mmol/L (3.5-5.1); SGOT/AST 18 IU/L (3-35); SGPT/ALT 15 U/L (12-78); SODIUM 131 mmol/L (136-145); TOTAL PROTEIN 6.8 gm/dL (6.4-8.2); TRIGLYCERIDES 79 mg/dl (<150)
[2022-04-14 05:12] LABS: FREE T4 1.33 ng/dl (0.76-1.46)
[2022-04-14 06:09] LABS: HEMATOCRIT 29.4 % (42.0-52.0); MEAN CELL VOLUME 82.4 fl (80.0-94.0); MEAN CORPUSCULAR HGB 26.3 pg (27.0-31.0); MEAN PLATELET VOLUME 9.2 fl (9.6-12.3); PLATELET COUNT AUTOMATED 585 10*3/uL (130-400); RED BLOOD COUNT 3.57 10*6/uL (4.50-5.90); RED CELL DISTRI WIDTH 17.4 % (0-14.5); WHITE BLOOD COUNT 14.2 10*3/uL (4.8-10.8)
[2022-04-14 06:24] LABS: MANUAL DIFF REFLEX YES
[2022-04-14 06:56] LABS: BURR CELLS FEW; PLATELET SUFFICIENCY HIGH (NORMAL); TOTAL CELLS COUNTED 100 #CELLS
[2022-04-14 08:00] VITALS: BP 136/61
[2022-04-14 12:00] VITALS: BP 150/66
[2022-04-14 16:00] VITALS: BP 136/65
[2022-04-14 20:00] VITALS: BP 132/73
[2022-04-15] VITALS: BP 126/63
[2022-04-15 06:07] LABS: BASO % 0.2 % (0.0-1.0); BUN 9 mg/dl (7-24); CHLORIDE 103 mmol/L (98-107); CREATININE 0.58 mg/dL (0.70-1.30); EOS # 0.1 10*3/uL (0.0-0.4); EOS % 0.9 % (1.0-4.0); HEMATOCRIT 26.2 % (42.0-52.0); LYMPH # 1.1 10*3/uL (1.3-4.4); LYMPH % 11.6 % (27.0-41.0); MEAN CELL VOLUME 81.4 fl (80.0-94.0); MEAN CORPUSCULAR HGB 25.5 pg (27.0-31.0); MEAN CORPUSCULAR HGB CONC 31.3 g/dl (33.0-37.0); MONO # 0.8 10*3/uL (0.1-1.0); MONO % 8.7 % (3.0-9.0); NEUT # 7.3 10*3/uL (2.3-7.9); NEUT % 78.1 % (47.0-73.0); PLATELET COUNT AUTOMATED 548 10*3/uL (130-400); POTASSIUM 3.7 mmol/L (3.5-5.1); RED BLOOD COUNT 3.22 10*6/uL (4.50-5.90); RED CELL DISTRI WIDTH 17.6 % (0-14.5); SODIUM 131 mmol/L (136-145); WHITE BLOOD COUNT 9.3 10*3/uL (4.8-10.8)
[2022-04-15 08:00] VITALS: BP 127/74
[2022-04-15 12:00] VITALS: BP 128/67
[2022-04-15 16:00] VITALS: BP 127/64
[2022-04-15 20:00] VITALS: BP 141/71
[2022-04-16] VITALS: BP 131/75
[2022-04-16 06:01] LABS: BUN 10 mg/dl (7-24); CHLORIDE 102 mmol/L (98-107); CREATININE 0.52 mg/dL (0.70-1.30); POTASSIUM 3.6 mmol/L (3.5-5.1); SODIUM 134 mmol/L (136-145)
[2022-04-16 06:35] LABS: BASO % 0.4 % (0.0-1.0); EOS # 0.2 10*3/uL (0.0-0.4); EOS % 2.6 % (1.0-4.0); HEMATOCRIT 27.1 % (42.0-52.0); LYMPH # 1.2 10*3/uL (1.3-4.4); LYMPH % 15.2 % (27.0-41.0); MEAN CELL VOLUME 82.4 fl (80.0-94.0); MEAN CORPUSCULAR HGB 25.8 pg (27.0-31.0); MEAN CORPUSCULAR HGB CONC 31.4 g/dl (33.0-37.0); MEAN PLATELET VOLUME 9.2 fl (9.6-12.3); MONO # 0.8 10*3/uL (0.1-1.0); MONO % 9.8 % (3.0-9.0); NEUT # 5.9 10*3/uL (2.3-7.9); NEUT % 71.4 % (47.0-73.0); PLATELET COUNT AUTOMATED 626 10*3/uL (130-400); RED BLOOD COUNT 3.29 10*6/uL (4.50-5.90); RED CELL DISTRI WIDTH 17.6 % (0-14.5); WHITE BLOOD COUNT 8.2 10*3/uL (4.8-10.8)
[2022-04-16 08:00] VITALS: BP 141/75
[2022-04-16 12:00] VITALS: BP 144/71
[2022-04-16] MEDS ORDERED: MUCINEX ER600 MG PO (15:44)
[2022-04-16] MEDS ORDERED: AUGMENTIN 875-875 MG PO (15:46)
[2022-04-16] MEDS ORDERED: VIBRA-TAB100 MG PO (15:46)
[2022-04-16 16:00] VITALS: BP 146/76
== END 2022-04-16 16:15 | disposition home or self-care (01) | DRG 871 ==
LOC: ED 07:11 → EDHOLD 09:01 → 4E 09:01
PROVIDERS: Emergency Medicine; Internal Medicine; ADMIT Family Medicine; ATTEND Family Medicine
DX: A41.9 Sepsis, unspecified organism (principal); J18.9 Pneumonia, unspecified organism; N17.0 Acute kidney failure with tubular necrosis; E43 Unspecified severe protein-calorie malnutrition; E87.1 Hypo-osmolality and hyponatremia; R65.20 Severe sepsis without septic shock; I25.10 Atherosclerotic heart disease of native coronary artery without angina pectoris; D64.9 Anemia, unspecified; K21.9 Gastro-esophageal reflux disease without esophagitis; E78.5 Hyperlipidemia, unspecified; G89.29 Other chronic pain; M54.9 Dorsalgia, unspecified; I10 Essential (primary) hypertension; J43.9 Emphysema, unspecified; E11.69 Type 2 diabetes mellitus with other specified complication; E11.65 Type 2 diabetes mellitus with hyperglycemia; R31.9 Hematuria, unspecified; E55.9 Vitamin D deficiency, unspecified; Z88.8 Allergy status to other drugs, medicaments and biological substances; I25.2 Old myocardial infarction; Z90.49 Acquired absence of other specified parts of digestive tract; Z83.3 Family history of diabetes mellitus; Z82.49 Family history of ischemic heart disease and other diseases of the circulatory system; Z68.22 Body mass index [BMI] 22.0-22.9, adult

== ENCOUNTER → 2022-05-03 | Outpatient (CLI) | payer BC | END | disposition home or self-care (01) | LOC: RESCLI 02:25 | PROVIDERS: ATTEND Internal Medicine | DX: I11.9 Hypertensive heart disease without heart failure (principal); I25.10 Atherosclerotic heart disease of native coronary artery without angina pectoris; J44.1 Chronic obstructive pulmonary disease with (acute) exacerbation; N40.0 Benign prostatic hyperplasia without lower urinary tract symptoms; M79.2 Neuralgia and neuritis, unspecified; E11.9 Type 2 diabetes mellitus without complications; J30.2 Other seasonal allergic rhinitis; D64.9 Anemia, unspecified; G89.29 Other chronic pain; E55.9 Vitamin D deficiency, unspecified; G43.909 Migraine, unspecified, not intractable, without status migrainosus; J44.9 Chronic obstructive pulmonary disease, unspecified; R06.02 Shortness of breath; J18.9 Pneumonia, unspecified organism; Z79.899 Other long term (current) drug therapy; J92.9 Pleural plaque without asbestos; Z87.891 Personal history of nicotine dependence; Z79.01 Long term (current) use of anticoagulants; Z79.82 Long term (current) use of aspirin; Z88.8 Allergy status to other drugs, medicaments and biological substances ==

== ENCOUNTER 2022-05-11 15:57 | Emergency (ER) | payer BC ==
[~2022-05-11] VITALS: Ht 170.1 cm; Wt 63.5 kg
[2022-05-11 17:09] VITALS: BP 117/70
[2022-05-11 18:48] LABS: BASO # 0.1 10*3/uL (0.0-0.1); EOS # 0.2 10*3/uL (0.0-0.4); EOS % 1.8 % (1.0-4.0); HEMATOCRIT 31.7 % (42.0-52.0); LYMPH # 0.8 10*3/uL (1.3-4.4); LYMPH % 9.7 % (27.0-41.0); MEAN CELL VOLUME 85.4 fl (80.0-94.0); MEAN CORPUSCULAR HGB 26.1 pg (27.0-31.0); MEAN CORPUSCULAR HGB CONC 30.6 g/dl (33.0-37.0); MEAN PLATELET VOLUME 8.7 fl (9.6-12.3); MONO # 0.7 10*3/uL (0.1-1.0); MONO % 8.5 % (3.0-9.0); NEUT # 6.4 10*3/uL (2.3-7.9); NEUT % 77.9 % (47.0-73.0); PLATELET COUNT AUTOMATED 439 10*3/uL (130-400); RED BLOOD COUNT 3.71 10*6/uL (4.50-5.90); RED CELL DISTRI WIDTH 17.6 % (0-14.5); WHITE BLOOD COUNT 8.2 10*3/uL (4.8-10.8)
[2022-05-11 19:09] LABS: ALKALINE PHOSPHATASE 105 U/L (45-117); BUN 17 mg/dl (7-24); CHLORIDE 100 mmol/L (98-107); CREATININE 0.86 mg/dL (0.70-1.30); POTASSIUM 3.9 mmol/L (3.5-5.1); SGOT/AST 9 IU/L (3-35); SGPT/ALT 14 U/L (12-78); SODIUM 128 mmol/L (136-145); TOTAL PROTEIN 7.3 gm/dL (6.4-8.2)
[2022-05-11 23:22] LABS: BUN 14 mg/dl (7-24); CHLORIDE 103 mmol/L (98-107); CREATININE 0.68 mg/dL (0.70-1.30); POTASSIUM 3.9 mmol/L (3.5-5.1); SODIUM 131 mmol/L (136-145)
== END 2022-05-11 23:35 | disposition home or self-care (01) ==
LOC: ED 15:57
PROVIDERS: Physician Assistant
DX: U07.1 COVID-19 (principal); Z88.8 Allergy status to other drugs, medicaments and biological substances; Z79.899 Other long term (current) drug therapy; Z79.82 Long term (current) use of aspirin; Z90.49 Acquired absence of other specified parts of digestive tract; Z98.890 Other specified postprocedural states; Z87.891 Personal history of nicotine dependence

== ENCOUNTER → 2022-05-31 | Outpatient (CLI) | payer BC | END | disposition home or self-care (01) | LOC: RESCLI 01:04 | PROVIDERS: ATTEND Emergency Medicine | DX: J44.9 Chronic obstructive pulmonary disease, unspecified (principal); E11.9 Type 2 diabetes mellitus without complications; I11.9 Hypertensive heart disease without heart failure; I25.10 Atherosclerotic heart disease of native coronary artery without angina pectoris; N40.0 Benign prostatic hyperplasia without lower urinary tract symptoms; M79.2 Neuralgia and neuritis, unspecified; J30.2 Other seasonal allergic rhinitis; D64.9 Anemia, unspecified; G89.29 Other chronic pain; G43.909 Migraine, unspecified, not intractable, without status migrainosus; E55.9 Vitamin D deficiency, unspecified; Z79.899 Other long term (current) drug therapy; Z87.891 Personal history of nicotine dependence; Z88.8 Allergy status to other drugs, medicaments and biological substances; Z79.01 Long term (current) use of anticoagulants ==

== ENCOUNTER 2022-06-14 19:14 | Observation (INO) | payer BC ==
[~2022-06-14] VITALS: Ht 170.1 cm; Wt 63.9 kg
[2022-06-14] VITALS (9 sets, daily range): BP systolic 131–162; BP diastolic 66–90
[2022-06-14 20:09] LABS: BASO # 0.1 10*3/uL (0.0-0.1); BASO % 0.8 % (0.0-1.0); EOS # 0.6 10*3/uL (0.0-0.4); EOS % 4.4 % (1.0-4.0); HEMATOCRIT 33.3 % (42.0-52.0); LYMPH # 1.7 10*3/uL (1.3-4.4); LYMPH % 13.3 % (27.0-41.0); MEAN CELL VOLUME 84.3 fl (80.0-94.0); MEAN CORPUSCULAR HGB 27.1 pg (27.0-31.0); MEAN CORPUSCULAR HGB CONC 32.1 g/dl (33.0-37.0); MEAN PLATELET VOLUME 8.7 fl (9.6-12.3); MONO # 0.8 10*3/uL (0.1-1.0); MONO % 6.3 % (3.0-9.0); NEUT # 9.7 10*3/uL (2.3-7.9); NEUT % 74.8 % (47.0-73.0); PLATELET COUNT AUTOMATED 553 10*3/uL (130-400); RED BLOOD COUNT 3.95 10*6/uL (4.50-5.90); RED CELL DISTRI WIDTH 16.3 % (0-14.5)
[2022-06-14 20:30] LABS: ALKALINE PHOSPHATASE 118 U/L (45-117); BUN 12 mg/dl (7-24); CHLORIDE 103 mmol/L (98-107); LIPASE 77 U/L (73-393); POTASSIUM 4.2 mmol/L (3.5-5.1); SGOT/AST 13 IU/L (3-35); SGPT/ALT 16 U/L (12-78); SODIUM 133 mmol/L (136-145); TOTAL PROTEIN 7.8 gm/dL (6.4-8.2)
[2022-06-14] MEDS ORDERED: NORTRIPTYLINE H50 M1 PO (22:58)
[2022-06-14] MEDS ORDERED: AMLODIPINE BESYL5 MG PO (22:59)
[2022-06-14] MEDS ORDERED: WIXELA 250-501 EACH INH (23:00)
[2022-06-15 05:12] LABS: ALKALINE PHOSPHATASE 114 U/L (45-117); BUN 10 mg/dl (7-24); CHLORIDE 106 mmol/L (98-107); CREATININE 0.69 mg/dL (0.70-1.30); POTASSIUM 4.7 mmol/L (3.5-5.1); SGOT/AST 8 IU/L (3-35); SGPT/ALT 14 U/L (12-78); SODIUM 137 mmol/L (136-145); TOTAL PROTEIN 7.4 gm/dL (6.4-8.2)
[2022-06-15 06:13] LABS: BASO # 0.1 10*3/uL (0.0-0.1); BASO % 1.3 % (0.0-1.0); EOS # 0.5 10*3/uL (0.0-0.4); EOS % 5.5 % (1.0-4.0); HEMATOCRIT 33.6 % (42.0-52.0); LYMPH # 1.8 10*3/uL (1.3-4.4); LYMPH % 20.2 % (27.0-41.0); MEAN CELL VOLUME 85.9 fl (80.0-94.0); MEAN CORPUSCULAR HGB 27.1 pg (27.0-31.0); MEAN CORPUSCULAR HGB CONC 31.5 g/dl (33.0-37.0); MONO # 0.7 10*3/uL (0.1-1.0); MONO % 7.7 % (3.0-9.0); NEUT # 5.6 10*3/uL (2.3-7.9); NEUT % 64.8 % (47.0-73.0); PLATELET COUNT AUTOMATED 539 10*3/uL (130-400); RED BLOOD COUNT 3.91 10*6/uL (4.50-5.90); RED CELL DISTRI WIDTH 16.4 % (0-14.5); WHITE BLOOD COUNT 8.7 10*3/uL (4.8-10.8)
[2022-06-15 07:31] VITALS: BP 107/68; BP 152/89
[2022-06-15 12:00] VITALS: BP 158/77
[2022-06-15 16:00] VITALS: BP 128/74
[2022-06-15] MEDS ORDERED: ASPIRIN ADULT L81 M2 PO (16:57)
[2022-06-15] MEDS ORDERED: METOPROLOL SUCC25 M2 PO (17:01)
== END 2022-06-15 18:23 | disposition home or self-care (01) ==
LOC: ED 19:14 → ICCU 22:03 → EDHOLD 22:03 → ICCU 22:47
PROVIDERS: Emergency Medicine; Internal Medicine; ADMIT Internal Medicine; ATTEND Internal Medicine
DX: R07.89 Other chest pain (principal); E44.0 Moderate protein-calorie malnutrition; D64.9 Anemia, unspecified; E87.1 Hypo-osmolality and hyponatremia; D72.829 Elevated white blood cell count, unspecified; D75.839 Thrombocytosis, unspecified; M54.50 Low back pain, unspecified; G89.29 Other chronic pain; E11.65 Type 2 diabetes mellitus with hyperglycemia; E53.8 Deficiency of other specified B group vitamins; Z79.4 Long term (current) use of insulin; Z79.899 Other long term (current) drug therapy

== ENCOUNTER → 2022-06-28 | Outpatient (CLI) | payer BC ==
[~2022-06-28] MED LIST changes: +ASPIRIN ADULT L81 M2 PO; +METOPROLOL SUCC25 M2 PO; +WIXELA 250-501 EACH INH
== END | disposition home or self-care (01) ==
LOC: RESCLI 02:04
PROVIDERS: ATTEND Emergency Medicine
DX: J44.1 Chronic obstructive pulmonary disease with (acute) exacerbation (principal); I11.9 Hypertensive heart disease without heart failure; I25.10 Atherosclerotic heart disease of native coronary artery without angina pectoris; F32.A Depression, unspecified; K21.9 Gastro-esophageal reflux disease without esophagitis; Z88.8 Allergy status to other drugs, medicaments and biological substances; Z87.891 Personal history of nicotine dependence; Z79.899 Other long term (current) drug therapy; Z79.82 Long term (current) use of aspirin; Z79.01 Long term (current) use of anticoagulants

== ENCOUNTER 2022-07-26 09:03 | Inpatient (IN) | payer BC ==
[~2022-07-26] VITALS: Ht 175.2 cm; Wt 71.9 kg
[2022-07-26 09:08] VITALS: BP 180/75
[2022-07-26] MEDS ORDERED: NEURONTIN300 MG PO (09:31)
[2022-07-26] MEDS ORDERED: METFORMIN HYDR500 MG PO (09:35)
[2022-07-26] MEDS ORDERED: TAMSULOSIN HCL0.4 MG PO (09:36)
[2022-07-26] MEDS ORDERED: HYDROCODONE-AC1 EAC1 PO (09:38)
[2022-07-26 09:39] LABS: BASO # 0.1 10*3/uL (0.0-0.1); BASO % 0.8 % (0.0-1.0); EOS # 0.3 10*3/uL (0.0-0.4); LYMPH # 1.8 10*3/uL (1.3-4.4); LYMPH % 16.9 % (27.0-41.0); MEAN CELL VOLUME 88.2 fl (80.0-94.0); MEAN CORPUSCULAR HGB 27.5 pg (27.0-31.0); MEAN CORPUSCULAR HGB CONC 31.2 g/dl (33.0-37.0); MEAN PLATELET VOLUME 8.9 fl (9.6-12.3); MONO # 0.7 10*3/uL (0.1-1.0); MONO % 6.2 % (3.0-9.0); NEUT # 7.9 10*3/uL (2.3-7.9); NEUT % 72.7 % (47.0-73.0); PLATELET COUNT AUTOMATED 595 10*3/uL (130-400); RED BLOOD COUNT 3.74 10*6/uL (4.50-5.90); RED CELL DISTRI WIDTH 16.1 % (0-14.5); WHITE BLOOD COUNT 10.9 10*3/uL (4.8-10.8)
[2022-07-26] MEDS ORDERED: VITAMIN D350 MC2 PO (09:40)
[2022-07-26] MEDS ORDERED: NATURE'S BLEND F1 MG PO (09:41)
[2022-07-26] MEDS ORDERED: MUCUS RELIEF600 MG PO (09:42)
[2022-07-26] MEDS ORDERED: DAILY VITE1 EACH PO (09:45)
[2022-07-26 09:50] LABS: INTERNATIONAL NORM RATIO 0.9 (2.0-3.5)
[2022-07-26 10:16] LABS: ALKALINE PHOSPHATASE 98 U/L (45-117); BUN 20 mg/dl (7-24); CHLORIDE 103 mmol/L (98-107); CREATININE 1.12 mg/dL (0.70-1.30); POTASSIUM 3.9 mmol/L (3.5-5.1); SGOT/AST 11 IU/L (3-35); SGPT/ALT 22 U/L (12-78); SODIUM 131 mmol/L (136-145); TOTAL PROTEIN 7.5 gm/dL (6.4-8.2)
[2022-07-26 12:23] VITALS: BP 167/71
[2022-07-26 16:20] VITALS: BP 138/84
[2022-07-26 20:00] VITALS: BP 147/78
[2022-07-27] VITALS: BP 133/73
[2022-07-27 04:18] LABS: BASO % 0.2 % (0.0-1.0); EOS % 0.2 % (1.0-4.0); HEMATOCRIT 33.7 % (42.0-52.0); LYMPH # 1.5 10*3/uL (1.3-4.4); LYMPH % 14.9 % (27.0-41.0); MEAN CELL VOLUME 86.9 fl (80.0-94.0); MEAN CORPUSCULAR HGB 27.1 pg (27.0-31.0); MEAN CORPUSCULAR HGB CONC 31.2 g/dl (33.0-37.0); MEAN PLATELET VOLUME 8.9 fl (9.6-12.3); MONO # 0.7 10*3/uL (0.1-1.0); MONO % 6.7 % (3.0-9.0); NEUT # 7.6 10*3/uL (2.3-7.9); NEUT % 77.4 % (47.0-73.0); PLATELET COUNT AUTOMATED 629 10*3/uL (130-400); RED BLOOD COUNT 3.88 10*6/uL (4.50-5.90); RED CELL DISTRI WIDTH 15.9 % (0-14.5); WHITE BLOOD COUNT 9.8 10*3/uL (4.8-10.8)
[2022-07-27 04:34] LABS: BUN 17 mg/dl (7-24); CHLORIDE 107 mmol/L (98-107); CREATININE 0.72 mg/dL (0.70-1.30); POTASSIUM 4.4 mmol/L (3.5-5.1); SODIUM 134 mmol/L (136-145)
[2022-07-27 08:00] VITALS: BP 163/76
[2022-07-27 12:00] VITALS: BP 127/68
[2022-07-27 16:00] VITALS: BP 127/62
[2022-07-27 20:00] VITALS: BP 131/67
[2022-07-28 08:00] VITALS: BP 136/68
[2022-07-28 12:00] VITALS: BP 123/65; BP 136/68
[2022-07-28 16:00] VITALS: BP 121/70
[2022-07-28 20:00] VITALS: BP 121/66
[2022-07-29] VITALS: BP 122/66
[2022-07-29 05:08] LABS: IMMUNOGLOBULIN G, QNT 742 mg/dL (603-1613)
[2022-07-29 08:00] VITALS: BP 120/64
[2022-07-29 12:00] VITALS: BP 138/77
[2022-07-29] MEDS ORDERED: OMNICEF300 MG PO (12:04)
[2022-07-29] MEDS ORDERED: ZITHROMAX500 MG PO (12:04)
== END 2022-07-29 18:22 | disposition home or self-care (01) | DRG 178 ==
LOC: ED 09:03 → EDHOLD 11:29 → 4E 11:29 → EDHOLD 12:52 → 4E 16:00
PROVIDERS: Emergency Medicine; Internal Medicine Critical Care Medicine; Registered Nurse; ADMIT Internal Medicine; ATTEND Internal Medicine
DX: J15.6 Pneumonia due to other Gram-negative bacteria (principal); E87.1 Hypo-osmolality and hyponatremia; J44.1 Chronic obstructive pulmonary disease with (acute) exacerbation; J44.0 Chronic obstructive pulmonary disease with (acute) lower respiratory infection; Z20.822 Contact with and (suspected) exposure to COVID-19; E11.65 Type 2 diabetes mellitus with hyperglycemia; I25.10 Atherosclerotic heart disease of native coronary artery without angina pectoris; E78.5 Hyperlipidemia, unspecified; K21.9 Gastro-esophageal reflux disease without esophagitis; E55.9 Vitamin D deficiency, unspecified; J20.9 Acute bronchitis, unspecified; Z90.49 Acquired absence of other specified parts of digestive tract; Z82.49 Family history of ischemic heart disease and other diseases of the circulatory system; Z83.3 Family history of diabetes mellitus

== ENCOUNTER → 2022-08-14 | Outpatient (CLI) | payer BC ==
[~2022-08-14] MED LIST changes: +DAILY VITE1 EACH PO; +METFORMIN HYDR500 MG PO; +MUCUS RELIEF600 MG PO; +OMNICEF300 MG PO; +TAMSULOSIN HCL0.4 MG PO; +VITAMIN D350 MC2 PO; +ZITHROMAX500 MG PO
== END | disposition home or self-care (01) ==
LOC: RESCLI 02:34
PROVIDERS: ATTEND Internal Medicine
DX: J44.1 Chronic obstructive pulmonary disease with (acute) exacerbation (principal); N40.0 Benign prostatic hyperplasia without lower urinary tract symptoms; E11.9 Type 2 diabetes mellitus without complications; I25.10 Atherosclerotic heart disease of native coronary artery without angina pectoris; J30.2 Other seasonal allergic rhinitis; G89.29 Other chronic pain; G43.909 Migraine, unspecified, not intractable, without status migrainosus; F32.A Depression, unspecified; E55.9 Vitamin D deficiency, unspecified; Z98.890 Other specified postprocedural states; Z88.8 Allergy status to other drugs, medicaments and biological substances; Z87.891 Personal history of nicotine dependence; Z82.49 Family history of ischemic heart disease and other diseases of the circulatory system; Z79.82 Long term (current) use of aspirin; Z79.84 Long term (current) use of oral hypoglycemic drugs; Z79.899 Other long term (current) drug therapy

== ENCOUNTER 2022-08-15 20:44 | Emergency (ER) | payer BC ==
[~2022-08-15] VITALS: Ht 170.1 cm; Wt 70.3 kg
[2022-08-15 21:15] LABS: BASO % 0.1 % (0.0-1.0); EOS % 0.1 % (1.0-4.0); HEMATOCRIT 31.1 % (42.0-52.0); LYMPH # 1.4 10*3/uL (1.3-4.4); LYMPH % 11.9 % (27.0-41.0); MEAN CELL VOLUME 88.1 fl (80.0-94.0); MEAN CORPUSCULAR HGB 27.8 pg (27.0-31.0); MEAN CORPUSCULAR HGB CONC 31.5 g/dl (33.0-37.0); MEAN PLATELET VOLUME 8.7 fl (9.6-12.3); MONO # 0.6 10*3/uL (0.1-1.0); MONO % 5.5 % (3.0-9.0); NEUT # 9.3 10*3/uL (2.3-7.9); NEUT % 81.9 % (47.0-73.0); PLATELET COUNT AUTOMATED 543 10*3/uL (130-400); RED BLOOD COUNT 3.53 10*6/uL (4.50-5.90); RED CELL DISTRI WIDTH 15.4 % (0-14.5); WHITE BLOOD COUNT 11.4 10*3/uL (4.8-10.8)
[2022-08-15 21:43] LABS: ACT PARTIAL THROMBO TIME 27.9 SECONDS (20.0-32.1); INTERNATIONAL NORM RATIO 0.9 (2.0-3.5)
[2022-08-15 21:44] LABS: ALKALINE PHOSPHATASE 81 U/L (45-117); BUN 18 mg/dl (7-24); CHLORIDE 101 mmol/L (98-107); CREATININE 0.93 mg/dL (0.70-1.30); POTASSIUM 4.3 mmol/L (3.5-5.1); SGOT/AST 7 IU/L (3-35); SGPT/ALT 29 U/L (12-78); SODIUM 133 mmol/L (136-145); TOTAL PROTEIN 6.9 gm/dL (6.4-8.2)
[2022-08-16 02:16] VITALS: BP 140/75
[2022-08-19] MEDS ORDERED: MELATONIN10 M2 PO (20:22)
[2022-08-19] MEDS ORDERED: TYLENOL PM EX-1 EACH PO (20:23)
== END 2022-08-16 03:31 | disposition home or self-care (01) ==
LOC: ED 20:44
PROVIDERS: Emergency Medicine
DX: R07.89 Other chest pain (principal); R06.02 Shortness of breath; R12 Heartburn; I25.2 Old myocardial infarction; E11.9 Type 2 diabetes mellitus without complications; Z87.891 Personal history of nicotine dependence; Z88.6 Allergy status to analgesic agent; Z79.2 Long term (current) use of antibiotics; Z79.82 Long term (current) use of aspirin; Z79.899 Other long term (current) drug therapy; Z98.890 Other specified postprocedural states; Z90.49 Acquired absence of other specified parts of digestive tract; Z98.61 Coronary angioplasty status

== ENCOUNTER 2022-08-28 09:22 | Emergency (ER) | payer BC ==
[~2022-08-28] VITALS: Ht 170.1 cm; Wt 72.6 kg
[~2022-08-28 09:22] MED LIST changes: +MELATONIN10 M2 PO; +NORTRIPTYLINE H25 M1 PO
[2022-08-28 09:35] VITALS: BP 173/82
[2022-08-28 10:07] LABS: BASO # 0.1 10*3/uL (0.0-0.1); BASO % 0.6 % (0.0-1.0); EOS # 0.3 10*3/uL (0.0-0.4); EOS % 2.3 % (1.0-4.0); HEMATOCRIT 26.8 % (42.0-52.0); LYMPH # 1.5 10*3/uL (1.3-4.4); LYMPH % 13.9 % (27.0-41.0); MEAN CELL VOLUME 92.4 fl (80.0-94.0); MEAN CORPUSCULAR HGB 28.6 pg (27.0-31.0); MEAN PLATELET VOLUME 8.9 fl (9.6-12.3); MONO # 0.7 10*3/uL (0.1-1.0); MONO % 6.1 % (3.0-9.0); NEUT # 8.3 10*3/uL (2.3-7.9); NEUT % 76.5 % (47.0-73.0); PLATELET COUNT AUTOMATED 645 10*3/uL (130-400); RED CELL DISTRI WIDTH 15.7 % (0-14.5); WHITE BLOOD COUNT 10.8 10*3/uL (4.8-10.8)
[2022-08-28 10:22] LABS: ACT PARTIAL THROMBO TIME 27.9 SECONDS (20.0-32.1); INTERNATIONAL NORM RATIO 0.9 (2.0-3.5)
[2022-08-28 10:24] LABS: ALKALINE PHOSPHATASE 101 U/L (45-117); BUN 11 mg/dl (7-24); CHLORIDE 109 mmol/L (98-107); CREATININE 0.85 mg/dL (0.70-1.30); LIPASE 146 U/L (73-393); POTASSIUM 4.2 mmol/L (3.5-5.1); SGOT/AST 10 IU/L (3-35); SGPT/ALT 21 U/L (12-78); SODIUM 138 mmol/L (136-145); TOTAL PROTEIN 7.1 gm/dL (6.4-8.2)
== END 2022-08-28 11:39 | disposition home or self-care (01) ==
LOC: ED 09:22
PROVIDERS: Emergency Medicine
DX: D64.9 Anemia, unspecified (principal); Z87.891 Personal history of nicotine dependence; Z90.49 Acquired absence of other specified parts of digestive tract; Z98.890 Other specified postprocedural states; Z88.8 Allergy status to other drugs, medicaments and biological substances; Z79.899 Other long term (current) drug therapy

== ENCOUNTER 2022-08-30 00:45 | Emergency (ER) | payer BC ==
[~2022-08-30] VITALS: Ht 170.1 cm; Wt 72.6 kg
[2022-08-30 00:48] VITALS: BP 159/80
[2022-08-30 01:10] LABS: BASO # 0.1 10*3/uL (0.0-0.1); BASO % 0.8 % (0.0-1.0); EOS # 0.4 10*3/uL (0.0-0.4); EOS % 4.8 % (1.0-4.0); HEMATOCRIT 25.6 % (42.0-52.0); LYMPH % 25.4 % (27.0-41.0); MEAN CELL VOLUME 92.1 fl (80.0-94.0); MEAN CORPUSCULAR HGB 28.4 pg (27.0-31.0); MEAN CORPUSCULAR HGB CONC 30.9 g/dl (33.0-37.0); MEAN PLATELET VOLUME 8.4 fl (9.6-12.3); MONO # 0.7 10*3/uL (0.1-1.0); MONO % 8.1 % (3.0-9.0); NEUT # 4.8 10*3/uL (2.3-7.9); NEUT % 60.3 % (47.0-73.0); PLATELET COUNT AUTOMATED 604 10*3/uL (130-400); RED BLOOD COUNT 2.78 10*6/uL (4.50-5.90); RED CELL DISTRI WIDTH 15.5 % (0-14.5)
[2022-08-30 01:25] LABS: BUN 14 mg/dl (7-24); CHLORIDE 105 mmol/L (98-107); CREATININE 1.07 mg/dL (0.70-1.30); POTASSIUM 4.3 mmol/L (3.5-5.1); SODIUM 136 mmol/L (136-145)
== END 2022-08-30 03:00 | disposition home or self-care (01) ==
LOC: ED 00:45
PROVIDERS: Internal Medicine
DX: D50.0 Iron deficiency anemia secondary to blood loss (chronic) (principal); Z88.8 Allergy status to other drugs, medicaments and biological substances; Z79.899 Other long term (current) drug therapy; Z90.49 Acquired absence of other specified parts of digestive tract; Z98.890 Other specified postprocedural states; Z87.891 Personal history of nicotine dependence

== ENCOUNTER 2022-09-09 07:05 | Emergency (ER) | payer BC ==
[~2022-09-09] VITALS: Ht 170.1 cm; Wt 72.6 kg
[2022-09-09 07:17] VITALS: BP 167/64
[2022-09-09 08:11] LABS: BASO # 0.1 10*3/uL (0.0-0.1); EOS # 0.5 10*3/uL (0.0-0.4); EOS % 4.7 % (1.0-4.0); HEMATOCRIT 26.3 % (42.0-52.0); LYMPH # 2.2 10*3/uL (1.3-4.4); LYMPH % 22.8 % (27.0-41.0); MEAN CELL VOLUME 90.4 fl (80.0-94.0); MEAN CORPUSCULAR HGB 28.9 pg (27.0-31.0); MEAN CORPUSCULAR HGB CONC 31.9 g/dl (33.0-37.0); MEAN PLATELET VOLUME 8.8 fl (9.6-12.3); MONO # 0.7 10*3/uL (0.1-1.0); MONO % 7.5 % (3.0-9.0); NEUT # 6.1 10*3/uL (2.3-7.9); NEUT % 63.6 % (47.0-73.0); PLATELET COUNT AUTOMATED 560 10*3/uL (130-400); RED BLOOD COUNT 2.91 10*6/uL (4.50-5.90); RED CELL DISTRI WIDTH 15.4 % (0-14.5); WHITE BLOOD COUNT 9.6 10*3/uL (4.8-10.8)
[2022-09-09 08:22] LABS: ACT PARTIAL THROMBO TIME 31.3 SECONDS (20.0-32.1)
[2022-09-09 08:36] LABS: ALKALINE PHOSPHATASE 105 U/L (45-117); BUN 13 mg/dl (7-24); CHLORIDE 107 mmol/L (98-107); CREATININE 1.03 mg/dL (0.70-1.30); POTASSIUM 3.7 mmol/L (3.5-5.1); SGPT/ALT 16 U/L (12-78); SODIUM 134 mmol/L (136-145); TOTAL PROTEIN 7.2 gm/dL (6.4-8.2)
== END 2022-09-09 10:38 | disposition home or self-care (01) ==
LOC: ED 07:05
PROVIDERS: Emergency Medicine
DX: R07.89 Other chest pain (principal); J44.9 Chronic obstructive pulmonary disease, unspecified; I25.10 Atherosclerotic heart disease of native coronary artery without angina pectoris; E78.5 Hyperlipidemia, unspecified; I10 Essential (primary) hypertension; E11.9 Type 2 diabetes mellitus without complications; Z88.8 Allergy status to other drugs, medicaments and biological substances; Z90.49 Acquired absence of other specified parts of digestive tract; Z79.899 Other long term (current) drug therapy; Z87.891 Personal history of nicotine dependence

== ENCOUNTER 2022-09-10 19:23 | Emergency (ER) | payer BC ==
[~2022-09-10] VITALS: Ht 170.1 cm; Wt 72.6 kg
[2022-09-10 21:25] VITALS: BP 157/78
[2022-09-10 22:32] LABS: BILIRUBIN Negative (Negative); BLOOD Negative (Negative); CLARITY Clear (Clear); COLOR Yellow (Yellow); GLUCOSE Negative (Negative); KETONE Negative (Negative); LEUKO ESTERASE Negative (Negative); NITRITE Negative (Negative); PH 6.5 (4.5-8.0); UROBILINOGEN 0.2 E.U./dl (0.0-1.0)
[2022-09-10 22:50] LABS: EPITHELIAL CELLS 0-2; WBC 0-2 wbc/hpf (0-5)
[2022-09-10 22:58] LABS: BASO # 0.1 10*3/uL (0.0-0.1); EOS # 0.4 10*3/uL (0.0-0.4); HEMATOCRIT 28.8 % (42.0-52.0); LYMPH # 1.3 10*3/uL (1.3-4.4); MEAN CORPUSCULAR HGB 27.5 pg (27.0-31.0); MEAN CORPUSCULAR HGB CONC 30.6 g/dl (33.0-37.0); MEAN PLATELET VOLUME 8.8 fl (9.6-12.3); MONO # 0.5 10*3/uL (0.1-1.0); MONO % 6.9 % (3.0-9.0); NEUT # 5.5 10*3/uL (2.3-7.9); NEUT % 69.8 % (47.0-73.0); PLATELET COUNT AUTOMATED 547 10*3/uL (130-400); RED CELL DISTRI WIDTH 15.3 % (0-14.5); WHITE BLOOD COUNT 7.9 10*3/uL (4.8-10.8)
[2022-09-10 23:17] LABS: ALKALINE PHOSPHATASE 111 U/L (45-117); BUN 9 mg/dl (7-24); CHLORIDE 108 mmol/L (98-107); CREATININE 0.76 mg/dL (0.70-1.30); POTASSIUM 4.3 mmol/L (3.5-5.1); SGPT/ALT 16 U/L (12-78); SODIUM 135 mmol/L (136-145); TOTAL PROTEIN 7.1 gm/dL (6.4-8.2)
== END 2022-09-11 02:40 | disposition home or self-care (01) ==
LOC: ED 19:23
PROVIDERS: Emergency Medicine
DX: R05.9 Cough, unspecified (principal); R07.81 Pleurodynia; J44.9 Chronic obstructive pulmonary disease, unspecified; E11.9 Type 2 diabetes mellitus without complications; E78.00 Pure hypercholesterolemia, unspecified; I25.10 Atherosclerotic heart disease of native coronary artery without angina pectoris; I10 Essential (primary) hypertension; E78.5 Hyperlipidemia, unspecified; Z88.8 Allergy status to other drugs, medicaments and biological substances; Z79.899 Other long term (current) drug therapy; Z90.49 Acquired absence of other specified parts of digestive tract; Z98.890 Other specified postprocedural states; Z87.891 Personal history of nicotine dependence

== ENCOUNTER 2022-09-20 09:46 | Emergency (ER) | payer BC ==
[~2022-09-20] VITALS: Ht 170.1 cm; Wt 72.6 kg
[2022-09-20 10:39] LABS: BASO # 0.1 10*3/uL (0.0-0.1); BASO % 0.8 % (0.0-1.0); EOS # 0.3 10*3/uL (0.0-0.4); HEMATOCRIT 28.9 % (42.0-52.0); LYMPH # 1.4 10*3/uL (1.3-4.4); LYMPH % 17.2 % (27.0-41.0); MEAN CELL VOLUME 88.4 fl (80.0-94.0); MEAN CORPUSCULAR HGB 27.2 pg (27.0-31.0); MEAN CORPUSCULAR HGB CONC 30.8 g/dl (33.0-37.0); MEAN PLATELET VOLUME 8.9 fl (9.6-12.3); MONO # 0.6 10*3/uL (0.1-1.0); MONO % 7.1 % (3.0-9.0); NEUT # 5.9 10*3/uL (2.3-7.9); NEUT % 70.7 % (47.0-73.0); PLATELET COUNT AUTOMATED 567 10*3/uL (130-400); RED BLOOD COUNT 3.27 10*6/uL (4.50-5.90); RED CELL DISTRI WIDTH 14.5 % (0-14.5); WHITE BLOOD COUNT 8.3 10*3/uL (4.8-10.8)
[2022-09-20 10:53] LABS: ACT PARTIAL THROMBO TIME 29.3 SECONDS (20.0-32.1)
[2022-09-20 10:54] LABS: ALKALINE PHOSPHATASE 91 U/L (46-116); BUN 12 mg/dl (9-23); CHLORIDE 100 mmol/L (98-107); CREATININE 0.87 mg/dL (0.70-1.30); POTASSIUM 3.5 mmol/L (3.4-5.1); SGPT/ALT 9 U/L (10-49); SODIUM 132 mmol/L (136-145)
[2022-09-20 13:33] VITALS: BP 151/78
[2022-09-20] MEDS ORDERED: VIBRAMYCIN100 MG PO (14:33)
[2022-09-20] MEDS ORDERED: PREDNISONE20 M1 PO (14:33)
== END 2022-09-20 14:56 | disposition home or self-care (01) ==
LOC: ED 09:46
PROVIDERS: Family Medicine
DX: J44.1 Chronic obstructive pulmonary disease with (acute) exacerbation (principal); Z79.899 Other long term (current) drug therapy; Z88.8 Allergy status to other drugs, medicaments and biological substances; Z90.49 Acquired absence of other specified parts of digestive tract; Z98.890 Other specified postprocedural states; F17.200 Nicotine dependence, unspecified, uncomplicated

== ENCOUNTER 2022-10-19 07:25 | Emergency (ER) | payer BC ==
[~2022-10-19] VITALS: Ht 170.1 cm; Wt 72.6 kg
[2022-10-19 08:25] LABS: BASO # 0.1 10*3/uL (0.0-0.1); BASO % 0.8 % (0.0-1.0); EOS # 0.4 10*3/uL (0.0-0.4); EOS % 4.6 % (1.0-4.0); HEMATOCRIT 31.3 % (42.0-52.0); LYMPH # 2.1 10*3/uL (1.3-4.4); LYMPH % 24.7 % (27.0-41.0); MEAN CELL VOLUME 84.1 fl (80.0-94.0); MEAN CORPUSCULAR HGB 25.5 pg (27.0-31.0); MEAN CORPUSCULAR HGB CONC 30.4 g/dl (33.0-37.0); MEAN PLATELET VOLUME 8.5 fl (9.6-12.3); MONO # 0.9 10*3/uL (0.1-1.0); MONO % 10.9 % (3.0-9.0); NEUT % 58.5 % (47.0-73.0); PLATELET COUNT AUTOMATED 811 10*3/uL (130-400); RED BLOOD COUNT 3.72 10*6/uL (4.50-5.90); RED CELL DISTRI WIDTH 14.9 % (0-14.5); WHITE BLOOD COUNT 8.5 10*3/uL (4.8-10.8)
[2022-10-19 08:42] LABS: ALKALINE PHOSPHATASE 97 U/L (46-116); BUN 15 mg/dl (9-23); CHLORIDE 97 mmol/L (98-107); POTASSIUM 3.8 mmol/L (3.4-5.1)
[2022-10-19 08:43] LABS: SGPT/ALT < 7 U/L (10-49)
[2022-10-19 09:48] VITALS: BP 137/77
== END 2022-10-19 14:52 | disposition home or self-care (01) ==
LOC: ED 07:25
PROVIDERS: Internal Medicine
DX: G43.909 Migraine, unspecified, not intractable, without status migrainosus (principal); I10 Essential (primary) hypertension; K21.9 Gastro-esophageal reflux disease without esophagitis; I25.2 Old myocardial infarction; E11.9 Type 2 diabetes mellitus without complications; J44.9 Chronic obstructive pulmonary disease, unspecified; Z88.8 Allergy status to other drugs, medicaments and biological substances; Z79.899 Other long term (current) drug therapy; Z90.49 Acquired absence of other specified parts of digestive tract; Z98.890 Other specified postprocedural states; Z87.891 Personal history of nicotine dependence

== ENCOUNTER → 2022-11-13 | Outpatient (CLI) | payer BC ==
[~2022-11-13] MED LIST changes: +AMOX-CLAV 875-1 EACH PO
== END | disposition home or self-care (01) ==
LOC: RESCLI 08:08
PROVIDERS: ATTEND Internal Medicine
DX: J18.9 Pneumonia, unspecified organism (principal); E56.9 Vitamin deficiency, unspecified; G89.29 Other chronic pain; M79.12 Myalgia of auxiliary muscles, head and neck; I10 Essential (primary) hypertension; E11.9 Type 2 diabetes mellitus without complications; J30.2 Other seasonal allergic rhinitis; N40.0 Benign prostatic hyperplasia without lower urinary tract symptoms; E55.9 Vitamin D deficiency, unspecified; J44.9 Chronic obstructive pulmonary disease, unspecified; D64.9 Anemia, unspecified; I25.10 Atherosclerotic heart disease of native coronary artery without angina pectoris; G43.909 Migraine, unspecified, not intractable, without status migrainosus; Z88.8 Allergy status to other drugs, medicaments and biological substances; Z87.891 Personal history of nicotine dependence; Z72.89 Other problems related to lifestyle; Z82.49 Family history of ischemic heart disease and other diseases of the circulatory system; Z98.890 Other specified postprocedural states; Z79.84 Long term (current) use of oral hypoglycemic drugs; Z79.899 Other long term (current) drug therapy; Z79.82 Long term (current) use of aspirin

== ENCOUNTER → 2023-01-03 | Emergency (ER) | payer BC ==
[~2023-01-03] VITALS: Wt 74.8 kg
[2023-01-03 07:33] VITALS: BP 195/97
[2023-01-03 07:56] LABS: BASO # 0.1 10*3/uL (0.0-0.1); BASO % 0.9 % (0.0-1.0); EOS # 0.3 10*3/uL (0.0-0.4); EOS % 3.3 % (1.0-4.0); HEMATOCRIT 35.2 % (42.0-52.0); LYMPH % 26.2 % (27.0-41.0); MEAN CELL VOLUME 86.5 fl (80.0-94.0); MEAN CORPUSCULAR HGB 26.5 pg (27.0-31.0); MEAN CORPUSCULAR HGB CONC 30.7 g/dl (33.0-37.0); MONO # 0.7 10*3/uL (0.1-1.0); MONO % 9.1 % (3.0-9.0); NEUT # 4.5 10*3/uL (2.3-7.9); NEUT % 60.2 % (47.0-73.0); PLATELET COUNT AUTOMATED 455 10*3/uL (130-400); RED BLOOD COUNT 4.07 10*6/uL (4.50-5.90); RED CELL DISTRI WIDTH 16.7 % (0-14.5); WHITE BLOOD COUNT 7.5 10*3/uL (4.8-10.8)
[2023-01-03 08:15] LABS: ALKALINE PHOSPHATASE 91 U/L (46-116); BUN 22 mg/dl (9-23); CHLORIDE 104 mmol/L (98-107); POTASSIUM 4.1 mmol/L (3.4-5.1); SGPT/ALT 8 U/L (10-49)
== END ==
LOC: ED 07:18
PROVIDERS: Emergency Medicine
DX: S29.011A Strain of muscle and tendon of front wall of thorax, initial encounter (principal); J44.1 Chronic obstructive pulmonary disease with (acute) exacerbation; I10 Essential (primary) hypertension; K21.9 Gastro-esophageal reflux disease without esophagitis; I25.2 Old myocardial infarction; E11.9 Type 2 diabetes mellitus without complications; G43.909 Migraine, unspecified, not intractable, without status migrainosus; Z88.8 Allergy status to other drugs, medicaments and biological substances; Z90.49 Acquired absence of other specified parts of digestive tract; Z98.890 Other specified postprocedural states; F17.200 Nicotine dependence, unspecified, uncomplicated; X58.XXXA Exposure to other specified factors, initial encounter; Y93.89 Activity, other specified; Y92.89 Other specified places as the place of occurrence of the external cause; Y99.8 Other external cause status

== ENCOUNTER 2023-01-11 18:39 | Emergency (ER) | payer BC ==
[~2023-01-11] VITALS: Wt 76.7 kg
[2023-01-11 19:06] VITALS: BP 142/68
[2023-01-11 20:17] LABS: BASO % 0.4 % (0.0-1.0); EOS # 0.3 10*3/uL (0.0-0.4); EOS % 3.5 % (1.0-4.0); HEMATOCRIT 34.1 % (42.0-52.0); LYMPH # 1.9 10*3/uL (1.3-4.4); LYMPH % 20.3 % (27.0-41.0); MEAN CELL VOLUME 86.1 fl (80.0-94.0); MEAN CORPUSCULAR HGB CONC 31.4 g/dl (33.0-37.0); MONO # 0.7 10*3/uL (0.1-1.0); MONO % 7.1 % (3.0-9.0); NEUT # 6.5 10*3/uL (2.3-7.9); NEUT % 68.2 % (47.0-73.0); PLATELET COUNT AUTOMATED 543 10*3/uL (130-400); RED BLOOD COUNT 3.96 10*6/uL (4.50-5.90); RED CELL DISTRI WIDTH 16.8 % (0-14.5); WHITE BLOOD COUNT 9.5 10*3/uL (4.8-10.8)
[2023-01-11 20:33] LABS: ALKALINE PHOSPHATASE 81 U/L (46-116); BUN 9 mg/dl (9-23); CHLORIDE 105 mmol/L (98-107); POTASSIUM 3.8 mmol/L (3.4-5.1); SGPT/ALT 9 U/L (10-49); TOTAL PROTEIN 6.6 gm/dL (6.0-8.0)
[2023-01-11] MEDS ORDERED: OMNICEF300 MG PO (23:07)
[2023-01-11] MEDS ORDERED: PERCOCET 5-3251 EACH PO (23:07)
[2023-01-11] MEDS ORDERED: PREDNISONE20 M1 PO (23:07)
== END 2023-01-11 23:14 | disposition home or self-care (01) ==
LOC: ED 18:39
PROVIDERS: Emergency Medicine
DX: R07.81 Pleurodynia (principal); R05.9 Cough, unspecified; Z88.8 Allergy status to other drugs, medicaments and biological substances; Z79.899 Other long term (current) drug therapy; Z90.49 Acquired absence of other specified parts of digestive tract; Z98.890 Other specified postprocedural states; Z87.891 Personal history of nicotine dependence

== ENCOUNTER 2023-01-25 07:34 | Emergency (ER) | payer BC ==
[~2023-01-25] VITALS: Wt 76.2 kg
[~2023-01-25 07:34] MED LIST changes: +PERCOCET 5-3251 EACH PO
[2023-01-25 07:42] VITALS: BP 175/77
== END 2023-01-25 08:50 | disposition home or self-care (01) ==
LOC: ED 07:34
DX: G43.909 Migraine, unspecified, not intractable, without status migrainosus (principal); Z88.8 Allergy status to other drugs, medicaments and biological substances; Z79.899 Other long term (current) drug therapy; Z90.49 Acquired absence of other specified parts of digestive tract; Z98.890 Other specified postprocedural states; Z87.891 Personal history of nicotine dependence

== ENCOUNTER 2023-02-27 12:09 | Inpatient (IN) | payer BC ==
[~2023-02-27] VITALS: Ht 170.1 cm; Wt 77.7 kg
[2023-02-27 12:15] VITALS: BP 187/89
[2023-02-27 13:07] LABS: BASO % 0.7 % (0.0-1.0); EOS # 0.1 10*3/uL (0.0-0.4); EOS % 1.4 % (1.0-4.0); HEMATOCRIT 34.2 % (42.0-52.0); LYMPH # 0.8 10*3/uL (1.3-4.4); LYMPH % 14.1 % (27.0-41.0); MEAN CELL VOLUME 88.6 fl (80.0-94.0); MEAN CORPUSCULAR HGB 27.7 pg (27.0-31.0); MEAN CORPUSCULAR HGB CONC 31.3 g/dl (33.0-37.0); MEAN PLATELET VOLUME 9.1 fl (9.6-12.3); MONO # 0.5 10*3/uL (0.1-1.0); MONO % 9.3 % (3.0-9.0); NEUT # 4.2 10*3/uL (2.3-7.9); NEUT % 74.1 % (47.0-73.0); PLATELET COUNT AUTOMATED 381 10*3/uL (130-400); RED BLOOD COUNT 3.86 10*6/uL (4.50-5.90); RED CELL DISTRI WIDTH 15.6 % (0-14.5); WHITE BLOOD COUNT 5.7 10*3/uL (4.8-10.8)
[2023-02-27 13:30] LABS: ALKALINE PHOSPHATASE 104 U/L (46-116); BUN 10 mg/dl (9-23); CHLORIDE 104 mmol/L (98-107); LIPASE 35 U/L (12-53); POTASSIUM 3.4 mmol/L (3.4-5.1); SGPT/ALT 12 U/L (10-49); TOTAL PROTEIN 7.1 gm/dL (6.0-8.0)
[2023-02-27] MEDS ORDERED: ASPIRIN FOR CHI81 MG PO (14:44)
[2023-02-27 15:40] VITALS: BP 153/74
[2023-02-27 20:05] VITALS: BP 140/70
[2023-02-28] VITALS: BP 148/74
[2023-02-28 07:17] LABS: HEMATOCRIT 35.3 % (42.0-52.0); LYMPH # 0.6 10*3/uL (1.3-4.4); LYMPH % 8.7 % (27.0-41.0); MEAN CORPUSCULAR HGB 28.2 pg (27.0-31.0); MEAN PLATELET VOLUME 10.2 fl (9.6-12.3); MONO # 0.3 10*3/uL (0.1-1.0); MONO % 4.4 % (3.0-9.0); NEUT # 6.3 10*3/uL (2.3-7.9); NEUT % 86.5 % (47.0-73.0); PLATELET COUNT AUTOMATED 426 10*3/uL (130-400); RED BLOOD COUNT 4.01 10*6/uL (4.50-5.90); RED CELL DISTRI WIDTH 15.7 % (0-14.5); WHITE BLOOD COUNT 7.3 10*3/uL (4.8-10.8)
[2023-02-28 07:34] LABS: BUN 10 mg/dl (9-23); CHLORIDE 107 mmol/L (98-107); CHOLESTEROL 162 mg/dL (<200); FREE T4 1.02 ng/dl (0.89-1.76); LDL CHOLESTEROL 93 mg/dL (9-159); POTASSIUM 3.9 mmol/L (3.4-5.1); THYROID STIM HORMONE (HS) 0.076 uIU/ml (0.550-4.780); TRIGLYCERIDES 80 mg/dl (<150)
[2023-02-28 07:37] LABS: VITAMIN D, 25-HYDROXY 55.4 ng/mL (30-100)
[2023-02-28 08:00] VITALS: BP 139/79
[2023-02-28 11:53] VITALS: BP 152/72
[2023-02-28 16:00] VITALS: BP 148/78
[2023-02-28 20:00] VITALS: BP 148/87
[2023-03-01] VITALS: BP 142/74
[2023-03-01 06:29] LABS: HEMATOCRIT 34.1 % (42.0-52.0); LYMPH # 0.8 10*3/uL (1.3-4.4); LYMPH % 8.9 % (27.0-41.0); MEAN CELL VOLUME 88.1 fl (80.0-94.0); MEAN CORPUSCULAR HGB 27.4 pg (27.0-31.0); MEAN CORPUSCULAR HGB CONC 31.1 g/dl (33.0-37.0); MEAN PLATELET VOLUME 9.4 fl (9.6-12.3); MONO # 0.4 10*3/uL (0.1-1.0); MONO % 4.4 % (3.0-9.0); NEUT % 86.3 % (47.0-73.0); PLATELET COUNT AUTOMATED 441 10*3/uL (130-400); RED BLOOD COUNT 3.87 10*6/uL (4.50-5.90); WHITE BLOOD COUNT 9.3 10*3/uL (4.8-10.8)
[2023-03-01 06:55] LABS: BUN 17 mg/dl (9-23); CHLORIDE 103 mmol/L (98-107); POTASSIUM 4.3 mmol/L (3.4-5.1)
[2023-03-01 08:00] VITALS: BP 142/89
[2023-03-01] MEDS ORDERED: HYDROCODONE-AC1 EAC1 PO (10:47)
[2023-03-01] MEDS ORDERED: PREDNISONE50 MG PO (10:47)
[2023-03-01] MEDS ORDERED: ATORVASTATIN CA40 M1 PO (10:47)
[2023-03-01] MEDS ORDERED: ZITHROMAX250 MG PO (10:49)
[2023-03-01] MEDS ORDERED: PROAIR RESPICL90 MCG INH (11:24)
[2023-03-01 12:00] VITALS: BP 163/76
== END 2023-03-01 15:34 | disposition home or self-care (01) | DRG 305 ==
LOC: ED 12:09 → EDHOLD 14:18 → 5E 14:18
PROVIDERS: Emergency Medicine; Student in an Organized Health Care Education/Training Program; ADMIT Student in an Organized Health Care Education/Training Program; ATTEND Student in an Organized Health Care Education/Training Program
DX: I16.0 Hypertensive urgency (principal); J44.1 Chronic obstructive pulmonary disease with (acute) exacerbation; I10 Essential (primary) hypertension; E78.5 Hyperlipidemia, unspecified; I25.10 Atherosclerotic heart disease of native coronary artery without angina pectoris; G89.29 Other chronic pain; M54.9 Dorsalgia, unspecified; K21.9 Gastro-esophageal reflux disease without esophagitis; R79.82 Elevated C-reactive protein (CRP); G43.909 Migraine, unspecified, not intractable, without status migrainosus; E11.69 Type 2 diabetes mellitus with other specified complication; E55.9 Vitamin D deficiency, unspecified; E11.65 Type 2 diabetes mellitus with hyperglycemia; E53.8 Deficiency of other specified B group vitamins; K29.50 Unspecified chronic gastritis without bleeding; R07.81 Pleurodynia; D17.9 Benign lipomatous neoplasm, unspecified; Z88.8 Allergy status to other drugs, medicaments and biological substances; Z90.49 Acquired absence of other specified parts of digestive tract; Z82.49 Family history of ischemic heart disease and other diseases of the circulatory system; Z83.3 Family history of diabetes mellitus; I25.2 Old myocardial infarction

== ENCOUNTER 2023-03-10 07:17 | Emergency (ER) | payer BC ==
[~2023-03-10] VITALS: Ht 170.1 cm; Wt 78.5 kg
[~2023-03-10 07:17] MED LIST changes: +ASPIRIN FOR CHI81 MG PO; +ATORVASTATIN CA40 M1 PO; +PREDNISONE50 MG PO; +PROAIR RESPICL90 MCG INH
[2023-03-10 07:39] VITALS: BP 162/70
[2023-03-10 08:03] LABS: BASO % 0.2 % (0.0-1.0); EOS # 0.2 10*3/uL (0.0-0.4); EOS % 1.3 % (1.0-4.0); HEMATOCRIT 31.4 % (42.0-52.0); LYMPH # 1.8 10*3/uL (1.3-4.4); LYMPH % 15.6 % (27.0-41.0); MEAN CELL VOLUME 88.7 fl (80.0-94.0); MEAN CORPUSCULAR HGB 27.4 pg (27.0-31.0); MEAN CORPUSCULAR HGB CONC 30.9 g/dl (33.0-37.0); MEAN PLATELET VOLUME 8.8 fl (9.6-12.3); MONO # 0.6 10*3/uL (0.1-1.0); MONO % 5.4 % (3.0-9.0); NEUT # 8.7 10*3/uL (2.3-7.9); NEUT % 76.4 % (47.0-73.0); PLATELET COUNT AUTOMATED 551 10*3/uL (130-400); RED BLOOD COUNT 3.54 10*6/uL (4.50-5.90); RED CELL DISTRI WIDTH 15.2 % (0-14.5); WHITE BLOOD COUNT 11.3 10*3/uL (4.8-10.8)
[2023-03-10 08:31] LABS: ALKALINE PHOSPHATASE 91 U/L (46-116); BUN 11 mg/dl (9-23); CHLORIDE 101 mmol/L (98-107); POTASSIUM 3.5 mmol/L (3.4-5.1); SGPT/ALT 15 U/L (10-49); TOTAL PROTEIN 6.7 gm/dL (6.0-8.0)
[2023-03-10] MEDS ORDERED: AVPAK AZITHROM250 M1 PO (09:03)
[2023-03-10] MEDS ORDERED: PREDNISONE20 M1 PO (09:03)
[2023-03-10] MEDS ORDERED: MELOXICAM15 MG PO (09:03)
== END 2023-03-10 09:17 | disposition home or self-care (01) ==
LOC: ED 07:17
PROVIDERS: Emergency Medicine
DX: J44.1 Chronic obstructive pulmonary disease with (acute) exacerbation (principal); R11.2 Nausea with vomiting, unspecified; I25.10 Atherosclerotic heart disease of native coronary artery without angina pectoris; I10 Essential (primary) hypertension; E78.5 Hyperlipidemia, unspecified; E11.9 Type 2 diabetes mellitus without complications; K21.9 Gastro-esophageal reflux disease without esophagitis; I25.2 Old myocardial infarction; G43.909 Migraine, unspecified, not intractable, without status migrainosus; Z88.8 Allergy status to other drugs, medicaments and biological substances; Z90.49 Acquired absence of other specified parts of digestive tract; Z98.890 Other specified postprocedural states; F17.200 Nicotine dependence, unspecified, uncomplicated

== ENCOUNTER → 2023-03-14 | Outpatient (CLI) | payer BC ==
[~2023-03-14] MED LIST changes: +AVPAK AZITHROM250 M1 PO
== END | disposition home or self-care (01) ==
LOC: RESCLI 02:53
PROVIDERS: ATTEND Internal Medicine
DX: J44.9 Chronic obstructive pulmonary disease, unspecified (principal); E78.2 Mixed hyperlipidemia; E56.9 Vitamin deficiency, unspecified; M79.2 Neuralgia and neuritis, unspecified; I10 Essential (primary) hypertension; N40.0 Benign prostatic hyperplasia without lower urinary tract symptoms; E11.9 Type 2 diabetes mellitus without complications; J30.2 Other seasonal allergic rhinitis; E55.9 Vitamin D deficiency, unspecified; G43.909 Migraine, unspecified, not intractable, without status migrainosus; I25.10 Atherosclerotic heart disease of native coronary artery without angina pectoris; D17.9 Benign lipomatous neoplasm, unspecified; Z87.891 Personal history of nicotine dependence; Z82.49 Family history of ischemic heart disease and other diseases of the circulatory system; Z98.890 Other specified postprocedural states; Z79.82 Long term (current) use of aspirin; Z79.899 Other long term (current) drug therapy

== ENCOUNTER 2023-05-14 17:16 | Emergency (ER) | payer BC ==
[~2023-05-14] VITALS: Ht 170.1 cm; Wt 74.8 kg
[~2023-05-14 17:16] MED LIST changes: +GUAIFENESIN PS PO; +LOPRESSOR25 MG PO; +MUCINEX1200 M1 PO; +OXYCODONE-ACET1 EAC3 PO; +SPIRIVA -- 3018 MCG INH; +VENTOLIN 02.5 MG/3 M INH
[2023-05-14 19:33] VITALS: BP 160/72
[2023-05-14 20:16] LABS: BASO # 0.1 10*3/uL (0.0-0.1); BASO % 0.7 % (0.0-1.0); EOS # 0.2 10*3/uL (0.0-0.4); EOS % 2.3 % (1.0-4.0); HEMATOCRIT 31.9 % (42.0-52.0); LYMPH % 25.7 % (27.0-41.0); MEAN CELL VOLUME 90.4 fl (80.0-94.0); MEAN CORPUSCULAR HGB 28.3 pg (27.0-31.0); MEAN CORPUSCULAR HGB CONC 31.3 g/dl (33.0-37.0); MEAN PLATELET VOLUME 9.5 fl (9.6-12.3); MONO # 0.6 10*3/uL (0.1-1.0); MONO % 7.8 % (3.0-9.0); NEUT # 4.8 10*3/uL (2.3-7.9); NEUT % 63.2 % (47.0-73.0); PLATELET COUNT AUTOMATED 487 10*3/uL (130-400); RED BLOOD COUNT 3.53 10*6/uL (4.50-5.90); RED CELL DISTRI WIDTH 15.4 % (0-14.5); WHITE BLOOD COUNT 7.7 10*3/uL (4.8-10.8)
[2023-05-14 20:39] LABS: ALKALINE PHOSPHATASE 162 U/L (46-116); BUN 16 mg/dl (9-23); CHLORIDE 105 mmol/L (98-107); POTASSIUM 3.9 mmol/L (3.4-5.1); SGPT/ALT 40 U/L (10-49); TOTAL PROTEIN 6.8 gm/dL (6.0-8.0)
[2023-05-15] MEDS ORDERED: CEPHALEXIN500 M1 PO (00:24)
== END 2023-05-15 00:38 | disposition home or self-care (01) ==
LOC: ED 17:16
PROVIDERS: Nurse Practitioner
DX: L02.01 Cutaneous abscess of face (principal); I10 Essential (primary) hypertension; K21.9 Gastro-esophageal reflux disease without esophagitis; I25.2 Old myocardial infarction; E11.9 Type 2 diabetes mellitus without complications; J44.9 Chronic obstructive pulmonary disease, unspecified; G43.909 Migraine, unspecified, not intractable, without status migrainosus; Z88.8 Allergy status to other drugs, medicaments and biological substances; Z98.890 Other specified postprocedural states; Z90.49 Acquired absence of other specified parts of digestive tract; F17.200 Nicotine dependence, unspecified, uncomplicated

== ENCOUNTER 2023-06-12 08:36 | Emergency (ER) | payer BC ==
[~2023-06-12] VITALS: Ht 170.1 cm; Wt 74.8 kg
[2023-06-12 08:42] VITALS: BP 170/70
[2023-06-12 09:13] LABS: BASO # 0.1 10*3/uL (0.0-0.1); BASO % 0.7 % (0.0-1.0); EOS # 0.3 10*3/uL (0.0-0.4); EOS % 3.9 % (1.0-4.0); HEMATOCRIT 34.6 % (42.0-52.0); LYMPH # 2.2 10*3/uL (1.3-4.4); LYMPH % 26.8 % (27.0-41.0); MEAN CELL VOLUME 89.4 fl (80.0-94.0); MEAN CORPUSCULAR HGB 27.9 pg (27.0-31.0); MEAN CORPUSCULAR HGB CONC 31.2 g/dl (33.0-37.0); MEAN PLATELET VOLUME 9.3 fl (9.6-12.3); MONO # 0.8 10*3/uL (0.1-1.0); MONO % 9.5 % (3.0-9.0); NEUT # 4.8 10*3/uL (2.3-7.9); NEUT % 58.7 % (47.0-73.0); PLATELET COUNT AUTOMATED 501 10*3/uL (130-400); RED BLOOD COUNT 3.87 10*6/uL (4.50-5.90); RED CELL DISTRI WIDTH 14.8 % (0-14.5); WHITE BLOOD COUNT 8.2 10*3/uL (4.8-10.8)
[2023-06-12 09:39] LABS: ALKALINE PHOSPHATASE 108 U/L (46-116); BUN 13 mg/dl (9-23); CHLORIDE 108 mmol/L (98-107); POTASSIUM 4.3 mmol/L (3.4-5.1); SGPT/ALT 22 U/L (10-49)
[2023-06-12] MEDS ORDERED: LASIX20 MG PO ×2 (10:25)
[2023-06-12] MEDS ORDERED: KLOR-CON 88 ME1 PO ×2 (10:25)
[2023-06-15] MEDS ORDERED: PREDNISONE10 MG PO (13:30)
[2023-06-15] MEDS ORDERED: TRELEGY ELLIPT1 EACH INH (13:30)
[2023-06-15] MEDS ORDERED: LEVOFLOXACIN750 M2 PO (13:30)
== END 2023-06-12 10:39 | disposition home or self-care (01) ==
LOC: ED 08:36
PROVIDERS: Student in an Organized Health Care Education/Training Program
DX: R09.89 Other specified symptoms and signs involving the circulatory and respiratory systems (principal); I10 Essential (primary) hypertension; K21.9 Gastro-esophageal reflux disease without esophagitis; I25.2 Old myocardial infarction; E11.9 Type 2 diabetes mellitus without complications; J44.9 Chronic obstructive pulmonary disease, unspecified; G43.909 Migraine, unspecified, not intractable, without status migrainosus; Z88.8 Allergy status to other drugs, medicaments and biological substances; Z90.49 Acquired absence of other specified parts of digestive tract; Z98.890 Other specified postprocedural states; Z95.5 Presence of coronary angioplasty implant and graft; F17.200 Nicotine dependence, unspecified, uncomplicated

== ENCOUNTER 2023-07-30 10:33 | Emergency (ER) | payer BC ==
[~2023-07-30] VITALS: Ht 170.1 cm; Wt 79.4 kg
[~2023-07-30 10:33] MED LIST changes: +KLOR-CON 88 ME1 PO; +LASIX20 MG PO; +LEVOFLOXACIN750 M2 PO; +TRELEGY ELLIPT1 EACH INH
[2023-07-30 11:02] VITALS: BP 161/73
[2023-07-30] MEDS ORDERED: PREDNISONE50 MG PO (13:20)
[2023-07-30] MEDS ORDERED: ZITHROMAX250 MG PO (13:20)
== END 2023-07-30 13:47 | disposition home or self-care (01) ==
LOC: ED 10:33
DX: J44.1 Chronic obstructive pulmonary disease with (acute) exacerbation (principal); I25.10 Atherosclerotic heart disease of native coronary artery without angina pectoris; I10 Essential (primary) hypertension; E11.9 Type 2 diabetes mellitus without complications; K21.9 Gastro-esophageal reflux disease without esophagitis; I25.2 Old myocardial infarction; G43.909 Migraine, unspecified, not intractable, without status migrainosus; Z88.8 Allergy status to other drugs, medicaments and biological substances; Z90.49 Acquired absence of other specified parts of digestive tract; Z95.5 Presence of coronary angioplasty implant and graft; Z98.890 Other specified postprocedural states; F17.200 Nicotine dependence, unspecified, uncomplicated

== ENCOUNTER 2023-08-11 07:18 | Emergency (ER) | payer BC ==
[~2023-08-11] VITALS: Ht 170.1 cm; Wt 80.7 kg
[2023-08-11 07:33] VITALS: BP 142/65
[2023-08-11] MEDS ORDERED: LOSARTAN POTASS50 M1 PO (07:35)
[2023-08-11 08:09] LABS: BASO # 0.1 10*3/uL (0.0-0.1); BASO % 0.6 % (0.0-1.0); EOS # 0.3 10*3/uL (0.0-0.4); EOS % 2.7 % (1.0-4.0); HEMATOCRIT 29.6 % (42.0-52.0); LYMPH # 2.1 10*3/uL (1.3-4.4); LYMPH % 22.4 % (27.0-41.0); MEAN CELL VOLUME 84.3 fl (80.0-94.0); MEAN CORPUSCULAR HGB 26.2 pg (27.0-31.0); MEAN CORPUSCULAR HGB CONC 31.1 g/dl (33.0-37.0); MEAN PLATELET VOLUME 8.7 fl (9.6-12.3); MONO # 0.9 10*3/uL (0.1-1.0); MONO % 9.6 % (3.0-9.0); NEUT # 5.9 10*3/uL (2.3-7.9); NEUT % 63.7 % (47.0-73.0); PLATELET COUNT AUTOMATED 714 10*3/uL (130-400); RED BLOOD COUNT 3.51 10*6/uL (4.50-5.90); WHITE BLOOD COUNT 9.3 10*3/uL (4.8-10.8)
[2023-08-11 08:37] LABS: ALKALINE PHOSPHATASE 92 U/L (46-116); BUN 13 mg/dl (9-23); CHLORIDE 105 mmol/L (98-107); POTASSIUM 3.8 mmol/L (3.4-5.1); SGPT/ALT 13 U/L (5-49); TOTAL PROTEIN 6.7 gm/dL (6.0-8.0)
== END 2023-08-11 07:35 | disposition home or self-care (01) ==
LOC: ED 07:18
PROVIDERS: Family Medicine
DX: G43.909 Migraine, unspecified, not intractable, without status migrainosus (principal); D53.9 Nutritional anemia, unspecified; I10 Essential (primary) hypertension; Z79.899 Other long term (current) drug therapy; Z79.82 Long term (current) use of aspirin; Z98.890 Other specified postprocedural states; Z90.49 Acquired absence of other specified parts of digestive tract; Z98.61 Coronary angioplasty status; Z87.891 Personal history of nicotine dependence

== ENCOUNTER 2023-11-04 07:25 | Emergency (ER) | payer BC ==
[~2023-11-04] VITALS: Ht 175.2 cm; Wt 83.0 kg
[~2023-11-04 07:25] MED LIST changes: +AUGMENTIN 500500 M1 PO; +DOXYCYCLINE HY100 M3 PO; +LIPITOR40 MG PO; +LOSARTAN POTASS50 M1 PO; +MIRALAX POWDER17 G1 PO; +VORICONAZOLE PO; +Vibra-Tab100 MG PO
[2023-11-04 08:13] LABS: BASO # 0.1 10*3/uL (0.0-0.1); BASO % 0.7 % (0.0-1.0); EOS # 0.2 10*3/uL (0.0-0.4); EOS % 2.4 % (1.0-4.0); HEMATOCRIT 28.2 % (42.0-52.0); LYMPH # 1.8 10*3/uL (1.3-4.4); LYMPH % 23.3 % (27.0-41.0); MEAN CELL VOLUME 84.9 fl (80.0-94.0); MEAN CORPUSCULAR HGB 24.4 pg (27.0-31.0); MEAN CORPUSCULAR HGB CONC 28.7 g/dl (33.0-37.0); MEAN PLATELET VOLUME 8.4 fl (9.6-12.3); MONO # 0.7 10*3/uL (0.1-1.0); NEUT # 4.9 10*3/uL (2.3-7.9); NEUT % 63.9 % (47.0-73.0); PLATELET COUNT AUTOMATED 585 10*3/uL (130-400); RED BLOOD COUNT 3.32 10*6/uL (4.50-5.90); RED CELL DISTRI WIDTH 17.8 % (0-14.5); WHITE BLOOD COUNT 7.7 10*3/uL (4.8-10.8)
[2023-11-04 08:16] VITALS: BP 149/88
[2023-11-04 08:34] LABS: ALKALINE PHOSPHATASE 96 U/L (46-116); BUN 16 mg/dl (9-23); CHLORIDE 109 mmol/L (98-107); POTASSIUM 3.5 mmol/L (3.4-5.1); SGPT/ALT 9 U/L (5-49); TOTAL PROTEIN 6.9 gm/dL (6.0-8.0)
[2023-11-04] MEDS ORDERED: AVPAK AZITHROM250 M1 PO (08:59)
[2023-11-04] MEDS ORDERED: PREDNISONE20 M1 PO (08:59)
== END 2023-11-04 10:48 | disposition home or self-care (01) ==
LOC: ED 07:25
PROVIDERS: Emergency Medicine
DX: J45.901 Unspecified asthma with (acute) exacerbation (principal); R07.81 Pleurodynia; E11.9 Type 2 diabetes mellitus without complications; E78.5 Hyperlipidemia, unspecified; I10 Essential (primary) hypertension; K21.9 Gastro-esophageal reflux disease without esophagitis; I25.2 Old myocardial infarction; G43.909 Migraine, unspecified, not intractable, without status migrainosus; Z88.8 Allergy status to other drugs, medicaments and biological substances; Z90.49 Acquired absence of other specified parts of digestive tract; Z95.5 Presence of coronary angioplasty implant and graft; Z98.890 Other specified postprocedural states; F17.200 Nicotine dependence, unspecified, uncomplicated; Z20.822 Contact with and (suspected) exposure to COVID-19

== ENCOUNTER 2023-11-13 08:19 | Emergency (ER) | payer BC ==
[~2023-11-13] VITALS: Ht 170.1 cm; Wt 79.8 kg
[2023-11-13 08:23] VITALS: BP 161/78
[2023-11-13 09:55] LABS: BASO % 0.1 % (0.0-1.0); EOS # 0.1 10*3/uL (0.0-0.4); EOS % 0.5 % (1.0-4.0); HEMATOCRIT 29.6 % (42.0-52.0); LYMPH # 1.7 10*3/uL (1.3-4.4); LYMPH % 8.8 % (27.0-41.0); MEAN CELL VOLUME 85.3 fl (80.0-94.0); MEAN CORPUSCULAR HGB 24.2 pg (27.0-31.0); MEAN CORPUSCULAR HGB CONC 28.4 g/dl (33.0-37.0); MEAN PLATELET VOLUME 8.9 fl (9.6-12.3); MONO # 0.7 10*3/uL (0.1-1.0); MONO % 3.4 % (3.0-9.0); NEUT # 16.9 10*3/uL (2.3-7.9); NEUT % 86.4 % (47.0-73.0); NUCLEATED RED BLOOD CELL 0.1 % (0.0-0.0); PLATELET COUNT AUTOMATED 574 10*3/uL (130-400); RED BLOOD COUNT 3.47 10*6/uL (4.50-5.90); RED CELL DISTRI WIDTH 17.2 % (0-14.5); WHITE BLOOD COUNT 19.6 10*3/uL (4.8-10.8)
[2023-11-13 10:17] LABS: ALKALINE PHOSPHATASE 71 U/L (46-116); BUN 20 mg/dl (9-23); CHLORIDE 108 mmol/L (98-107); POTASSIUM 3.6 mmol/L (3.4-5.1); SGPT/ALT 13 U/L (5-49); TOTAL PROTEIN 5.5 gm/dL (6.0-8.0)
[2023-11-13] MEDS ORDERED: VIBRAMYCIN100 MG PO (11:42)
[2023-11-13] MEDS ORDERED: AMOX-CLAV 875-1 EACH PO (11:42)
[2023-11-13] MEDS ORDERED: PREDNISONE20 M1 PO (11:42)
[2023-11-15] MEDS ORDERED: NATURE'S BLEND F1 MG PO (15:49)
== END 2023-11-13 12:30 | disposition home or self-care (01) ==
LOC: ED 08:19
PROVIDERS: Family Medicine
DX: J44.1 Chronic obstructive pulmonary disease with (acute) exacerbation (principal); Z20.822 Contact with and (suspected) exposure to COVID-19; I10 Essential (primary) hypertension; K21.9 Gastro-esophageal reflux disease without esophagitis; I25.2 Old myocardial infarction; E11.9 Type 2 diabetes mellitus without complications; G43.909 Migraine, unspecified, not intractable, without status migrainosus; F17.200 Nicotine dependence, unspecified, uncomplicated; Z88.8 Allergy status to other drugs, medicaments and biological substances; Z98.890 Other specified postprocedural states; Z90.49 Acquired absence of other specified parts of digestive tract; Z95.5 Presence of coronary angioplasty implant and graft

== ENCOUNTER 2023-11-15 09:24 | Inpatient (IN) | payer BC ==
[~2023-11-15] VITALS: Ht 170.1 cm; Wt 78.2 kg
[2023-11-15 09:28] VITALS: BP 174/82
[2023-11-15 10:07] LABS: MEAN CORPUSCULAR HGB 24.1 pg (27.0-31.0); MEAN CORPUSCULAR HGB CONC 28.7 g/dl (33.0-37.0); MEAN PLATELET VOLUME 9.4 fl (9.6-12.3); NUCLEATED RED BLOOD CELL 0.1 10*3/uL (0.0-0.0); NUCLEATED RED BLOOD CELL 0.3 % (0.0-0.0); PLATELET COUNT AUTOMATED 703 10*3/uL (130-400); RED BLOOD COUNT 3.57 10*6/uL (4.50-5.90); RED CELL DISTRI WIDTH 17.2 % (0-14.5); WHITE BLOOD COUNT 17.2 10*3/uL (4.8-10.8)
[2023-11-15 10:10] LABS: MANUAL DIFF REFLEX YES
[2023-11-15 10:17] LABS: ACT PARTIAL THROMBO TIME 24.1 SECONDS (20.0-32.1)
[2023-11-15 10:28] LABS: ALKALINE PHOSPHATASE 82 U/L (46-116); BUN 23 mg/dl (9-23); CHLORIDE 102 mmol/L (98-107); LIPASE 23 U/L (12-53); POTASSIUM 4.2 mmol/L (3.4-5.1); SGPT/ALT 15 U/L (5-49); TOTAL PROTEIN 6.2 gm/dL (6.0-8.0)
[2023-11-15 10:32] LABS: TOTAL CELLS COUNTED 100 #CELLS
[2023-11-15 10:33] LABS: PLATELET SUFFICIENCY HIGH (NORMAL)
[2023-11-15 10:34] LABS: POLYCHROMASIA SLIGHT
[2023-11-15 10:35] LABS: OVALOCYTES FEW
[2023-11-15] MEDS ORDERED: FUROSEMIDE 40 MG/4 ML VIAL IV ONE (10:40)
[2023-11-15] MEDS ORDERED: Ceftriaxone Sodium 1 GM/10 ML SYR IV ONE (10:40)
[2023-11-15] MEDS ORDERED: AZITHROMYCIN 250 ML IV ONE (10:40)
[2023-11-15] MEDS ORDERED: ACETAMINOPHEN 325 MG TAB PO PRN (13:45)
[2023-11-15] MEDS ORDERED: BISACODYL 5 MG TAB PO PRN (13:45)
[2023-11-15] MEDS ORDERED: Ondansetron Hydrochloride 4 MG/2 ML VIAL IV PRN (13:45)
[2023-11-15] MEDS ORDERED: DEXTROSE 10 % IN WATER 250 ML IV PRN (13:45)
[2023-11-15] MEDS ORDERED: Acetaminophen/Oxycodone 5 MG/325 MG TABLET PO PRN (14:10)
[2023-11-15] MEDS ORDERED: Albuterol Sulf/Ipratropium 3 ML VIAL NEB SCH (14:10)
[2023-11-15 14:51] VITALS: BP 153/83
[2023-11-15 15:42] VITALS: BP 174/82
[2023-11-15] MEDS ORDERED: LISINOPRIL40 MG PO (15:53)
[2023-11-15 16:00] VITALS: BP 156/78
[2023-11-15] MEDS ORDERED: INSULIN LISPRO 1 UNIT/0.01 ML SQ SCH (16:30)
[2023-11-15] MEDS ORDERED: SODIUM CHLORIDE 0.9% 250 ML IV ONE (18:05)
[2023-11-15 20:00] VITALS: BP 158/84
[2023-11-15 20:35] LABS: BILIRUBIN Negative (Negative); BLOOD Negative (Negative); CLARITY Clear (Clear); COLOR Yellow (Yellow); GLUCOSE 1+ (Negative); KETONE Negative (Negative); LEUKO ESTERASE Negative (Negative); NITRITE Negative (Negative); PH 7.5 (4.5-8.0); UROBILINOGEN 0.2 E.U./dl (0.0-1.0)
[2023-11-15 21:04] LABS: WBC 0-2 wbc/hpf (0-5)
[2023-11-15] MEDS ORDERED: Cyclobenzaprine Hydrochlorid 10 MG TAB PO PRN (21:35)
[2023-11-15] MEDS ORDERED: Acetaminophen/Hydrocodone Bi 3 TAB PACK PO PRN (21:35)
[2023-11-15] MEDS ORDERED: Doxycycline Hyclate 100 MG CAP PO SCH (22:00)
[2023-11-15] MEDS ORDERED: GABAPENTIN 800 MG TAB PO SCH (22:00)
[2023-11-15] MEDS ORDERED: TOPIRAMATE 100 MG TAB PO SCH (22:00)
[2023-11-16] VITALS: BP 150/72
[2023-11-16 05:37] LABS: ALKALINE PHOSPHATASE 64 U/L (46-116); BUN 24 mg/dl (9-23); CHLORIDE 102 mmol/L (98-107); POTASSIUM 3.8 mmol/L (3.4-5.1); SGPT/ALT 9 U/L (5-49); TOTAL PROTEIN 5.6 gm/dL (6.0-8.0)
[2023-11-16 06:25] LABS: BASO % 0.1 % (0.0-1.0); EOS # 0.1 10*3/uL (0.0-0.4); EOS % 0.6 % (1.0-4.0); HEMATOCRIT 28.3 % (42.0-52.0); LYMPH # 2.5 10*3/uL (1.3-4.4); LYMPH % 19.3 % (27.0-41.0); MEAN CELL VOLUME 84.2 fl (80.0-94.0); MEAN CORPUSCULAR HGB 23.8 pg (27.0-31.0); MEAN CORPUSCULAR HGB CONC 28.3 g/dl (33.0-37.0); MEAN PLATELET VOLUME 9.9 fl (9.6-12.3); MONO # 0.9 10*3/uL (0.1-1.0); NEUT # 9.3 10*3/uL (2.3-7.9); NEUT % 71.5 % (47.0-73.0); NUCLEATED RED BLOOD CELL 0.2 % (0.0-0.0); PLATELET COUNT AUTOMATED 594 10*3/uL (130-400); RED BLOOD COUNT 3.36 10*6/uL (4.50-5.90); RED CELL DISTRI WIDTH 17.2 % (0-14.5)
[2023-11-16 08:00] VITALS: BP 146/88
[2023-11-16] MEDS ORDERED: ASPIRIN, CHEWABLE 81 MG TAB PO SCH (10:00)
[2023-11-16] MEDS ORDERED: amLODIPine besylate 5 MG TAB PO SCH (10:00)
[2023-11-16] MEDS ORDERED: FUROSEMIDE 40 MG/4 ML VIAL IV SCH (10:00)
[2023-11-16] MEDS ORDERED: Polyethylene Glycol 3350 17 GM PACKET PO SCH (10:00)
[2023-11-16] MEDS ORDERED: ATORVASTATIN CALCIUM 40 MG TABLET PO SCH (10:00)
[2023-11-16] MEDS ORDERED: LORATADINE 10 MG TAB PO SCH (10:00)
[2023-11-16] MEDS ORDERED: Tamsulosin Hydrochloride 0.4 MG CAP PO SCH (10:00)
[2023-11-16] MEDS ORDERED: Enoxaparin Sodium 40 MG/0.4 ML SYR SC SCH (10:00)
[2023-11-16] MEDS ORDERED: Losartan Potassium 50 MG TAB PO SCH (10:00)
[2023-11-16 12:00] VITALS: BP 132/71
[2023-11-16 16:00] VITALS: BP 140/72
[2023-11-16 20:00] VITALS: BP 117/69
[2023-11-17] VITALS: BP 132/68
[2023-11-17 08:00] VITALS: BP 142/69
[2023-11-17 12:00] VITALS: BP 130/71
[2023-11-17 16:00] VITALS: BP 124/68
[2023-11-17 20:00] VITALS: BP 130/59
[2023-11-18] VITALS: BP 120/44
[2023-11-18] MEDS ORDERED: MELATONIN12 MG PO (06:33)
[2023-11-18 06:41] LABS: HEMATOCRIT 32.5 % (42.0-52.0); MEAN CELL VOLUME 84.9 fl (80.0-94.0); MEAN CORPUSCULAR HGB 23.8 pg (27.0-31.0); MEAN PLATELET VOLUME 9.2 fl (9.6-12.3); PLATELET COUNT AUTOMATED 618 10*3/uL (130-400); RED BLOOD COUNT 3.83 10*6/uL (4.50-5.90); RED CELL DISTRI WIDTH 17.4 % (0-14.5); WHITE BLOOD COUNT 11.1 10*3/uL (4.8-10.8)
[2023-11-18 06:48] LABS: MANUAL DIFF REFLEX YES
[2023-11-18 07:22] LABS: BASOPHILS 1 % (0-1); PLATELET SUFFICIENCY HIGH (NORMAL); POLYCHROMASIA SLIGHT; TOTAL CELLS COUNTED 100 #CELLS
[2023-11-18 07:23] LABS: OVALOCYTES FEW; SCHISTOCYTES FEW; TARGET CELLS FEW
[2023-11-18 07:30] LABS: ALKALINE PHOSPHATASE 103 U/L (46-116); BUN 18 mg/dl (9-23); CHLORIDE 100 mmol/L (98-107); POTASSIUM 4.5 mmol/L (3.4-5.1); SGPT/ALT 11 U/L (5-49); TOTAL PROTEIN 6.4 gm/dL (6.0-8.0)
[2023-11-18 08:00] VITALS: BP 136/66
[2023-11-18] MEDS ORDERED: hydrOXYzine pamoate 25 MG CAP PO PRN (11:30)
[2023-11-18 12:00] VITALS: BP 120/75
[2023-11-18 16:00] VITALS: BP 145/72
[2023-11-18 20:00] VITALS: BP 134/61
[2023-11-19] VITALS: BP 122/53
[2023-11-19 06:32] LABS: BUN 21 mg/dl (9-23); CHLORIDE 99 mmol/L (98-107); POTASSIUM 4.5 mmol/L (3.4-5.1)
[2023-11-19 06:50] LABS: HEMATOCRIT 31.4 % (42.0-52.0); MEAN CELL VOLUME 84.6 fl (80.0-94.0); MEAN CORPUSCULAR HGB 23.7 pg (27.0-31.0); MEAN PLATELET VOLUME 9.5 fl (9.6-12.3); PLATELET COUNT AUTOMATED 560 10*3/uL (130-400); RED BLOOD COUNT 3.71 10*6/uL (4.50-5.90); RED CELL DISTRI WIDTH 17.5 % (0-14.5); WHITE BLOOD COUNT 10.2 10*3/uL (4.8-10.8)
[2023-11-19 06:51] LABS: MANUAL DIFF REFLEX YES
[2023-11-19 07:48] LABS: OVALOCYTES FEW; PLATELET SUFFICIENCY HIGH (NORMAL); POLYCHROMASIA SLIGHT; SCHISTOCYTES FEW; TOTAL CELLS COUNTED 100 #CELLS; TOXIC GRANULATION SLIGHT
[2023-11-19 08:00] VITALS: BP 128/69
[2023-11-19 12:00] VITALS: BP 124/73
[2023-11-19 16:00] VITALS: BP 125/89
[2023-11-19 20:00] VITALS: BP 107/57
[2023-11-19] MEDS ORDERED: Melatonin 3 MG TABLET PO SCH (22:00)
[2023-11-20] VITALS: BP 122/62
[2023-11-20 06:41] LABS: HEMATOCRIT 30.4 % (42.0-52.0); MEAN CELL VOLUME 83.7 fl (80.0-94.0); MEAN CORPUSCULAR HGB CONC 28.6 g/dl (33.0-37.0); MEAN PLATELET VOLUME 9.5 fl (9.6-12.3); PLATELET COUNT AUTOMATED 548 10*3/uL (130-400); RED BLOOD COUNT 3.63 10*6/uL (4.50-5.90); RED CELL DISTRI WIDTH 17.7 % (0-14.5)
[2023-11-20 06:49] LABS: MANUAL DIFF REFLEX YES
[2023-11-20 06:57] LABS: BUN 26 mg/dl (9-23); CHLORIDE 96 mmol/L (98-107); POTASSIUM 4.8 mmol/L (3.4-5.1)
[2023-11-20 08:00] VITALS: BP 142/59
[2023-11-20 08:20] LABS: BUN 24 mg/dl (9-23); CHLORIDE 94 mmol/L (98-107)
[2023-11-20 09:20] LABS: TOTAL CELLS COUNTED 100 #CELLS
[2023-11-20 09:21] LABS: MICROCYTOSIS SLIGHT; PLATELET SUFFICIENCY HIGH (NORMAL)
[2023-11-20 12:00] VITALS: BP 123/66
[2023-11-20 16:00] VITALS: BP 115/62
[2023-11-20 20:00] VITALS: BP 126/72
[2023-11-21] VITALS: BP 114/62
[2023-11-21 05:54] LABS: BUN 25 mg/dl (9-23); CHLORIDE 96 mmol/L (98-107); POTASSIUM 4.7 mmol/L (3.4-5.1)
[2023-11-21 08:00] VITALS: BP 116/66
[2023-11-21] MEDS ORDERED: LASIX40 MG PO (10:45)
[2023-11-21] MEDS ORDERED: LEVOFLOXACIN750 M2 PO (10:45)
[2023-11-22] MEDS ORDERED: PEPCID AC10 M2 PO (14:22)
== END 2023-11-21 17:30 | disposition home or self-care (01) | DRG 291 ==
LOC: ED 09:24 → 4E 12:57 → EDHOLD 12:57 → 4E 14:55
PROVIDERS: Internal Medicine; Occupational Therapist; Registered Nurse; Student in an Organized Health Care Education/Training Program; ADMIT Internal Medicine; ATTEND Internal Medicine
DX: I11.0 Hypertensive heart disease with heart failure (principal); I50.33 Acute on chronic diastolic (congestive) heart failure; B44.9 Aspergillosis, unspecified; J44.0 Chronic obstructive pulmonary disease with (acute) lower respiratory infection; E87.20 Acidosis, unspecified; E44.0 Moderate protein-calorie malnutrition; E87.1 Hypo-osmolality and hyponatremia; I44.0 Atrioventricular block, first degree; J20.9 Acute bronchitis, unspecified; K21.9 Gastro-esophageal reflux disease without esophagitis; G89.29 Other chronic pain; I34.0 Nonrheumatic mitral (valve) insufficiency; E11.65 Type 2 diabetes mellitus with hyperglycemia; E55.9 Vitamin D deficiency, unspecified; E78.5 Hyperlipidemia, unspecified; I25.10 Atherosclerotic heart disease of native coronary artery without angina pectoris; Z79.4 Long term (current) use of insulin; Z90.49 Acquired absence of other specified parts of digestive tract; Z82.49 Family history of ischemic heart disease and other diseases of the circulatory system; Z79.82 Long term (current) use of aspirin; Z79.51 Long term (current) use of inhaled steroids; Z79.1 Long term (current) use of non-steroidal anti-inflammatories (NSAID); Z79.899 Other long term (current) drug therapy; Z88.8 Allergy status to other drugs, medicaments and biological substances; Z68.29 Body mass index [BMI] 29.0-29.9, adult

== ENCOUNTER 2023-11-22 09:51 | Emergency (ER) | payer BC ==
[~2023-11-22] VITALS: Ht 170.1 cm; Wt 80.3 kg
[~2023-11-22 09:51] MED LIST changes: +LASIX40 MG PO; +LISINOPRIL40 MG PO; +MELATONIN12 MG PO
[2023-11-22 11:13] LABS: BASO % 0.2 % (0.0-1.0); EOS # 0.1 10*3/uL (0.0-0.4); EOS % 1.4 % (1.0-4.0); HEMATOCRIT 28.5 % (42.0-52.0); LYMPH # 1.4 10*3/uL (1.3-4.4); LYMPH % 13.5 % (27.0-41.0); MEAN CELL VOLUME 84.3 fl (80.0-94.0); MEAN CORPUSCULAR HGB 24.3 pg (27.0-31.0); MEAN CORPUSCULAR HGB CONC 28.8 g/dl (33.0-37.0); MONO # 0.9 10*3/uL (0.1-1.0); MONO % 8.9 % (3.0-9.0); NEUT # 7.6 10*3/uL (2.3-7.9); PLATELET COUNT AUTOMATED 427 10*3/uL (130-400); RED BLOOD COUNT 3.38 10*6/uL (4.50-5.90); RED CELL DISTRI WIDTH 17.7 % (0-14.5); WHITE BLOOD COUNT 10.3 10*3/uL (4.8-10.8)
[2023-11-22 11:23] LABS: ACT PARTIAL THROMBO TIME 27.3 SECONDS (20.0-32.1)
[2023-11-22 11:34] LABS: ALKALINE PHOSPHATASE 138 U/L (46-116); BUN 27 mg/dl (9-23); CHLORIDE 99 mmol/L (98-107); LIPASE 27 U/L (12-53); SGPT/ALT 12 U/L (5-49); TOTAL PROTEIN 6.5 gm/dL (6.0-8.0)
[2023-11-22] MEDS ORDERED: ACETAMINOPHEN 325 MG TAB PO ONE (12:55)
[2023-11-22 14:00] VITALS: BP 120/77
[2023-11-22] MEDS ORDERED: PEPCID AC10 M2 PO (14:22)
== END 2023-11-22 14:43 | disposition home or self-care (01) ==
LOC: ED 09:51
PROVIDERS: Internal Medicine
DX: R07.89 Other chest pain (principal); I10 Essential (primary) hypertension; K21.9 Gastro-esophageal reflux disease without esophagitis; I25.2 Old myocardial infarction; E11.9 Type 2 diabetes mellitus without complications; J44.9 Chronic obstructive pulmonary disease, unspecified; G43.909 Migraine, unspecified, not intractable, without status migrainosus; F17.200 Nicotine dependence, unspecified, uncomplicated; Z88.8 Allergy status to other drugs, medicaments and biological substances; Z90.49 Acquired absence of other specified parts of digestive tract; Z95.5 Presence of coronary angioplasty implant and graft; Z98.890 Other specified postprocedural states

== ENCOUNTER 2023-11-27 18:43 | Emergency (ER) | payer BC ==
[~2023-11-27 18:43] MED LIST changes: +PEPCID AC10 M2 PO
[2023-11-27 19:06] VITALS: BP 149/81
== END 2023-11-28 01:56 | disposition home or self-care (01) ==
LOC: ED 18:43
DX: S43.421A Sprain of right rotator cuff capsule, initial encounter (principal); S96.911A Strain of unspecified muscle and tendon at ankle and foot level, right foot, initial encounter; I25.10 Atherosclerotic heart disease of native coronary artery without angina pectoris; K21.9 Gastro-esophageal reflux disease without esophagitis; J44.9 Chronic obstructive pulmonary disease, unspecified; E11.65 Type 2 diabetes mellitus with hyperglycemia; E87.1 Hypo-osmolality and hyponatremia; E78.5 Hyperlipidemia, unspecified; D64.9 Anemia, unspecified; E11.22 Type 2 diabetes mellitus with diabetic chronic kidney disease; I13.0 Hypertensive heart and chronic kidney disease with heart failure and stage 1 through stage 4 chronic kidney disease, or unspecified chronic kidney disease; N18.9 Chronic kidney disease, unspecified; N17.9 Acute kidney failure, unspecified; I50.9 Heart failure, unspecified; I25.2 Old myocardial infarction; G43.909 Migraine, unspecified, not intractable, without status migrainosus; Z88.8 Allergy status to other drugs, medicaments and biological substances; Z95.5 Presence of coronary angioplasty implant and graft; Z98.890 Other specified postprocedural states; Z90.49 Acquired absence of other specified parts of digestive tract; F17.200 Nicotine dependence, unspecified, uncomplicated; W01.0XXA Fall on same level from slipping, tripping and stumbling without subsequent striking against object, initial encounter; Y93.89 Activity, other specified; Y92.89 Other specified places as the place of occurrence of the external cause; Y99.8 Other external cause status

== ENCOUNTER → 2023-12-14 | Outpatient (CLI) | payer BC ==
[~2023-12-14] MED LIST changes: +COZAAR50 M1 PO; +K-TAB20 MEQ PO; +MELOXICAM PO; +Regadenoson 0.4 MG/5 ML SYR IV ONE; +VFEND200 MG PO
== END | disposition home or self-care (01) ==
LOC: CARD 01:06
PROVIDERS: ATTEND Internal Medicine Cardiovascular Disease
DX: R07.89 Other chest pain (principal); R53.81 Other malaise

== ENCOUNTER 2023-12-18 11:49 | Inpatient (IN) | payer BC ==
[~2023-12-18] VITALS: Ht 170.1 cm; Wt 79.0 kg
[~2023-12-18 11:49] MED LIST changes: -K-TAB20 MEQ PO; -Regadenoson 0.4 MG/5 ML SYR IV ONE; -VFEND200 MG PO
[2023-12-18 12:04] VITALS: BP 154/78
[2023-12-18 12:26] LABS: BASO # 0.1 10*3/uL (0.0-0.1); BASO % 0.8 % (0.0-1.0); EOS # 0.3 10*3/uL (0.0-0.4); EOS % 2.8 % (1.0-4.0); HEMATOCRIT 29.1 % (42.0-52.0); LYMPH # 1.6 10*3/uL (1.3-4.4); LYMPH % 17.1 % (27.0-41.0); MEAN CELL VOLUME 83.6 fl (80.0-94.0); MEAN CORPUSCULAR HGB 23.3 pg (27.0-31.0); MEAN CORPUSCULAR HGB CONC 27.8 g/dl (33.0-37.0); MEAN PLATELET VOLUME 9.4 fl (9.6-12.3); MONO # 0.8 10*3/uL (0.1-1.0); MONO % 8.7 % (3.0-9.0); NEUT # 6.4 10*3/uL (2.3-7.9); NEUT % 70.3 % (47.0-73.0); PLATELET COUNT AUTOMATED 655 10*3/uL (130-400); RED BLOOD COUNT 3.48 10*6/uL (4.50-5.90); RED CELL DISTRI WIDTH 17.6 % (0-14.5); WHITE BLOOD COUNT 9.1 10*3/uL (4.8-10.8)
[2023-12-18 12:53] LABS: ALKALINE PHOSPHATASE 93 U/L (46-116); BUN 10 mg/dl (9-23); CHLORIDE 107 mmol/L (98-107); LIPASE 31 U/L (12-53); POTASSIUM 3.4 mmol/L (3.4-5.1); TOTAL PROTEIN 6.9 gm/dL (6.0-8.0)
[2023-12-18 12:57] LABS: ACT PARTIAL THROMBO TIME 29.5 SECONDS (20.0-32.1)
[2023-12-18 13:01] LABS: SGPT/ALT < 7 U/L (5-49)
[2023-12-18] MEDS ORDERED: Albuterol Sulf/Ipratropium 3 ML VIAL NEB ONE (14:45)
[2023-12-18] MEDS ORDERED: Ceftriaxone Sodium 1 GM/10 ML SYR IV ONE (14:45)
[2023-12-18] MEDS ORDERED: methylPREDNISolone sod succ 125 MG VIAL IV ONE (14:45)
[2023-12-18] MEDS ORDERED: AZITHROMYCIN 250 ML IV ONE (14:45)
[2023-12-18] MEDS ORDERED: BISACODYL 5 MG TAB PO PRN (15:05)
[2023-12-18] MEDS ORDERED: ACETAMINOPHEN 325 MG TAB PO PRN (15:05)
[2023-12-18] MEDS ORDERED: Ondansetron Hydrochloride 4 MG/2 ML VIAL IV PRN (15:05)
[2023-12-18] MEDS ORDERED: FUROSEMIDE 40 MG/4 ML VIAL IV SCH (15:20)
[2023-12-18] MEDS ORDERED: Albuterol Sulf/Ipratropium 3 ML VIAL NEB SCH (15:21)
[2023-12-18] MEDS ORDERED: DEXTROSE 10 % IN WATER 250 ML IV PRN (15:30)
[2023-12-18 16:30] VITALS: BP 162/89
[2023-12-18] MEDS ORDERED: INSULIN LISPRO 1 UNIT/0.01 ML SQ SCH (16:30)
[2023-12-18] MEDS ORDERED: TOPIRAMATE 100 MG TAB PO SCH (18:00)
[2023-12-18 18:15] VITALS: BP 151/83
[2023-12-18 20:00] VITALS: BP 149/78
[2023-12-18] MEDS ORDERED: methylPREDNISolone sod succ 40 MG VIAL IV SCH (22:00)
[2023-12-18] MEDS ORDERED: GUAIFENESIN 600 MG TAB ER PO SCH (22:00)
[2023-12-18] MEDS ORDERED: GABAPENTIN 800 MG TAB PO SCH (22:00)
[2023-12-19] VITALS: BP 168/93
[2023-12-19 06:16] LABS: BUN 11 mg/dl (9-23); CHLORIDE 103 mmol/L (98-107); POTASSIUM 3.6 mmol/L (3.4-5.1)
[2023-12-19 06:42] LABS: MANUAL DIFF REFLEX YES; MEAN CELL VOLUME 80.3 fl (80.0-94.0); MEAN CORPUSCULAR HGB 23.3 pg (27.0-31.0); PLATELET COUNT AUTOMATED 715 10*3/uL (130-400); RED BLOOD COUNT 3.61 10*6/uL (4.50-5.90); RED CELL DISTRI WIDTH 17.5 % (0-14.5); WHITE BLOOD COUNT 6.7 10*3/uL (4.8-10.8)
[2023-12-19 07:51] LABS: BASOPHILS 1 % (0-1); BURR CELLS FEW; OVALOCYTES FEW; PLATELET SUFFICIENCY HIGH (NORMAL); POLYCHROMASIA SLIGHT; TOTAL CELLS COUNTED 100 #CELLS
[2023-12-19 07:52] LABS: ROULEAUX SLIGHT; SCHISTOCYTES FEW
[2023-12-19 08:00] VITALS: BP 109/64
[2023-12-19] MEDS ORDERED: LISINOPRIL 20 MG TAB PO SCH (10:00)
[2023-12-19] MEDS ORDERED: ASPIRIN, CHEWABLE 81 MG TAB PO SCH (10:00)
[2023-12-19] MEDS ORDERED: Tamsulosin Hydrochloride 0.4 MG CAP PO SCH (10:00)
[2023-12-19] MEDS ORDERED: FOLIC ACID 1 MG TAB PO SCH (10:00)
[2023-12-19] MEDS ORDERED: methylPREDNISolone sod succ 40 MG VIAL IV SCH (10:00)
[2023-12-19] MEDS ORDERED: Enoxaparin Sodium 40 MG/0.4 ML SYR SC SCH (10:00)
[2023-12-19] MEDS ORDERED: LORATADINE 10 MG TAB PO SCH (10:00)
[2023-12-19] MEDS ORDERED: SODIUM CHLORIDE 0.9% 100 ML BAG IV ONE (11:05)
[2023-12-19] MEDS ORDERED: IOHEXOL 350 MG/ML 100 ML VIAL IV ONE (11:05)
[2023-12-19 12:00] VITALS: BP 155/74
[2023-12-19] MEDS ORDERED: HYDROCODONE-AC1 EAC1 PO (12:43)
[2023-12-19] MEDS ORDERED: Acetaminophen/Hydrocodone 5 MG/325 MG TABLET PO PRN (13:00)
[2023-12-19] MEDS ORDERED: AZITHROMYCIN 250 ML IV SCH (14:00)
[2023-12-19] MEDS ORDERED: Ceftriaxone Sodium 1 GM,IV 1 EA in SYRINGE INFUSION 10 ML IV SCH (15:00)
[2023-12-19 16:00] VITALS: BP 150/76
[2023-12-19 18:00] VITALS: BP 152/74
[2023-12-20] VITALS: BP 143/59
[2023-12-20 05:42] LABS: BUN 17 mg/dl (9-23); CHLORIDE 107 mmol/L (98-107)
[2023-12-20 06:10] LABS: BASO % 0.1 % (0.0-1.0); EOS % 0.1 % (1.0-4.0); HEMATOCRIT 26.5 % (42.0-52.0); LYMPH # 1.2 10*3/uL (1.3-4.4); LYMPH % 9.4 % (27.0-41.0); MEAN CELL VOLUME 80.1 fl (80.0-94.0); MEAN CORPUSCULAR HGB 23.6 pg (27.0-31.0); MEAN CORPUSCULAR HGB CONC 29.4 g/dl (33.0-37.0); MEAN PLATELET VOLUME 9.7 fl (9.6-12.3); MONO # 0.8 10*3/uL (0.1-1.0); MONO % 6.5 % (3.0-9.0); NEUT # 10.3 10*3/uL (2.3-7.9); NEUT % 83.3 % (47.0-73.0); PLATELET COUNT AUTOMATED 674 10*3/uL (130-400); RED BLOOD COUNT 3.31 10*6/uL (4.50-5.90); RED CELL DISTRI WIDTH 17.7 % (0-14.5); WHITE BLOOD COUNT 12.4 10*3/uL (4.8-10.8)
[2023-12-20 08:00] VITALS: BP 125/73
[2023-12-20 12:00] VITALS: BP 147/76
[2023-12-20] MEDS ORDERED: VFEND200 MG PO (14:06)
[2023-12-20] MEDS ORDERED: K-TAB20 MEQ PO (14:09)
[2023-12-20] MEDS ORDERED: LASIX20 MG PO (14:09)
[2023-12-20] MEDS ORDERED: DOXYCYCLINE HY100 M3 PO (14:09)
== END 2023-12-20 16:54 | disposition home or self-care (01) | DRG 291 ==
LOC: ED 11:49 → EDHOLD 14:45 → 5E 14:45 → EDHOLD 14:46 → 5E 17:50
PROVIDERS: Emergency Medicine; Registered Nurse; Student in an Organized Health Care Education/Training Program; ADMIT Internal Medicine; ATTEND Internal Medicine
DX: I11.0 Hypertensive heart disease with heart failure (principal); I50.33 Acute on chronic diastolic (congestive) heart failure; J44.1 Chronic obstructive pulmonary disease with (acute) exacerbation; E44.0 Moderate protein-calorie malnutrition; E87.1 Hypo-osmolality and hyponatremia; B44.9 Aspergillosis, unspecified; M54.9 Dorsalgia, unspecified; G89.29 Other chronic pain; D64.9 Anemia, unspecified; K21.9 Gastro-esophageal reflux disease without esophagitis; D75.839 Thrombocytosis, unspecified; E55.9 Vitamin D deficiency, unspecified; J98.4 Other disorders of lung; M25.512 Pain in left shoulder; E11.65 Type 2 diabetes mellitus with hyperglycemia; J92.9 Pleural plaque without asbestos; M54.12 Radiculopathy, cervical region; M50.30 Other cervical disc degeneration, unspecified cervical region; I25.10 Atherosclerotic heart disease of native coronary artery without angina pectoris; Z90.49 Acquired absence of other specified parts of digestive tract; Z82.49 Family history of ischemic heart disease and other diseases of the circulatory system; Z83.3 Family history of diabetes mellitus; Z88.6 Allergy status to analgesic agent; Z79.51 Long term (current) use of inhaled steroids; Z79.84 Long term (current) use of oral hypoglycemic drugs; Z79.1 Long term (current) use of non-steroidal anti-inflammatories (NSAID); Z79.82 Long term (current) use of aspirin; Z79.899 Other long term (current) drug therapy; Z68.27 Body mass index [BMI] 27.0-27.9, adult

== ENCOUNTER 2023-12-27 02:31 | Inpatient (IN) | payer BC ==
[~2023-12-27] VITALS: Ht 170.1 cm; Wt 79.9 kg
[~2023-12-27 02:31] MED LIST changes: +K-TAB20 MEQ PO; +VFEND200 MG PO
[2023-12-27 02:33] VITALS: BP 93/48
[2023-12-27 02:52] LABS: BASO % 0.1 % (0.0-1.0); EOS % 0.2 % (1.0-4.0); HEMATOCRIT 27.2 % (42.0-52.0); LYMPH # 2.1 10*3/uL (1.3-4.4); MEAN CELL VOLUME 78.6 fl (80.0-94.0); MEAN CORPUSCULAR HGB 23.1 pg (27.0-31.0); MEAN CORPUSCULAR HGB CONC 29.4 g/dl (33.0-37.0); MEAN PLATELET VOLUME 9.5 fl (9.6-12.3); MONO # 1.5 10*3/uL (0.1-1.0); MONO % 7.6 % (3.0-9.0); NEUT # 15.5 10*3/uL (2.3-7.9); NEUT % 79.7 % (47.0-73.0); NUCLEATED RED BLOOD CELL 0.1 10*3/uL (0.0-0.0); NUCLEATED RED BLOOD CELL 0.4 % (0.0-0.0); PLATELET COUNT AUTOMATED 719 10*3/uL (130-400); RED BLOOD COUNT 3.46 10*6/uL (4.50-5.90); RED CELL DISTRI WIDTH 17.8 % (0-14.5); WHITE BLOOD COUNT 19.5 10*3/uL (4.8-10.8)
[2023-12-27 03:04] LABS: ACT PARTIAL THROMBO TIME 22.2 SECONDS (20.0-32.1)
[2023-12-27 03:13] LABS: POTASSIUM 3.9 mmol/L (3.4-5.1); TOTAL PROTEIN 5.7 gm/dL (6.0-8.0)
[2023-12-27] MEDS ORDERED: AZITHROMYCIN 250 ML IV ONE (05:25)
[2023-12-27] MEDS ORDERED: Ceftriaxone Sodium 1 GM/10 ML SYR IV ONE (05:25)
[2023-12-27] MEDS ORDERED: SODIUM CHLORIDE 0.9% 1,000 ML IV SCH (05:25)
[2023-12-27] MEDS ORDERED: ACETAMINOPHEN 325 MG TAB PO PRN (05:40)
[2023-12-27] MEDS ORDERED: BISACODYL 10 MG SUPP R PRN (05:40)
[2023-12-27] MEDS ORDERED: TEMAZEPAM 15 MG CAP PO PRN (05:40)
[2023-12-27] MEDS ORDERED: Acetaminophen/Hydrocodone 5 MG/325 MG TABLET PO PRN (05:40)
[2023-12-27] MEDS ORDERED: Ondansetron Hydrochloride 4 MG/2 ML VIAL IV PRN (05:40)
[2023-12-27] MEDS ORDERED: BISACODYL 5 MG TAB PO PRN (05:40)
[2023-12-27] MEDS ORDERED: ACETAMINOPHEN 650 MG SUPP R PRN (05:40)
[2023-12-27] MEDS ORDERED: SODIUM CHLORIDE 0.9% 1,000 ML IV ONE (05:45)
[2023-12-27] MEDS ORDERED: Albuterol Sulf/Ipratropium 3 ML VIAL NEB PRN (05:45)
[2023-12-27] MEDS ORDERED: Albuterol Sulf/Ipratropium 3 ML VIAL NEB SCH (05:45)
[2023-12-27] MEDS ORDERED: DEXTROSE 10 % IN WATER 250 ML IV PRN (06:05)
[2023-12-27 07:22] VITALS: BP 105/56
[2023-12-27] MEDS ORDERED: INSULIN LISPRO 1 UNIT/0.01 ML SQ SCH (07:30)
[2023-12-27 09:09] VITALS: BP 108/56
[2023-12-27] MEDS ORDERED: HEPARIN SODIUM 5,000 UNIT/ML VIAL SC SCH (10:00)
[2023-12-27] MEDS ORDERED: ASPIRIN ENTERIC COATED 81 MG TAB PO SCH (10:00)
[2023-12-27] MEDS ORDERED: Ceftriaxone Sodium 1 GM in SYRINGE INFUSION 10 ML IV SCH (10:00)
[2023-12-27] MEDS ORDERED: ATORVASTATIN CALCIUM 40 MG TABLET PO SCH (10:00)
[2023-12-27] MEDS ORDERED: AZITHROMYCIN 250 ML IV SCH (10:00)
[2023-12-27 13:30] VITALS: BP 108/76
[2023-12-27 14:09] VITALS: BP 118/49
[2023-12-27] MEDS ORDERED: Piperacillin Sodium/Tazobact 4.5 GM,IV 1 EA in SODIUM CHLORIDE 0.9% 100 ML IV SCH (16:00)
[2023-12-27] MEDS ORDERED: ATORVASTATIN CA40 M1 PO (18:21)
[2023-12-27 20:00] VITALS: BP 134/52
[2023-12-27] MEDS ORDERED: Albuterol Sulfate 2.5 MG/3 ML VIAL NEB PRN (20:45)
[2023-12-27] MEDS ORDERED: CALCIUM (TUMS) 500MG PO PRN (20:50)
[2023-12-27] MEDS ORDERED: Albuterol Sulfate 2.5 MG/3 ML VIAL NEB SCH (21:00)
[2023-12-27] MEDS ORDERED: TOPIRAMATE 100 MG TAB PO SCH (22:00)
[2023-12-27] MEDS ORDERED: GABAPENTIN 800 MG TAB PO SCH (22:00)
[2023-12-27] MEDS ORDERED: BUDESONIDE 0.5 MG AMP NEB SCH (22:00)
[2023-12-27] MEDS ORDERED: Doxycycline Hyclate 100 MG CAP PO SCH (22:00)
[2023-12-28] VITALS (11 sets, daily range): BP systolic 139–158; BP diastolic 62–81
[2023-12-28] MEDS ORDERED: OMEPRAZOLE 20 MG CAP PO SCH (06:00)
[2023-12-28] MEDS ORDERED: FOLIC ACID 1 MG TAB PO SCH (10:00)
[2023-12-28] MEDS ORDERED: Tamsulosin Hydrochloride 0.4 MG CAP PO SCH (10:00)
[2023-12-28] MEDS ORDERED: LORATADINE 10 MG TAB PO SCH (10:00)
[2023-12-28 12:08] LABS: HEMATOCRIT 23.7 % (42.0-52.0); MEAN CORPUSCULAR HGB CONC 29.1 g/dl (33.0-37.0); MEAN PLATELET VOLUME 8.9 fl (9.6-12.3); PLATELET COUNT AUTOMATED 545 10*3/uL (130-400); RED CELL DISTRI WIDTH 18.6 % (0-14.5); WHITE BLOOD COUNT 13.7 10*3/uL (4.8-10.8)
[2023-12-28 12:11] LABS: MANUAL DIFF REFLEX YES
[2023-12-28 12:29] LABS: ALKALINE PHOSPHATASE 67 U/L (46-116); CHLORIDE 102 mmol/L (98-107); POTASSIUM 3.7 mmol/L (3.4-5.1); SGPT/ALT 10 U/L (5-49); TOTAL PROTEIN 5.3 gm/dL (6.0-8.0)
[2023-12-28] MEDS ORDERED: SODIUM CHLORIDE 0.9% 500 ML IV ONE (12:29)
[2023-12-28 12:32] LABS: BUN 18 mg/dl (9-23)
[2023-12-28 12:34] LABS: MICROCYTOSIS SLIGHT; TOTAL CELLS COUNTED 100 #CELLS
[2023-12-28 12:35] LABS: OVALOCYTES FEW; PLATELET SUFFICIENCY HIGH (NORMAL)
[2023-12-29] VITALS: BP 140/65
[2023-12-29 07:19] LABS: BASO % 0.1 % (0.0-1.0); EOS # 0.2 10*3/uL (0.0-0.4); EOS % 1.9 % (1.0-4.0); HEMATOCRIT 26.7 % (42.0-52.0); LYMPH # 1.9 10*3/uL (1.3-4.4); LYMPH % 15.3 % (27.0-41.0); MEAN CELL VOLUME 80.9 fl (80.0-94.0); MEAN CORPUSCULAR HGB 23.3 pg (27.0-31.0); MEAN CORPUSCULAR HGB CONC 28.8 g/dl (33.0-37.0); MEAN PLATELET VOLUME 9.2 fl (9.6-12.3); MONO # 0.9 10*3/uL (0.1-1.0); NEUT # 9.1 10*3/uL (2.3-7.9); NEUT % 74.2 % (47.0-73.0); PLATELET COUNT AUTOMATED 528 10*3/uL (130-400); RED CELL DISTRI WIDTH 18.8 % (0-14.5); WHITE BLOOD COUNT 12.2 10*3/uL (4.8-10.8)
[2023-12-29 07:52] VITALS: BP 146/69
[2023-12-29 07:52] LABS: BUN 11 mg/dl (9-23); CHLORIDE 103 mmol/L (98-107)
[2023-12-29 12:00] VITALS: BP 138/75
[2023-12-29] MEDS ORDERED: Enoxaparin Sodium 40 MG/0.4 ML SYR SC SCH (12:30)
[2023-12-29] MEDS ORDERED: LIDOCAINE 1 EA PATCH T SCH (15:45)
[2023-12-29 16:14] VITALS: BP 142/64
[2023-12-30] VITALS: BP 152/71
[2023-12-30 07:07] LABS: BASO % 0.1 % (0.0-1.0); EOS # 0.3 10*3/uL (0.0-0.4); HEMATOCRIT 28.6 % (42.0-52.0); LYMPH # 1.5 10*3/uL (1.3-4.4); LYMPH % 10.9 % (27.0-41.0); MEAN CELL VOLUME 82.7 fl (80.0-94.0); MEAN PLATELET VOLUME 9.3 fl (9.6-12.3); MONO # 0.9 10*3/uL (0.1-1.0); MONO % 6.4 % (3.0-9.0); NEUT % 78.7 % (47.0-73.0); PLATELET COUNT AUTOMATED 534 10*3/uL (130-400); RED BLOOD COUNT 3.46 10*6/uL (4.50-5.90)
[2023-12-30 07:39] LABS: ALKALINE PHOSPHATASE 75 U/L (46-116); BUN 9 mg/dl (9-23); CHLORIDE 104 mmol/L (98-107); POTASSIUM 4.7 mmol/L (3.4-5.1); SGPT/ALT 9 U/L (5-49); TOTAL PROTEIN 5.8 gm/dL (6.0-8.0)
[2023-12-30 08:00] VITALS: BP 160/76
[2023-12-30 12:00] VITALS: BP 179/88
[2023-12-30 16:59] VITALS: BP 151/73
[2023-12-30 20:00] VITALS: BP 145/68
[2023-12-31] VITALS: BP 157/81
[2023-12-31 06:19] LABS: BUN 10 mg/dl (9-23); CHLORIDE 103 mmol/L (98-107); POTASSIUM 4.4 mmol/L (3.4-5.1)
[2023-12-31 06:40] LABS: BASO % 0.1 % (0.0-1.0); EOS # 0.3 10*3/uL (0.0-0.4); EOS % 1.8 % (1.0-4.0); HEMATOCRIT 26.7 % (42.0-52.0); LYMPH # 1.7 10*3/uL (1.3-4.4); LYMPH % 12.5 % (27.0-41.0); MEAN CELL VOLUME 83.7 fl (80.0-94.0); MEAN CORPUSCULAR HGB 23.8 pg (27.0-31.0); MEAN CORPUSCULAR HGB CONC 28.5 g/dl (33.0-37.0); MEAN PLATELET VOLUME 9.3 fl (9.6-12.3); MONO # 1.1 10*3/uL (0.1-1.0); MONO % 7.7 % (3.0-9.0); NEUT # 10.6 10*3/uL (2.3-7.9); NEUT % 76.7 % (47.0-73.0); PLATELET COUNT AUTOMATED 537 10*3/uL (130-400); RED BLOOD COUNT 3.19 10*6/uL (4.50-5.90); RED CELL DISTRI WIDTH 19.3 % (0-14.5); WHITE BLOOD COUNT 13.9 10*3/uL (4.8-10.8)
[2023-12-31 08:00] VITALS: BP 154/71
[2023-12-31 12:00] VITALS: BP 159/66
[2023-12-31] MEDS ORDERED: NA FERRIC GLUC CMPL/SUCROSE 62.5 MG/5 ML VIAL IV SCH (14:00)
[2023-12-31 16:00] VITALS: BP 136/56
[2023-12-31 20:00] VITALS: BP 179/87
[2024-01-01] VITALS: BP 150/65
[2024-01-01 06:10] LABS: BASO % 0.2 % (0.0-1.0); EOS # 0.2 10*3/uL (0.0-0.4); EOS % 1.8 % (1.0-4.0); HEMATOCRIT 27.9 % (42.0-52.0); LYMPH # 1.5 10*3/uL (1.3-4.4); MEAN CELL VOLUME 83.8 fl (80.0-94.0); MEAN CORPUSCULAR HGB 23.7 pg (27.0-31.0); MEAN CORPUSCULAR HGB CONC 28.3 g/dl (33.0-37.0); MONO # 0.9 10*3/uL (0.1-1.0); MONO % 8.7 % (3.0-9.0); NEUT # 7.9 10*3/uL (2.3-7.9); NEUT % 73.6 % (47.0-73.0); PLATELET COUNT AUTOMATED 503 10*3/uL (130-400); RED BLOOD COUNT 3.33 10*6/uL (4.50-5.90); RED CELL DISTRI WIDTH 19.3 % (0-14.5); WHITE BLOOD COUNT 10.7 10*3/uL (4.8-10.8)
[2024-01-01 07:36] VITALS: BP 142/74
[2024-01-01 11:23] VITALS: BP 152/66
[2024-01-01 13:00] VITALS: BP 139/75
[2024-01-01 16:00] VITALS: BP 138/60
[2024-01-01 20:00] VITALS: BP 148/84
[2024-01-01] MEDS ORDERED: Doxycycline Hyclate 100 MG CAP PO SCH (22:00)
[2024-01-02] VITALS: BP 153/79
[2024-01-02 08:00] VITALS: BP 145/75
[2024-01-02 08:23] LABS: BASO % 0.1 % (0.0-1.0); EOS # 0.2 10*3/uL (0.0-0.4); EOS % 1.5 % (1.0-4.0); HEMATOCRIT 29.4 % (42.0-52.0); LYMPH # 2.3 10*3/uL (1.3-4.4); LYMPH % 16.1 % (27.0-41.0); MEAN CORPUSCULAR HGB 23.4 pg (27.0-31.0); MEAN CORPUSCULAR HGB CONC 28.9 g/dl (33.0-37.0); MEAN PLATELET VOLUME 8.9 fl (9.6-12.3); MONO # 1.2 10*3/uL (0.1-1.0); MONO % 8.4 % (3.0-9.0); NEUT # 10.4 10*3/uL (2.3-7.9); NEUT % 72.3 % (47.0-73.0); PLATELET COUNT AUTOMATED 512 10*3/uL (130-400); RED BLOOD COUNT 3.63 10*6/uL (4.50-5.90); RED CELL DISTRI WIDTH 19.6 % (0-14.5); WHITE BLOOD COUNT 14.4 10*3/uL (4.8-10.8)
[2024-01-02 08:41] LABS: BUN 13 mg/dl (9-23); CHLORIDE 98 mmol/L (98-107); POTASSIUM 4.6 mmol/L (3.4-5.1)
[2024-01-02] MEDS ORDERED: LIDODERM1 EACH T (11:43)
[2024-01-02] MEDS ORDERED: DOXYCYCLINE MO100 MG PO (11:43)
[2024-01-02 12:00] VITALS: BP 142/70
== END 2024-01-02 14:50 | disposition home or self-care (01) | DRG 871 ==
LOC: ED 02:31 → EDHOLD 05:33 → 5E 05:33 → 4E 12:47 → 5E 13:25
PROVIDERS: Emergency Medicine; Internal Medicine; Student in an Organized Health Care Education/Training Program; ADMIT Internal Medicine; ATTEND Internal Medicine
PROC: 30233N1 Transfusion of Nonautologous Red Blood Cells into Peripheral Vein, Percutaneous Approach (ICD-10-PCS; principal; 2023-12-28)
DX: A41.9 Sepsis, unspecified organism (principal); E43 Unspecified severe protein-calorie malnutrition; J15.69 Pneumonia due to other Gram-negative bacteria; N17.0 Acute kidney failure with tubular necrosis; J96.10 Chronic respiratory failure, unspecified whether with hypoxia or hypercapnia; E87.1 Hypo-osmolality and hyponatremia; I50.32 Chronic diastolic (congestive) heart failure; J44.0 Chronic obstructive pulmonary disease with (acute) lower respiratory infection; B44.9 Aspergillosis, unspecified; J98.11 Atelectasis; D50.9 Iron deficiency anemia, unspecified; Z20.822 Contact with and (suspected) exposure to COVID-19; R73.9 Hyperglycemia, unspecified; D75.839 Thrombocytosis, unspecified; J98.4 Other disorders of lung; I25.10 Atherosclerotic heart disease of native coronary artery without angina pectoris; I11.0 Hypertensive heart disease with heart failure; I95.9 Hypotension, unspecified; Z90.49 Acquired absence of other specified parts of digestive tract; Z82.49 Family history of ischemic heart disease and other diseases of the circulatory system; Z83.3 Family history of diabetes mellitus; Z88.6 Allergy status to analgesic agent; Z79.51 Long term (current) use of inhaled steroids; Z79.2 Long term (current) use of antibiotics; Z79.899 Other long term (current) drug therapy; Z79.1 Long term (current) use of non-steroidal anti-inflammatories (NSAID); Z68.28 Body mass index [BMI] 28.0-28.9, adult

== ENCOUNTER 2024-01-08 10:01 | Emergency (ER) | payer BC ==
[~2024-01-08] VITALS: Ht 170.1 cm; Wt 80.3 kg
[~2024-01-08 10:01] MED LIST changes: +DOXYCYCLINE MO100 MG PO; +LIDODERM1 EACH T
[2024-01-08 10:06] VITALS: BP 139/63
== END 2024-01-08 12:59 | disposition home or self-care (01) ==
LOC: ED 10:01
DX: R60.0 Localized edema (principal); K21.9 Gastro-esophageal reflux disease without esophagitis; I25.2 Old myocardial infarction; E11.9 Type 2 diabetes mellitus without complications; J44.9 Chronic obstructive pulmonary disease, unspecified; G43.909 Migraine, unspecified, not intractable, without status migrainosus; I11.0 Hypertensive heart disease with heart failure; I50.9 Heart failure, unspecified; F17.200 Nicotine dependence, unspecified, uncomplicated; Z88.8 Allergy status to other drugs, medicaments and biological substances; Z98.890 Other specified postprocedural states; Z90.49 Acquired absence of other specified parts of digestive tract; Z95.5 Presence of coronary angioplasty implant and graft

== ENCOUNTER 2024-01-23 11:15 | Inpatient (IN) | payer BC ==
[~2024-01-23] VITALS: Ht 170.2 cm; Wt 77.6 kg
[2024-01-23 11:23] VITALS: BP 129/70
[2024-01-23 11:54] LABS: BASO % 0.6 % (0.0-1.0); EOS # 0.1 10*3/uL (0.0-0.4); LYMPH # 1.2 10*3/uL (1.3-4.4); LYMPH % 18.1 % (27.0-41.0); MEAN CELL VOLUME 83.3 fl (80.0-94.0); MEAN CORPUSCULAR HGB 23.9 pg (27.0-31.0); MEAN CORPUSCULAR HGB CONC 28.7 g/dl (33.0-37.0); MEAN PLATELET VOLUME 9.2 fl (9.6-12.3); MONO # 0.6 10*3/uL (0.1-1.0); MONO % 9.1 % (3.0-9.0); NEUT # 4.8 10*3/uL (2.3-7.9); NEUT % 70.6 % (47.0-73.0); PLATELET COUNT AUTOMATED 621 10*3/uL (130-400); RED CELL DISTRI WIDTH 20.9 % (0-14.5); WHITE BLOOD COUNT 6.8 10*3/uL (4.8-10.8)
[2024-01-23 12:11] LABS: BUN 15 mg/dl (9-23); CHLORIDE 106 mmol/L (98-107); POTASSIUM 4.5 mmol/L (3.4-5.1)
[2024-01-23] MEDS ORDERED: Dexamethasone Sodium Phospha 10 MG/1 ML VIAL IV ONE (12:50)
[2024-01-23] MEDS ORDERED: AZITHROMYCIN 250 ML IV ONE (12:50)
[2024-01-23] MEDS ORDERED: Ceftriaxone Sodium 1 GM/10 ML SYR IV ONE (12:55)
[2024-01-23] MEDS ORDERED: REMDESIVIR 200 MG in SODIUM CHLORIDE 0.9% 210 ML IV ONE (13:05)
[2024-01-23] MEDS ORDERED: Magnesium Hydroxide 30 ML UDC PO PRN (13:10)
[2024-01-23] MEDS ORDERED: DEXTROSE 10 % IN WATER 250 ML IV PRN (13:10)
[2024-01-23] MEDS ORDERED: Albuterol Sulf/Ipratropium 3 ML VIAL NEB PRN (13:10)
[2024-01-23] MEDS ORDERED: ACETAMINOPHEN 325 MG TAB PO PRN (13:10)
[2024-01-23] MEDS ORDERED: BISACODYL 5 MG TAB PO PRN (13:10)
[2024-01-23 14:00] VITALS: BP 111/67
[2024-01-23] MEDS ORDERED: GUAIFENESIN 600 MG TAB ER PO SCH (14:30)
[2024-01-23 15:10] VITALS: BP 116/54
[2024-01-23 15:45] VITALS: BP 124/64
[2024-01-23] MEDS ORDERED: INSULIN LISPRO 1 UNIT/0.01 ML SQ SCH (16:30)
[2024-01-23] MEDS ORDERED: Acetaminophen/Hydrocodone 5 MG/325 MG TABLET PO PRN (17:55)
[2024-01-23] MEDS ORDERED: ATORVASTATIN CALCIUM 40 MG TABLET PO SCH (18:00)
[2024-01-23 20:00] VITALS: BP 123/66
[2024-01-23] MEDS ORDERED: GABAPENTIN 800 MG TAB PO SCH (22:00)
[2024-01-23] MEDS ORDERED: TOPIRAMATE 100 MG TAB PO SCH (22:00)
[2024-01-24] VITALS: BP 123/62
[2024-01-24 06:17] LABS: LYMPH # 0.7 10*3/uL (1.3-4.4); LYMPH % 18.8 % (27.0-41.0); MEAN CELL VOLUME 82.4 fl (80.0-94.0); MEAN CORPUSCULAR HGB 23.9 pg (27.0-31.0); MEAN PLATELET VOLUME 9.6 fl (9.6-12.3); MONO # 0.3 10*3/uL (0.1-1.0); MONO % 6.7 % (3.0-9.0); NEUT # 2.8 10*3/uL (2.3-7.9); PLATELET COUNT AUTOMATED 662 10*3/uL (130-400); RED BLOOD COUNT 3.64 10*6/uL (4.50-5.90); WHITE BLOOD COUNT 3.7 10*3/uL (4.8-10.8)
[2024-01-24 06:59] LABS: ALKALINE PHOSPHATASE 97 U/L (46-116); BUN 14 mg/dl (9-23); CHLORIDE 106 mmol/L (98-107); FREE T4 0.97 ng/dl (0.89-1.76); POTASSIUM 4.8 mmol/L (3.4-5.1); SGPT/ALT 18 U/L (5-49); TOTAL PROTEIN 6.4 gm/dL (6.0-8.0)
[2024-01-24] MEDS ORDERED: Acetaminophen/Hydrocodone 5 MG/325 MG TABLET PO ONE (07:40)
[2024-01-24 08:00] VITALS: BP 156/80
[2024-01-24] MEDS ORDERED: Ketorolac Tromethamine 30 MG/ML VIAL IV ONE (09:10)
[2024-01-24] MEDS ORDERED: Codeine Phosphate/Guaifenesi 10 ML UDC PO SCH (09:13)
[2024-01-24] MEDS ORDERED: MULTIVITAMIN 1 TAB TAB PO SCH (10:00)
[2024-01-24] MEDS ORDERED: Tamsulosin Hydrochloride 0.4 MG CAP PO SCH (10:00)
[2024-01-24] MEDS ORDERED: ASPIRIN, CHEWABLE 81 MG TAB PO SCH (10:00)
[2024-01-24] MEDS ORDERED: Cholecalciferol 2,000 UNIT TABLET (50 MCG) PO SCH (10:00)
[2024-01-24] MEDS ORDERED: FOLIC ACID 1 MG TAB PO SCH (10:00)
[2024-01-24] MEDS ORDERED: Enoxaparin Sodium 40 MG/0.4 ML SYR SC SCH (10:00)
[2024-01-24] MEDS ORDERED: Dexamethasone Sodium Phospha 4 MG/ML VIAL IV SCH (10:00)
[2024-01-24] MEDS ORDERED: IOHEXOL 350 MG/ML 100 ML VIAL IV ONE (10:25)
[2024-01-24] MEDS ORDERED: SODIUM CHLORIDE 0.9% 100 ML BAG IV ONE (10:25)
[2024-01-24] MEDS ORDERED: AZITHROMYCIN 250 ML IV SCH (11:00)
[2024-01-24 12:00] VITALS: BP 150/77
[2024-01-24] MEDS ORDERED: Ceftriaxone Sodium 1 GM in SYRINGE INFUSION 10 ML IV SCH (12:00)
[2024-01-24] MEDS ORDERED: REMDESIVIR 100 MG in SODIUM CHLORIDE 0.9% 230 ML IV SCH (13:00)
[2024-01-24] MEDS ORDERED: Albuterol Sulf/Ipratropium 3 ML VIAL NEB SCH (13:10)
[2024-01-24 16:00] VITALS: BP 125/66
[2024-01-24 20:00] VITALS: BP 130/63
[2024-01-25] VITALS: BP 138/71
[2024-01-25] MEDS ORDERED: CYCLOBENZAPRINE5 M3 PO (04:42)
[2024-01-25 06:42] LABS: HEMATOCRIT 31.1 % (42.0-52.0); LYMPH # 0.9 10*3/uL (1.3-4.4); LYMPH % 12.1 % (27.0-41.0); MEAN CELL VOLUME 81.4 fl (80.0-94.0); MEAN CORPUSCULAR HGB 23.8 pg (27.0-31.0); MEAN CORPUSCULAR HGB CONC 29.3 g/dl (33.0-37.0); MEAN PLATELET VOLUME 9.6 fl (9.6-12.3); MONO # 0.6 10*3/uL (0.1-1.0); MONO % 8.7 % (3.0-9.0); NEUT # 5.8 10*3/uL (2.3-7.9); NEUT % 78.7 % (47.0-73.0); NUCLEATED RED BLOOD CELL 0.3 % (0.0-0.0); PLATELET COUNT AUTOMATED 678 10*3/uL (130-400); RED BLOOD COUNT 3.82 10*6/uL (4.50-5.90); RED CELL DISTRI WIDTH 20.9 % (0-14.5); WHITE BLOOD COUNT 7.3 10*3/uL (4.8-10.8)
[2024-01-25 06:59] LABS: ALKALINE PHOSPHATASE 94 U/L (46-116); BUN 22 mg/dl (9-23); CHLORIDE 105 mmol/L (98-107); LDH 142 U/L (120-246); POTASSIUM 4.5 mmol/L (3.4-5.1); SGPT/ALT 13 U/L (5-49); TOTAL PROTEIN 6.6 gm/dL (6.0-8.0)
[2024-01-25 08:00] VITALS: BP 135/50
[2024-01-25] MEDS ORDERED: Albuterol Sulf/Ipratropium 3 ML VIAL NEB PRN (08:45)
[2024-01-25] MEDS ORDERED: LIDOCAINE 1 EA PATCH T SCH (10:10)
[2024-01-25 12:00] VITALS: BP 141/77
[2024-01-25 16:00] VITALS: BP 152/74
[2024-01-25 20:00] VITALS: BP 163/84
[2024-01-26 06:19] LABS: BUN 26 mg/dl (9-23); CHLORIDE 103 mmol/L (98-107); LDH 134 U/L (120-246); POTASSIUM 4.2 mmol/L (3.4-5.1)
[2024-01-26 06:35] LABS: BASO % 0.1 % (0.0-1.0); HEMATOCRIT 29.4 % (42.0-52.0); LYMPH # 1.3 10*3/uL (1.3-4.4); LYMPH % 16.1 % (27.0-41.0); MEAN CELL VOLUME 80.3 fl (80.0-94.0); MEAN CORPUSCULAR HGB CONC 29.9 g/dl (33.0-37.0); MEAN PLATELET VOLUME 9.7 fl (9.6-12.3); MONO # 0.6 10*3/uL (0.1-1.0); MONO % 7.4 % (3.0-9.0); NEUT # 6.2 10*3/uL (2.3-7.9); NEUT % 75.9 % (47.0-73.0); NUCLEATED RED BLOOD CELL 0.4 % (0.0-0.0); PLATELET COUNT AUTOMATED 588 10*3/uL (130-400); RED BLOOD COUNT 3.66 10*6/uL (4.50-5.90); RED CELL DISTRI WIDTH 20.5 % (0-14.5); WHITE BLOOD COUNT 8.2 10*3/uL (4.8-10.8)
[2024-01-26 08:00] VITALS: BP 162/78
[2024-01-26 12:00] VITALS: BP 146/78
[2024-01-26] MEDS ORDERED: VORICONAZOLE200 MG PO (13:48)
[2024-01-26] MEDS ORDERED: DEXAMETHASONE6 MG PO (13:51)
== END 2024-01-26 15:21 | disposition home or self-care (01) | DRG 177 ==
LOC: ED 11:15 → 4E 12:57 → EDHOLD 12:57 → 4E 15:28
PROVIDERS: Family Medicine; Internal Medicine Critical Care Medicine; Nurse Practitioner Family; Student in an Organized Health Care Education/Training Program; ADMIT Internal Medicine; ATTEND Internal Medicine
PROC: XW033E5 Introduction of Remdesivir Anti-infective into Peripheral Vein, Percutaneous Approach, New Technology Group 5 (ICD-10-PCS; principal; 2024-01-26)
DX: U07.1 COVID-19 (principal); J18.9 Pneumonia, unspecified organism; J96.01 Acute respiratory failure with hypoxia; J96.02 Acute respiratory failure with hypercapnia; E87.1 Hypo-osmolality and hyponatremia; B44.9 Aspergillosis, unspecified; I50.32 Chronic diastolic (congestive) heart failure; J44.0 Chronic obstructive pulmonary disease with (acute) lower respiratory infection; I25.10 Atherosclerotic heart disease of native coronary artery without angina pectoris; K21.9 Gastro-esophageal reflux disease without esophagitis; D64.9 Anemia, unspecified; D75.839 Thrombocytosis, unspecified; M54.12 Radiculopathy, cervical region; E11.9 Type 2 diabetes mellitus without complications; I11.0 Hypertensive heart disease with heart failure; G89.29 Other chronic pain; Z79.899 Other long term (current) drug therapy; Z79.01 Long term (current) use of anticoagulants; Z79.2 Long term (current) use of antibiotics; Z88.8 Allergy status to other drugs, medicaments and biological substances; Z91.09 Other allergy status, other than to drugs and biological substances; Z79.82 Long term (current) use of aspirin; I25.2 Old myocardial infarction; Z90.49 Acquired absence of other specified parts of digestive tract; Z87.891 Personal history of nicotine dependence; Z82.49 Family history of ischemic heart disease and other diseases of the circulatory system; Z83.3 Family history of diabetes mellitus

== ENCOUNTER → 2024-01-28 | Outpatient (CLI) | payer BC ==
[~2024-01-28] MED LIST changes: +DEXAMETHASONE6 MG PO; +VORICONAZOLE200 MG PO
[2024-01-28 09:24] LABS: HEMATOCRIT 30.5 % (42.0-52.0); MEAN CELL VOLUME 80.5 fl (80.0-94.0); MEAN CORPUSCULAR HGB 23.7 pg (27.0-31.0); MEAN CORPUSCULAR HGB CONC 29.5 g/dl (33.0-37.0); MEAN PLATELET VOLUME 9.5 fl (9.6-12.3); NUCLEATED RED BLOOD CELL 0.4 % (0.0-0.0); PLATELET COUNT AUTOMATED 571 10*3/uL (130-400); RED BLOOD COUNT 3.79 10*6/uL (4.50-5.90); WHITE BLOOD COUNT 10.4 10*3/uL (4.8-10.8)
[2024-01-28 09:25] LABS: MANUAL DIFF REFLEX YES
[2024-01-28 09:53] LABS: ALKALINE PHOSPHATASE 86 U/L (46-116); BUN 21 mg/dl (9-23); CHLORIDE 103 mmol/L (98-107); POTASSIUM 4.3 mmol/L (3.4-5.1); SGPT/ALT 84 U/L (5-49); TOTAL PROTEIN 6.4 gm/dL (6.0-8.0)
[2024-01-28 11:15] LABS: PLATELET SUFFICIENCY HIGH (NORMAL); POLYCHROMASIA SLIGHT; TOTAL CELLS COUNTED 100 #CELLS
== END | disposition home or self-care (01) ==
LOC: LAB 09:01
PROVIDERS: ATTEND Internal Medicine
DX: E87.1 Hypo-osmolality and hyponatremia (principal); J18.9 Pneumonia, unspecified organism

== ENCOUNTER 2024-02-05 15:10 | Inpatient (IN) | payer BC ==
[~2024-02-05] VITALS: Ht 170.2 cm; Wt 80.7 kg
[2024-02-05 15:16] VITALS: BP 154/69
[2024-02-05] MEDS ORDERED: methylPREDNISolone sod succ 125 MG VIAL IV ONE (15:30)
[2024-02-05] MEDS ORDERED: Albuterol Sulf/Ipratropium 3 ML VIAL NEB ONE (15:30)
[2024-02-05 15:40] LABS: BASO % 0.2 % (0.0-1.0); EOS # 0.2 10*3/uL (0.0-0.4); EOS % 1.5 % (1.0-4.0); HEMATOCRIT 26.1 % (42.0-52.0); LYMPH # 1.5 10*3/uL (1.3-4.4); LYMPH % 11.3 % (27.0-41.0); MEAN CELL VOLUME 82.1 fl (80.0-94.0); MEAN CORPUSCULAR HGB 23.9 pg (27.0-31.0); MEAN CORPUSCULAR HGB CONC 29.1 g/dl (33.0-37.0); MEAN PLATELET VOLUME 9.1 fl (9.6-12.3); MONO # 0.7 10*3/uL (0.1-1.0); MONO % 5.2 % (3.0-9.0); NEUT # 10.4 10*3/uL (2.3-7.9); NEUT % 81.2 % (47.0-73.0); PLATELET COUNT AUTOMATED 483 10*3/uL (130-400); RED BLOOD COUNT 3.18 10*6/uL (4.50-5.90); RED CELL DISTRI WIDTH 22.4 % (0-14.5); WHITE BLOOD COUNT 12.8 10*3/uL (4.8-10.8)
[2024-02-05 16:07] LABS: BUN 22 mg/dl (9-23); CHLORIDE 106 mmol/L (98-107); POTASSIUM 3.8 mmol/L (3.4-5.1)
[2024-02-05] MEDS ORDERED: AZITHROMYCIN 250 ML IV ONE (17:35)
[2024-02-05] MEDS ORDERED: Ceftriaxone Sodium 1 GM/10 ML SYR IV ONE (17:35)
[2024-02-05 18:53] VITALS: BP 139/73
[2024-02-05 19:45] VITALS: BP 154/78
[2024-02-05] MEDS ORDERED: BISACODYL 5 MG TAB PO PRN (20:20)
[2024-02-05] MEDS ORDERED: DEXTROSE 10 % IN WATER 250 ML IV PRN (20:20)
[2024-02-05] MEDS ORDERED: Magnesium Hydroxide 30 ML UDC PO PRN (20:20)
[2024-02-05] MEDS ORDERED: Ondansetron Hydrochloride 4 MG/2 ML VIAL IV PRN (20:20)
[2024-02-05] MEDS ORDERED: MORPHINE Sulfate 2 MG/ML SYR IV PRN (20:20)
[2024-02-05] MEDS ORDERED: BISACODYL 10 MG SUPP R PRN (20:20)
[2024-02-05] MEDS ORDERED: TEMAZEPAM 15 MG CAP PO PRN (20:20)
[2024-02-05] MEDS ORDERED: ACETAMINOPHEN 325 MG TAB PO PRN (20:20)
[2024-02-05] MEDS ORDERED: ACETAMINOPHEN 650 MG SUPP R PRN (20:20)
[2024-02-05] MEDS ORDERED: SODIUM CHLORIDE 0.9% 1,000 ML IV SCH (20:25)
[2024-02-05] MEDS ORDERED: Albuterol Sulf/Ipratropium 3 ML VIAL NEB PRN (21:05)
[2024-02-05] MEDS ORDERED: GUAIFENESIN 600 MG TAB ER PO SCH (22:00)
[2024-02-05] MEDS ORDERED: INSULIN LISPRO 1 UNIT/0.01 ML SQ SCH (22:00)
[2024-02-05 22:06] LABS: BILIRUBIN Negative (Negative); BLOOD Negative (Negative); CLARITY Clear (Clear); COLOR Yellow (Yellow); GLUCOSE 1+ (Negative); KETONE Negative (Negative); LEUKO ESTERASE Negative (Negative); NITRITE Negative (Negative); UROBILINOGEN 0.2 E.U./dl (0.0-1.0)
[2024-02-06] VITALS (7 sets, daily range): BP systolic 144–186; BP diastolic 70–87
[2024-02-06 06:19] LABS: BUN 15 mg/dl (9-23); CHLORIDE 104 mmol/L (98-107); POTASSIUM 4.4 mmol/L (3.4-5.1)
[2024-02-06 06:21] LABS: HEMATOCRIT 26.5 % (42.0-52.0); MEAN CELL VOLUME 80.8 fl (80.0-94.0); MEAN CORPUSCULAR HGB 23.8 pg (27.0-31.0); MEAN CORPUSCULAR HGB CONC 29.4 g/dl (33.0-37.0); MEAN PLATELET VOLUME 9.3 fl (9.6-12.3); PLATELET COUNT AUTOMATED 522 10*3/uL (130-400); RED BLOOD COUNT 3.28 10*6/uL (4.50-5.90); RED CELL DISTRI WIDTH 22.3 % (0-14.5); WHITE BLOOD COUNT 9.2 10*3/uL (4.8-10.8)
[2024-02-06 06:23] LABS: MANUAL DIFF REFLEX YES
[2024-02-06 07:10] LABS: TOTAL CELLS COUNTED 100 #CELLS
[2024-02-06 07:11] LABS: BURR CELLS FEW; OVALOCYTES FEW; PLATELET SUFFICIENCY HIGH (NORMAL); POLYCHROMASIA SLIGHT; ROULEAUX SLIGHT; SCHISTOCYTES FEW
[2024-02-06] MEDS ORDERED: methylPREDNISolone sod succ 40 MG IV SCH (10:00)
[2024-02-06] MEDS ORDERED: Enoxaparin Sodium 40 MG/0.4 ML SYR SC SCH (10:00)
[2024-02-06] MEDS ORDERED: methylPREDNISolone sod succ 40 MG VIAL IV SCH (10:00)
[2024-02-06] MEDS ORDERED: LOPRESSOR25 MG PO (10:38)
[2024-02-06] MEDS ORDERED: FLUTICASONE-SA1 EAC4 INH (15:13)
[2024-02-06] MEDS ORDERED: TRELEGY ELLIPT1 EACH INH (15:14)
[2024-02-06] MEDS ORDERED: TOPCARE ALLERGY10 MG PO (15:16)
[2024-02-06] MEDS ORDERED: BENZONATATE100 M1 PO (15:19)
[2024-02-06] MEDS ORDERED: SPIRIVA RESPIMAT4 GM INH (15:21)
[2024-02-06] MEDS ORDERED: PREDNISONE20 M1 PO (15:22)
[2024-02-06] MEDS ORDERED: BREZTRI AEROS10.7 GM INH (15:31)
[2024-02-06] MEDS ORDERED: LIDODERM1 EACH T (15:33)
[2024-02-06] MEDS ORDERED: ROFLUMILAST500 MCG PO (15:35)
[2024-02-06] MEDS ORDERED: DIAZEPAM2 MG PO (15:41)
[2024-02-06] MEDS ORDERED: Ondansetron4 MG PO (15:43)
[2024-02-06] MEDS ORDERED: AZITHROMYCIN 250 ML IV SCH (17:00)
[2024-02-06] MEDS ORDERED: Cyclobenzaprine Hydrochlorid 10 MG TAB PO PRN (17:25)
[2024-02-06] MEDS ORDERED: DIAZEPAM 2 MG TAB PO PRN (17:25)
[2024-02-06] MEDS ORDERED: BENZONATATE 100 MG CAP PO PRN (17:25)
[2024-02-06] MEDS ORDERED: BUDESONIDE 0.5 MG AMP NEB SCH (17:50)
[2024-02-06] MEDS ORDERED: Albuterol Sulfate 2.5 MG/3 ML VIAL NEB SCH (17:50)
[2024-02-06] MEDS ORDERED: Ceftriaxone Sodium 1 GM in SYRINGE INFUSION 10 ML IV SCH (18:00)
[2024-02-06] MEDS ORDERED: ATORVASTATIN CALCIUM 40 MG TABLET PO SCH (18:00)
[2024-02-06] MEDS ORDERED: LIDOCAINE 1 EA PATCH T SCH (22:00)
[2024-02-06] MEDS ORDERED: Metoprolol Tartrate 25 MG TAB PO SCH (22:00)
[2024-02-06] MEDS ORDERED: TOPIRAMATE 100 MG TAB PO SCH (22:00)
[2024-02-06] MEDS ORDERED: GABAPENTIN 800 MG TAB PO SCH (22:00)
[2024-02-07] VITALS: BP 172/80
[2024-02-07 06:35] LABS: BASO % 0.1 % (0.0-1.0); HEMATOCRIT 28.9 % (42.0-52.0); LYMPH # 1.1 10*3/uL (1.3-4.4); LYMPH % 6.8 % (27.0-41.0); MEAN CELL VOLUME 81.4 fl (80.0-94.0); MEAN CORPUSCULAR HGB 23.7 pg (27.0-31.0); MEAN CORPUSCULAR HGB CONC 29.1 g/dl (33.0-37.0); MONO # 0.8 10*3/uL (0.1-1.0); MONO % 4.9 % (3.0-9.0); NEUT # 13.8 10*3/uL (2.3-7.9); NEUT % 87.4 % (47.0-73.0); PLATELET COUNT AUTOMATED 636 10*3/uL (130-400); RED BLOOD COUNT 3.55 10*6/uL (4.50-5.90); RED CELL DISTRI WIDTH 22.2 % (0-14.5); WHITE BLOOD COUNT 15.8 10*3/uL (4.8-10.8)
[2024-02-07 07:13] LABS: BUN 12 mg/dl (9-23); CHLORIDE 106 mmol/L (98-107)
[2024-02-07 08:00] VITALS: BP 160/80
[2024-02-07] MEDS ORDERED: Losartan Potassium 50 MG TAB PO SCH (10:00)
[2024-02-07] MEDS ORDERED: Tamsulosin Hydrochloride 0.4 MG CAP PO SCH (10:00)
[2024-02-07] MEDS ORDERED: FOLIC ACID 1 MG TAB PO SCH (10:00)
[2024-02-07] MEDS ORDERED: ASPIRIN, CHEWABLE 81 MG TAB PO SCH (10:00)
[2024-02-07] MEDS ORDERED: LORATADINE 10 MG TAB PO SCH (10:00)
[2024-02-07] MEDS ORDERED: ROFLUMILAST 500 MCG TAB PO SCH (10:00)
[2024-02-07] MEDS ORDERED: MULTIVITAMIN 1 TAB TAB PO SCH (10:00)
[2024-02-07] MEDS ORDERED: Cholecalciferol 2,000 UNIT TABLET (50 MCG) PO SCH (10:00)
[2024-02-07] MEDS ORDERED: Fluticasone Propionate/Salmeterol 250/50 diskus INH SCH (10:00)
[2024-02-07] MEDS ORDERED: Meloxicam 15 MG TAB PO SCH (10:00)
[2024-02-07] MEDS ORDERED: TRELEGY INH SCH (10:00)
[2024-02-07 12:00] VITALS: BP 181/89
[2024-02-07] MEDS ORDERED: LIDOCAINE 1 EA PATCH T SCH (15:45)
[2024-02-07 16:00] VITALS: BP 157/86
[2024-02-07] MEDS ORDERED: Acetaminophen/Hydrocodone Bi 3 TAB PACK PO PRN (16:30)
[2024-02-07] MEDS ORDERED: Acetaminophen/Hydrocodone 5 MG/325 MG TABLET PO ONE (16:35)
[2024-02-07 20:00] VITALS: BP 151/74
[2024-02-07] MEDS ORDERED: amLODIPine besylate 5 MG TAB PO SCH (22:00)
[2024-02-08] VITALS (9 sets, daily range): BP systolic 124–162; BP diastolic 70–85
[2024-02-08 06:28] LABS: HEMATOCRIT 28.8 % (42.0-52.0); LYMPH # 1.3 10*3/uL (1.3-4.4); LYMPH % 10.7 % (27.0-41.0); MEAN CORPUSCULAR HGB 23.9 pg (27.0-31.0); MEAN CORPUSCULAR HGB CONC 29.9 g/dl (33.0-37.0); MEAN PLATELET VOLUME 8.7 fl (9.6-12.3); MONO # 0.8 10*3/uL (0.1-1.0); MONO % 6.7 % (3.0-9.0); NEUT % 81.3 % (47.0-73.0); PLATELET COUNT AUTOMATED 629 10*3/uL (130-400); WHITE BLOOD COUNT 12.3 10*3/uL (4.8-10.8)
[2024-02-08 07:11] LABS: BUN 15 mg/dl (9-23); CHLORIDE 105 mmol/L (98-107); POTASSIUM 4.3 mmol/L (3.4-5.1)
[2024-02-08] MEDS ORDERED: SODIUM CHLORIDE 0.9% 1,000 ML IV ONE ×2 (08:35→08:39)
[2024-02-08] MEDS ORDERED: Albuterol Sulfate 2.5 MG/0.5 ML VIAL NEB ONE ×2 (08:45→09:05)
[2024-02-08] MEDS ORDERED: Lidocaine Hydrochloride 4% 5 ML AMP NEB ONE (08:45)
[2024-02-08] MEDS ORDERED: Lidocaine Hydrochloride 4% 5 ML AMP ONE (09:04)
[2024-02-08] MEDS ORDERED: Albuterol Sulf/Ipratropium 3 ML VIAL NEB ONE ×2 (09:25→09:44)
[2024-02-08] MEDS ORDERED: Acetaminophen/Hydrocodone 5 MG/325 MG TABLET PO SCH (10:00)
[2024-02-08] MEDS ORDERED: LIDOCAINE 1 EA PATCH T SCH (10:00)
[2024-02-08] MEDS ORDERED: Lidocaine Hydrochloride 2% 10 ML AMP IM ONE (15:56)
[2024-02-08] MEDS ORDERED: PROPOFOL 200 MG/20 ML VIAL IV ONE (15:56)
[2024-02-09 00:28] VITALS: BP 154/81
[2024-02-09 06:32] LABS: BASO % 0.1 % (0.0-1.0); HEMATOCRIT 28.9 % (42.0-52.0); LYMPH # 1.6 10*3/uL (1.3-4.4); LYMPH % 13.5 % (27.0-41.0); MEAN CELL VOLUME 80.1 fl (80.0-94.0); MEAN CORPUSCULAR HGB 23.8 pg (27.0-31.0); MEAN CORPUSCULAR HGB CONC 29.8 g/dl (33.0-37.0); MONO # 0.7 10*3/uL (0.1-1.0); MONO % 6.2 % (3.0-9.0); NEUT # 9.3 10*3/uL (2.3-7.9); PLATELET COUNT AUTOMATED 592 10*3/uL (130-400); RED BLOOD COUNT 3.61 10*6/uL (4.50-5.90); RED CELL DISTRI WIDTH 21.5 % (0-14.5); WHITE BLOOD COUNT 11.7 10*3/uL (4.8-10.8)
[2024-02-09 06:42] LABS: BUN 17 mg/dl (9-23); CHLORIDE 102 mmol/L (98-107); POTASSIUM 4.3 mmol/L (3.4-5.1)
[2024-02-09 08:00] VITALS: BP 153/75
[2024-02-09 11:08] LABS: ACID FAST SPEC PROCESSING Concentration (.)
[2024-02-09 12:00] VITALS: BP 141/91
[2024-02-09 16:00] VITALS: BP 134/68
[2024-02-09 20:00] VITALS: BP 137/60
[2024-02-10] VITALS: BP 142/74
[2024-02-10 07:12] LABS: HEMATOCRIT 30.3 % (42.0-52.0); MEAN CELL VOLUME 81.9 fl (80.0-94.0); MEAN CORPUSCULAR HGB 23.8 pg (27.0-31.0); MEAN PLATELET VOLUME 9.2 fl (9.6-12.3); NUCLEATED RED BLOOD CELL 0.1 % (0.0-0.0); PLATELET COUNT AUTOMATED 670 10*3/uL (130-400); WHITE BLOOD COUNT 14.7 10*3/uL (4.8-10.8)
[2024-02-10 07:20] LABS: MANUAL DIFF REFLEX YES
[2024-02-10 07:36] LABS: BUN 18 mg/dl (9-23); CHLORIDE 102 mmol/L (98-107); POTASSIUM 3.5 mmol/L (3.4-5.1)
[2024-02-10 07:52] LABS: PLATELET SUFFICIENCY HIGH (NORMAL); POLYCHROMASIA SLIGHT; ROULEAUX SLIGHT; TOTAL CELLS COUNTED 100 #CELLS
[2024-02-10 07:53] LABS: OVALOCYTES FEW; SCHISTOCYTES FEW
[2024-02-10 08:00] VITALS: BP 156/79
[2024-02-10 08:06] LABS: IMMUNOGLOBULIN M, QNT 90 mg/dL (20-172)
[2024-02-10 12:00] VITALS: BP 156/72
[2024-02-10 16:00] VITALS: BP 150/74
[2024-02-10 20:00] VITALS: BP 152/75
[2024-02-11] VITALS: BP 137/81
[2024-02-11 08:00] VITALS: BP 148/84
[2024-02-11] MEDS ORDERED: AMLODIPINE BESYL5 MG PO (11:49)
[2024-02-11] MEDS ORDERED: LEVOFLOXACIN500 MG PO (11:52)
[2024-02-11 15:06] LABS: IGG SUBCLASS 1 248 mg/dL (248-810); IGG SUBCLASS 2 159 mg/dL (130-555); IGG SUBCLASS 3 24 mg/dL (15-102); IMMUNOGLOBULIN G, QNT 519 mg/dL (603-1613)
== END 2024-02-11 12:17 | disposition home or self-care (01) | DRG 871 ==
LOC: ED 15:10 → 4E 18:06 → EDHOLD 18:06 → 4E 02-06 14:06
PROVIDERS: Family Medicine; Internal Medicine Critical Care Medicine; Physician Assistant Medical; Student in an Organized Health Care Education/Training Program; ADMIT Internal Medicine; ATTEND Internal Medicine
PROC: 0BC18ZZ Extirpation of Matter from Trachea, Via Natural or Artificial Opening Endoscopic (ICD-10-PCS; principal; 2024-02-08)
PROC: 0BC98ZZ Extirpation of Matter from Lingula Bronchus, Via Natural or Artificial Opening Endoscopic (ICD-10-PCS; 2024-02-08)
PROC: 0BC48ZZ Extirpation of Matter from Right Upper Lobe Bronchus, Via Natural or Artificial Opening Endoscopic (ICD-10-PCS; 2024-02-08)
PROC: 0BC88ZZ Extirpation of Matter from Left Upper Lobe Bronchus, Via Natural or Artificial Opening Endoscopic (ICD-10-PCS; 2024-02-08)
PROC: 0BC58ZZ Extirpation of Matter from Right Middle Lobe Bronchus, Via Natural or Artificial Opening Endoscopic (ICD-10-PCS; 2024-02-08)
PROC: 0BC38ZZ Extirpation of Matter from Right Main Bronchus, Via Natural or Artificial Opening Endoscopic (ICD-10-PCS; 2024-02-08)
PROC: 0BC78ZZ Extirpation of Matter from Left Main Bronchus, Via Natural or Artificial Opening Endoscopic (ICD-10-PCS; 2024-02-08)
PROC: 0BC68ZZ Extirpation of Matter from Right Lower Lobe Bronchus, Via Natural or Artificial Opening Endoscopic (ICD-10-PCS; 2024-02-08)
PROC: 0BCB8ZZ Extirpation of Matter from Left Lower Lobe Bronchus, Via Natural or Artificial Opening Endoscopic (ICD-10-PCS; 2024-02-08)
DX: A41.9 Sepsis, unspecified organism (principal); J15.69 Pneumonia due to other Gram-negative bacteria; J96.01 Acute respiratory failure with hypoxia; E87.1 Hypo-osmolality and hyponatremia; B44.9 Aspergillosis, unspecified; J44.0 Chronic obstructive pulmonary disease with (acute) lower respiratory infection; I50.32 Chronic diastolic (congestive) heart failure; J44.1 Chronic obstructive pulmonary disease with (acute) exacerbation; T17.590A Other foreign object in bronchus causing asphyxiation, initial encounter; I25.10 Atherosclerotic heart disease of native coronary artery without angina pectoris; K21.9 Gastro-esophageal reflux disease without esophagitis; D75.839 Thrombocytosis, unspecified; D50.9 Iron deficiency anemia, unspecified; E11.65 Type 2 diabetes mellitus with hyperglycemia; R07.89 Other chest pain; I11.0 Hypertensive heart disease with heart failure; J20.9 Acute bronchitis, unspecified; W44.F9XA Other object of natural or organic material, entering into or through a natural orifice, initial encounter; R65.20 Severe sepsis without septic shock; G89.29 Other chronic pain; M54.9 Dorsalgia, unspecified; I25.2 Old myocardial infarction; Z95.5 Presence of coronary angioplasty implant and graft; Z83.3 Family history of diabetes mellitus; Z88.8 Allergy status to other drugs, medicaments and biological substances; Z90.49 Acquired absence of other specified parts of digestive tract; Z78.9 Other specified health status; Y93.89 Activity, other specified; Y92.89 Other specified places as the place of occurrence of the external cause; Y99.8 Other external cause status

== ENCOUNTER 2024-02-27 16:51 | Emergency (ER) | payer BC ==
[~2024-02-27] VITALS: Ht 170.1 cm; Wt 80.3 kg
[~2024-02-27 16:51] MED LIST changes: +BENZONATATE100 M1 PO; +BREZTRI AEROS10.7 GM INH; +DIAZEPAM2 MG PO; +FLUTICASONE-SA1 EAC4 INH; +Ondansetron4 MG PO; +ROFLUMILAST500 MCG PO; +SPIRIVA RESPIMAT4 GM INH; +TOPCARE ALLERGY10 MG PO
[2024-02-27] MEDS ORDERED: ACETAMINOPHEN 325 MG TAB PO ONE (18:00)
[2024-02-27 18:12] LABS: BASO % 0.3 % (0.0-1.0); EOS # 0.1 10*3/uL (0.0-0.4); EOS % 1.1 % (1.0-4.0); HEMATOCRIT 28.2 % (42.0-52.0); LYMPH # 1.5 10*3/uL (1.3-4.4); LYMPH % 15.6 % (27.0-41.0); MEAN CELL VOLUME 82.2 fl (80.0-94.0); MEAN CORPUSCULAR HGB 23.9 pg (27.0-31.0); MEAN CORPUSCULAR HGB CONC 29.1 g/dl (33.0-37.0); MEAN PLATELET VOLUME 8.3 fl (9.6-12.3); MONO # 0.6 10*3/uL (0.1-1.0); MONO % 6.1 % (3.0-9.0); NEUT # 7.4 10*3/uL (2.3-7.9); NEUT % 75.8 % (47.0-73.0); PLATELET COUNT AUTOMATED 453 10*3/uL (130-400); RED BLOOD COUNT 3.43 10*6/uL (4.50-5.90); RED CELL DISTRI WIDTH 21.9 % (0-14.5); WHITE BLOOD COUNT 9.8 10*3/uL (4.8-10.8)
[2024-02-27 18:23] LABS: ACT PARTIAL THROMBO TIME 26.9 SECONDS (20.0-32.1)
[2024-02-27 18:32] LABS: ALKALINE PHOSPHATASE 95 U/L (46-116); BUN 21 mg/dl (9-23); CHLORIDE 106 mmol/L (98-107); LIPASE 32 U/L (12-53); POTASSIUM 3.8 mmol/L (3.4-5.1); SGPT/ALT 15 U/L (5-49); TOTAL PROTEIN 6.5 gm/dL (6.0-8.0)
[2024-02-27 19:12] VITALS: BP 118/64
== END 2024-02-27 21:13 | disposition home or self-care (01) ==
LOC: ED 16:51
PROVIDERS: Physician Assistant
DX: R25.1 Tremor, unspecified (principal); R07.81 Pleurodynia; R07.89 Other chest pain; J44.9 Chronic obstructive pulmonary disease, unspecified; Z88.8 Allergy status to other drugs, medicaments and biological substances; Z79.899 Other long term (current) drug therapy; Z79.2 Long term (current) use of antibiotics; Z79.82 Long term (current) use of aspirin; Z98.890 Other specified postprocedural states; Z98.61 Coronary angioplasty status; Z90.49 Acquired absence of other specified parts of digestive tract; W01.0XXA Fall on same level from slipping, tripping and stumbling without subsequent striking against object, initial encounter; Y93.89 Activity, other specified; Y92.89 Other specified places as the place of occurrence of the external cause; Y99.8 Other external cause status

== ENCOUNTER 2024-03-11 13:59 | Inpatient (IN) | payer BC ==
[~2024-03-11] VITALS: Ht 170.1 cm; Wt 72.8 kg
[2024-03-11 14:18] VITALS: BP 156/79
[2024-03-11 14:36] LABS: BASO % 0.3 % (0.0-1.0); EOS % 0.3 % (1.0-4.0); HEMATOCRIT 28.8 % (42.0-52.0); LYMPH % 10.3 % (27.0-41.0); MEAN CELL VOLUME 81.1 fl (80.0-94.0); MEAN CORPUSCULAR HGB 23.7 pg (27.0-31.0); MEAN CORPUSCULAR HGB CONC 29.2 g/dl (33.0-37.0); MEAN PLATELET VOLUME 8.5 fl (9.6-12.3); MONO # 0.6 10*3/uL (0.1-1.0); MONO % 6.8 % (3.0-9.0); NEUT # 7.5 10*3/uL (2.3-7.9); NEUT % 80.2 % (47.0-73.0); PLATELET COUNT AUTOMATED 914 10*3/uL (130-400); RED BLOOD COUNT 3.55 10*6/uL (4.50-5.90); RED CELL DISTRI WIDTH 20.8 % (0-14.5); WHITE BLOOD COUNT 9.4 10*3/uL (4.8-10.8)
[2024-03-11 14:47] LABS: ACT PARTIAL THROMBO TIME 29.7 SECONDS (20.0-32.1)
[2024-03-11 15:18] LABS: ALKALINE PHOSPHATASE 102 U/L (46-116); BUN 6 mg/dl (9-23); CHLORIDE 102 mmol/L (98-107); POTASSIUM 2.7 mmol/L (3.4-5.1); SGPT/ALT 7 U/L (5-49); TOTAL PROTEIN 6.7 gm/dL (6.0-8.0)
[2024-03-11] MEDS ORDERED: MAGNESIUM OXIDE 400 MG TAB PO ONE (15:25)
[2024-03-11] MEDS ORDERED: POTASSIUM CHLORIDE 20 MEQ TAB PO ONE (15:25)
[2024-03-11] MEDS ORDERED: BISACODYL 5 MG TAB PO PRN (15:55)
[2024-03-11] MEDS ORDERED: Acetaminophen/Hydrocodone 5 MG/325 MG TABLET PO PRN (15:55)
[2024-03-11] MEDS ORDERED: ACETAMINOPHEN 325 MG TAB PO PRN (15:55)
[2024-03-11] MEDS ORDERED: Ondansetron Hydrochloride 4 MG/2 ML VIAL IV PRN (15:55)
[2024-03-11] MEDS ORDERED: DEXTROSE 10 % IN WATER 250 ML IV PRN (16:25)
[2024-03-11] MEDS ORDERED: Albuterol Sulf/Ipratropium 3 ML VIAL NEB SCH (16:28)
[2024-03-11] MEDS ORDERED: INSULIN LISPRO 1 UNIT/0.01 ML SQ SCH (16:30)
[2024-03-11 17:38] LABS: ABG BASE EXCESS -3.2 mmol/L (-2.0-2.0); ARTERIAL BLOOD GAS PH 7.489 (7.35-7.45)
[2024-03-11] MEDS ORDERED: IOHEXOL 350 MG/ML 100 ML VIAL IV ONE ×2 (21:25→21:40)
[2024-03-11] MEDS ORDERED: SODIUM CHLORIDE 0.9% 100 ML BAG IV ONE (21:25)
[2024-03-11] MEDS ORDERED: SODIUM CHLORIDE 0.9% 100 ML IV ONE (21:40)
[2024-03-11 21:53] VITALS: BP 151/76
[2024-03-11 23:36] VITALS: BP 151/76
[2024-03-12 04:00] VITALS: BP 148/70
[2024-03-12 05:09] LABS: ALKALINE PHOSPHATASE 104 U/L (46-116); BUN 6 mg/dl (9-23); CHLORIDE 106 mmol/L (98-107); CHOLESTEROL 100 mg/dL (<200); FREE T4 1.31 ng/dl (0.89-1.76); LDL CHOLESTEROL 26 mg/dL (9-159); POTASSIUM 3.3 mmol/L (3.4-5.1); SGPT/ALT 7 U/L (5-49); TOTAL PROTEIN 6.5 gm/dL (6.0-8.0); TRIGLYCERIDES 111 mg/dl (<150)
[2024-03-12 06:09] LABS: BASO # 0.1 10*3/uL (0.0-0.1); BASO % 0.6 % (0.0-1.0); EOS # 0.1 10*3/uL (0.0-0.4); EOS % 1.5 % (1.0-4.0); HEMATOCRIT 27.2 % (42.0-52.0); LYMPH # 1.8 10*3/uL (1.3-4.4); LYMPH % 18.8 % (27.0-41.0); MEAN CELL VOLUME 79.5 fl (80.0-94.0); MEAN CORPUSCULAR HGB 24.3 pg (27.0-31.0); MEAN CORPUSCULAR HGB CONC 30.5 g/dl (33.0-37.0); MEAN PLATELET VOLUME 8.8 fl (9.6-12.3); MONO % 11.1 % (3.0-9.0); NEUT % 65.1 % (47.0-73.0); NUCLEATED RED BLOOD CELL 0.2 % (0.0-0.0); PLATELET COUNT AUTOMATED 933 10*3/uL (130-400); RED BLOOD COUNT 3.42 10*6/uL (4.50-5.90); RED CELL DISTRI WIDTH 21.2 % (0-14.5); WHITE BLOOD COUNT 9.3 10*3/uL (4.8-10.8)
[2024-03-12] MEDS ORDERED: POTASSIUM CHLORIDE 20 MEQ TAB PO ONE (07:25)
[2024-03-12] MEDS ORDERED: ASPIRIN ENTERIC COATED 81 MG TAB PO SCH (10:00)
[2024-03-12] MEDS ORDERED: LIDOCAINE 1 EA PATCH T SCH (10:00)
[2024-03-12] MEDS ORDERED: Enoxaparin Sodium 40 MG/0.4 ML SYR SC SCH (10:00)
[2024-03-12 12:00] VITALS: BP 158/80
[2024-03-12] MEDS ORDERED: BENZONATATE 100 MG CAP PO PRN (12:10)
[2024-03-12] MEDS ORDERED: Cyclobenzaprine Hydrochlorid 10 MG TAB PO PRN (12:10)
[2024-03-12] MEDS ORDERED: DIAZEPAM 2 MG TAB PO PRN (12:10)
[2024-03-12] MEDS ORDERED: GABAPENTIN 800 MG TAB PO SCH (14:00)
[2024-03-12 14:44] VITALS: BP 150/81
[2024-03-12 16:00] VITALS: BP 150/81
[2024-03-12] MEDS ORDERED: ATORVASTATIN CALCIUM 40 MG TABLET PO SCH (18:00)
[2024-03-12 20:00] VITALS: BP 158/76
[2024-03-12] MEDS ORDERED: amLODIPine besylate 5 MG TAB PO SCH (22:00)
[2024-03-12] MEDS ORDERED: TOPIRAMATE 100 MG TAB PO SCH (22:00)
[2024-03-12] MEDS ORDERED: Metoprolol Tartrate 25 MG TAB PO SCH (22:00)
[2024-03-13] VITALS: BP 151/73
[2024-03-13 06:47] LABS: BASO # 0.1 10*3/uL (0.0-0.1); BASO % 0.6 % (0.0-1.0); EOS # 0.2 10*3/uL (0.0-0.4); EOS % 2.2 % (1.0-4.0); LYMPH # 1.6 10*3/uL (1.3-4.4); LYMPH % 19.8 % (27.0-41.0); MEAN CELL VOLUME 82.1 fl (80.0-94.0); MEAN CORPUSCULAR HGB 23.7 pg (27.0-31.0); MEAN CORPUSCULAR HGB CONC 28.9 g/dl (33.0-37.0); MEAN PLATELET VOLUME 8.5 fl (9.6-12.3); MONO # 1.1 10*3/uL (0.1-1.0); MONO % 12.9 % (3.0-9.0); NEUT # 5.2 10*3/uL (2.3-7.9); NEUT % 62.6 % (47.0-73.0); PLATELET COUNT AUTOMATED 793 10*3/uL (130-400); RED BLOOD COUNT 3.29 10*6/uL (4.50-5.90); RED CELL DISTRI WIDTH 21.2 % (0-14.5); WHITE BLOOD COUNT 8.2 10*3/uL (4.8-10.8)
[2024-03-13 07:29] LABS: BUN 6 mg/dl (9-23); CHLORIDE 105 mmol/L (98-107); POTASSIUM 3.8 mmol/L (3.4-5.1)
[2024-03-13 08:00] VITALS: BP 138/64
[2024-03-13] MEDS ORDERED: Cholecalciferol 2,000 UNIT TABLET (50 MCG) PO SCH (10:00)
[2024-03-13] MEDS ORDERED: Losartan Potassium 50 MG TAB PO SCH (10:00)
[2024-03-13] MEDS ORDERED: Tamsulosin Hydrochloride 0.4 MG CAP PO SCH (10:00)
[2024-03-13] MEDS ORDERED: LORATADINE 10 MG TAB PO SCH (10:00)
[2024-03-13] MEDS ORDERED: FOLIC ACID 1 MG TAB PO SCH (10:00)
[2024-03-13] MEDS ORDERED: ROFLUMILAST 500 MCG TAB PO SCH (10:00)
[2024-03-13] MEDS ORDERED: VORICONAZOLE PO (11:12)
== END 2024-03-13 12:50 | disposition home or self-care (01) | DRG 868 ==
LOC: ED 13:59 → EDHOLD 15:48 → 4E 03-12 14:00
PROVIDERS: Emergency Medicine; Student in an Organized Health Care Education/Training Program; ADMIT Student in an Organized Health Care Education/Training Program; ATTEND Student in an Organized Health Care Education/Training Program
DX: B44.9 Aspergillosis, unspecified (principal); E87.1 Hypo-osmolality and hyponatremia; E87.20 Acidosis, unspecified; J96.10 Chronic respiratory failure, unspecified whether with hypoxia or hypercapnia; I50.32 Chronic diastolic (congestive) heart failure; E87.3 Alkalosis; R07.89 Other chest pain; J92.9 Pleural plaque without asbestos; D64.9 Anemia, unspecified; D75.839 Thrombocytosis, unspecified; E87.6 Hypokalemia; R07.81 Pleurodynia; I11.0 Hypertensive heart disease with heart failure; I25.10 Atherosclerotic heart disease of native coronary artery without angina pectoris; E11.65 Type 2 diabetes mellitus with hyperglycemia; F17.210 Nicotine dependence, cigarettes, uncomplicated; M79.602 Pain in left arm; Z90.49 Acquired absence of other specified parts of digestive tract; I25.2 Old myocardial infarction; Z88.6 Allergy status to analgesic agent; Z88.8 Allergy status to other drugs, medicaments and biological substances; Z82.49 Family history of ischemic heart disease and other diseases of the circulatory system; Z83.3 Family history of diabetes mellitus; Z79.82 Long term (current) use of aspirin; Z79.899 Other long term (current) drug therapy; Z79.1 Long term (current) use of non-steroidal anti-inflammatories (NSAID)

== ENCOUNTER 2024-04-07 17:46 | Emergency (ER) | payer BC ==
[~2024-04-07] VITALS: Ht 170.1 cm; Wt 68.9 kg
[2024-04-07 17:54] VITALS: BP 113/64
[2024-04-07] MEDS ORDERED: methylPREDNISolone sod succ 125 MG VIAL IM ONE (18:00)
[2024-04-07] MEDS ORDERED: ACETAMINOPHEN 325 MG TAB PO ONE (18:00)
== END 2024-04-07 19:55 | disposition home or self-care (01) ==
LOC: ED 17:46
DX: J44.9 Chronic obstructive pulmonary disease, unspecified (principal); Z20.822 Contact with and (suspected) exposure to COVID-19; I11.0 Hypertensive heart disease with heart failure; I50.9 Heart failure, unspecified; I25.10 Atherosclerotic heart disease of native coronary artery without angina pectoris; K21.9 Gastro-esophageal reflux disease without esophagitis; I25.2 Old myocardial infarction; E11.9 Type 2 diabetes mellitus without complications; G43.909 Migraine, unspecified, not intractable, without status migrainosus; F17.200 Nicotine dependence, unspecified, uncomplicated; Z88.8 Allergy status to other drugs, medicaments and biological substances; Z88.6 Allergy status to analgesic agent; Z95.5 Presence of coronary angioplasty implant and graft; Z90.49 Acquired absence of other specified parts of digestive tract; Z98.890 Other specified postprocedural states

== ENCOUNTER → 2024-04-30 | Outpatient (CLI) | payer SELFPAY | END | disposition home or self-care (01) | LOC: LAB 14:20 | PROVIDERS: ATTEND Internal Medicine | DX: R79.89 Other specified abnormal findings of blood chemistry (principal) ==

== ENCOUNTER 2024-06-13 07:56 | Inpatient (IN) | payer SELFPAY ==
[~2024-06-13] VITALS: Ht 178 cm; Wt 75.7 kg
[2024-06-13] VITALS (8 sets, daily range): BP systolic 77–133; BP diastolic 46–73
[2024-06-13] MEDS ORDERED: methylPREDNISolone sod succ 125 MG VIAL IV ONE (08:20)
[2024-06-13] MEDS ORDERED: Albuterol Sulfate 2.5 MG/3 ML VIAL NEB ONE (08:20)
[2024-06-13] MEDS ORDERED: MAGNESIUM SULFATE 50 ML IV ONE (08:20)
[2024-06-13] MEDS ORDERED: AZITHROMYCIN 250 MG TAB PO ONE (08:25)
[2024-06-13] MEDS ORDERED: SODIUM CHLORIDE 0.9% 500 ML IV ONE (08:40)
[2024-06-13 08:46] LABS: HEMATOCRIT 26.7 % (42.0-52.0); MEAN CELL VOLUME 84.5 fl (80.0-94.0); MEAN CORPUSCULAR HGB 23.4 pg (27.0-31.0); MEAN CORPUSCULAR HGB CONC 27.7 g/dl (33.0-37.0); MEAN PLATELET VOLUME 9.3 fl (9.6-12.3); PLATELET COUNT AUTOMATED 472 10*3/uL (130-400); RED BLOOD COUNT 3.16 10*6/uL (4.50-5.90); RED CELL DISTRI WIDTH 18.6 % (0-14.5); WHITE BLOOD COUNT 4.2 10*3/uL (4.8-10.8)
[2024-06-13 08:52] LABS: MANUAL DIFF REFLEX YES
[2024-06-13 09:10] LABS: ALKALINE PHOSPHATASE 107 U/L (46-116); BUN 28 mg/dl (9-23); CHLORIDE 106 mmol/L (98-107); POTASSIUM 2.9 mmol/L (3.4-5.1); SGPT/ALT 20 U/L (5-49); TOTAL PROTEIN 6.7 gm/dL (6.0-8.0)
[2024-06-13] MEDS ORDERED: SODIUM CHLORIDE 0.9% 1,000 ML IV ONE ×2 (09:20)
[2024-06-13 09:23] LABS: BASOPHILS 1 % (0-1); PLATELET SUFFICIENCY HIGH (NORMAL); TOTAL CELLS COUNTED 100 #CELLS
[2024-06-13 09:24] LABS: MICROCYTOSIS SLIGHT; POLYCHROMASIA SLIGHT
[2024-06-13] MEDS ORDERED: Ceftriaxone Sodium 1 GM/10 ML SYR IV ONE ×2 (09:40→10:45)
[2024-06-13] MEDS ORDERED: POTASSIUM CHLORIDE 100 ML IV ONE (09:45)
[2024-06-13] MEDS ORDERED: Ondansetron Hydrochloride 4 MG/2 ML VIAL IV PRN (10:40)
[2024-06-13] MEDS ORDERED: BISACODYL 5 MG TAB PO PRN (10:40)
[2024-06-13] MEDS ORDERED: Magnesium Hydroxide 30 ML UDC PO PRN (10:40)
[2024-06-13 11:19] LABS: ABG O2 SATURATION 95.4 % (94.0-98.0); ARTERIAL BLOOD GAS PO2 82.4 mmHg (83.0-108.0)
[2024-06-13 11:26] LABS: ABG BASE EXCESS -12.7 mmol/L (-2.0-3.0); ARTERIAL BLOOD GAS PH 7.238 (7.350-7.450)
[2024-06-13 14:27] LABS: ABG BASE EXCESS -10.1 mmol/L (-2.0-3.0); ABG O2 SATURATION 99.7 % (94.0-98.0); ARTERIAL BLOOD GAS PH 7.301 (7.350-7.450); ARTERIAL BLOOD GAS PO2 145.6 mmHg (83.0-108.0)
[2024-06-13] MEDS ORDERED: ATORVASTATIN CALCIUM 40 MG TABLET PO SCH (18:00)
[2024-06-13] MEDS ORDERED: MULTIVITAMIN 1 TAB TAB PO SCH (18:30)
[2024-06-13] MEDS ORDERED: GABAPENTIN 800 MG TAB PO SCH (22:00)
[2024-06-13] MEDS ORDERED: GUAIFENESIN 600 MG TAB ER PO SCH (22:00)
[2024-06-13] MEDS ORDERED: TOPIRAMATE 100 MG TAB PO SCH (22:00)
[2024-06-13] MEDS ORDERED: LIDOCAINE 1 EA PATCH T SCH (22:00)
[2024-06-14] VITALS (19 sets, daily range): BP systolic 126–170; BP diastolic 68–96
[2024-06-14 05:52] LABS: BUN 24 mg/dl (9-23); CHLORIDE 110 mmol/L (98-107)
[2024-06-14 06:04] LABS: POTASSIUM 4.1 mmol/L (3.4-5.1)
[2024-06-14 06:25] LABS: HEMATOCRIT 23.1 % (42.0-52.0); MEAN CORPUSCULAR HGB 23.6 pg (27.0-31.0); MEAN CORPUSCULAR HGB CONC 29.4 g/dl (33.0-37.0); MEAN PLATELET VOLUME 9.9 fl (9.6-12.3); NUCLEATED RED BLOOD CELL 0.3 % (0.0-0.0); PLATELET COUNT AUTOMATED 523 10*3/uL (130-400); RED BLOOD COUNT 2.88 10*6/uL (4.50-5.90); RED CELL DISTRI WIDTH 18.8 % (0-14.5); WHITE BLOOD COUNT 9.4 10*3/uL (4.8-10.8)
[2024-06-14 07:05] LABS: MEAN CELL VOLUME 80.2 fl (80.0-94.0)
[2024-06-14 07:06] LABS: MANUAL DIFF REFLEX YES
[2024-06-14 07:11] LABS: OVALOCYTES FEW; PLATELET SUFFICIENCY HIGH (NORMAL); POLYCHROMASIA SLIGHT; TOTAL CELLS COUNTED 100 #CELLS
[2024-06-14 07:12] LABS: SCHISTOCYTES FEW
[2024-06-14 07:47] LABS: ABG O2 SATURATION 99.6 % (94.0-98.0); ARTERIAL BLOOD GAS PH 7.418 (7.350-7.450)
[2024-06-14 07:48] LABS: ABG BASE EXCESS -5.9 mmol/L (-2.0-3.0)
[2024-06-14] MEDS ORDERED: AZITHROMYCIN 250 ML IV SCH (09:00)
[2024-06-14] MEDS ORDERED: SODIUM CHLORIDE 0.9% 500 ML IV ONE (09:07)
[2024-06-14] MEDS ORDERED: Enoxaparin Sodium 40 MG/0.4 ML SYR SC SCH (10:00)
[2024-06-14] MEDS ORDERED: FOLIC ACID 1 MG TAB PO SCH (10:00)
[2024-06-14] MEDS ORDERED: Ceftriaxone Sodium 2 GM in SYRINGE INFUSION 20 ML IV SCH (10:00)
[2024-06-14] MEDS ORDERED: ASPIRIN, CHEWABLE 81 MG TAB PO SCH (10:00)
[2024-06-14] MEDS ORDERED: Tamsulosin Hydrochloride 0.4 MG CAP PO SCH (10:00)
[2024-06-14] MEDS ORDERED: DIAZEPAM 2 MG TAB PO PRN (15:30)
[2024-06-14] MEDS ORDERED: Metoprolol Tartrate 25 MG TAB PO SCH (15:35)
[2024-06-14] MEDS ORDERED: FUROSEMIDE 40 MG/4 ML VIAL IV ONE (15:35)
[2024-06-14] MEDS ORDERED: Albuterol Sulfate 2.5 MG/3 ML VIAL NEB SCH (18:44)
[2024-06-14] MEDS ORDERED: Cefepime Hydrochloride 2 GM,IV 1 EA in SODIUM CHLORIDE 0.9% 50 ML IV SCH (20:00)
[2024-06-14] MEDS ORDERED: amLODIPine besylate 5 MG TAB PO SCH (22:00)
[2024-06-15] VITALS (7 sets, daily range): BP systolic 120–161; BP diastolic 66–85
[2024-06-15] MEDS ORDERED: CLOTRIMAZOLE 10 MG LOZENGE PO SCH (06:00)
[2024-06-15 06:10] LABS: HEMATOCRIT 29.4 % (42.0-52.0); MEAN CELL VOLUME 78.8 fl (80.0-94.0); MEAN CORPUSCULAR HGB 24.7 pg (27.0-31.0); MEAN CORPUSCULAR HGB CONC 31.3 g/dl (33.0-37.0); MEAN PLATELET VOLUME 9.6 fl (9.6-12.3); NUCLEATED RED BLOOD CELL 0.1 10*3/uL (0.0-0.0); NUCLEATED RED BLOOD CELL 0.5 % (0.0-0.0); PLATELET COUNT AUTOMATED 587 10*3/uL (130-400); RED BLOOD COUNT 3.73 10*6/uL (4.50-5.90); RED CELL DISTRI WIDTH 18.3 % (0-14.5); WHITE BLOOD COUNT 13.5 10*3/uL (4.8-10.8)
[2024-06-15 06:19] LABS: MANUAL DIFF REFLEX YES
[2024-06-15 06:35] LABS: BUN 28 mg/dl (9-23); CHLORIDE 104 mmol/L (98-107); POTASSIUM 3.6 mmol/L (3.4-5.1)
[2024-06-15 07:07] LABS: MICROCYTOSIS SLIGHT; OVALOCYTES FEW; PLATELET SUFFICIENCY HIGH (NORMAL); TOTAL CELLS COUNTED 100 #CELLS
[2024-06-15] MEDS ORDERED: FUROSEMIDE 20 MG/2 ML VIAL IV ONE (09:05)
[2024-06-15] MEDS ORDERED: Acetaminophen/Hydrocodone ES 7.5/325 tablet PO PRN (09:40)
[2024-06-15] MEDS ORDERED: Losartan Potassium 50 MG TAB PO SCH (10:00)
[2024-06-15] MEDS ORDERED: ACETAMINOPHEN 325 MG TAB PO PRN (23:05)
[2024-06-16 05:53] LABS: BUN 19 mg/dl (9-23); CHLORIDE 103 mmol/L (98-107); POTASSIUM 3.5 mmol/L (3.4-5.1)
[2024-06-16 06:05] LABS: BASO % 0.1 % (0.0-1.0); EOS # 0.2 10*3/uL (0.0-0.4); EOS % 1.1 % (1.0-4.0); HEMATOCRIT 27.6 % (42.0-52.0); LYMPH # 1.2 10*3/uL (1.3-4.4); LYMPH % 8.7 % (27.0-41.0); MEAN CELL VOLUME 79.5 fl (80.0-94.0); MEAN CORPUSCULAR HGB 25.1 pg (27.0-31.0); MEAN CORPUSCULAR HGB CONC 31.5 g/dl (33.0-37.0); MEAN PLATELET VOLUME 9.5 fl (9.6-12.3); MONO # 1.1 10*3/uL (0.1-1.0); NEUT # 11.4 10*3/uL (2.3-7.9); NEUT % 80.9 % (47.0-73.0); NUCLEATED RED BLOOD CELL 0.3 % (0.0-0.0); PLATELET COUNT AUTOMATED 469 10*3/uL (130-400); RED BLOOD COUNT 3.47 10*6/uL (4.50-5.90); RED CELL DISTRI WIDTH 18.4 % (0-14.5); WHITE BLOOD COUNT 14.1 10*3/uL (4.8-10.8)
[2024-06-16 08:00] VITALS: BP 124/69
[2024-06-16] MEDS ORDERED: Vancomycin Hydrochloride 1,000 MG in SODIUM CHLORIDE 0.9% 250 ML IV SCH (10:35)
[2024-06-16 12:00] VITALS: BP 135/73
[2024-06-16] MEDS ORDERED: VANCOMYCIN/WATER FOR INJ (PEG) 300 ML IV SCH (14:00)
[2024-06-16 16:00] VITALS: BP 151/79
[2024-06-16 20:00] VITALS: BP 156/83
[2024-06-17] VITALS: BP 151/85
[2024-06-17 05:18] LABS: BUN 16 mg/dl (9-23); CHLORIDE 101 mmol/L (98-107); POTASSIUM 3.7 mmol/L (3.4-5.1)
[2024-06-17 05:58] LABS: HEMATOCRIT 27.4 % (42.0-52.0); MEAN CELL VOLUME 81.3 fl (80.0-94.0); MEAN CORPUSCULAR HGB 24.3 pg (27.0-31.0); MEAN CORPUSCULAR HGB CONC 29.9 g/dl (33.0-37.0); MEAN PLATELET VOLUME 9.5 fl (9.6-12.3); PLATELET COUNT AUTOMATED 453 10*3/uL (130-400); RED BLOOD COUNT 3.37 10*6/uL (4.50-5.90); RED CELL DISTRI WIDTH 18.3 % (0-14.5); WHITE BLOOD COUNT 17.9 10*3/uL (4.8-10.8)
[2024-06-17 06:08] LABS: MANUAL DIFF REFLEX YES
[2024-06-17 06:45] LABS: PLATELET SUFFICIENCY HIGH (NORMAL); SCHISTOCYTES FEW; SPHEROCYTES FEW; TOTAL CELLS COUNTED 100 #CELLS
[2024-06-17 08:00] VITALS: BP 141/78
[2024-06-17] MEDS ORDERED: Albuterol Sulfate 2.5 MG/0.5 ML VIAL NEB ONE (08:57)
[2024-06-17] MEDS ORDERED: Lidocaine Hydrochloride 4% 5 ML AMP ONE (08:57)
[2024-06-17] MEDS ORDERED: Enoxaparin Sodium 40 MG/0.4 ML SYR SC SCH (10:00)
[2024-06-17] MEDS ORDERED: methylPREDNISolone sod succ 40 MG VIAL IV SCH (10:30)
[2024-06-17 12:00] VITALS: BP 140/72
[2024-06-17 13:08] LABS: BILIRUBIN Negative (Negative); BLOOD Negative (Negative); CLARITY Clear (Clear); COLOR Yellow (Yellow); GLUCOSE Negative (Negative); KETONE Negative (Negative); LEUKO ESTERASE Negative (Negative); NITRITE Negative (Negative); UROBILINOGEN 0.2 E.U./dl (0.0-1.0)
[2024-06-17 14:01] LABS: BACTERIA 1+
[2024-06-17 16:00] VITALS: BP 148/71
[2024-06-17 20:00] VITALS: BP 158/74
[2024-06-17] MEDS ORDERED: LINEZOLID 600 MG TAB PO SCH (22:00)
[2024-06-17] MEDS ORDERED: LINEZOLID 600 MG TAB ONE (23:59)
[2024-06-18] VITALS: BP 137/83
[2024-06-18 05:30] LABS: BUN 18 mg/dl (9-23); CHLORIDE 104 mmol/L (98-107); POTASSIUM 4.2 mmol/L (3.4-5.1)
[2024-06-18 06:17] LABS: HEMATOCRIT 26.8 % (42.0-52.0); MEAN CELL VOLUME 79.5 fl (80.0-94.0); MEAN CORPUSCULAR HGB 24.6 pg (27.0-31.0); MEAN PLATELET VOLUME 9.8 fl (9.6-12.3); PLATELET COUNT AUTOMATED 449 10*3/uL (130-400); RED BLOOD COUNT 3.37 10*6/uL (4.50-5.90); RED CELL DISTRI WIDTH 18.5 % (0-14.5); WHITE BLOOD COUNT 13.4 10*3/uL (4.8-10.8)
[2024-06-18 06:27] LABS: MANUAL DIFF REFLEX YES
[2024-06-18 06:59] LABS: TOTAL CELLS COUNTED 100 #CELLS
[2024-06-18 07:00] LABS: PLATELET SUFFICIENCY HIGH (NORMAL)
[2024-06-18 08:00] VITALS: BP 139/71
[2024-06-18 16:00] VITALS: BP 136/72
[2024-06-18 20:00] VITALS: BP 155/59
[2024-06-18] MEDS ORDERED: LINEZOLID600 MG PO (21:55)
[2024-06-19 06:05] LABS: HEMATOCRIT 26.3 % (42.0-52.0); MEAN CELL VOLUME 78.5 fl (80.0-94.0); MEAN CORPUSCULAR HGB 23.6 pg (27.0-31.0); MEAN PLATELET VOLUME 10.3 fl (9.6-12.3); NUCLEATED RED BLOOD CELL 0.2 % (0.0-0.0); PLATELET COUNT AUTOMATED 560 10*3/uL (130-400); RED BLOOD COUNT 3.35 10*6/uL (4.50-5.90); RED CELL DISTRI WIDTH 18.6 % (0-14.5); WHITE BLOOD COUNT 13.2 10*3/uL (4.8-10.8)
[2024-06-19 06:20] LABS: MANUAL DIFF REFLEX YES
[2024-06-19 06:32] LABS: PLATELET SUFFICIENCY NORMAL (NORMAL); ROULEAUX SLIGHT; SCHISTOCYTES FEW; TOTAL CELLS COUNTED 100 #CELLS
[2024-06-19 07:17] LABS: BUN 22 mg/dl (9-23); CHLORIDE 102 mmol/L (98-107); POTASSIUM 3.5 mmol/L (3.4-5.1)
[2024-06-19 08:00] VITALS: BP 117/62
[2024-06-19 16:00] VITALS: BP 117/69
[2024-06-20 04:26] LABS: HEMATOCRIT 27.5 % (42.0-52.0); MEAN CELL VOLUME 80.9 fl (80.0-94.0); MEAN CORPUSCULAR HGB 23.8 pg (27.0-31.0); MEAN CORPUSCULAR HGB CONC 29.5 g/dl (33.0-37.0); MEAN PLATELET VOLUME 9.7 fl (9.6-12.3); PLATELET COUNT AUTOMATED 540 10*3/uL (130-400); RED CELL DISTRI WIDTH 18.7 % (0-14.5); WHITE BLOOD COUNT 9.4 10*3/uL (4.8-10.8)
[2024-06-20 04:38] LABS: MANUAL DIFF REFLEX YES
[2024-06-20 05:10] LABS: BUN 22 mg/dl (9-23); CHLORIDE 101 mmol/L (98-107)
[2024-06-20 05:19] LABS: PLATELET SUFFICIENCY HIGH (NORMAL); TOTAL CELLS COUNTED 100 #CELLS
[2024-06-20 05:20] LABS: OVALOCYTES FEW; POLYCHROMASIA SLIGHT
[2024-06-20] MEDS ORDERED: DEXTROSE 10 % IN WATER 250 ML IV PRN (05:20)
[2024-06-20] MEDS ORDERED: INSULIN LISPRO 1 UNIT/0.01 ML SQ SCH (07:30)
[2024-06-20 08:00] VITALS: BP 119/48
[2024-06-20 16:00] VITALS: BP 132/69
[2024-06-21] VITALS: BP 127/77
[2024-06-21 08:00] VITALS: BP 141/58
[2024-06-21 09:15] LABS: HEMATOCRIT 30.5 % (42.0-52.0); MEAN CELL VOLUME 80.9 fl (80.0-94.0); MEAN CORPUSCULAR HGB 24.7 pg (27.0-31.0); MEAN CORPUSCULAR HGB CONC 30.5 g/dl (33.0-37.0); MEAN PLATELET VOLUME 9.5 fl (9.6-12.3); NUCLEATED RED BLOOD CELL 0.2 % (0.0-0.0); PLATELET COUNT AUTOMATED 689 10*3/uL (130-400); RED BLOOD COUNT 3.77 10*6/uL (4.50-5.90); RED CELL DISTRI WIDTH 18.9 % (0-14.5); WHITE BLOOD COUNT 16.7 10*3/uL (4.8-10.8)
[2024-06-21 09:23] LABS: MANUAL DIFF REFLEX YES
[2024-06-21 09:31] LABS: BASOPHILS 1 % (0-1); OVALOCYTES FEW; PLATELET SUFFICIENCY HIGH (NORMAL); POLYCHROMASIA SLIGHT; ROULEAUX SLIGHT; SCHISTOCYTES FEW; TARGET CELLS FEW; TOTAL CELLS COUNTED 100 #CELLS
[2024-06-21] MEDS ORDERED: predniSONE 20 MG TAB PO SCH (10:00)
[2024-06-21] MEDS ORDERED: predniSONE 10 MG TAB PO SCH (10:00)
[2024-06-21] MEDS ORDERED: PREDNISONE10 MG PO (11:42)
[2024-06-21] MEDS ORDERED: MELOXICAM15 MG PO (11:42)
[2024-06-21] MEDS ORDERED: LINEZOLID600 MG PO (11:42)
[2024-06-21 12:00] VITALS: BP 152/49
[2024-06-21 16:00] VITALS: BP 122/54
[2024-06-21 20:00] VITALS: BP 136/69
[2024-06-21] MEDS ORDERED: DIAZEPAM 2 MG TAB PO PRN (23:35)
[2024-06-22] VITALS: BP 151/77
[2024-06-22 08:00] VITALS: BP 127/63
[2024-06-22] MEDS ORDERED: Acetaminophen/Hydrocodone ES 7.5/325 tablet PO PRN (11:50)
[2024-06-22 12:00] VITALS: BP 143/64
[2024-06-22 16:00] VITALS: BP 111/62
[2024-06-22 20:00] VITALS: BP 122/78
[2024-06-22] MEDS ORDERED: LIDOCAINE 4% PATCH T SCH (22:00)
[2024-06-23] VITALS: BP 126/56
[2024-06-23 08:00] VITALS: BP 129/57
[2024-06-23 12:00] VITALS: BP 127/68
[2024-06-23] MEDS ORDERED: OXYGEN NAS (12:17)
[2024-06-24] MEDS ORDERED: predniSONE 10 MG TAB PO SCH (10:00)
[2024-06-27] MEDS ORDERED: predniSONE 20 MG TAB PO SCH (10:00)
[2024-06-30] MEDS ORDERED: predniSONE 10 MG TAB PO SCH (10:00)
== END 2024-06-23 15:47 | disposition home or self-care (01) | DRG 871 ==
LOC: ED 07:56 → ICCU 09:54 → EDHOLD 09:54 → ICCU 10:52 → 4E 06-21 16:10
PROVIDERS: Emergency Medicine; Internal Medicine Critical Care Medicine; Student in an Organized Health Care Education/Training Program; ADMIT Student in an Organized Health Care Education/Training Program; ATTEND Student in an Organized Health Care Education/Training Program
PROC: 5A09357 Assistance with Respiratory Ventilation, Less than 24 Consecutive Hours, Continuous Positive Airway Pressure (ICD-10-PCS; 2024-06-13)
PROC: 5A0935A Assistance with Respiratory Ventilation, Less than 24 Consecutive Hours, High Flow/Velocity Cannula (ICD-10-PCS; 2024-06-13)
PROC: 02HV33Z Insertion of Infusion Device into Superior Vena Cava, Percutaneous Approach (ICD-10-PCS; 2024-06-13)
PROC: B548ZZA Ultrasonography of Superior Vena Cava, Guidance (ICD-10-PCS; 2024-06-13)
PROC: 5A09357 Assistance with Respiratory Ventilation, Less than 24 Consecutive Hours, Continuous Positive Airway Pressure (ICD-10-PCS; principal; 2024-06-14)
PROC: 30233N1 Transfusion of Nonautologous Red Blood Cells into Peripheral Vein, Percutaneous Approach (ICD-10-PCS; 2024-06-14)
PROC: 5A09357 Assistance with Respiratory Ventilation, Less than 24 Consecutive Hours, Continuous Positive Airway Pressure (ICD-10-PCS; 2024-06-17)
PROC: 5A09357 Assistance with Respiratory Ventilation, Less than 24 Consecutive Hours, Continuous Positive Airway Pressure (ICD-10-PCS; 2024-06-20)
DX: A41.02 Sepsis due to Methicillin resistant Staphylococcus aureus (principal); J15.212 Pneumonia due to Methicillin resistant Staphylococcus aureus; J96.21 Acute and chronic respiratory failure with hypoxia; N17.0 Acute kidney failure with tubular necrosis; R65.21 Severe sepsis with septic shock; J44.0 Chronic obstructive pulmonary disease with (acute) lower respiratory infection; I50.32 Chronic diastolic (congestive) heart failure; E87.1 Hypo-osmolality and hyponatremia; E44.0 Moderate protein-calorie malnutrition; E87.20 Acidosis, unspecified; J44.1 Chronic obstructive pulmonary disease with (acute) exacerbation; M54.12 Radiculopathy, cervical region; E87.6 Hypokalemia; I25.10 Atherosclerotic heart disease of native coronary artery without angina pectoris; I11.0 Hypertensive heart disease with heart failure; G89.29 Other chronic pain; K21.9 Gastro-esophageal reflux disease without esophagitis; D75.839 Thrombocytosis, unspecified; D64.9 Anemia, unspecified; E11.69 Type 2 diabetes mellitus with other specified complication; I95.9 Hypotension, unspecified; E11.65 Type 2 diabetes mellitus with hyperglycemia; F41.1 Generalized anxiety disorder; Z88.8 Allergy status to other drugs, medicaments and biological substances; Z95.5 Presence of coronary angioplasty implant and graft; Z87.891 Personal history of nicotine dependence; Z83.3 Family history of diabetes mellitus; Z82.49 Family history of ischemic heart disease and other diseases of the circulatory system; I25.2 Old myocardial infarction; Z68.23 Body mass index [BMI] 23.0-23.9, adult; Z90.49 Acquired absence of other specified parts of digestive tract

== ENCOUNTER 2024-07-09 16:37 | Inpatient (IN) | payer MEDICAID ==
[~2024-07-09] VITALS: Ht 170.1 cm
[~2024-07-09 16:37] MED LIST changes: +LINEZOLID600 MG PO; +OXYGEN NAS
[2024-07-09 16:49] VITALS: BP 145/71
[2024-07-09 17:34] LABS: BASO # 0.1 10*3/uL (0.0-0.1); BASO % 0.9 % (0.0-1.0); EOS # 0.1 10*3/uL (0.0-0.4); EOS % 1.6 % (1.0-4.0); HEMATOCRIT 31.5 % (42.0-52.0); LYMPH # 1.3 10*3/uL (1.3-4.4); LYMPH % 19.2 % (27.0-41.0); MEAN CELL VOLUME 84.7 fl (80.0-94.0); MEAN CORPUSCULAR HGB CONC 29.5 g/dl (33.0-37.0); MEAN PLATELET VOLUME 8.9 fl (9.6-12.3); MONO # 0.5 10*3/uL (0.1-1.0); NEUT # 4.8 10*3/uL (2.3-7.9); PLATELET COUNT AUTOMATED 447 10*3/uL (130-400); RED BLOOD COUNT 3.72 10*6/uL (4.50-5.90); WHITE BLOOD COUNT 6.8 10*3/uL (4.8-10.8)
[2024-07-09] MEDS ORDERED: AZITHROMYCIN 250 ML IV ONE (18:00)
[2024-07-09] MEDS ORDERED: Ceftriaxone Sodium 1 GM/10 ML SYR IV ONE (18:00)
[2024-07-09 18:01] LABS: ALKALINE PHOSPHATASE 86 U/L (46-116); BUN 11 mg/dl (9-23); CHLORIDE 100 mmol/L (98-107); POTASSIUM 4.4 mmol/L (3.4-5.1); TOTAL PROTEIN 6.6 gm/dL (6.0-8.0)
[2024-07-09 18:03] LABS: SGPT/ALT < 7 U/L (5-49)
[2024-07-09 19:33] VITALS: BP 148/75
[2024-07-09] MEDS ORDERED: BISACODYL 10 MG SUPP R PRN (20:00)
[2024-07-09] MEDS ORDERED: Magnesium Hydroxide 30 ML UDC PO PRN (20:00)
[2024-07-09] MEDS ORDERED: ACETAMINOPHEN 650 MG SUPP R PRN (20:00)
[2024-07-09] MEDS ORDERED: BISACODYL 5 MG TAB PO PRN (20:00)
[2024-07-09] MEDS ORDERED: ACETAMINOPHEN 325 MG TAB PO PRN (20:00)
[2024-07-09] MEDS ORDERED: DEXTROSE 10 % IN WATER 250 ML IV PRN (20:40)
[2024-07-09] MEDS ORDERED: BENZONATATE 100 MG CAP PO PRN (21:45)
[2024-07-09] MEDS ORDERED: DIAZEPAM 2 MG TAB PO PRN (21:50)
[2024-07-09] MEDS ORDERED: Metoprolol Tartrate 25 MG TAB PO SCH (22:00)
[2024-07-09] MEDS ORDERED: GABAPENTIN 800 MG TAB PO SCH (22:00)
[2024-07-09] MEDS ORDERED: INSULIN LISPRO 1 UNIT/0.01 ML SQ SCH (22:00)
[2024-07-09] MEDS ORDERED: amLODIPine besylate 5 MG TAB PO SCH (22:00)
[2024-07-10] VITALS: BP 144/72
[2024-07-10] MEDS ORDERED: LIDOCAINE 4% PATCH T ONE (02:20)
[2024-07-10 04:00] VITALS: BP 146/76
[2024-07-10 06:46] LABS: BASO # 0.1 10*3/uL (0.0-0.1); BASO % 0.7 % (0.0-1.0); EOS # 0.1 10*3/uL (0.0-0.4); EOS % 1.6 % (1.0-4.0); HEMATOCRIT 31.1 % (42.0-52.0); LYMPH # 1.5 10*3/uL (1.3-4.4); LYMPH % 20.9 % (27.0-41.0); MEAN CELL VOLUME 84.3 fl (80.0-94.0); MEAN CORPUSCULAR HGB 24.9 pg (27.0-31.0); MEAN CORPUSCULAR HGB CONC 29.6 g/dl (33.0-37.0); MEAN PLATELET VOLUME 9.3 fl (9.6-12.3); MONO # 0.7 10*3/uL (0.1-1.0); NEUT % 67.7 % (47.0-73.0); PLATELET COUNT AUTOMATED 448 10*3/uL (130-400); RED BLOOD COUNT 3.69 10*6/uL (4.50-5.90); WHITE BLOOD COUNT 7.3 10*3/uL (4.8-10.8)
[2024-07-10 07:13] LABS: BUN 11 mg/dl (9-23); CHLORIDE 103 mmol/L (98-107); CHOLESTEROL 120 mg/dL (<200); LDL CHOLESTEROL 41 mg/dL (9-159); POTASSIUM 3.9 mmol/L (3.4-5.1); TRIGLYCERIDES 130 mg/dl (<150)
[2024-07-10 08:06] VITALS: BP 143/70
[2024-07-10] MEDS ORDERED: Tamsulosin Hydrochloride 0.4 MG CAP PO SCH (10:00)
[2024-07-10] MEDS ORDERED: MULTIVITAMIN 1 TAB TAB PO SCH (10:00)
[2024-07-10] MEDS ORDERED: Cholecalciferol 2,000 UNIT TABLET (50 MCG) PO SCH (10:00)
[2024-07-10] MEDS ORDERED: BREZTRI INH SCH (10:00)
[2024-07-10] MEDS ORDERED: TOPIRAMATE 100 MG TAB PO SCH (10:00)
[2024-07-10] MEDS ORDERED: LEVOFLOXACIN 150 ML IV SCH (10:00)
[2024-07-10] MEDS ORDERED: ASPIRIN, CHEWABLE 81 MG TAB PO SCH (10:00)
[2024-07-10] MEDS ORDERED: GUAIFENESIN 600 MG TAB ER PO SCH (10:00)
[2024-07-10] MEDS ORDERED: FOLIC ACID 1 MG TAB PO SCH (10:00)
[2024-07-10] MEDS ORDERED: Losartan Potassium 50 MG TAB PO SCH (10:00)
[2024-07-10] MEDS ORDERED: TRELEGY ELLIPTA INH SCH (10:00)
[2024-07-10 15:05] VITALS: BP 130/70
[2024-07-10] MEDS ORDERED: FUROSEMIDE 40 MG/4 ML VIAL IV ONE (15:05)
[2024-07-10] MEDS ORDERED: Acetaminophen/Hydrocodone 5 MG/325 MG TABLET PO PRN (16:20)
[2024-07-10 17:02] VITALS: BP 129/72
[2024-07-10] MEDS ORDERED: ATORVASTATIN CALCIUM 40 MG TABLET PO SCH (18:00)
[2024-07-10] MEDS ORDERED: Ceftriaxone Sodium 1 GM in SYRINGE INFUSION 10 ML IV SCH (18:00)
[2024-07-10] MEDS ORDERED: AZITHROMYCIN 250 ML IV SCH (19:00)
[2024-07-10 23:51] VITALS: BP 128/65
[2024-07-11 05:59] LABS: ALKALINE PHOSPHATASE 78 U/L (46-116); BUN 12 mg/dl (9-23); CHLORIDE 99 mmol/L (98-107); POTASSIUM 4.1 mmol/L (3.4-5.1); SGPT/ALT 7 U/L (5-49); TOTAL PROTEIN 6.1 gm/dL (6.0-8.0)
[2024-07-11 06:15] LABS: BASO # 0.1 10*3/uL (0.0-0.1); BASO % 0.5 % (0.0-1.0); EOS # 0.2 10*3/uL (0.0-0.4); EOS % 2.3 % (1.0-4.0); HEMATOCRIT 29.4 % (42.0-52.0); LYMPH # 1.7 10*3/uL (1.3-4.4); LYMPH % 17.8 % (27.0-41.0); MEAN CELL VOLUME 83.5 fl (80.0-94.0); MEAN CORPUSCULAR HGB 25.3 pg (27.0-31.0); MEAN CORPUSCULAR HGB CONC 30.3 g/dl (33.0-37.0); MONO # 0.8 10*3/uL (0.1-1.0); MONO % 8.6 % (3.0-9.0); NEUT # 6.7 10*3/uL (2.3-7.9); NEUT % 70.6 % (47.0-73.0); PLATELET COUNT AUTOMATED 398 10*3/uL (130-400); RED BLOOD COUNT 3.52 10*6/uL (4.50-5.90); RED CELL DISTRI WIDTH 20.3 % (0-14.5); WHITE BLOOD COUNT 9.4 10*3/uL (4.8-10.8)
[2024-07-11] MEDS ORDERED: Albuterol Sulf/Ipratropium 3 ML VIAL NEB SCH (09:20)
[2024-07-11] MEDS ORDERED: LINEZOLID 600 MG TAB PO SCH (10:00)
[2024-07-11] MEDS ORDERED: Enoxaparin Sodium 40 MG/0.4 ML SYR SC SCH (10:00)
[2024-07-11 10:27] VITALS: BP 110/90
[2024-07-11] MEDS ORDERED: LORazepam 2 MG/ML VIAL IV ONE ×2 (11:10)
[2024-07-11 11:18] VITALS: BP 126/84
[2024-07-11] MEDS ORDERED: LORazepam 2 MG/ML VIAL ONE (11:18)
[2024-07-11 13:31] VITALS: BP 124/80
[2024-07-11 13:45] VITALS: BP 115/66
[2024-07-11 16:00] VITALS: BP 128/55
[2024-07-11 16:23] LABS: ABG O2 SATURATION 97.6 % (94.0-98.0); ARTERIAL BLOOD GAS PH 7.428 (7.350-7.450); ARTERIAL BLOOD GAS PO2 97.9 mmHg (83.0-108.0)
[2024-07-11 16:24] LABS: ABG BASE EXCESS -4.1 mmol/L (-2.0-3.0)
[2024-07-11 20:00] VITALS: BP 134/52
[2024-07-12] VITALS: BP 117/60
[2024-07-12 06:45] LABS: BASO # 0.1 10*3/uL (0.0-0.1); BASO % 0.6 % (0.0-1.0); EOS # 0.2 10*3/uL (0.0-0.4); EOS % 1.9 % (1.0-4.0); LYMPH # 1.6 10*3/uL (1.3-4.4); LYMPH % 17.7 % (27.0-41.0); MEAN CELL VOLUME 84.7 fl (80.0-94.0); MEAN CORPUSCULAR HGB 24.9 pg (27.0-31.0); MEAN CORPUSCULAR HGB CONC 29.3 g/dl (33.0-37.0); MEAN PLATELET VOLUME 9.1 fl (9.6-12.3); MONO # 0.8 10*3/uL (0.1-1.0); MONO % 9.5 % (3.0-9.0); NEUT # 6.1 10*3/uL (2.3-7.9); NEUT % 69.8 % (47.0-73.0); PLATELET COUNT AUTOMATED 413 10*3/uL (130-400); RED BLOOD COUNT 3.54 10*6/uL (4.50-5.90); RED CELL DISTRI WIDTH 19.9 % (0-14.5); WHITE BLOOD COUNT 8.8 10*3/uL (4.8-10.8)
[2024-07-12 07:12] LABS: BUN 12 mg/dl (9-23); CHLORIDE 100 mmol/L (98-107); POTASSIUM 4.3 mmol/L (3.4-5.1)
[2024-07-12 08:00] VITALS: BP 114/62
[2024-07-12] MEDS ORDERED: LORazepam 2 MG/ML VIAL IV ONE (08:20)
[2024-07-12] MEDS ORDERED: LORazepam 2 MG/ML VIAL ONE ×4 (08:33→17:23)
[2024-07-12 12:00] VITALS: BP 105/66
[2024-07-12] MEDS ORDERED: LEVETIRACETAM 250 MG TAB PO SCH (12:10)
[2024-07-12] MEDS ORDERED: Doxycycline Hyclate 100 MG in SODIUM CHLORIDE 0.9% 250 ML IV SCH (14:00)
[2024-07-12 15:45] VITALS: BP 110/50
[2024-07-12] MEDS ORDERED: LEVETIRACETAM IN NACL (ISO-OS) 100 ML IV ONE (17:10)
[2024-07-12] MEDS ORDERED: LEVETIRACETAM250 MG PO (17:35)
[2024-07-12 20:00] VITALS: BP 93/51
== END 2024-07-12 21:29 | disposition short-term general hospital (02) | DRG 178 ==
LOC: ED 16:37 → EDHOLD 18:19 → 4E 07-11 13:03 → ICCU 07-12 17:22
PROVIDERS: Internal Medicine; Internal Medicine Critical Care Medicine; Student in an Organized Health Care Education/Training Program; ADMIT Internal Medicine; ATTEND Internal Medicine
DX: J69.0 Pneumonitis due to inhalation of food and vomit (principal); E87.1 Hypo-osmolality and hyponatremia; I50.32 Chronic diastolic (congestive) heart failure; J96.11 Chronic respiratory failure with hypoxia; D64.9 Anemia, unspecified; I25.10 Atherosclerotic heart disease of native coronary artery without angina pectoris; J44.9 Chronic obstructive pulmonary disease, unspecified; D75.839 Thrombocytosis, unspecified; K21.9 Gastro-esophageal reflux disease without esophagitis; J30.89 Other allergic rhinitis; E11.65 Type 2 diabetes mellitus with hyperglycemia; I11.0 Hypertensive heart disease with heart failure; J20.9 Acute bronchitis, unspecified; Z88.8 Allergy status to other drugs, medicaments and biological substances; Z90.49 Acquired absence of other specified parts of digestive tract; Z82.49 Family history of ischemic heart disease and other diseases of the circulatory system; Z83.3 Family history of diabetes mellitus; Z95.5 Presence of coronary angioplasty implant and graft

== ENCOUNTER → 2024-07-16 | Outpatient (CLI) | payer MEDICAID ==
[~2024-07-16] MED LIST changes: +LEVETIRACETAM250 MG PO; +METRONIDAZOLE500 M1 PO
[2024-07-16 10:17] LABS: BASO # 0.1 10*3/uL (0.0-0.1); EOS # 0.2 10*3/uL (0.0-0.4); EOS % 1.8 % (1.0-4.0); HEMATOCRIT 31.6 % (42.0-52.0); LYMPH # 1.5 10*3/uL (1.3-4.4); LYMPH % 15.6 % (27.0-41.0); MEAN CELL VOLUME 84.9 fl (80.0-94.0); MEAN CORPUSCULAR HGB CONC 29.4 g/dl (33.0-37.0); MEAN PLATELET VOLUME 8.9 fl (9.6-12.3); MONO # 0.9 10*3/uL (0.1-1.0); MONO % 9.1 % (3.0-9.0); NEUT # 6.7 10*3/uL (2.3-7.9); NEUT % 71.9 % (47.0-73.0); PLATELET COUNT AUTOMATED 413 10*3/uL (130-400); RED BLOOD COUNT 3.72 10*6/uL (4.50-5.90); RED CELL DISTRI WIDTH 19.5 % (0-14.5); WHITE BLOOD COUNT 9.4 10*3/uL (4.8-10.8)
[2024-07-16 10:42] LABS: ALKALINE PHOSPHATASE 93 U/L (46-116); BUN 7 mg/dl (9-23); CHLORIDE 99 mmol/L (98-107); SGPT/ALT 17 U/L (5-49); TOTAL PROTEIN 7.2 gm/dL (6.0-8.0)
== END | disposition home or self-care (01) ==
LOC: LAB 09:59
PROVIDERS: ATTEND Internal Medicine Infectious Disease
DX: A41.9 Sepsis, unspecified organism (principal); J15.212 Pneumonia due to Methicillin resistant Staphylococcus aureus

== ENCOUNTER 2024-07-17 15:37 | Emergency (ER) | payer MEDICAID ==
[~2024-07-17] VITALS: Ht 170.1 cm; Wt 74.8 kg
[~2024-07-17 15:37] MED LIST changes: -METRONIDAZOLE500 M1 PO
[2024-07-17 15:46] VITALS: BP 101/45
[2024-07-17] MEDS ORDERED: Lidocaine Hydrochloride 15 ML UDC PO STA (16:08)
[2024-07-17] MEDS ORDERED: Dicyclomine Hydrochloride 20 MG/10 ML OSYR PO STA (16:08)
[2024-07-17] MEDS ORDERED: MG-AL HYDROXIDE/SIMETICONE 30 ML UDC PO STA (16:08)
[2024-07-17 16:25] LABS: BASO # 0.1 10*3/uL (0.0-0.1); BASO % 0.8 % (0.0-1.0); EOS # 0.1 10*3/uL (0.0-0.4); EOS % 1.2 % (1.0-4.0); HEMATOCRIT 34.2 % (42.0-52.0); LYMPH # 1.4 10*3/uL (1.3-4.4); LYMPH % 15.4 % (27.0-41.0); MEAN CELL VOLUME 83.6 fl (80.0-94.0); MEAN CORPUSCULAR HGB 24.9 pg (27.0-31.0); MEAN CORPUSCULAR HGB CONC 29.8 g/dl (33.0-37.0); MEAN PLATELET VOLUME 9.1 fl (9.6-12.3); MONO # 0.8 10*3/uL (0.1-1.0); MONO % 8.9 % (3.0-9.0); NEUT # 6.5 10*3/uL (2.3-7.9); NEUT % 73.1 % (47.0-73.0); PLATELET COUNT AUTOMATED 459 10*3/uL (130-400); RED BLOOD COUNT 4.09 10*6/uL (4.50-5.90); RED CELL DISTRI WIDTH 19.6 % (0-14.5); WHITE BLOOD COUNT 8.9 10*3/uL (4.8-10.8)
[2024-07-17 17:03] LABS: ALKALINE PHOSPHATASE 94 U/L (46-116); BUN 12 mg/dl (9-23); CHLORIDE 101 mmol/L (98-107); LIPASE 39 U/L (12-53); POTASSIUM 3.8 mmol/L (3.4-5.1); SGPT/ALT 12 U/L (5-49); TOTAL PROTEIN 6.8 gm/dL (6.0-8.0)
[2024-07-17] MEDS ORDERED: METRONIDAZOLE500 M1 PO (18:35)
[2024-07-17] MEDS ORDERED: CIPRO500 MG PO (18:35)
[2024-07-17] MEDS ORDERED: Ondansetron4 MG PO (18:43)
[2024-07-17] MEDS ORDERED: Ciprofloxacin Hydrochloride 500 MG TAB PO ONE (18:45)
[2024-07-17] MEDS ORDERED: METRONIDAZOLE 500 MG TAB PO ONE (18:45)
== END 2024-07-17 19:07 | disposition home or self-care (01) ==
LOC: ED 15:37
PROVIDERS: Physician Assistant Medical
DX: K52.9 Noninfective gastroenteritis and colitis, unspecified (principal); R11.2 Nausea with vomiting, unspecified; J44.9 Chronic obstructive pulmonary disease, unspecified; I25.10 Atherosclerotic heart disease of native coronary artery without angina pectoris; I11.0 Hypertensive heart disease with heart failure; I50.9 Heart failure, unspecified; K21.9 Gastro-esophageal reflux disease without esophagitis; I25.2 Old myocardial infarction; E11.9 Type 2 diabetes mellitus without complications; G43.909 Migraine, unspecified, not intractable, without status migrainosus; F17.200 Nicotine dependence, unspecified, uncomplicated; Z88.5 Allergy status to narcotic agent; Z88.8 Allergy status to other drugs, medicaments and biological substances; Z90.49 Acquired absence of other specified parts of digestive tract; Z95.5 Presence of coronary angioplasty implant and graft; Z98.890 Other specified postprocedural states

== ENCOUNTER 2024-08-13 13:44 | Emergency (ER) | payer MEDICAID ==
[~2024-08-13] VITALS: Ht 170.1 cm; Wt 74.8 kg
[~2024-08-13 13:44] MED LIST changes: +METRONIDAZOLE500 M1 PO
[2024-08-13 13:57] VITALS: BP 132/78
[2024-08-13 14:28] LABS: BASO # 0.1 10*3/uL (0.0-0.1); BASO % 0.9 % (0.0-1.0); EOS # 0.2 10*3/uL (0.0-0.4); EOS % 2.6 % (1.0-4.0); HEMATOCRIT 31.4 % (42.0-52.0); LYMPH # 1.5 10*3/uL (1.3-4.4); LYMPH % 16.5 % (27.0-41.0); MEAN CELL VOLUME 82.8 fl (80.0-94.0); MEAN CORPUSCULAR HGB 25.6 pg (27.0-31.0); MEAN CORPUSCULAR HGB CONC 30.9 g/dl (33.0-37.0); MEAN PLATELET VOLUME 9.9 fl (9.6-12.3); MONO # 0.7 10*3/uL (0.1-1.0); MONO % 7.8 % (3.0-9.0); NEUT # 6.7 10*3/uL (2.3-7.9); PLATELET COUNT AUTOMATED 462 10*3/uL (130-400); RED BLOOD COUNT 3.79 10*6/uL (4.50-5.90); RED CELL DISTRI WIDTH 18.9 % (0-14.5); WHITE BLOOD COUNT 9.3 10*3/uL (4.8-10.8)
[2024-08-13 14:46] LABS: BUN 11 mg/dl (9-23); CHLORIDE 107 mmol/L (98-107)
[2024-08-13] MEDS ORDERED: AVPAK AZITHROM250 MG PO (15:34)
[2024-08-13] MEDS ORDERED: MEDROL DOSEPAK4 MG PO (15:34)
== END 2024-08-13 15:36 | disposition home or self-care (01) ==
LOC: ED 13:44
PROVIDERS: Internal Medicine
DX: J40 Bronchitis, not specified as acute or chronic (principal); F17.200 Nicotine dependence, unspecified, uncomplicated; Z88.8 Allergy status to other drugs, medicaments and biological substances; Z79.2 Long term (current) use of antibiotics; Z79.899 Other long term (current) drug therapy; Z79.82 Long term (current) use of aspirin; Z98.890 Other specified postprocedural states; Z90.49 Acquired absence of other specified parts of digestive tract

== ENCOUNTER 2024-09-17 10:56 | Inpatient (IN) | payer OTHER ==
[~2024-09-17] VITALS: Ht 170.1 cm; Wt 77.6 kg
[2024-09-17 11:06] VITALS: BP 122/54
[2024-09-17] MEDS ORDERED: Albuterol Sulfate 2.5 MG/3 ML VIAL NEB ONE (11:25)
[2024-09-17] MEDS ORDERED: AZITHROMYCIN 250 MG TAB PO ONE (11:25)
[2024-09-17] MEDS ORDERED: methylPREDNISolone sod succ 125 MG VIAL IV ONE (11:25)
[2024-09-17 11:51] LABS: BASO # 0.1 10*3/uL (0.0-0.1); BASO % 0.9 % (0.0-1.0); EOS # 0.3 10*3/uL (0.0-0.4); EOS % 6.4 % (1.0-4.0); HEMATOCRIT 28.6 % (42.0-52.0); MEAN CELL VOLUME 85.1 fl (80.0-94.0); MEAN CORPUSCULAR HGB 25.3 pg (27.0-31.0); MEAN CORPUSCULAR HGB CONC 29.7 g/dl (33.0-37.0); MEAN PLATELET VOLUME 9.5 fl (9.6-12.3); MONO # 0.4 10*3/uL (0.1-1.0); MONO % 8.3 % (3.0-9.0); NEUT # 3.5 10*3/uL (2.3-7.9); NEUT % 65.6 % (47.0-73.0); PLATELET COUNT AUTOMATED 525 10*3/uL (130-400); RED BLOOD COUNT 3.36 10*6/uL (4.50-5.90); RED CELL DISTRI WIDTH 18.6 % (0-14.5); WHITE BLOOD COUNT 5.3 10*3/uL (4.8-10.8)
[2024-09-17 12:35] LABS: BUN 13 mg/dl (9-23); CHLORIDE 107 mmol/L (98-107); POTASSIUM 4.1 mmol/L (3.4-5.1)
[2024-09-17] MEDS ORDERED: Magnesium Hydroxide 30 ML UDC PO PRN (14:00)
[2024-09-17] MEDS ORDERED: Acetaminophen/Hydrocodone 5 MG/325 MG TABLET PO PRN (14:00)
[2024-09-17] MEDS ORDERED: Ondansetron Hydrochloride 4 MG/2 ML VIAL IV PRN (14:00)
[2024-09-17] MEDS ORDERED: MORPHINE Sulfate 2 MG/ML SYR IV PRN (14:00)
[2024-09-17] MEDS ORDERED: TEMAZEPAM 15 MG CAP PO PRN (14:00)
[2024-09-17] MEDS ORDERED: ACETAMINOPHEN 325 MG TAB PO PRN (14:00)
[2024-09-17] MEDS ORDERED: ACETAMINOPHEN 650 MG SUPP R PRN (14:00)
[2024-09-17] MEDS ORDERED: BISACODYL 10 MG SUPP R PRN (14:00)
[2024-09-17] MEDS ORDERED: BISACODYL 5 MG TAB PO PRN (14:00)
[2024-09-17] MEDS ORDERED: Pantoprazole Sodium 40 MG TAB PO PRN (14:05)
[2024-09-17] MEDS ORDERED: Albuterol Sulf/Ipratropium 3 ML VIAL NEB SCH (14:30)
[2024-09-17] MEDS ORDERED: DEXTROSE 10 % IN WATER 250 ML IV PRN (15:35)
[2024-09-17 16:23] VITALS: BP 114/37
[2024-09-17] MEDS ORDERED: INSULIN LISPRO 1 UNIT/0.01 ML SQ SCH (16:30)
[2024-09-17] MEDS ORDERED: ATORVASTATIN CALCIUM 40 MG TABLET PO SCH (18:00)
[2024-09-17] MEDS ORDERED: amLODIPine besylate 5 MG TAB PO SCH (22:00)
[2024-09-17] MEDS ORDERED: TOPIRAMATE 25 MG TAB PO SCH (22:00)
[2024-09-17] MEDS ORDERED: GABAPENTIN 800 MG TAB PO SCH (22:00)
[2024-09-17] MEDS ORDERED: LEVETIRACETAM 500 MG TAB PO SCH (22:00)
[2024-09-17] MEDS ORDERED: Metoprolol Tartrate 25 MG TAB PO SCH (22:00)
[2024-09-17 23:41] VITALS: BP 129/69
[2024-09-18 06:09] LABS: BASO % 0.2 % (0.0-1.0); HEMATOCRIT 27.3 % (42.0-52.0); MEAN CELL VOLUME 84.5 fl (80.0-94.0); MEAN CORPUSCULAR HGB 25.1 pg (27.0-31.0); MEAN CORPUSCULAR HGB CONC 29.7 g/dl (33.0-37.0); MEAN PLATELET VOLUME 9.9 fl (9.6-12.3); MONO # 0.7 10*3/uL (0.1-1.0); MONO % 11.2 % (3.0-9.0); NEUT % 69.2 % (47.0-73.0); PLATELET COUNT AUTOMATED 616 10*3/uL (130-400); RED BLOOD COUNT 3.23 10*6/uL (4.50-5.90); RED CELL DISTRI WIDTH 18.6 % (0-14.5); WHITE BLOOD COUNT 5.8 10*3/uL (4.8-10.8)
[2024-09-18 06:21] LABS: BUN 17 mg/dl (9-23); CHLORIDE 107 mmol/L (98-107); POTASSIUM 3.6 mmol/L (3.4-5.1)
[2024-09-18 06:43] VITALS: BP 125/66
[2024-09-18 08:00] VITALS: BP 119/53
[2024-09-18] MEDS ORDERED: Ketorolac Tromethamine 15 MG/ML VIAL IV PRN (08:25)
[2024-09-18] MEDS ORDERED: Cholecalciferol 2,000 UNIT TABLET (50 MCG) PO SCH (10:00)
[2024-09-18] MEDS ORDERED: ROFLUMILAST 500 MCG TAB PO SCH (10:00)
[2024-09-18] MEDS ORDERED: Tamsulosin Hydrochloride 0.4 MG CAP PO SCH (10:00)
[2024-09-18] MEDS ORDERED: Losartan Potassium 50 MG TAB PO SCH (10:00)
[2024-09-18] MEDS ORDERED: Enoxaparin Sodium 40 MG/0.4 ML SYR SC SCH (10:00)
[2024-09-18] MEDS ORDERED: LEVOFLOXACIN 100 ML IV SCH (10:00)
[2024-09-18] MEDS ORDERED: GUAIFENESIN 600 MG TAB ER PO SCH (10:00)
[2024-09-18 10:05] VITALS: BP 129/50
[2024-09-18 12:00] VITALS: BP 134/81
[2024-09-18] MEDS ORDERED: DIAZEPAM 2 MG TAB PO PRN (13:30)
[2024-09-18 16:00] VITALS: BP 133/66
[2024-09-18 20:00] VITALS: BP 135/60
[2024-09-18] MEDS ORDERED: CYCLOBENZAPRINE5 M3 PO (21:49)
[2024-09-18] MEDS ORDERED: Cyclobenzaprine Hydrochlorid 10 MG TAB PO PRN (21:50)
[2024-09-19] VITALS: BP 138/65
[2024-09-19 06:28] LABS: BUN 14 mg/dl (9-23); CHLORIDE 107 mmol/L (98-107)
[2024-09-19 06:51] LABS: BASO % 0.5 % (0.0-1.0); EOS # 0.2 10*3/uL (0.0-0.4); EOS % 2.4 % (1.0-4.0); HEMATOCRIT 26.1 % (42.0-52.0); MEAN CORPUSCULAR HGB 25.4 pg (27.0-31.0); MEAN CORPUSCULAR HGB CONC 29.9 g/dl (33.0-37.0); MEAN PLATELET VOLUME 9.6 fl (9.6-12.3); MONO # 0.8 10*3/uL (0.1-1.0); MONO % 10.2 % (3.0-9.0); NEUT # 5.1 10*3/uL (2.3-7.9); NEUT % 64.1 % (47.0-73.0); PLATELET COUNT AUTOMATED 618 10*3/uL (130-400); RED BLOOD COUNT 3.07 10*6/uL (4.50-5.90); RED CELL DISTRI WIDTH 18.6 % (0-14.5); WHITE BLOOD COUNT 7.9 10*3/uL (4.8-10.8)
[2024-09-19 08:00] VITALS: BP 126/75
[2024-09-19] MEDS ORDERED: ASPIRIN, CHEWABLE 81 MG TAB PO SCH (10:00)
[2024-09-19] MEDS ORDERED: FOLIC ACID 1 MG TAB PO SCH (10:00)
[2024-09-19 12:00] VITALS: BP 121/74
[2024-09-19 16:00] VITALS: BP 127/56
[2024-09-19 20:00] VITALS: BP 134/70
[2024-09-20] VITALS: BP 135/72
[2024-09-20 06:13] LABS: BASO # 0.1 10*3/uL (0.0-0.1); BASO % 0.7 % (0.0-1.0); EOS # 0.3 10*3/uL (0.0-0.4); EOS % 4.3 % (1.0-4.0); HEMATOCRIT 26.4 % (42.0-52.0); MEAN CELL VOLUME 85.7 fl (80.0-94.0); MEAN CORPUSCULAR HGB 24.7 pg (27.0-31.0); MEAN CORPUSCULAR HGB CONC 28.8 g/dl (33.0-37.0); MEAN PLATELET VOLUME 9.6 fl (9.6-12.3); MONO # 0.9 10*3/uL (0.1-1.0); MONO % 12.4 % (3.0-9.0); NEUT # 4.5 10*3/uL (2.3-7.9); NEUT % 58.6 % (47.0-73.0); PLATELET COUNT AUTOMATED 632 10*3/uL (130-400); RED BLOOD COUNT 3.08 10*6/uL (4.50-5.90); RED CELL DISTRI WIDTH 18.5 % (0-14.5); WHITE BLOOD COUNT 7.6 10*3/uL (4.8-10.8)
[2024-09-20 06:40] LABS: BUN 13 mg/dl (9-23); CHLORIDE 103 mmol/L (98-107); POTASSIUM 4.5 mmol/L (3.4-5.1)
[2024-09-20 08:00] VITALS: BP 129/62
[2024-09-20 12:00] VITALS: BP 114/67
[2024-09-20 16:00] VITALS: BP 126/70
[2024-09-20 20:00] VITALS: BP 120/65
[2024-09-21 01:00] VITALS: BP 125/70
[2024-09-21 06:23] LABS: BASO % 0.6 % (0.0-1.0); EOS # 0.4 10*3/uL (0.0-0.4); EOS % 5.2 % (1.0-4.0); HEMATOCRIT 26.5 % (42.0-52.0); MEAN CELL VOLUME 86.3 fl (80.0-94.0); MEAN CORPUSCULAR HGB 25.1 pg (27.0-31.0); MEAN CORPUSCULAR HGB CONC 29.1 g/dl (33.0-37.0); MEAN PLATELET VOLUME 9.7 fl (9.6-12.3); MONO % 14.6 % (3.0-9.0); NEUT # 3.5 10*3/uL (2.3-7.9); NEUT % 51.4 % (47.0-73.0); PLATELET COUNT AUTOMATED 718 10*3/uL (130-400); RED BLOOD COUNT 3.07 10*6/uL (4.50-5.90); RED CELL DISTRI WIDTH 18.1 % (0-14.5); WHITE BLOOD COUNT 6.8 10*3/uL (4.8-10.8)
[2024-09-21 06:56] LABS: ALKALINE PHOSPHATASE 81 U/L (46-116); BUN 17 mg/dl (9-23); CHLORIDE 105 mmol/L (98-107); POTASSIUM 4.5 mmol/L (3.4-5.1); SGPT/ALT 10 U/L (5-49); TOTAL PROTEIN 6.9 gm/dL (6.0-8.0)
[2024-09-21 08:00] VITALS: BP 121/59
[2024-09-21 12:00] VITALS: BP 122/64
[2024-09-21 16:00] VITALS: BP 111/57
[2024-09-21 20:00] VITALS: BP 138/57
[2024-09-22] VITALS: BP 118/63
[2024-09-22 08:00] VITALS: BP 117/59
[2024-09-22 12:00] VITALS: BP 113/91
== END 2024-09-22 13:05 | disposition home or self-care (01) | DRG 197 ==
LOC: ED 10:56 → 4E 12:59 → EDHOLD 12:59 → 4E 09-18 09:39
PROVIDERS: Emergency Medicine; Registered Nurse; Student in an Organized Health Care Education/Training Program; ADMIT Internal Medicine; ATTEND Internal Medicine
DX: J84.114 Acute interstitial pneumonitis (principal); B47.9 Mycetoma, unspecified; J44.0 Chronic obstructive pulmonary disease with (acute) lower respiratory infection; E87.20 Acidosis, unspecified; I50.32 Chronic diastolic (congestive) heart failure; J96.11 Chronic respiratory failure with hypoxia; J44.1 Chronic obstructive pulmonary disease with (acute) exacerbation; J20.9 Acute bronchitis, unspecified; D64.9 Anemia, unspecified; D75.839 Thrombocytosis, unspecified; M54.9 Dorsalgia, unspecified; G89.29 Other chronic pain; B96.1 Klebsiella pneumoniae [K. pneumoniae] as the cause of diseases classified elsewhere; J84.89 Other specified interstitial pulmonary diseases; I25.10 Atherosclerotic heart disease of native coronary artery without angina pectoris; K21.9 Gastro-esophageal reflux disease without esophagitis; E11.65 Type 2 diabetes mellitus with hyperglycemia; G40.909 Epilepsy, unspecified, not intractable, without status epilepticus; Z68.27 Body mass index [BMI] 27.0-27.9, adult; Z86.19 Personal history of other infectious and parasitic diseases; Z90.49 Acquired absence of other specified parts of digestive tract; Z87.891 Personal history of nicotine dependence; Z82.49 Family history of ischemic heart disease and other diseases of the circulatory system; Z83.3 Family history of diabetes mellitus; Z88.6 Allergy status to analgesic agent; Z88.8 Allergy status to other drugs, medicaments and biological substances; Z79.51 Long term (current) use of inhaled steroids; Z79.899 Other long term (current) drug therapy

== ENCOUNTER 2024-11-19 15:36 | Emergency (ER) | payer OTHER ==
[2024-11-19] VITALS (12 sets, daily range): BP systolic 115–131; BP diastolic 56–69
[~2024-11-19] VITALS: Wt 75.7 kg
[~2024-11-19 15:36] MED LIST changes: +GABAPENTIN800 MG PO; +IRON325 M1 PO; +LOSARTAN POTAS100 M1 PO
[2024-11-19 16:49] LABS: HEMATOCRIT 22.6 % (42.0-52.0); MEAN CELL VOLUME 85.9 fl (80.0-94.0); MEAN CORPUSCULAR HGB 24.3 pg (27.0-31.0); MEAN CORPUSCULAR HGB CONC 28.3 g/dl (33.0-37.0); MEAN PLATELET VOLUME 9.3 fl (9.6-12.3); PLATELET COUNT AUTOMATED 510 10*3/uL (130-400); RED BLOOD COUNT 2.63 10*6/uL (4.50-5.90); RED CELL DISTRI WIDTH 20.4 % (0-14.5); WHITE BLOOD COUNT 16.6 10*3/uL (4.8-10.8)
[2024-11-19 16:50] LABS: MANUAL DIFF REFLEX YES
[2024-11-19] MEDS ORDERED: FUROSEMIDE 40 MG/4 ML VIAL IV SCH (16:55)
[2024-11-19 17:16] LABS: BUN 23 mg/dl (9-23); CHLORIDE 107 mmol/L (98-107)
[2024-11-19 17:21] LABS: PLATELET SUFFICIENCY HIGH (NORMAL); POLYCHROMASIA SLIGHT; TOTAL CELLS COUNTED 100 #CELLS
[2024-11-19] MEDS ORDERED: SODIUM CHLORIDE 0.9% 500 ML IV ONE (19:47)
== END 2024-11-19 23:41 | disposition home or self-care (01) ==
LOC: ED 15:36
PROVIDERS: Internal Medicine
DX: D64.9 Anemia, unspecified (principal); E11.65 Type 2 diabetes mellitus with hyperglycemia; D72.89 Other specified disorders of white blood cells; Z88.8 Allergy status to other drugs, medicaments and biological substances; Z88.6 Allergy status to analgesic agent; Z79.899 Other long term (current) drug therapy; Z79.82 Long term (current) use of aspirin; Z98.890 Other specified postprocedural states; Z90.49 Acquired absence of other specified parts of digestive tract; Z87.891 Personal history of nicotine dependence

== ENCOUNTER 2024-11-24 11:38 | Emergency (ER) | payer OTHER ==
[~2024-11-24] VITALS: Ht 170.1 cm; Wt 74.8 kg
[2024-11-24 11:56] VITALS: BP 108/59
[2024-11-24 12:39] LABS: BASO # 0.1 10*3/uL (0.0-0.1); BASO % 0.8 % (0.0-1.0); EOS # 0.2 10*3/uL (0.0-0.4); EOS % 2.7 % (1.0-4.0); HEMATOCRIT 33.8 % (42.0-52.0); MEAN CELL VOLUME 84.9 fl (80.0-94.0); MEAN CORPUSCULAR HGB 25.1 pg (27.0-31.0); MEAN CORPUSCULAR HGB CONC 29.6 g/dl (33.0-37.0); MEAN PLATELET VOLUME 8.9 fl (9.6-12.3); MONO # 0.5 10*3/uL (0.1-1.0); MONO % 8.8 % (3.0-9.0); NEUT % 68.1 % (47.0-73.0); PLATELET COUNT AUTOMATED 694 10*3/uL (130-400); RED BLOOD COUNT 3.98 10*6/uL (4.50-5.90); RED CELL DISTRI WIDTH 18.5 % (0-14.5); WHITE BLOOD COUNT 5.9 10*3/uL (4.8-10.8)
[2024-11-24 12:58] LABS: BUN 10 mg/dl (9-23); CHLORIDE 109 mmol/L (98-107); POTASSIUM 4.3 mmol/L (3.4-5.1)
[2024-11-24 13:14] LABS: BILIRUBIN Negative (Negative); BLOOD Trace-Intact (Negative); CLARITY Clear (Clear); COLOR Yellow (Yellow); GLUCOSE Negative (Negative); KETONE Trace (Negative); LEUKO ESTERASE Negative (Negative); NITRITE Negative (Negative); SPECIFIC GRAVITY >= 1.030 (1.001-1.030); UROBILINOGEN 0.2 E.U./dl (0.0-1.0)
[2024-11-24 13:22] LABS: BACTERIA TRACE; WBC 0-2 wbc/hpf (0-5)
[2024-11-24 13:23] LABS: EPITHELIAL CELLS 0-2
== END 2024-11-24 13:52 | disposition home or self-care (01) ==
LOC: ED 11:38
PROVIDERS: Internal Medicine
DX: J98.4 Other disorders of lung (principal); K21.9 Gastro-esophageal reflux disease without esophagitis; I25.2 Old myocardial infarction; E11.9 Type 2 diabetes mellitus without complications; J44.9 Chronic obstructive pulmonary disease, unspecified; G43.909 Migraine, unspecified, not intractable, without status migrainosus; I11.0 Hypertensive heart disease with heart failure; I50.9 Heart failure, unspecified; F17.200 Nicotine dependence, unspecified, uncomplicated; Z88.8 Allergy status to other drugs, medicaments and biological substances; Z98.890 Other specified postprocedural states; Z90.49 Acquired absence of other specified parts of digestive tract; Z95.5 Presence of coronary angioplasty implant and graft

== ENCOUNTER 2024-12-22 13:01 | Emergency (ER) | payer OTHER ==
[~2024-12-22] VITALS: Ht 170.1 cm; Wt 77.1 kg
[~2024-12-22 13:01] MED LIST changes: +ZOSYN 3.373.375 GM/1 IV
[2024-12-22 13:14] VITALS: BP 146/84
== END 2024-12-22 14:49 | disposition home or self-care (01) ==
LOC: ED 13:01
DX: T82.898A Other specified complication of vascular prosthetic devices, implants and grafts, initial encounter (principal); I11.0 Hypertensive heart disease with heart failure; I50.9 Heart failure, unspecified; K21.9 Gastro-esophageal reflux disease without esophagitis; I25.2 Old myocardial infarction; E11.9 Type 2 diabetes mellitus without complications; J44.9 Chronic obstructive pulmonary disease, unspecified; G43.909 Migraine, unspecified, not intractable, without status migrainosus; F17.200 Nicotine dependence, unspecified, uncomplicated; Z88.8 Allergy status to other drugs, medicaments and biological substances; Z95.5 Presence of coronary angioplasty implant and graft; Z90.49 Acquired absence of other specified parts of digestive tract; Z98.890 Other specified postprocedural states; Y82.8 Other medical devices associated with adverse incidents; Y92.89 Other specified places as the place of occurrence of the external cause

== ENCOUNTER 2024-12-31 12:47 | Emergency (ER) | payer OTHER ==
[~2024-12-31] VITALS: Ht 182.9 cm; Wt 90.7 kg
[2024-12-31] MEDS ORDERED: Tdap Vaccine 0.5 ML SYR (Adult Vaccine) IM ONE (12:55)
[2024-12-31] MEDS ORDERED: ACETAMINOPHEN 325 MG TAB PO ONE (12:55)
[2024-12-31 12:58] VITALS: BP 116/63
== END 2024-12-31 14:31 | disposition home or self-care (01) ==
LOC: ED 12:47
DX: S70.01XA Contusion of right hip, initial encounter (principal); S00.81XA Abrasion of other part of head, initial encounter; J44.9 Chronic obstructive pulmonary disease, unspecified; I11.0 Hypertensive heart disease with heart failure; I50.9 Heart failure, unspecified; D64.9 Anemia, unspecified; I25.10 Atherosclerotic heart disease of native coronary artery without angina pectoris; K21.9 Gastro-esophageal reflux disease without esophagitis; I25.2 Old myocardial infarction; E11.9 Type 2 diabetes mellitus without complications; G43.909 Migraine, unspecified, not intractable, without status migrainosus; F17.200 Nicotine dependence, unspecified, uncomplicated; Z88.8 Allergy status to other drugs, medicaments and biological substances; Z90.49 Acquired absence of other specified parts of digestive tract; Z95.5 Presence of coronary angioplasty implant and graft; Z98.890 Other specified postprocedural states; W01.198A Fall on same level from slipping, tripping and stumbling with subsequent striking against other object, initial encounter; Y93.01 Activity, walking, marching and hiking; Y92.89 Other specified places as the place of occurrence of the external cause; Y99.8 Other external cause status

== ENCOUNTER 2025-01-05 12:01 | Emergency (ER) | payer OTHER ==
[~2025-01-05] VITALS: Ht 175.3 cm; Wt 90.7 kg
[2025-01-05 12:15] VITALS: BP 149/69
[2025-01-05] MEDS ORDERED: Albuterol Sulfate 2.5 MG/3 ML VIAL NEB ONE (12:15)
[2025-01-05] MEDS ORDERED: methylPREDNISolone sod succ 125 MG VIAL IV ONE (12:15)
[2025-01-05] MEDS ORDERED: MORPHINE Sulfate 2 MG/ML SYR IV ONE (12:20)
[2025-01-05] MEDS ORDERED: Ondansetron Hydrochloride 4 MG/2 ML VIAL IV ONE (12:20)
[2025-01-05 12:25] LABS: BASO # 0.1 10*3/uL (0.0-0.1); BASO % 0.8 % (0.0-1.0); EOS # 0.5 10*3/uL (0.0-0.4); EOS % 5.3 % (1.0-4.0); HEMATOCRIT 36.3 % (42.0-52.0); MEAN CELL VOLUME 89.9 fl (80.0-94.0); MEAN CORPUSCULAR HGB 27.2 pg (27.0-31.0); MEAN CORPUSCULAR HGB CONC 30.3 g/dl (33.0-37.0); MEAN PLATELET VOLUME 9.2 fl (9.6-12.3); MONO # 0.6 10*3/uL (0.1-1.0); MONO % 6.7 % (3.0-9.0); NEUT # 5.9 10*3/uL (2.3-7.9); NEUT % 65.4 % (47.0-73.0); PLATELET COUNT AUTOMATED 556 10*3/uL (130-400); RED BLOOD COUNT 4.04 10*6/uL (4.50-5.90); RED CELL DISTRI WIDTH 18.6 % (0-14.5); WHITE BLOOD COUNT 9.1 10*3/uL (4.8-10.8)
[2025-01-05 12:43] LABS: BUN 17 mg/dl (9-23); CHLORIDE 105 mmol/L (98-107); POTASSIUM 3.4 mmol/L (3.4-5.1)
[2025-01-08] MEDS ORDERED: CIPRO500 MG PO (22:06)
== END 2025-01-05 13:30 | disposition home or self-care (01) ==
LOC: ED 12:01
PROVIDERS: Emergency Medicine
DX: J44.1 Chronic obstructive pulmonary disease with (acute) exacerbation (principal); I25.10 Atherosclerotic heart disease of native coronary artery without angina pectoris; I11.0 Hypertensive heart disease with heart failure; I50.9 Heart failure, unspecified; Z88.8 Allergy status to other drugs, medicaments and biological substances; Z79.899 Other long term (current) drug therapy; Z79.84 Long term (current) use of oral hypoglycemic drugs; Z79.82 Long term (current) use of aspirin; Z98.890 Other specified postprocedural states; Z90.49 Acquired absence of other specified parts of digestive tract; Z87.891 Personal history of nicotine dependence

== ENCOUNTER 2025-01-27 12:21 | Emergency (ER) | payer OTHER ==
[~2025-01-27] VITALS: Ht 170.1 cm; Wt 79.4 kg
[2025-01-27 12:27] VITALS: BP 107/50
[2025-01-27] MEDS ORDERED: Albuterol Sulf/Ipratropium 3 ML VIAL NEB ONE (12:45)
[2025-01-27] MEDS ORDERED: methylPREDNISolone sod succ 125 MG VIAL IV ONE (12:45)
[2025-01-27] MEDS ORDERED: ACETAMINOPHEN 325 MG TAB PO ONE (12:50)
[2025-01-27 13:00] LABS: BASO # 0.1 10*3/uL (0.0-0.1); BASO % 0.9 % (0.0-1.0); EOS # 0.2 10*3/uL (0.0-0.4); EOS % 3.2 % (1.0-4.0); HEMATOCRIT 34.4 % (42.0-52.0); MEAN CELL VOLUME 92.7 fl (80.0-94.0); MEAN CORPUSCULAR HGB 28.6 pg (27.0-31.0); MEAN CORPUSCULAR HGB CONC 30.8 g/dl (33.0-37.0); MEAN PLATELET VOLUME 9.3 fl (9.6-12.3); MONO # 0.5 10*3/uL (0.1-1.0); MONO % 6.9 % (3.0-9.0); NEUT # 4.4 10*3/uL (2.3-7.9); NEUT % 67.4 % (47.0-73.0); PLATELET COUNT AUTOMATED 555 10*3/uL (130-400); RED BLOOD COUNT 3.71 10*6/uL (4.50-5.90); RED CELL DISTRI WIDTH 18.6 % (0-14.5); WHITE BLOOD COUNT 6.6 10*3/uL (4.8-10.8)
[2025-01-27 13:11] LABS: ACT PARTIAL THROMBO TIME 26.2 SECONDS (20.0-32.1)
[2025-01-27 13:24] LABS: ALKALINE PHOSPHATASE 88 U/L (46-116); BUN 19 mg/dl (9-23); CHLORIDE 107 mmol/L (98-107); POTASSIUM 4.9 mmol/L (3.4-5.1); SGPT/ALT 14 U/L (5-49); TOTAL PROTEIN 6.9 gm/dL (6.0-8.0)
[2025-01-27] MEDS ORDERED: BENZONATATE100 M1 PO (14:42)
== END 2025-01-27 14:53 | disposition home or self-care (01) ==
LOC: ED 12:21
PROVIDERS: Internal Medicine
DX: R06.02 Shortness of breath (principal); R05.9 Cough, unspecified; I10 Essential (primary) hypertension; K21.9 Gastro-esophageal reflux disease without esophagitis; E11.9 Type 2 diabetes mellitus without complications; J44.9 Chronic obstructive pulmonary disease, unspecified; G43.909 Migraine, unspecified, not intractable, without status migrainosus; F17.210 Nicotine dependence, cigarettes, uncomplicated; Z79.82 Long term (current) use of aspirin; Z79.899 Other long term (current) drug therapy; Z90.49 Acquired absence of other specified parts of digestive tract; Z98.890 Other specified postprocedural states

== ENCOUNTER 2025-01-31 12:20 | Emergency (ER) | payer OTHER ==
[~2025-01-31] VITALS: Ht 170.1 cm; Wt 79.4 kg
[2025-01-31 13:12] VITALS: BP 112/62
[2025-01-31] MEDS ORDERED: AZITHROMYCIN 250 MG TAB PO ONE (13:20)
[2025-01-31] MEDS ORDERED: Albuterol Sulfate 2.5 MG/3 ML VIAL NEB ONE (13:20)
[2025-01-31] MEDS ORDERED: Ondansetron Hydrochloride 4 MG/2 ML VIAL IV ONE (13:20)
[2025-01-31] MEDS ORDERED: MORPHINE Sulfate 2 MG/ML SYR IV ONE (13:20)
[2025-01-31] MEDS ORDERED: methylPREDNISolone sod succ 125 MG VIAL IV ONE (13:20)
[2025-01-31 13:39] LABS: BASO # 0.1 10*3/uL (0.0-0.1); BASO % 0.7 % (0.0-1.0); EOS # 0.2 10*3/uL (0.0-0.4); EOS % 3.1 % (1.0-4.0); HEMATOCRIT 32.3 % (42.0-52.0); MEAN CELL VOLUME 91.5 fl (80.0-94.0); MEAN CORPUSCULAR HGB CONC 30.7 g/dl (33.0-37.0); MEAN PLATELET VOLUME 8.8 fl (9.6-12.3); MONO # 0.7 10*3/uL (0.1-1.0); MONO % 9.3 % (3.0-9.0); NEUT # 4.4 10*3/uL (2.3-7.9); NEUT % 62.2 % (47.0-73.0); PLATELET COUNT AUTOMATED 549 10*3/uL (130-400); RED BLOOD COUNT 3.53 10*6/uL (4.50-5.90); RED CELL DISTRI WIDTH 17.9 % (0-14.5); WHITE BLOOD COUNT 7.1 10*3/uL (4.8-10.8)
[2025-01-31] MEDS ORDERED: Water, Sterile 10 ML VIAL ONE (13:50)
[2025-01-31 14:00] LABS: BUN 19 mg/dl (9-23); CHLORIDE 106 mmol/L (98-107); POTASSIUM 4.3 mmol/L (3.4-5.1)
== END 2025-01-31 14:26 | disposition home or self-care (01) ==
LOC: ED 12:20
PROVIDERS: Emergency Medicine
DX: J44.1 Chronic obstructive pulmonary disease with (acute) exacerbation (principal); R07.81 Pleurodynia; I11.0 Hypertensive heart disease with heart failure; I50.9 Heart failure, unspecified; E78.5 Hyperlipidemia, unspecified; I25.2 Old myocardial infarction; Z88.8 Allergy status to other drugs, medicaments and biological substances; Z88.6 Allergy status to analgesic agent; Z79.899 Other long term (current) drug therapy; Z79.84 Long term (current) use of oral hypoglycemic drugs; Z79.82 Long term (current) use of aspirin; Z98.890 Other specified postprocedural states; Z90.49 Acquired absence of other specified parts of digestive tract; Z87.891 Personal history of nicotine dependence

== ENCOUNTER 2025-03-15 18:41 | Emergency (ER) | payer OTHER ==
[~2025-03-15] VITALS: Ht 170.1 cm; Wt 81.2 kg
[~2025-03-15 18:41] MED LIST changes: +DULCOLAX STOOL100 M1 PO; +SEPTDS PO
[2025-03-15 18:47] VITALS: BP 146/67
[2025-03-15 19:21] LABS: BASO # 0.1 10*3/uL (0.0-0.1); EOS # 0.2 10*3/uL (0.0-0.4); EOS % 3.8 % (1.0-4.0); HEMATOCRIT 31.1 % (42.0-52.0); MEAN CELL VOLUME 95.1 fl (80.0-94.0); MEAN CORPUSCULAR HGB 29.1 pg (27.0-31.0); MEAN CORPUSCULAR HGB CONC 30.5 g/dl (33.0-37.0); MEAN PLATELET VOLUME 8.8 fl (9.6-12.3); MONO # 0.8 10*3/uL (0.1-1.0); MONO % 12.3 % (3.0-9.0); NEUT # 3.2 10*3/uL (2.3-7.9); NEUT % 52.1 % (47.0-73.0); PLATELET COUNT AUTOMATED 500 10*3/uL (130-400); RED BLOOD COUNT 3.27 10*6/uL (4.50-5.90); WHITE BLOOD COUNT 6.1 10*3/uL (4.8-10.8)
[2025-03-15 19:47] LABS: BUN 21 mg/dl (9-23); CHLORIDE 107 mmol/L (98-107); POTASSIUM 4.2 mmol/L (3.4-5.1)
[2025-03-15] MEDS ORDERED: methylPREDNISolone sod succ 125 MG VIAL IM ONE (20:25)
[2025-03-15] MEDS ORDERED: Albuterol Sulf/Ipratropium 3 ML VIAL NEB ONE (20:25)
[2025-03-15] MEDS ORDERED: ZITHROMAX250 MG PO (20:55)
== END 2025-03-15 21:30 | disposition home or self-care (01) ==
LOC: ED 18:41
PROVIDERS: Internal Medicine
DX: J44.1 Chronic obstructive pulmonary disease with (acute) exacerbation (principal); D53.9 Nutritional anemia, unspecified; I25.2 Old myocardial infarction; Z88.8 Allergy status to other drugs, medicaments and biological substances; Z88.6 Allergy status to analgesic agent; Z79.899 Other long term (current) drug therapy; Z79.84 Long term (current) use of oral hypoglycemic drugs; Z79.82 Long term (current) use of aspirin; Z98.890 Other specified postprocedural states

== ENCOUNTER 2025-03-20 10:06 | Inpatient (IN) | payer OTHER ==
[~2025-03-20] VITALS: Ht 170.1 cm; Wt 80.8 kg
[2025-03-20 10:25] VITALS: BP 93/57
[2025-03-20 12:23] LABS: BASO % 0.3 % (0.0-1.0); EOS # 0.1 10*3/uL (0.0-0.4); EOS % 0.8 % (1.0-4.0); HEMATOCRIT 32.2 % (42.0-52.0); MEAN CORPUSCULAR HGB 28.5 pg (27.0-31.0); MEAN CORPUSCULAR HGB CONC 31.4 g/dl (33.0-37.0); MEAN PLATELET VOLUME 9.1 fl (9.6-12.3); MONO # 0.9 10*3/uL (0.1-1.0); MONO % 8.6 % (3.0-9.0); NEUT # 7.8 10*3/uL (2.3-7.9); NEUT % 74.7 % (47.0-73.0); PLATELET COUNT AUTOMATED 408 10*3/uL (130-400); RED BLOOD COUNT 3.54 10*6/uL (4.50-5.90); RED CELL DISTRI WIDTH 15.4 % (0-14.5); WHITE BLOOD COUNT 10.4 10*3/uL (4.8-10.8)
[2025-03-20 12:34] LABS: ACT PARTIAL THROMBO TIME 27.2 SECONDS (20.0-32.1)
[2025-03-20 12:43] LABS: ALKALINE PHOSPHATASE 96 U/L (46-116); BUN 17 mg/dl (9-23); CHLORIDE 101 mmol/L (98-107); POTASSIUM 3.2 mmol/L (3.4-5.1); SGPT/ALT 7 U/L (5-49); TOTAL PROTEIN 6.6 gm/dL (6.0-8.0)
[2025-03-20] MEDS ORDERED: SODIUM CHLORIDE 0.9% 1,000 ML IV SCH (14:20)
[2025-03-20] MEDS ORDERED: cefTRIAXone Sodium 1 GM/10 ML SYR IV ONE (14:25)
[2025-03-20] MEDS ORDERED: AZITHROMYCIN 250 ML IV ONE (14:25)
[2025-03-20] MEDS ORDERED: POTASSIUM CHLORIDE 20 MEQ TAB PO ONE (14:35)
[2025-03-20] MEDS ORDERED: Acetaminophen/Hydrocodone 5 MG/325 MG TABLET PO PRN (15:15)
[2025-03-20] MEDS ORDERED: Magnesium Hydroxide 30 ML UDC PO PRN (15:15)
[2025-03-20] MEDS ORDERED: BISACODYL 5 MG TAB PO PRN (15:15)
[2025-03-20] MEDS ORDERED: ACETAMINOPHEN 325 MG TAB PO PRN (15:15)
[2025-03-20] MEDS ORDERED: ACETAMINOPHEN 650 MG SUPP R PRN (15:15)
[2025-03-20] MEDS ORDERED: Ondansetron Hydrochloride 4 MG/2 ML VIAL IV PRN (15:15)
[2025-03-20] MEDS ORDERED: BISACODYL 10 MG SUPP R PRN (15:15)
[2025-03-20] MEDS ORDERED: MORPHINE Sulfate 2 MG/ML SYR IV PRN (15:15)
[2025-03-20] MEDS ORDERED: DEXTROSE 50% 25 GM/50 ML VIAL IV PRN (15:40)
[2025-03-20 16:28] VITALS: BP 92/62
[2025-03-20] MEDS ORDERED: INSULIN LISPRO 1 UNIT/0.01 ML SQ SCH (16:30)
[2025-03-20 16:51] VITALS: BP 131/50
[2025-03-20] MEDS ORDERED: SODIUM CHLORIDE 0.9% 500 ML IV ONE (19:38)
[2025-03-20 20:00] VITALS: BP 124/61
[2025-03-20] MEDS ORDERED: GUAIFENESIN 600 MG TAB ER PO SCH (22:00)
[2025-03-20] MEDS ORDERED: Cyclobenzaprine Hydrochlorid 10 MG TAB PO PRN (22:45)
[2025-03-20] MEDS ORDERED: [UNRECOGNIZED DRUG - OTHER] INH SCH (22:45)
[2025-03-20] MEDS ORDERED: Albuterol Sulfate 2.5 MG/3 ML VIAL NEB PRN (22:50)
[2025-03-20] MEDS ORDERED: Metoprolol Tartrate 25 MG TAB PO SCH (22:51)
[2025-03-20] MEDS ORDERED: LEVETIRACETAM 500 MG TAB PO SCH (22:51)
[2025-03-20] MEDS ORDERED: TOPIRAMATE 100 MG TAB PO SCH (22:51)
[2025-03-21] VITALS: BP 119/70
[2025-03-21] MEDS ORDERED: GABAPENTIN 800 MG TAB PO SCH (06:00)
[2025-03-21 06:05] LABS: HEMATOCRIT 29.7 % (42.0-52.0); MEAN CELL VOLUME 91.1 fl (80.0-94.0); MEAN CORPUSCULAR HGB 29.1 pg (27.0-31.0); MEAN PLATELET VOLUME 9.6 fl (9.6-12.3); PLATELET COUNT AUTOMATED 411 10*3/uL (130-400); RED BLOOD COUNT 3.26 10*6/uL (4.50-5.90); RED CELL DISTRI WIDTH 15.6 % (0-14.5); WHITE BLOOD COUNT 11.5 10*3/uL (4.8-10.8)
[2025-03-21 06:06] LABS: MANUAL DIFF REFLEX YES
[2025-03-21 06:22] LABS: BUN 9 mg/dl (9-23); CHLORIDE 103 mmol/L (98-107); POTASSIUM 3.2 mmol/L (3.4-5.1)
[2025-03-21 06:44] LABS: BURR CELLS FEW; OVALOCYTES FEW; PLATELET SUFFICIENCY HIGH (NORMAL); POLYCHROMASIA SLIGHT; ROULEAUX SLIGHT; SCHISTOCYTES FEW; TOTAL CELLS COUNTED 100 #CELLS
[2025-03-21 08:00] VITALS: BP 108/90
[2025-03-21] MEDS ORDERED: POTASSIUM CHLORIDE 20 MEQ TAB PO ONE (08:10)
[2025-03-21] MEDS ORDERED: LEVETIRACETAM 500 MG TAB PO SCH (10:00)
[2025-03-21] MEDS ORDERED: Tamsulosin Hydrochloride 0.4 MG CAP PO SCH (10:00)
[2025-03-21] MEDS ORDERED: Cholecalciferol 2,000 UNIT TABLET (50 MCG) PO SCH (10:00)
[2025-03-21] MEDS ORDERED: Losartan Potassium 50 MG TAB PO SCH (10:00)
[2025-03-21] MEDS ORDERED: Metoprolol Tartrate 25 MG TAB PO SCH (10:00)
[2025-03-21] MEDS ORDERED: TOPIRAMATE 100 MG TAB PO SCH (10:00)
[2025-03-21] MEDS ORDERED: Enoxaparin Sodium 40 MG/0.4 ML SYR SC SCH (10:00)
[2025-03-21] MEDS ORDERED: ASPIRIN, CHEWABLE 81 MG TAB PO SCH (10:00)
[2025-03-21] MEDS ORDERED: ROFLUMILAST 500 MCG TAB PO SCH (10:00)
[2025-03-21] MEDS ORDERED: LORATADINE 10 MG TAB PO SCH (10:00)
[2025-03-21 12:00] VITALS: BP 129/62
[2025-03-21] MEDS ORDERED: AZITHROMYCIN 250 ML IV SCH (14:00)
[2025-03-21] MEDS ORDERED: cefTRIAXone Sodium 1 GM in SYRINGE INFUSION 10 ML IV SCH (15:00)
[2025-03-21 16:00] VITALS: BP 130/52
[2025-03-21 16:29] LABS: BILIRUBIN Negative (Negative); BLOOD Negative (Negative); CLARITY Clear (Clear); COLOR Yellow (Yellow); GLUCOSE Negative (Negative); KETONE Trace (Negative); LEUKO ESTERASE Negative (Negative); NITRITE Negative (Negative); PH 6.5 (4.5-8.0); SPECIFIC GRAVITY 1.015 (1.001-1.030); UROBILINOGEN 0.2 E.U./dl (0.0-1.0)
[2025-03-21 16:34] LABS: RBC 0-2 rbc/hpf (0-2)
[2025-03-21] MEDS ORDERED: ATORVASTATIN CALCIUM 40 MG TABLET PO SCH (18:00)
[2025-03-21 20:00] VITALS: BP 130/69
[2025-03-21] MEDS ORDERED: amLODIPine besylate 5 MG TAB PO SCH (22:00)
[2025-03-22] VITALS: BP 115/59
[2025-03-22 06:22] LABS: BUN 11 mg/dl (9-23); CHLORIDE 103 mmol/L (98-107); POTASSIUM 4.1 mmol/L (3.4-5.1)
[2025-03-22 06:34] LABS: HEMATOCRIT 28.1 % (42.0-52.0); MEAN CELL VOLUME 92.4 fl (80.0-94.0); MEAN CORPUSCULAR HGB CONC 30.2 g/dl (33.0-37.0); MEAN PLATELET VOLUME 9.7 fl (9.6-12.3); PLATELET COUNT AUTOMATED 437 10*3/uL (130-400); RED BLOOD COUNT 3.04 10*6/uL (4.50-5.90); RED CELL DISTRI WIDTH 15.8 % (0-14.5); WHITE BLOOD COUNT 11.5 10*3/uL (4.8-10.8)
[2025-03-22 06:35] LABS: MANUAL DIFF REFLEX YES
[2025-03-22 07:21] LABS: BASOPHILS 1 % (0-1); OVALOCYTES FEW; PLATELET SUFFICIENCY HIGH (NORMAL); POLYCHROMASIA SLIGHT; ROULEAUX SLIGHT; TOTAL CELLS COUNTED 100 #CELLS
[2025-03-22 08:00] VITALS: BP 110/62
[2025-03-22 12:00] VITALS: BP 121/56
[2025-03-22 16:00] VITALS: BP 125/67
[2025-03-22 20:00] VITALS: BP 139/71
[2025-03-23] VITALS: BP 116/69
[2025-03-23 06:23] LABS: HEMATOCRIT 26.8 % (42.0-52.0); MEAN CELL VOLUME 90.8 fl (80.0-94.0); MEAN CORPUSCULAR HGB 28.1 pg (27.0-31.0); MEAN PLATELET VOLUME 9.6 fl (9.6-12.3); PLATELET COUNT AUTOMATED 446 10*3/uL (130-400); RED BLOOD COUNT 2.95 10*6/uL (4.50-5.90); RED CELL DISTRI WIDTH 15.7 % (0-14.5); WHITE BLOOD COUNT 11.6 10*3/uL (4.8-10.8)
[2025-03-23 06:32] LABS: BUN 10 mg/dl (9-23); CHLORIDE 101 mmol/L (98-107); POTASSIUM 4.1 mmol/L (3.4-5.1)
[2025-03-23 06:34] LABS: MANUAL DIFF REFLEX YES
[2025-03-23 07:25] LABS: ATYPICAL LYMPHS 1 % (0-0); BASOPHILS 1 % (0-1); PLATELET SUFFICIENCY HIGH (NORMAL); TOTAL CELLS COUNTED 100 #CELLS
[2025-03-23 07:26] LABS: MICROCYTOSIS SLIGHT
[2025-03-23 08:00] VITALS: BP 124/62
[2025-03-23 12:00] VITALS: BP 111/49
[2025-03-23] MEDS ORDERED: Sulfamethoxazole/Trimethopri 1 TAB TAB PO SCH (15:35)
[2025-03-23 16:00] VITALS: BP 136/83
[2025-03-23 20:00] VITALS: BP 138/59
[2025-03-24] VITALS: BP 102/54
[2025-03-24 05:47] LABS: BUN 10 mg/dl (9-23); CHLORIDE 98 mmol/L (98-107)
[2025-03-24 06:03] LABS: MEAN CELL VOLUME 88.7 fl (80.0-94.0); MEAN CORPUSCULAR HGB CONC 31.5 g/dl (33.0-37.0); MEAN PLATELET VOLUME 9.4 fl (9.6-12.3); PLATELET COUNT AUTOMATED 448 10*3/uL (130-400); RED BLOOD COUNT 2.93 10*6/uL (4.50-5.90); RED CELL DISTRI WIDTH 15.9 % (0-14.5); WHITE BLOOD COUNT 13.9 10*3/uL (4.8-10.8)
[2025-03-24 06:13] LABS: MANUAL DIFF REFLEX YES
[2025-03-24 07:59] LABS: TOTAL CELLS COUNTED 100 #CELLS
[2025-03-24 08:00] VITALS: BP 105/59
[2025-03-24 08:00] LABS: OVALOCYTES FEW
[2025-03-24 08:01] LABS: POLYCHROMASIA SLIGHT
[2025-03-24 08:02] LABS: PLATELET SUFFICIENCY HIGH (NORMAL)
[2025-03-24] MEDS ORDERED: FOLIC ACID 1 MG TAB PO SCH (10:00)
[2025-03-24] MEDS ORDERED: SODIUM CHLORIDE Nasal 44 ml bottle NAS PRN (11:15)
[2025-03-24] MEDS ORDERED: Ciprofloxacin Hydrochloride 500 MG TAB PO SCH (11:25)
[2025-03-24 12:00] VITALS: BP 107/54
[2025-03-24 16:00] VITALS: BP 107/54
[2025-03-24 20:00] VITALS: BP 145/68
[2025-03-24] MEDS ORDERED: Melatonin 5 MG TABLET PO PRN (21:00)
[2025-03-25] VITALS: BP 113/63
[2025-03-25 06:16] LABS: BUN 12 mg/dl (9-23); CHLORIDE 96 mmol/L (98-107); POTASSIUM 4.6 mmol/L (3.4-5.1)
[2025-03-25 06:31] LABS: HEMATOCRIT 25.9 % (42.0-52.0); MEAN CELL VOLUME 90.9 fl (80.0-94.0); MEAN CORPUSCULAR HGB 28.1 pg (27.0-31.0); MEAN CORPUSCULAR HGB CONC 30.9 g/dl (33.0-37.0); MEAN PLATELET VOLUME 9.3 fl (9.6-12.3); PLATELET COUNT AUTOMATED 485 10*3/uL (130-400); RED BLOOD COUNT 2.85 10*6/uL (4.50-5.90); RED CELL DISTRI WIDTH 15.9 % (0-14.5); WHITE BLOOD COUNT 17.1 10*3/uL (4.8-10.8)
[2025-03-25 06:40] LABS: MANUAL DIFF REFLEX YES
[2025-03-25 08:00] VITALS: BP 114/57
[2025-03-25 08:01] LABS: TOTAL CELLS COUNTED 100 #CELLS
[2025-03-25 08:04] LABS: PLATELET SUFFICIENCY HIGH (NORMAL)
[2025-03-25] MEDS ORDERED: SODIUM CHLORIDE 0.9% 500 ML IV ONE (10:55)
[2025-03-25 12:00] VITALS: BP 96/57
[2025-03-25] MEDS ORDERED: SEPTDS PO (14:32)
[2025-03-25] MEDS ORDERED: MUCUS RELIEF E600 MG PO (14:32)
[2025-03-25] MEDS ORDERED: CIPROFLOXACIN500 M4 PO (14:32)
== END 2025-03-25 15:11 | disposition home or self-care (01) | DRG 871 ==
LOC: ED 10:06 → EDHOLD 14:49 → 4E 14:49
PROVIDERS: Internal Medicine; Student in an Organized Health Care Education/Training Program; ADMIT Internal Medicine; ATTEND Internal Medicine
DX: A41.9 Sepsis, unspecified organism (principal); J15.69 Pneumonia due to other Gram-negative bacteria; J96.21 Acute and chronic respiratory failure with hypoxia; E87.1 Hypo-osmolality and hyponatremia; I50.32 Chronic diastolic (congestive) heart failure; E44.0 Moderate protein-calorie malnutrition; J96.11 Chronic respiratory failure with hypoxia; J44.0 Chronic obstructive pulmonary disease with (acute) lower respiratory infection; B44.9 Aspergillosis, unspecified; D80.1 Nonfamilial hypogammaglobulinemia; E87.6 Hypokalemia; D64.9 Anemia, unspecified; R65.20 Severe sepsis without septic shock; D75.839 Thrombocytosis, unspecified; I11.0 Hypertensive heart disease with heart failure; K21.9 Gastro-esophageal reflux disease without esophagitis; E11.65 Type 2 diabetes mellitus with hyperglycemia; I25.10 Atherosclerotic heart disease of native coronary artery without angina pectoris; G40.909 Epilepsy, unspecified, not intractable, without status epilepticus; Z88.6 Allergy status to analgesic agent; Z88.8 Allergy status to other drugs, medicaments and biological substances; Z90.49 Acquired absence of other specified parts of digestive tract; Z79.82 Long term (current) use of aspirin; Z79.84 Long term (current) use of oral hypoglycemic drugs; Z79.899 Other long term (current) drug therapy

== ENCOUNTER 2025-05-01 09:00 | Emergency (ER) | payer OTHER ==
[~2025-05-01] VITALS: Ht 170.1 cm; Wt 80.7 kg
[~2025-05-01 09:00] MED LIST changes: +CIPROFLOXACIN500 M4 PO; +MUCUS RELIEF E600 MG PO
[2025-05-01 09:09] VITALS: BP 117/63
[2025-05-01] MEDS ORDERED: Ondansetron Hydrochloride 4 MG/2 ML VIAL IV ONE (09:20)
[2025-05-01 09:41] LABS: BASO # 0.1 10*3/uL (0.0-0.1); BASO % 0.9 % (0.0-1.0); EOS # 0.3 10*3/uL (0.0-0.4); EOS % 3.1 % (1.0-4.0); MEAN CELL VOLUME 88.3 fl (80.0-94.0); MEAN CORPUSCULAR HGB 25.8 pg (27.0-31.0); MEAN PLATELET VOLUME 9.6 fl (9.6-12.3); MONO # 0.5 10*3/uL (0.1-1.0); MONO % 6.5 % (3.0-9.0); NEUT # 5.8 10*3/uL (2.3-7.9); NEUT % 72.3 % (47.0-73.0); NUCLEATED RED BLOOD CELL 0.0 % (0.0-0.0); NUCLEATED RED BLOOD CELL 0.0 10*3/uL (0.0-0.0); PLATELET COUNT AUTOMATED 542 10*3/uL (130-400); RED CELL DISTRI WIDTH 17.2 % (0-14.5)
[2025-05-01] MEDS ORDERED: LEVETIRACETAM500 M3 PO (10:04)
[2025-05-01] MEDS ORDERED: LIDODERM1 EACH T (10:04)
[2025-05-01 10:06] LABS: BUN 12 mg/dl (9-23); CPK 29 U/L (34-171)
[2025-05-01] MEDS ORDERED: ALBUTEROL (10:11)
[2025-05-01] MEDS ORDERED: [UNRECOGNIZED DRUG - OTHER] (10:11)
[2025-05-01 10:12] LABS: SGPT/ALT < 7 U/L (5-49)
[2025-05-01] MEDS ORDERED: Dexamethasone Sodium Phospha 20 MG/5 ML VIAL IV ONE (11:45)
[2025-05-01] MEDS ORDERED: Acetaminophen/Hydrocodone Bi 3 TAB PACK PO PRN (11:45)
[2025-05-01] MEDS ORDERED: PREDNISONE20 M1 PO (11:47)
[2025-05-01] MEDS ORDERED: GUAIFENESIN AC473 M1 PO (11:47)
== END 2025-05-01 11:56 | disposition home or self-care (01) ==
LOC: ED 09:00
PROVIDERS: Emergency Medicine
DX: J44.1 Chronic obstructive pulmonary disease with (acute) exacerbation (principal); M94.0 Chondrocostal junction syndrome [Tietze]; I11.0 Hypertensive heart disease with heart failure; I50.9 Heart failure, unspecified; E11.9 Type 2 diabetes mellitus without complications; K21.9 Gastro-esophageal reflux disease without esophagitis; G43.909 Migraine, unspecified, not intractable, without status migrainosus; Z79.82 Long term (current) use of aspirin; Z79.899 Other long term (current) drug therapy; Z88.6 Allergy status to analgesic agent; Z88.8 Allergy status to other drugs, medicaments and biological substances; F17.200 Nicotine dependence, unspecified, uncomplicated; Z90.49 Acquired absence of other specified parts of digestive tract; Z98.890 Other specified postprocedural states

== ENCOUNTER 2025-06-24 12:00 | Inpatient (IN) | payer OTHER ==
[~2025-06-24] VITALS: Ht 170.1 cm; Wt 75.9 kg
[~2025-06-24 12:00] MED LIST changes: +ALBUTEROL; +GAMUNEX-C10 GM/100 IJ; +GUAIFENESIN AC473 M1 PO; +LEVETIRACETAM500 M3 PO; +[UNRECOGNIZED DRUG - OTHER]
[2025-06-24 12:12] VITALS: BP 125/71
[2025-06-24] MEDS ORDERED: Albuterol Sulf/Ipratropium 3 ML VIAL NEB ONE (12:20)
[2025-06-24 12:48] LABS: BASO # 0.0 10*3/uL (0.0-0.1); BASO % 0.5 % (0.0-1.0); EOS # 0.1 10*3/uL (0.0-0.4); EOS % 1.7 % (1.0-4.0); MEAN CELL VOLUME 84.8 fl (80.0-94.0); MEAN CORPUSCULAR HGB 24.9 pg (27.0-31.0); MEAN PLATELET VOLUME 9.3 fl (9.6-12.3); MONO # 0.6 10*3/uL (0.1-1.0); MONO % 7.3 % (3.0-9.0); NEUT # 5.6 10*3/uL (2.3-7.9); NEUT % 73.6 % (47.0-73.0); NUCLEATED RED BLOOD CELL 0.0 % (0.0-0.0); NUCLEATED RED BLOOD CELL 0.0 10*3/uL (0.0-0.0); PLATELET COUNT AUTOMATED 456 10*3/uL (130-400); RED CELL DISTRI WIDTH 17.8 % (0-14.5)
[2025-06-24 13:08] LABS: BUN 12 mg/dl (9-23)
[2025-06-24] MEDS ORDERED: Ondansetron Hydrochloride 4 MG/2 ML VIAL IV ONE (14:00)
[2025-06-24 16:00] VITALS: BP 128/68
[2025-06-24] MEDS ORDERED: Albuterol Sulf/Ipratropium 3 ML VIAL NEB SCH (16:20)
[2025-06-24] MEDS ORDERED: Acetaminophen/Hydrocodone 5 MG/325 MG TABLET PO PRN (16:30)
[2025-06-24 17:00] VITALS: BP 128/68
[2025-06-24] MEDS ORDERED: AZITHROMYCIN 250 ML IV SCH (17:00)
[2025-06-24] MEDS ORDERED: ATORVASTATIN CALCIUM 40 MG TABLET PO SCH (18:00)
[2025-06-24 20:00] VITALS: BP 111/58
[2025-06-24] MEDS ORDERED: TOPIRAMATE 100 MG TAB PO SCH (22:00)
[2025-06-24] MEDS ORDERED: GABAPENTIN 800 MG TAB PO SCH (22:00)
[2025-06-24] MEDS ORDERED: LEVETIRACETAM 500 MG TAB PO SCH (22:00)
[2025-06-25] VITALS: BP 126/67
[2025-06-25 06:37] LABS: BUN 17 mg/dl (9-23)
[2025-06-25 06:51] LABS: BASO # 0.0 10*3/uL (0.0-0.1); BASO % 0.0 % (0.0-1.0); EOS # 0.0 10*3/uL (0.0-0.4); EOS % 0.0 % (1.0-4.0); MEAN CELL VOLUME 83.1 fl (80.0-94.0); MEAN CORPUSCULAR HGB 24.8 pg (27.0-31.0); MEAN PLATELET VOLUME 9.8 fl (9.6-12.3); MONO # 0.1 10*3/uL (0.1-1.0); MONO % 1.6 % (3.0-9.0); NEUT # 5.6 10*3/uL (2.3-7.9); NEUT % 89.5 % (47.0-73.0); NUCLEATED RED BLOOD CELL 0.0 % (0.0-0.0); NUCLEATED RED BLOOD CELL 0.0 10*3/uL (0.0-0.0); PLATELET COUNT AUTOMATED 519 10*3/uL (130-400); RED CELL DISTRI WIDTH 18.0 % (0-14.5)
[2025-06-25 07:44] VITALS: BP 129/70
[2025-06-25] MEDS ORDERED: ASPIRIN, CHEWABLE 81 MG TAB PO SCH (10:00)
[2025-06-25] MEDS ORDERED: Meloxicam 15 MG TAB PO SCH (10:00)
[2025-06-25] MEDS ORDERED: ROFLUMILAST 500 MCG TAB PO SCH (10:00)
[2025-06-25 12:00] VITALS: BP 126/68
[2025-06-25 16:00] VITALS: BP 131/66
[2025-06-25 20:00] VITALS: BP 141/70
[2025-06-26] VITALS: BP 143/71
[2025-06-26] MEDS ORDERED: Cyclobenzaprine Hydrochlorid 10 MG TAB PO PRN (00:30)
[2025-06-26] MEDS ORDERED: Technetium Tc 99M Tetrofosmi 0.23 MG KIT IJ SCH (07:50)
[2025-06-26 08:00] VITALS: BP 146/73
[2025-06-26] MEDS ORDERED: Regadenoson 0.4 MG/5 ML SYR IV ONE (08:22)
[2025-06-26 12:00] VITALS: BP 149/69
[2025-06-26 16:00] VITALS: BP 150/62
[2025-06-26 20:00] VITALS: BP 140/71
[2025-06-27] VITALS: BP 155/35
[2025-06-27 06:38] LABS: BASO # 0.0 10*3/uL (0.0-0.1); BASO % 0.0 % (0.0-1.0); EOS # 0.0 10*3/uL (0.0-0.4); EOS % 0.0 % (1.0-4.0); MEAN CELL VOLUME 82.5 fl (80.0-94.0); MEAN CORPUSCULAR HGB 24.7 pg (27.0-31.0); MEAN PLATELET VOLUME 9.8 fl (9.6-12.3); MONO # 0.6 10*3/uL (0.1-1.0); MONO % 4.6 % (3.0-9.0); NEUT # 11.5 10*3/uL (2.3-7.9); NEUT % 89.4 % (47.0-73.0); NUCLEATED RED BLOOD CELL 0.0 % (0.0-0.0); NUCLEATED RED BLOOD CELL 0.0 10*3/uL (0.0-0.0); PLATELET COUNT AUTOMATED 529 10*3/uL (130-400); RED CELL DISTRI WIDTH 18.2 % (0-14.5)
[2025-06-27] MEDS ORDERED: CEFUROXIME AXE500 MG PO (07:00)
[2025-06-27] MEDS ORDERED: PREDNISONE5 MG PO (07:00)
[2025-06-27 07:20] LABS: BUN 23 mg/dl (9-23)
[2025-06-27 08:00] VITALS: BP 144/91
[2025-06-27 12:00] VITALS: BP 148/82
== END 2025-06-27 15:20 | disposition home or self-care (01) | DRG 191 ==
LOC: ED 12:00 → EDHOLD 14:13 → 4E 14:13
PROVIDERS: Emergency Medicine; ADMIT Internal Medicine; ATTEND Internal Medicine
PROC: 4A02XM4 Measurement of Cardiac Total Activity, External Approach (ICD-10-PCS; principal; 2025-06-26)
PROC: 3E073KZ Introduction of Other Diagnostic Substance into Coronary Artery, Percutaneous Approach (ICD-10-PCS; 2025-06-26)
DX: J44.1 Chronic obstructive pulmonary disease with (acute) exacerbation (principal); B44.9 Aspergillosis, unspecified; D80.1 Nonfamilial hypogammaglobulinemia; I50.32 Chronic diastolic (congestive) heart failure; J96.11 Chronic respiratory failure with hypoxia; J20.9 Acute bronchitis, unspecified; F41.1 Generalized anxiety disorder; N40.0 Benign prostatic hyperplasia without lower urinary tract symptoms; E11.9 Type 2 diabetes mellitus without complications; G89.29 Other chronic pain; M54.50 Low back pain, unspecified; G40.409 Other generalized epilepsy and epileptic syndromes, not intractable, without status epilepticus; M94.0 Chondrocostal junction syndrome [Tietze]; J44.0 Chronic obstructive pulmonary disease with (acute) lower respiratory infection; I11.0 Hypertensive heart disease with heart failure; I25.10 Atherosclerotic heart disease of native coronary artery without angina pectoris; K21.9 Gastro-esophageal reflux disease without esophagitis; I25.2 Old myocardial infarction; Z90.89 Acquired absence of other organs; Z87.891 Personal history of nicotine dependence; Z82.49 Family history of ischemic heart disease and other diseases of the circulatory system; Z83.3 Family history of diabetes mellitus; Z88.8 Allergy status to other drugs, medicaments and biological substances; Z79.899 Other long term (current) drug therapy

== ENCOUNTER 2025-07-10 13:09 | Emergency (ER) | payer OTHER ==
[~2025-07-10] VITALS: Wt 79.4 kg
[~2025-07-10 13:09] MED LIST changes: +CEFUROXIME AXE500 MG PO; +PREDNISONE5 MG PO
[2025-07-10 13:19] VITALS: BP 142/66
[2025-07-10] MEDS ORDERED: Ondansetron Hydrochloride 4 MG/2 ML VIAL IV ONE (13:50)
[2025-07-10] MEDS ORDERED: LEVETIRACETAM IN NACL (ISO-OS) 100 ML IV ONE (13:50)
[2025-07-10 14:12] LABS: BASO # 0.0 10*3/uL (0.0-0.1); BASO % 0.2 % (0.0-1.0); EOS # 0.1 10*3/uL (0.0-0.4); EOS % 0.9 % (1.0-4.0); MEAN CELL VOLUME 83.3 fl (80.0-94.0); MEAN CORPUSCULAR HGB 25.1 pg (27.0-31.0); MEAN PLATELET VOLUME 9.7 fl (9.6-12.3); MONO # 0.8 10*3/uL (0.1-1.0); MONO % 5.2 % (3.0-9.0); NEUT # 12.4 10*3/uL (2.3-7.9); NEUT % 85.4 % (47.0-73.0); NUCLEATED RED BLOOD CELL 0.0 % (0.0-0.0); NUCLEATED RED BLOOD CELL 0.0 10*3/uL (0.0-0.0); PLATELET COUNT AUTOMATED 453 10*3/uL (130-400); RED CELL DISTRI WIDTH 18.3 % (0-14.5)
[2025-07-10 14:31] LABS: BUN 18 mg/dl (9-23)
== END 2025-07-10 15:01 | disposition home or self-care (01) ==
LOC: ED 13:09
PROVIDERS: Emergency Medicine
DX: R56.9 Unspecified convulsions (principal); M54.50 Low back pain, unspecified; R51.9 Headache, unspecified; R20.2 Paresthesia of skin; R60.0 Localized edema; J44.9 Chronic obstructive pulmonary disease, unspecified; I25.2 Old myocardial infarction; F17.200 Nicotine dependence, unspecified, uncomplicated; Z88.8 Allergy status to other drugs, medicaments and biological substances; Z88.6 Allergy status to analgesic agent; Z79.899 Other long term (current) drug therapy; Z79.82 Long term (current) use of aspirin; Z98.890 Other specified postprocedural states; Z90.49 Acquired absence of other specified parts of digestive tract

== ENCOUNTER 2025-07-19 18:24 | Inpatient (IN) | payer OTHER ==
[~2025-07-19] VITALS: Ht 170.1 cm; Wt 77.1 kg
[2025-07-19 18:49] VITALS: BP 123/54
[2025-07-19] MEDS ORDERED: SODIUM CHLORIDE 0.9% 1,000 ML IV ONE (19:35)
[2025-07-19] MEDS ORDERED: Albuterol Sulf/Ipratropium 3 ML VIAL NEB ONE (19:35)
[2025-07-19 19:50] LABS: BASO # 0.0 10*3/uL (0.0-0.1); BASO % 0.7 % (0.0-1.0); EOS # 0.1 10*3/uL (0.0-0.4); EOS % 2.5 % (1.0-4.0); MEAN CELL VOLUME 85.1 fl (80.0-94.0); MEAN CORPUSCULAR HGB 25.1 pg (27.0-31.0); MEAN PLATELET VOLUME 9.7 fl (9.6-12.3); MONO # 0.6 10*3/uL (0.1-1.0); MONO % 9.9 % (3.0-9.0); NEUT # 3.4 10*3/uL (2.3-7.9); NEUT % 61.4 % (47.0-73.0); NUCLEATED RED BLOOD CELL 0.0 % (0.0-0.0); NUCLEATED RED BLOOD CELL 0.0 10*3/uL (0.0-0.0); PLATELET COUNT AUTOMATED 433 10*3/uL (130-400); RED CELL DISTRI WIDTH 17.7 % (0-14.5)
[2025-07-19 20:08] LABS: BUN 11 mg/dl (9-23)
[2025-07-19] MEDS ORDERED: BUDESONIDE 0.5 MG AMP NEB SCH (21:50)
[2025-07-19] MEDS ORDERED: Albuterol Sulf/Ipratropium 3 ML VIAL NEB SCH (22:00)
[2025-07-19 22:23] VITALS: BP 128/65
[2025-07-19 22:30] VITALS: BP 140/74
[2025-07-19] MEDS ORDERED: Acetaminophen/Hydrocodone 5 MG/325 MG TABLET PO PRN (23:20)
[2025-07-20 08:00] VITALS: BP 139/79
[2025-07-20] MEDS ORDERED: Cyclobenzaprine Hydrochlorid 10 MG TAB PO PRN (08:40)
[2025-07-20] MEDS ORDERED: diazePAM 2 MG TAB PO PRN (08:40)
[2025-07-20] MEDS ORDERED: Acetaminophen/Hydrocodone 5 MG/325 MG TABLET PO PRN (08:40)
[2025-07-20] MEDS ORDERED: DEXTROSE 10 % IN WATER 250 ML IV PRN (08:45)
[2025-07-20] MEDS ORDERED: Meloxicam 15 MG TAB PO SCH (10:00)
[2025-07-20] MEDS ORDERED: ASPIRIN, CHEWABLE 81 MG TAB PO SCH (10:00)
[2025-07-20] MEDS ORDERED: LEVETIRACETAM 500 MG TAB PO SCH (10:00)
[2025-07-20] MEDS ORDERED: AZITHROMYCIN 250 ML IV SCH (10:00)
[2025-07-20] MEDS ORDERED: ROFLUMILAST 500 MCG TAB PO SCH (10:00)
[2025-07-20] MEDS ORDERED: TOPIRAMATE 100 MG TAB PO SCH (10:00)
[2025-07-20] MEDS ORDERED: INSULIN REGULAR, HUMAN 1 UNIT/0.01 ML SC SCH (11:30)
[2025-07-20] MEDS ORDERED: GABAPENTIN 800 MG TAB PO SCH (14:00)
[2025-07-20 16:00] VITALS: BP 152/75
[2025-07-20] MEDS ORDERED: ATORVASTATIN CALCIUM 40 MG TABLET PO SCH (18:00)
[2025-07-20 20:00] VITALS: BP 133/68
[2025-07-21] VITALS: BP 129/64
[2025-07-21 08:00] VITALS: BP 176/91
[2025-07-21] MEDS ORDERED: GUAIFENESIN 600 MG TAB ER PO SCH (10:00)
[2025-07-21 12:00] VITALS: BP 148/75
[2025-07-21 16:00] VITALS: BP 158/81
[2025-07-21 20:00] VITALS: BP 141/82
[2025-07-22] VITALS: BP 153/79
[2025-07-22 08:25] VITALS: BP 152/96
[2025-07-22] MEDS ORDERED: LEVOFLOXACIN 150 ML IV SCH (10:00)
[2025-07-22 11:33] VITALS: BP 136/81
[2025-07-22 15:42] VITALS: BP 130/89
[2025-07-22 20:00] VITALS: BP 122/79
[2025-07-23] VITALS: BP 165/98
[2025-07-23 06:02] LABS: BUN 26 mg/dl (9-23)
[2025-07-23 06:08] LABS: BASO # 0.0 10*3/uL (0.0-0.1); BASO % 0.1 % (0.0-1.0); EOS # 0.0 10*3/uL (0.0-0.4); EOS % 0.0 % (1.0-4.0); MEAN CELL VOLUME 82.8 fl (80.0-94.0); MEAN CORPUSCULAR HGB 25.1 pg (27.0-31.0); MEAN PLATELET VOLUME 10.4 fl (9.6-12.3); MONO # 0.6 10*3/uL (0.1-1.0); MONO % 5.7 % (3.0-9.0); NEUT # 8.5 10*3/uL (2.3-7.9); NEUT % 84.3 % (47.0-73.0); NUCLEATED RED BLOOD CELL 0.0 % (0.0-0.0); NUCLEATED RED BLOOD CELL 0.0 10*3/uL (0.0-0.0); PLATELET COUNT AUTOMATED 510 10*3/uL (130-400); RED CELL DISTRI WIDTH 17.9 % (0-14.5)
[2025-07-23 08:00] VITALS: BP 155/82
[2025-07-23] MEDS ORDERED: LEVOFLOXACIN500 MG PO (08:15)
[2025-07-23] MEDS ORDERED: TOPAMAX50 MG PO (08:15)
[2025-07-23] MEDS ORDERED: METOPROLOL TART50 M1 PO ×2 (08:15→08:20)
== END 2025-07-23 14:30 | disposition home or self-care (01) | DRG 202 ==
LOC: ED 18:24 → ICCU 21:05 → 5E 21:05 → EDHOLD 21:05 → ICCU 22:06 → 5E 07-20 13:47
PROVIDERS: Internal Medicine; ADMIT Internal Medicine; ATTEND Internal Medicine
DX: J20.9 Acute bronchitis, unspecified (principal); B44.9 Aspergillosis, unspecified; D80.1 Nonfamilial hypogammaglobulinemia; J44.1 Chronic obstructive pulmonary disease with (acute) exacerbation; J44.0 Chronic obstructive pulmonary disease with (acute) lower respiratory infection; I50.32 Chronic diastolic (congestive) heart failure; J96.10 Chronic respiratory failure, unspecified whether with hypoxia or hypercapnia; D84.89 Other immunodeficiencies; G40.909 Epilepsy, unspecified, not intractable, without status epilepticus; F41.1 Generalized anxiety disorder; N40.0 Benign prostatic hyperplasia without lower urinary tract symptoms; G89.29 Other chronic pain; E11.65 Type 2 diabetes mellitus with hyperglycemia; T38.0X5A Adverse effect of glucocorticoids and synthetic analogues, initial encounter; M54.9 Dorsalgia, unspecified; J43.9 Emphysema, unspecified; I25.10 Atherosclerotic heart disease of native coronary artery without angina pectoris; I11.0 Hypertensive heart disease with heart failure; K21.9 Gastro-esophageal reflux disease without esophagitis; Z88.7 Allergy status to serum and vaccine; Z91.09 Other allergy status, other than to drugs and biological substances; Z79.899 Other long term (current) drug therapy; Z79.01 Long term (current) use of anticoagulants; Z79.2 Long term (current) use of antibiotics; Z79.82 Long term (current) use of aspirin; I25.2 Old myocardial infarction; Z87.891 Personal history of nicotine dependence; Z90.49 Acquired absence of other specified parts of digestive tract; Y92.89 Other specified places as the place of occurrence of the external cause

== ENCOUNTER 2025-09-15 12:23 | Emergency (ER) | payer OTHER ==
[~2025-09-15 12:23] MED LIST changes: +AMLODIPINE BESY10 MG PO; +CEFDINIR300 MG PO; +FEROSUL325 MG PO; +HYDROXYUREA500 MG PO; +JARDIANCE25 MG PO; +METOPROLOL TART50 M1 PO; +MUCINEX D ER 11 EACH PO
[2025-09-15 12:26] VITALS: BP 121/76
== END 2025-09-15 14:09 | disposition home or self-care (01) ==
LOC: ED 12:23
DX: S70.01XA Contusion of right hip, initial encounter (principal); R53.1 Weakness; Z88.2 Allergy status to sulfonamides; Z88.6 Allergy status to analgesic agent; Z88.8 Allergy status to other drugs, medicaments and biological substances; Z79.899 Other long term (current) drug therapy; Z79.82 Long term (current) use of aspirin; Z98.890 Other specified postprocedural states; Z87.891 Personal history of nicotine dependence; W18.30XA Fall on same level, unspecified, initial encounter; Y93.89 Activity, other specified; Y92.89 Other specified places as the place of occurrence of the external cause; Y99.8 Other external cause status

== ENCOUNTER 2025-09-16 05:34 | Emergency (ER) | payer OTHER ==
[~2025-09-16] VITALS: Ht 175.2 cm; Wt 81.6 kg
[2025-09-16] MEDS ORDERED: EPINEPHrine Hydrochloride 1 MG/10 ML SYR IV ONE (17:49)
== END 2025-09-16 07:08 ==
LOC: ED 05:39
DX: I46.9 Cardiac arrest, cause unspecified (principal); I25.10 Atherosclerotic heart disease of native coronary artery without angina pectoris; J44.9 Chronic obstructive pulmonary disease, unspecified; E11.9 Type 2 diabetes mellitus without complications; K21.9 Gastro-esophageal reflux disease without esophagitis; I25.2 Old myocardial infarction; G43.909 Migraine, unspecified, not intractable, without status migrainosus; I11.0 Hypertensive heart disease with heart failure; I50.9 Heart failure, unspecified; Z90.49 Acquired absence of other specified parts of digestive tract; Z88.1 Allergy status to other antibiotic agents; Z88.8 Allergy status to other drugs, medicaments and biological substances; Z98.890 Other specified postprocedural states